=== PATIENT | male | born 1960 | race Caucasian/White ===

== ENCOUNTER → 2018-03-30 10:09 | Outpatient (CLI) | payer MEDICARE, SELFPAY ==
[2018-03-30 12:52] LABS: Absolute Lymphocyte Count 1.14 X10^3/ul (0.83-4.51); Absolute Neutrophil Count 4.5 X10^3/uL (2.0-7.7); Basophil# 0.07 X10^3/uL; Basophil% 1.1 % (0-1); Eosinophil# 0.15 X10^3/uL; Eosinophils% 2.3 % (0-5); Hematocrit 45.6 % (40-54); Hemoglobin 15.2 g/dl (13.0-16.5); Lymphocyte # 1.14 X10^3/ul (4.0); Lymphocyte % 17.4 % (19-41); Mean Corp Hgb Conc 33.3 g/gl (32-36); Mean Corpuscular Volume 93.1 fL (80-94); Mean Platelet Vol. 11.1 fl (6.2-12.0); Monocyte# 0.67 X10^3/uL; Monocyte% 10.2 % (0-10); Neutrophil # 4.53 X10^3/uL (2.7-7.7); Neutrophil % 68.8 % (47-70); Platelet Count 255 K/mm3 (150-450); RBC Distribution Width CV 13.9 % (11.6-14.6); RBC Distribution Width SD 47.8 fl (35.1-43.9); White Blood Count 6.6 K/mm3 (4.4-11.0)
[2018-03-30 12:56] LABS: POSITIVE COUNT NO; POSITIVE DIFFERENTIAL NO; POSITIVE MORPHOLOGY NO
[2018-03-30 13:20] LABS: AST(SGOT) 21 U/L (15-37); Alanine Aminotransfer ALT/SGPT 30 U/L (16-61); Albumin, Serum 4.2 g/dL (3.2-5.0); Alkaline Phosphatase 83 U/L (45-117); Anion Gap 9 (5-15); BUN 15 mg/dL (7-18); BUN/Creat Ratio 14.3 RATIO (10-20); Calcium,Total 8.7 mg/dL (8.5-10.1); Chloride 107 mmol/L (98-107); Creatinine, Serum 1.05 mg/dL (0.70-1.30); EST Glomerular Filtration Rate 77 mL/min (>60); Est Glom Filt Rate - Afr Amer 93 mL/min (>60); Globulin 4.3 g/dL (2.2-4.2); Glucose 90 mg/dL (74-106); Protein, Total 8.5 g/dL (6.4-8.2); Sodium Level 142 mmol/L (136-145)
[2018-03-31 11:16] LABS: Hep C Antibodies <0.1 s/co ratio (0.0-0.9)
== END ==
PROVIDERS: Family Provider Family Medicine Geriatric Medicine; PCP Family Medicine Geriatric Medicine; Visit Provider Family Medicine Geriatric Medicine
DX: I10 Essential (primary) hypertension (principal); Z12.5 Encounter for screening for malignant neoplasm of prostate; Z13.89 Encounter for screening for other disorder
CPT/HCPCS: 36415; 80053; 84153; 84443; 85025; 86803; G0103

== ENCOUNTER → 2018-09-28 11:37 | Outpatient (CLI) | payer MEDICARE, SELFPAY ==
[2018-09-28 12:41] LABS: Absolute Lymphocyte Count 1.45 X10^3/ul (0.83-4.51); Absolute Neutrophil Count 3.6 X10^3/uL (2.0-7.7); Basophil# 0.08 X10^3/uL; Basophil% 1.3 % (0-1); Eosinophil# 0.31 X10^3/uL; Eosinophils% 5.1 % (0-5); Hematocrit 46.9 % (40-54); Hemoglobin 15.7 g/dl (13.0-16.5); Lymphocyte # 1.45 X10^3/ul (4.0); Lymphocyte % 23.9 % (19-41); Mean Corp Hgb Conc 33.5 g/gl (32-36); Mean Corpuscular Hgb 31.2 pg (27.0-32.0); Mean Corpuscular Volume 93.2 fL (80-94); Monocyte# 0.65 X10^3/uL; Monocyte% 10.7 % (0-10); Neutrophil # 3.56 X10^3/uL (2.7-7.7); Neutrophil % 58.8 % (47-70); Platelet Count 213 K/mm3 (150-450); RBC Distribution Width SD 51.2 fl (35.1-43.9); Red Blood Count 5.03 M/mm3 (4.6-6.2); White Blood Count 6.1 K/mm3 (4.4-11.0)
[2018-09-28 12:48] LABS: POSITIVE COUNT NO; POSITIVE DIFFERENTIAL NO; POSITIVE MORPHOLOGY NO
[2018-09-28 13:02] LABS: ALB/GLOB Ratio 0.9 RATIO (0.9-2.4); AST(SGOT) 19 U/L (15-37); Alanine Aminotransfer ALT/SGPT 29 U/L (16-61); Albumin, Serum 4.1 g/dL (3.2-5.0); Alkaline Phosphatase 90 U/L (45-117); Anion Gap 12 (5-15); BUN 7 mg/dL (7-18); BUN/Creat Ratio 6.4 RATIO (10-20); Calcium,Total 8.6 mg/dL (8.5-10.1); Chloride 103 mmol/L (98-107); Creatinine, Serum 1.09 mg/dL (0.70-1.30); EST Glomerular Filtration Rate 73 mL/min (>60); Est Glom Filt Rate - Afr Amer 89 mL/min (>60); Globulin 4.4 g/dL (2.2-4.2); Glucose 94 mg/dL (74-106); Potassium 3.6 mmol/L (3.5-5.1); Protein, Total 8.5 g/dL (6.4-8.2); Sodium Level 141 mmol/L (136-145)
--- OUTSIDE RECORDS SUMMARY | 2018-11-23 20:37 | XMS RPT_ITS ---
:1960 Author Organization OHIP Care Team Providers Name Role Phone Napoleon, Pantera Chi Attending Unavailable Napoleon, Pantera Chi Primary Care Unavailable Napoleon, Pantera Chi Attending Unavailable Napoleon, Pantera Chi Primary Care Unavailable PROBLEMS PROBLEMS DATE TYPE CONDITION / CODE ATTENDING STATUS SOURCE 03/30/2018 Unknown I10 - Essential Napoleon, Pnatera Chi Active [place] (primary) [facility] hypertension / Hospital I10(ICD-10) Repository 03/30/2018 Unknown Z12.5 - Encounter Napoleon, Pantera Chi Active [place] for screening for [facility] malignant neoplasm [facility] prostate / Repository Z12.5(ICD-10) 03/30/2018 Unknown Z13.89 - Encounter Napoleon, Pantera Chi Active [place] for screening for [facility] other disorder / Hospital Z13.89(ICD-10) Repository PROCEDURES PROCEDURES No Procedure Records FoundRESULTS RESULTS CBC W/DIFF, AUTOMATED Collected: 09/28/2018 Status: F Source: [place] 11:38 AM [facility] REPOSITORY TYPE CODE TESTS RESULT OUT OF RANGE REFERENCE UNITS LAB L100.1000 4.4-11.0 K/mm3 Normal WBC 6.1 LAB L100.1200 4.6-6.2 M/mm3 Normal RBC 5.03 LAB L100.1300 13.0-16.5 g/dl Normal HGB 15.7 LAB L100.1400 40-54 % Normal HCT 46.9 LAB L100.1500 80-94 fL Normal MCV 93.2 LAB L100.1600 27.0-32.0 pg Normal MCH 31.2 LAB L100.1700 32-36 g/gl Normal MCHC 33.5 LAB L100.1810 11.6-14.6 % High RDW CV 15.0 LAB L100.1820 35.1-43.9 fl High RDW SD 51.2 LAB L100.1900 150-450 K/mm3 Normal PLT 213 LAB L100.2000 6.2-12.0 fl Normal MPV 11.0 LAB L100.2100 47-70 % Normal NEUT% 58.8 LAB L100.2200 19-41 % Normal LY% 23.9 LAB L100.2300 0-10 % High MONO% 10.7 LAB L100.2400 0-5 % High EO% 5.1 LAB L100.2500 0-1 % High BASO% 1.3 LAB L100.2550 0.0-0.9 % Normal IM GRAN % 0.200 Result Comment: IG% - Immature Granulocytes (promyelocytes, myelocytes and metamyelocytes) > 1% indicates that a LEFT SHIFT is Present. LAB L100.2620 2.0-7.7 X10 3/uL Normal Absolute Neut 3.6 LAB L100.2720 0.83-4.51 X10 3/ul Normal Absolute Lymph 1.45 Performed By: #### L100.0100 #### [facility] [address] [place], [address] COMPREHENSIVE METABOLIC Collected: 09/28/2018 Status: F Source: [place] 11:38 AM [facility] REPOSITORY TYPE CODE TESTS RESULT OUT OF RANGE REFERENCE UNITS LAB L501.0100 74-106 mg/dL Normal GLU 94 Result Comment: Please note revised GLUCOSE reference range effective 2017. LAB L501.1000 7-18 mg/dL Normal BUN 7 LAB L501.1100 0.70-1.30 mg/dL Normal CREAT,SERUM 1.09 Result Comment: The validity of the calculated GFR AND GFRAA in patients over 70 years has not been determined. Clinical correlation is essential. LAB L501.1110 >60 mL/min Normal EST GFR 73 Result Comment: Non- GFR Calc LAB L501.1115 >60 mL/min Normal EST GFR - AA 89 Result Comment: GFR Calc LAB L501.1300 10-20 RATIO Low BUN/CRE 6.4 LAB L501.1500 6.4-8.2 g/dL High T PROT 8.5 LAB L501.1800 3.2-5.0 g/dL Normal ALB 4.1 LAB L501.1950 2.2-4.2 g/dL High GLOB 4.4 LAB L501.2000 0.9-2.4 RATIO Normal A/G 0.9 LAB L501.2200 8.5-10.1 mg/dL Normal CA 8.6 LAB L501.4100 15-37 U/L Normal AST 19 LAB L501.4305 45-117 U/L Normal ALK P 90 LAB L501.4405 16-61 U/L Normal ALT 29 LAB L501.4600 0.20-1.00 mg/dL Normal T BILI 0.40 LAB L501.5300 136-145 mmol/L Normal NA 141 LAB L501.5600 3.5-5.1 mmol/L Normal K 3.6 LAB L501.5900 98-107 mmol/L Normal CL 103 LAB L501.6100 21.0-32.0 mmol/L Normal CO2 26.0 LAB L501.6200 5-15 Normal GAP 12 Performed By: #### L500.4050, L501.9520 #### [facility] [address] [place], [place], [address] THYROID STIM HORMONE Collected: 09/28/2018 Status: F Source: [place] (TSH) 11:38 AM [facility] REPOSITORY TYPE CODE TESTS RESULT OUT OF RANGE REFERENCE UNITS LAB L501.9520 0.358-3.74 uIU/mL Normal TSH 1.90 Performed By: #### L500.4050, L501.9520 #### [facility] [address] [place], [address] CBC W/DIFF, AUTOMATED Collected: 03/30/2018 Status: F Source: [place] 10:12 AM [facility] REPOSITORY TYPE CODE TESTS RESULT OUT OF RANGE REFERENCE UNITS LAB L100.1000 4.4-11.0 K/mm3 Normal WBC 6.6 LAB L100.1200 4.6-6.2 M/mm3 Normal RBC 4.90 LAB L100.1300 13.0-16.5 g/dl Normal HGB 15.2 LAB L100.1400 40-54 % Normal HCT 45.6 LAB L100.1500 80-94 fL Normal MCV 93.1 LAB L100.1600 27.0-32.0 pg Normal MCH 31.0 LAB L100.1700 32-36 g/gl Normal MCHC 33.3 LAB L100.1810 11.6-14.6 % Normal RDW CV 13.9 LAB L100.1820 35.1-43.9 fl High RDW SD 47.8 LAB L100.1900 150-450 K/mm3 Normal PLT 255 LAB L100.2000 6.2-12.0 fl Normal MPV 11.1 LAB L100.2100 47-70 % Normal NEUT% 68.8 LAB L100.2200 19-41 % Low LY% 17.4 LAB L100.2300 0-10 % High MONO% 10.2 LAB L100.2400 0-5 % Normal EO% 2.3 LAB L100.2500 0-1 % High BASO% 1.1 LAB L100.2550 0.0-0.9 % Normal IM GRAN % 0.200 Result Comment: IG% - Immature Granulocytes (promyelocytes, myelocytes and metamyelocytes) > 1% indicates that a LEFT SHIFT is Present. LAB L100.2620 2.0-7.7 X10 3/uL Normal Absolute Neut 4.5 LAB L100.2720 0.83-4.51 X10 3/ul Normal Absolute Lymph 1.14 Performed By: #### L100.0100 #### [facility] [address] [place], [address] COMPREHENSIVE METABOLIC Collected: 03/30/2018 Status: F Source: [facility] 10:12 AM [facility] REPOSITORY TYPE CODE TESTS RESULT OUT OF RANGE REFERENCE UNITS LAB L501.0100 74-106 mg/dL Normal GLU 90 Result Comment: Please note revised GLUCOSE reference range effective 2017. LAB L501.1000 7-18 mg/dL Normal BUN 15 LAB L501.1100 0.70-1.30 mg/dL Normal CREAT,SERUM 1.05 Result Comment: The validity of the calculated GFR AND GFRAA in patients over 70 years has not been determined. Clinical correlation is essential. LAB L501.1110 >60 mL/min Normal EST GFR 77 Result Comment: Non- GFR Calc LAB L501.1115 >60 mL/min Normal EST GFR - AA 93 Result Comment: GFR Calc LAB L501.1300 10-20 RATIO Normal BUN/CRE 14.3 LAB L501.1500 6.4-8.2 g/dL High T PROT 8.5 LAB L501.1800 3.2-5.0 g/dL Normal ALB 4.2 LAB L501.1950 2.2-4.2 g/dL High GLOB 4.3 LAB L501.2000 0.9-2.4 RATIO Normal A/G 1.0 LAB L501.2200 8.5-10.1 mg/dL CA Normal 8.7 LAB L501.4100 15-37 U/L Normal AST 21 LAB L501.4305 45-117 U/L Normal ALK P 83 LAB L501.4405 16-61 U/L Normal ALT 30 LAB L501.4600 0.20-1.00 mg/dL T Normal BILI 0.40 LAB L501.5300 136-145 mmol/L NA Normal 142 LAB L501.5600 3.5-5.1 mmol/L K Normal 4.0 LAB L501.5900 98-107 mmol/L CL Normal 107 LAB L501.6100 21.0-32.0 mmol/L Normal CO2 26.0 LAB L501.6200 5-15 Normal GAP 9 Performed By: #### L500.4050, L501.9520, L501.9910 #### [facility] [address] [place], [address] THYROID STIM HORMONE Collected: 03/30/2018 Status: F Source: [place] (TSH) 10:12 AM [facility] REPOSITORY TYPE CODE TESTS RESULT OUT OF RANGE REFERENCE UNITS LAB L501.9520 0.358-3.74 uIU/mL Normal TSH 1.20 Performed By: #### L500.4050, L501.9520, L501.9910 #### [facility] [address] [place], [address] PSA,TOTAL - ANNUAL Collected: 03/30/2018 Status: F Source: [place] SCREEN 10:12 AM [facility] REPOSITORY TYPE CODE TESTS RESULT OUT OF RANGE REFERENCE UNITS LAB L501.9910 0.00-4.00 ng/mL Normal PSA,TOT 0.50 SCREEN Result Comment: This test was performed using the TPSA assay method for the [employer] chemistry system. Values obtained with different assay methods cannot be used interchangably. When changing PSA assays in the course of monitoring a patient, additional sequential testing should be carried out to confirm baseline values. Performed By: #### L500.4050, L501.9520, L501.9910 #### [facility] [address] [place], [address] HEPATITIS C ANTIBODIES Collected: 03/30/2018 Status: F Source: [place] 10:12 AM [facility] REPOSITORY TYPE CODE TESTS RESULT OUT OF RANGE REFERENCE UNITS LAB L3100.0650 0.0-0.9 s/co ratio Normal HEP C AB <0.1 Result Comment: Negative: < 0.8 Indeterminate: 0.8 - 0.9 Positive: > 0.9 The CDC recommends that a positive HCV antibody result be followed up with a HCV Nucleic Acid Amplification test (754068). Performed at: [facility] [id number] Risk Assessor: Mathieu Connell PhD, Phone: [phone] Performed By: #### L3100.0625 #### [facility] (refer to report for specific site) refer to report for address and phone number ALLERGIES ALLERGIES No Allergies Records FoundENCOUNTERS ENCOUNTERS ADMIT/DISCHARGE ACCOUNT ADMITTING ENCOUNTER LOCATION SOURCE NUMBER CLASS 09/28/[id number] [facility] 5 [facility] ing:[id number] Repository 03/30/[id number] [facility] 7 [facility] ing:POLAB3 Repository PAYERS PAYERS ENCOUNTER GUARANTOR PAYER SUBSCRIBER SOURCE 09/28/2018 Eliazar Hernandez [id number] Insurance:MEDICARE McdonaldDOB: [facility] [id number] Number: Repository [id number]: [phone] [id number] [phone] () Date:2018-09-28 09/28/2018 Secondary NOT GIVENUNK [place] Insurance:SELF PAY [facility]: Effective Repository Date:2018-09-28 03/30/2018 Eliazar Hernandez [id number] Insurance:MEDICARE MillerDOB: [facility] PART A olicy [id number] Number: Repository [id number]: [id number] [phone] () Date:2018-03-30 03/30/2018 Secondary NOT GIVENUNK [place] Insurance:SELF PAY [facility] Number: Effective Repository Date:2018-03-30
== END ==
PROVIDERS: Family Provider Family Medicine Geriatric Medicine; PCP Family Medicine Geriatric Medicine; Visit Provider Family Medicine Geriatric Medicine
DX: I10 Essential (primary) hypertension (principal)
CPT/HCPCS: 36415; 80053; 84443; 85025

== ENCOUNTER → 2019-03-07 10:28 | Outpatient (CLI) | payer MEDICARE, SELFPAY ==
--- NOTE | 2019-03-07 10:35 | RAD_ITS ---
STUDY: X-RAY - ABDOMEN/PELVIS REASON FOR EXAM: Male, 58 years old. Fecal impaction. TECHNIQUE: AP supine and upright views of the abdomen and pelvis. COMPARISON: Comparison is made with prior study dated March 24, 2017. FINDINGS: Normal visualized lung bases. There is a moderate amount of colonic fecal material. There is no demonstrated free abdominal air. The visualized liver, spleen and kidneys are grossly normal in size and morphology. Normal soft tissue structures. There are diffuse degenerative changes of the visualized lumbar spine. Mild levoscoliosis. RAD/Abd Inc Decub and/or Erect IMPRESSION: Moderate amount of fecal material is seen in the colon. Electronically Signed: Navi Velazco, at 11:08 EDT , Service support ,
== END ==
LOC: RAD.FUTURE 10:33
PROVIDERS: Family Provider Family Medicine Geriatric Medicine; PCP Family Medicine Geriatric Medicine; Referring Provider Family Medicine Geriatric Medicine; Visit Provider Family Medicine Geriatric Medicine
DX: K56.41 Fecal impaction (principal)
CPT/HCPCS: 74018; 74019

== ENCOUNTER → 2019-08-22 15:09 | Outpatient (CLI) | payer MEDICARE, SELFPAY ==
--- NOTE | 2019-08-22 15:53 | RAD_ITS ---
STUDY: X-RAY - ABDOMEN/PELVIS REASON FOR EXAM: Male, 58 years old. Fecal impaction of colon, lower abdominal pain TECHNIQUE: AP supine and upright views of the abdomen and pelvis. COMPARISON: Prior study of 03/07/2019 FINDINGS: Normal visualized lung bases. There is an unremarkable bowel gas pattern. There is no demonstrated free abdominal air. The visualized liver, spleen and kidneys are grossly normal in size and morphology. Normal soft tissue structures. There are degenerative changes of the visualized thoracolumbar spine. RAD/Abd Inc Decub and/or Erect IMPRESSION: Degenerative changes of the visualized thoracolumbar spine. The bowel gas pattern is unremarkable with no evidence of ileus or obstruction. There is actually a paucity of colonic stool. Electronically Signed: Manny Harmon MD at 23:44 EDT , Service support ,
[2019-08-22 16:57] LABS: Absolute Neutrophil Count 4.6 X10^3/uL (2.0-7.7); Basophil# 0.07 X10^3/uL; Basophil% 1.1 % (0-1); Eosinophil# 0.14 X10^3/uL; Eosinophils% 2.3 % (0-5); Hematocrit 48.8 % (40-54); Hemoglobin 16.1 g/dL (13.0-16.5); Lymphocyte % 17.7 % (19-41); Mean Corpuscular Hgb 32.4 pg (27.0-32.0); Mean Corpuscular Volume 98.2 fL (80-94); Mean Platelet Vol. 11.1 fl (6.2-12.0); Monocyte# 0.31 X10^3/uL; NRBC Flagged by Analyzer 0 % (0-5); Neutrophil # 4.56 X10^3/uL (2.7-7.7); Neutrophil % 73.4 % (47-70); Platelet Count 229 K/mm3 (150-450); RBC Distribution Width CV 12.7 % (11.6-14.6); RBC Distribution Width SD 45.8 fl (35.1-43.9); Red Blood Count 4.97 M/mm3 (4.6-6.2); White Blood Count 6.2 K/mm3 (4.4-11.0)
[2019-08-22 17:23] LABS: AST(SGOT) 19 U/L (15-37); Alanine Aminotransfer ALT/SGPT 32 U/L (16-61); Alkaline Phosphatase 71 U/L (45-117); Anion Gap 6 (5-15); BUN 10 mg/dL (7-18); Calcium,Total 8.7 mg/dL (8.5-10.1); Chloride 106 mmol/L (98-107); EST Glomerular Filtration Rate 81 mL/min (>60); Est Glom Filt Rate - Afr Amer 98 mL/min (>60); Globulin 4.1 g/dL (2.2-4.2); Glucose 130 mg/dL (74-106); PSA,Total - Annual Screen 0.56 ng/mL (0.00-4.00); Potassium 3.8 mmol/L (3.5-5.1); Protein, Total 8.1 g/dL (6.4-8.2); Sodium Level 141 mmol/L (136-145); Thyroid Stim Hormone (TSH) 0.79 uIU/mL (0.358-3.74)
== END ==
LOC: POLAB3 15:09 → RAD 15:50
PROVIDERS: Family Provider Family Medicine Geriatric Medicine; PCP Family Medicine Geriatric Medicine; Referring Provider Family Medicine Geriatric Medicine; Visit Provider Family Medicine Geriatric Medicine
DX: I10 Essential (primary) hypertension (principal); Z12.5 Encounter for screening for malignant neoplasm of prostate; K56.41 Fecal impaction
CPT/HCPCS: 36415; 74019; 80053; 84153; 84443; 85025; G0103

== ENCOUNTER 2020-01-21 23:26 | Emergency (ER) | payer MEDICARE, SELFPAY ==
[2020-01-21 23:27] VITALS: BP 159/97; PULSE 87; RESP 19; TEMP 36.5; O2SAT 20; BMI 28.0
[2020-01-21 23:34] VITALS: BP 162/95; PULSE 86; RESP 17; TEMP 36.5; O2SAT 98
--- NOTE | 2020-01-21 23:44 | RAD_ITS ---
STUDY: X-RAY CHEST REASON FOR EXAM: Male, 59 years old. SOB TECHNIQUE: Single AP portable view of the chest. COMPARISON: 01/28/2012. FINDINGS: The lungs are clear and expanded. There is no demonstrated pleural abnormality. Normal size heart. Normal mediastinum and ted. Normal visualized pulmonary arteries. There is atherosclerotic calcification of the aortic arch. There are no visualized acute osseous abnormalities. . There is no demonstrated abnormality of the visualized soft tissue structures of the upper abdomen. RAD/Chest 1 View (Portable) IMPRESSION: No evidence for acute cardiopulmonary pathology. Electronically Signed: Jozef Akers MD at 0:17 EDT , Service support ,
--- NOTE | 2020-01-21 23:44 | EKG12_ITS ---
Test Reason : SOB Blood Pressure : / mmHG Vent. Rate : 077 BPM Atrial Rate : 077 BPM P-R Int : 188 ms QRS Dur : 138 ms QT Int : 404 ms P-R-T Axes : 017 008 155 degrees QTc Int : 457 ms Sinus rhythm with occasional Premature ventricular complexes Non-specific intra-ventricular conduction block T wave abnormality, consider inferolateral ischemia Abnormal ECG Confirmed by BILLY ZAYAS, TELLY ([id number]), photography editor SHARDA BRISCOE ([id number]) on 01/23/2020 8:27:08 AM Referred By: LISANDRA Confirmed By:TELLY CERVANTES MD
--- NOTE | 2020-01-21 23:49 | RAD_ITS ---
STUDY: X-RAY - ABDOMEN/PELVIS REASON FOR EXAM: Male, 59 years old. CONSTIPATION TECHNIQUE: Two AP supine views of the abdomen and pelvis. COMPARISON: 08/22/2019. FINDINGS: Normal visualized lung bases. There is an unremarkable bowel gas pattern. There is no demonstrated free abdominal air. The visualized liver, spleen and kidneys are grossly normal in size and morphology. Normal soft tissue structures. There are multilevel degenerative changes of the visualized lumbar spine. RAD/Abdomen Single View IMPRESSION: Normal x-ray examination of the abdomen and pelvis. There is no significant prominence of colonic or rectal feces. Electronically Signed: Jozef Akers MD at 0:16 EDT , Service support ,
[2020-01-22] LABS: Absolute Lymphocyte Count 2.06 X10^3/uL (0.83-4.51); Absolute Neutrophil Count 4.1 X10^3/uL (2.0-7.7); Basophil# 0.11 X10^3/uL; Basophil% 1.5 % (0-1); Eosinophil# 0.22 X10^3/uL; Eosinophils% 2.9 % (0-5); Hematocrit 45.2 % (40-54); Hemoglobin 15.4 g/dL (13.0-16.5); Lymphocyte # 2.06 X10^3/ul (4.0); Lymphocyte % 27.5 % (19-41); Mean Corp Hgb Conc 34.1 g/dL (32-36); Mean Corpuscular Volume 96.8 fL (80-94); Mean Platelet Vol. 10.7 fl (6.2-12.0); Monocyte# 0.92 X10^3/uL; Monocyte% 12.3 % (0-10); NRBC Flagged by Analyzer 0 % (0-5); Neutrophil # 4.12 X10^3/uL (2.7-7.7); Neutrophil % 55.1 % (47-70); Platelet Count 222 K/mm3 (150-450); RBC Distribution Width CV 13.2 % (11.6-14.6); Red Blood Count 4.67 M/mm3 (4.6-6.2); White Blood Count 7.5 K/mm3 (4.4-11.0)
[2020-01-22] MEDS: 0.9% Normal Saline 1,000 ML 150 ML IV (00:14)
[2020-01-22 00:23] LABS: Anion Gap 7 (5-15); BUN 17 mg/dL (7-18); BUN/Creat Ratio 16.5 RATIO (10-20); Calcium,Total 8.8 mg/dL (8.5-10.1); Chloride 106 mmol/L (98-107); Creatinine, Serum 1.03 mg/dL (0.70-1.30); EST Glomerular Filtration Rate 78 mL/min (>60); Est Glom Filt Rate - Afr Amer 94 mL/min (>60); Estimated Creatinine Clearance 77.76 ml/min; Glucose 84 mg/dL (74-106); Potassium 3.7 mmol/L (3.5-5.1); Sodium Level 141 mmol/L (136-145)
[2020-01-22 00:59] LABS: D-Dimer Quantitative (DVT/PE) 0.27 FEU/ug/m (0.27-0.49)
--- NOTE | 2020-01-22 01:30 | ED.DCSUM_ITS ---
- ER Visit Summary Date of Service: 01/22/20 Chief Complaint: [Dyspnea] History of Present Illness: The patient is a 59 M [presents to the emergency department with complaint of cough and some dyspnea for the last 2 days. Patient told me he really has not had much of a cough. He denies any fever. He feels like he just cannot catch his breath at times. Patient also is unsure when his last bowel movement was and has had problems with constipation before. Patient denies recent travel or surgery. He denies any travel. He denies any sick contacts or exposures to the novel coronavirus.] Physical Examination: [HEENT-PERRLA, EOMI. Cranial nerves II through XII grossly intact. TMs clear. Mucous membranes moist. No adenopathy. Cardiovascular-regular rate and rhythm without murmur or ectopy Lungs-clear to auscultation, chest wall stable without crepitus or subcu emphysema Abdomen-normoactive bowel sounds, soft, nontender, no rebound or rigidity, no peritoneal signs. Extremities-intact ?4, normal range of motion, normal pulses, atraumatic] Test Results: [EKG obtained arrival shows sinus rhythm with a ventricular rate 77 bpm with some nonspecific ST changes noted. Patient had a nonspecific intraventricular conduction delay. CBC with differential obtained showed a white count 7.5, hemoglobin 15, hematocrit 45, placed 222. Chemistries unremarkable. Troponin is less than 0.015. D-dimer was normal 0.27. Influenza screen was negative. Chest x-ray showed nothing acute. KUB obtained was normal.] Emergency Department Course and Treatment: [Patient was observed in the department. He does not appear dyspneic. He is comfortable with being discharged home.] Treatment Plan: [Follow-up with primary care physician in 3 to 5 days.] Patient understands I cannot rule out infection with novel coronavirus due to lack of testing availability. Advised to self isolate for 2 weeks. Disposition: [Discharged home in stable condition.] Impression: [Viral URI Dyspnea] This note was generated with mapp2link dictation software. It may contain incorrect words, spelling, and punctuation that were not noted in review of the chart prior to signing ED Disposition - Plan for ED Patient: Referrals: Pantera Bender Chi, MD [Primary Care Provider] -
--- NOTE | 2020-01-22 01:34 | ED.DEP ---
ED Disposition - Plan for ED Patient: Instructions: BRONCHITIS, No Antibiotic (Adult) Referrals: Pantera Bender Chi, MD [Primary Care Provider] - 10-14 Days if not better
[2020-01-22 01:39] VITALS: BP 141/79; PULSE 71; RESP 18; O2SAT 95
[2020-01-22 01:56] LABS: BNP,B-Type NATRIURETIC PEPTIDE 8.2 pg/mL (0-100)
== END 2020-01-22 01:53 | disposition home or self-care (01) ==
LOC: ED 23:42
PROVIDERS: Emergency Provider Emergency Medicine; PCP Family Medicine Geriatric Medicine
DX: J06.9 Acute upper respiratory infection, unspecified (principal); R06.00 Dyspnea, unspecified; I10 Essential (primary) hypertension; Z72.0 Tobacco use; Z86.73 Personal history of transient ischemic attack (TIA), and cerebral infarction without residual deficits
CPT/HCPCS: 71045; 74018; 80048; 83880; 84484; 85025; 85379; 87804; 93005; 96360; 99285; J7030; A4216

== ENCOUNTER 2020-03-29 13:43 | Emergency (ER) | payer MEDICARE, SELFPAY ==
[2020-03-29] VITALS (7 sets, daily range): BP systolic 148–187; BP diastolic 77–113; PULSE 62–67; RESP 15–18; TEMP 36.3–36.6; O2SAT 17–97; BMI 32.3; BMI 29.6
--- NOTE | 2020-03-29 13:48 | EKG12_ITS ---
Test Reason : STROKE TEAM Blood Pressure : / mmHG Vent. Rate : 070 BPM Atrial Rate : 070 BPM P-R Int : 190 ms QRS Dur : 134 ms QT Int : 404 ms P-R-T Axes : 055 010 136 degrees QTc Int : 436 ms Normal sinus rhythm Non-specific intra-ventricular conduction block T wave abnormality, consider lateral ischemia Abnormal ECG Confirmed by FRANCISCO CRUZ ([id number]), associate entertainment editor DIANN DAVID ([id number]) on 04/01/2020 11:01:02 AM Referred By: ANATOLIY Confirmed By:FRANCISCO CRUZ
--- NOTE | 2020-03-29 13:48 | CT_ITS ---
STUDY: CT BRAIN WITHOUT CONTRAST REASON FOR EXAM: Male, 59 years old. STROKE SX, RT SIDED WEAKNESS RADIATION DOSAGE (If Supplied By Facility): CTDIvol = ( 44.99 ) mGy, DLP = ( 863.60 ) mGycm TECHNIQUE: Transaxial CT imaging of the brain was performed without administration of intravenous contrast material. Individualized dose optimization techniques were used for this CT. COMPARISON: Comparison is made with prior examination dated November 04, 2012. 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 Normal calvarium. There is mild cerebral atrophy with widening of the extra-axial spaces and ventricular dilatation. Stable encephalomalacia in the medial aspects of both occipital lobes suggestive of old ischemic change. Normal basal ganglia and thalami. Normal brainstem. Normal cerebellum. There is no intracranial hemorrhage. There are no findings of an acute ischemic infarction. Partial opacification of the ethmoid sinuses. Mucosal thickening of the left sphenoid sinus. CT/Brain/Head without Contrast IMPRESSION: Chronic involutional changes of the brain. No acute abnormality is seen. N.B. : The above information has been verbally conveyed by Navi Velazco to Dr Alana MD, on 03/29/2020 14:13:12 (ET). Electronically Signed: Navi Velazco, at 14:14 EDT , Service support ,
--- NOTE | 2020-03-29 13:49 | CT_ITS ---
STUDY: CTA HEAD AND NECK WITH CONTRAST REASON FOR EXAM: Male, 59 years old. RT SIDED WEAKNESS, STROKE SUSPECTED, HX OF STROKE PER PT RADIATION DOSAGE (If Supplied By Facility): CTDIvol = ( 17.46 ) mGy, DLP = ( 740.79 ) mGycm TECHNIQUE: CT angiography was performed with a multi-detector CT scanner. Data acquisition was obtained from the skull base through the vertex following intravenous administration of 100ML ISOVUE 370. MIP images were reconstructed from the axial data set. Post-processing of the angiographic images was performed, with multiplanar reformation and 3D reconstruction. Individualized dose optimization techniques were used for this CT. COMPARISON: No relevant priors. FINDINGS: Normal bilateral petrous carotid arteries. Normal right cavernous carotid artery with a normal supraclinoid bifurcation. Normal left cavernous carotid artery with a normal supraclinoid bifurcation. Normal right A1 segments of the anterior cerebral artery. Normal left A1 segments of the anterior cerebral artery. Normal intact anterior communicating artery (ACOM). Normal bilateral A2 segments of the anterior cerebral arteries. Normal right M1 and M2 segments of the middle cerebral arteries, with a normal M1 bifurcation. Normal left M1 and M2 segments of the middle cerebral arteries, with a normal M1 bifurcation. Normal right posterior communicating artery (PCOM). Normal left posterior communicating artery (PCOM). Normal bilateral vertebral arteries. Normal basilar artery with a normal basilar bifurcation. The visualized bilateral superior cerebellar (SCA) arteries are normal. Normal bilateral P1, P2 and visualized P3 segments of the posterior cerebral arteries. There is no demonstrated aneurysm of the [place] of [place]. AORTIC ARCH: There is atherosclerotic calcific plaque formation of the aortic arch and great vessels arising from the aortic arch, without a hemodynamically significant stenosis. Calcific plaque at the origin of the right brachiocephalic artery. There is a normal origin of the brachiocephalic, left common carotid, and left subclavian arteries. RIGHT CAROTID ARTERIES: Normal right common carotid artery (CCA). Normal right common carotid bulb. There is minimal atherosclerotic plaque formation of the origin of the right internal carotid artery with less than 50% cross sectional diameter stenosis. Normal visualized cervical portion of the right internal carotid artery. Normal origin of the right external carotid artery (ECA). LEFT CAROTID ARTERIES: Normal left common carotid artery (CCA). Normal left common carotid bulb. Normal origin of the left internal carotid (ICA) artery without a hemodynamically significant stenosis. Normal visualized cervical portion of the left internal carotid artery. Normal origin of the left external carotid artery (ECA). VERTEBRAL ARTERIES: Normal bilateral vertebral arteries. CT/CTA Head AND Neck W/ Contrast IMPRESSION: Normal CTA Head and neck with contrast. Electronically Signed: Navi Velazco, at 14:18 EDT , Service support ,
--- NOTE | 2020-03-29 13:50 | CM.ED ---
SOCIAL WORK RESPONDED TO STROKE ALERT. WILL REMAIN AVAILABLE FOR NEEDS. Jj ROMAN, ORACLE ARCHITECT, [employer].
--- NOTE | 2020-03-29 13:53 | ED.RN ---
PT STATES RT EYE VISUAL DEFICIT FROM PRIOR STROKE, N/T ALL OVER, BUT BOTH SIDES OF BODY FEEL THE SAME.
[2020-03-29 13:59] LABS: Absolute Neutrophil Count 4.1 X10^3/uL (2.0-7.7); Basophil# 0.08 X10^3/uL; Basophil% 1.2 % (0-1); Eosinophil# 0.24 X10^3/uL; Eosinophils% 3.7 % (0-5); Hematocrit 47.4 % (40-54); Hemoglobin 15.7 g/dL (13.0-16.5); Mean Corp Hgb Conc 33.1 g/dL (32-36); Mean Corpuscular Hgb 31.8 pg (27.0-32.0); Mean Corpuscular Volume 96.1 fL (80-94); Mean Platelet Vol. 10.2 fl (6.2-12.0); Monocyte# 0.73 X10^3/uL; Monocyte% 11.2 % (0-10); NRBC Flagged by Analyzer 0 % (0-5); Neutrophil # 4.11 X10^3/uL (2.7-7.7); Neutrophil % 63.4 % (47-70); Platelet Count 292 K/mm3 (150-450); RBC Distribution Width CV 12.5 % (11.6-14.6); RBC Distribution Width SD 44.4 fl (35.1-43.9); Red Blood Count 4.93 M/mm3 (4.6-6.2); White Blood Count 6.5 K/mm3 (4.4-11.0)
[2020-03-29 14:14] LABS: Anion Gap 6 (5-15); BUN 12 mg/dL (7-18); BUN/Creat Ratio 10.3 RATIO (10-20); Calcium,Total 8.9 mg/dL (8.5-10.1); Chloride 106 mmol/L (98-107); Creatinine, Serum 1.17 mg/dL (0.70-1.30); EST Glomerular Filtration Rate 67 mL/min (>60); Est Glom Filt Rate - Afr Amer 81 mL/min (>60); Estimated Creatinine Clearance 72.77 ml/min; Glucose 93 mg/dL (74-106); Sodium Level 141 mmol/L (136-145)
[2020-03-29 14:15] LABS: Prothrombin Time (Protime)PT. 13.2 SECONDS (11.7-14.9)
[2020-03-29 14:16] LABS: Partial Thromboplast Time 29.6 Seconds (24.1-36.2)
--- NOTE | 2020-03-29 14:18 | ED.RN ---
FRIEND AT BEDSIDE STATES PT HAS INTERMITTENT CONFUSION SINCE HIS LAST STROKE.
--- NOTE | 2020-03-29 14:31 | ED.DCSUM_ITS ---
- ER Visit Summary Date of Service: 03/29/20 Chief Complaint: Possible stroke History of Present Illness: The patient is a 59 M who presents with possible stroke that was noticed today. States his symptoms began sometime between 7:30 AM and 8:30 AM today. This was 4 to 5 hours prior to arrival. Patient noticed weakness of his face. Patient states his girlfriend noticed this as well and she called EMS. Patient states he feels tingly all over but denies any weakness. Patient denies any weakness in his arms or legs. Patient denies any changes in his vision. Patient states he has a prior visual field deficit in his right eye due to a prior stroke. Patient admits to some chronic chest pain but denies any shortness of breath. Patient denies any nausea or vomiting. Physical Examination: Vital signs are stable except for an elevated blood pressure of 187/113. Patient is afebrile. Patient is in no acute distress. Cranial nerves II through XII are intact except for right facial weakness. Patient also has difficulty closing his right eye. Patient is unable to elevate his right eyebrow. Sensation was intact to light touch in the face bilaterally. Strength is 5/5 bilaterally upper and lower extremities. There are no sensory deficits noted. Neck is supple. Trachea is midline. There is no JVD. Heart was regular rate and rhythm. Lungs are clear and equal bilaterally. Abdomen is soft and nontender. Extremities are intact. There is no calf tenderness or edema. Test Results: EKG showed normal sinus rhythm with a rate of 70. There is a nonspecific interventricular conduction delay. This was unchanged compared to previous EKG dated 01/22/2020. CT scan of the brain was obtained. There is chronic changes in the occipital lobes. There is no acute infarct or bleed. This was interpreted by the radiologist and reviewed by myself. CTA of the head neck was obtained. This is normal. This was interpreted by the radiologist and reviewed by myself. CBC and basic metabolic profile were within normal limits. Troponin was normal. INR and PTT were within normal limits. Portable chest x- ray was obtained. There is no acute cardiopulmonary process. This was interpreted by the radiologist and myself. Emergency Department Course and Treatment: Stroke team was activated prehospital. NIH stroke scale was 3, 2 for facial palsy and 1 for visual deficit, the visual deficit is chronic from an old stroke. Case was discussed with the stroke neurologist at [facility]. He does not feel TPA is necessary at this time since he is greater than 4 hours. I did recommend obtaining an MRI of his brain however, patient refused this. Patient states he does not want to ever have another MRI again. Patient feels like he is back to his baseline except for the right facial weakness. Girlfriend who called EMS was in the room and states he is acting like his normal self except for the right facial weakness. Patient was advised that the right facial weakness appears to be from a Reno's palsy and not from a stroke. Patient was given prescriptions for prednisone and Valtrex. Patient was instructed to follow-up with his primary care physician in 3 to 5 days. Patient understood and was agreeable with the plan. All questions were answered. Disposition: Discharge home Impression: 1. Reno's palsy This note was generated with [employer] dictation software. It may contain incorrect words, spelling, and punctuation that were not noted in review of the chart prior to signing ED Disposition - Plan for ED Patient: Disposition: Home or Assisted Living Diagnosis: Reno's palsy Instructions: ED [place] Palsy Prescriptions: Prednisone [Deltasone] 60 mg PO DAILY #15 tab Prescription Printed Valacyclovir HCl [Valtrex] 1,000 mg PO TID #15 tab Prescription Printed Referrals: Pantera Bender Chi, MD [Primary Care Provider] - 3-5 Days
--- NOTE | 2020-03-29 14:45 | RAD_ITS ---
STUDY: X-RAY CHEST REASON FOR EXAM: Male, 59 years old. SIDED FACIAL DROOP, WEAKNESS AND N/T -- HX OF CVA AND HTN TECHNIQUE: Single AP portable view of the chest. COMPARISON: Comparison is made with prior study January 21, 2020. FINDINGS: EKG electrodes are seen. The lungs are clear and expanded. There is no demonstrated pleural abnormality. Normal size heart. Normal mediastinum and ted. Normal visualized pulmonary arteries. Normal visualized aortic arch and descending thoracic aorta. There are diffuse degenerative changes of the visualized thoracic spine. Normal visualized ribs, clavicles, and shoulders. There is no demonstrated abnormality of the visualized soft tissue structures of the upper abdomen. RAD/Chest 1 View IMPRESSION: No acute abnormality is seen. Electronically Signed: Navi Velazco, at 15:13 EDT , Service support ,
--- NOTE | 2020-03-29 14:56 | ED.RN ---
PER DR. COPE, OKAY TO DISCONTINUE NIH SCALE.
== END 2020-03-29 15:40 | disposition home or self-care (01) ==
PROVIDERS: Emergency Provider Emergency Medicine; PCP Family Medicine Geriatric Medicine
DX: G51.0 Bell's palsy (principal); R07.9 Chest pain, unspecified; G89.29 Other chronic pain; Z79.02 Long term (current) use of antithrombotics/antiplatelets; Z72.0 Tobacco use; Z86.73 Personal history of transient ischemic attack (TIA), and cerebral infarction without residual deficits
CPT/HCPCS: 70450; 70496; 70498; 71045; 80048; 84484; 85025; 85610; 85730; 93005; 99285; J7030; Q9967; A4216

== ENCOUNTER 2021-12-11 07:55 | Emergency (ER) | payer MEDICARE, SELFPAY ==
[2021-12-11 07:56] VITALS: BP 140/86; PULSE 122; RESP 18; TEMP 37.6; O2SAT 96; BMI 29.1
--- NOTE | 2021-12-11 08:14 | CT_ITS ---
STUDY: CT ABDOMEN AND PELVIS WITHOUT CONTRAST REASON FOR EXAM: Male, 61 years old. Chronic abdominal pain and constipation. RADIATION DOSAGE (If Supplied By Facility): CTDIvol = ( 10.29 ) mGy, DLP = ( 521.96 ) mGycm TECHNIQUE: Transaxial images were obtained from the dome of the diaphragm to the symphysis pubis without oral contrast, and without intravenous contrast. Sagittal and coronal images were reconstructed. Individualized dose optimization techniques were used for this CT. COMPARISON: None. FINDINGS: The visualized lung bases are unremarkable. The visualized portions of the heart are within normal limits. Normal liver. There are multiple small gallstones. Normal spleen. Normal pancreas. There is a small, circumscribed, smooth, low attenuation right adrenal mass, consistent with an adrenal adenoma. This measures 2 cm. Normal left adrenal gland. Normal right kidney. Normal left kidney. There is a small hiatal hernia. Normal small intestine. There are multiple colonic diverticula consistent with diverticulosis. The appendix is visualized and appears normal. There is diffuse atherosclerotic calcification of the abdominal aorta, without a demonstrated aneurysm. Normal inferior vena cava. Normal retroperitoneum. Normal urinary bladder. There is enlargement of the prostate gland. It measures 4 cm x 5.1 cm. Central prostatic calcification. There is a 1 cm diverticulum at the base of the bladder on the right side. Small bilateral inguinal hernias containing fat more prominent on the right side. There are diffuse degenerative changes of the visualized lumbar spine. Spondylolysis of the pars interarticularis of the L5 vertebrae. CT/Abdomen/Pelvis without Cont IMPRESSION: Multiple small gallstones. Sigmoid diverticulosis with no radiographic evidence of diverticulitis. Electronically Signed: Navi Velazco MD at 9:02 EST ,
--- NOTE | 2021-12-11 08:17 | ED.VIS.GI ---
HPI HPI - GI History of Present Illness Chief Complaint: Constipation Informant: patient and spouse/S.O. Abdominal Pain/Flank Pain Onset: Yesterday Context: Gradual Onset Timing: Continuous Quality: Aching, Cramping, Dull and Sharp Location: Diffuse Worsened by: Nothing Relieved by: Nothing Nausea/Vomiting/Emesis GI Symptom: Positive for Nausea; Negative for Vomiting Diarrhea/Melena/Hematochezia GI Symptom: Negative for Diarrhea, Melena and Hematochezia Associated Symptoms Associated Symptoms: Positive for Urgency; Negative for Dysuria, Frequency and Hematuria Narrative Narrative: Patient presents with abdominal pain that began yesterday. Patient states it is gradually getting worse. Patient states his pain is diffuse across his abdomen. Patient describes it as pressure, aching, cramping, and dull. Patient states he feels constipated. Patient denies any diarrhea, melena, or hematochezia. Patient admits to nausea but denies any vomiting. Patient states nothing makes his pain better nothing makes it worse. Patient denies any fevers or chills. Patient denies any chest pain or shortness of breath. [facility] Medical History (Updated 12/11/21 @ 09:[address] Kali Warner DO) Hypertension Stroke/cerebrovascular accident Home Medications clopidogrel 75 mg PO DAILY 03/29/20 [History Last Taken 03/29/20] metoprolol tartrate 25 mg PO BID 03/29/20 [History Last Taken 03/29/20] pravastatin 40 mg PO DAILY 03/29/20 [History Last Taken 03/29/20] tamsulosin [Flomax] 0.4 mg PO DAILY 12/11/21 [History Last Taken Unknown] Allergy/AdvReac Type Severity Reaction Status Date / Time No Known Allergies Allergy Verified 12/11/21 08:00 Surgical History (Updated 12/11/21 @ 08:[address] Kali Warner DO) Hx of appendectomy S/P percutaneous endoscopic gastrostomy (PEG) tube placement Social History Smoking Status: Current every day smoker tobacco type: cigarettes ROS ROS ED Constitutional Constitutional ED: Denies chills or fever(s) Eyes Eyes: Denies blurry vision or change in vision ENT ENT ED: Denies rhinorrhea or sore throat Cardiovascular Cardiovascular: Denies chest pain or palpitations Respiratory/Chest Respiratory/Chest: Denies cough or dyspnea Gastrointestinal Gastrointestinal: Reports abdominal pain, constipation and nausea; Denies diarrhea or vomiting Genitourinary Genitourinary ED: Denies dysuria or hematuria Musculoskeletal Musculoskeletal: Reports neck pain; Denies back pain Integumentary Reports abscess; Denies rash Neurologic Neurologic: Denies headache(s) or weakness Allergic/Immunologic Allergic/Immunologic ED: Denies mouth swelling or urticaria EXAM Physical Exam Const Vital Signs: 12/11/21 07:56 Temperature 99.6 F H Temperature Source Oral Pulse Rate 122 H Respiratory Rate 18 Blood Pressure 140/86 H Blood Pressure Mean 104 Pulse Ox 96 Oxygen Delivery Method Room Air Positive well nourished and well developed General Appearance ED: well developed HEENT Reports moist mucous membranes Neck supple and no JVD Resp normal respiratory effort and clear to auscultation bilaterally Cardio regular rate, regular rhythm and no murmurs GI normal to inspection, nondistended, normoactive bowel sounds and non-distended Auscultation: normoactive bowel sounds Palpation: soft and tender epigastric, LLQ, RLQ, LUQ, RUQ, periumbilical and suprapubic; Negative for guarding or rebound tenderness present Extremity normal to inspection General Extremety ED: Negative for edema or tenderness General Extremity: Negative for edema Neuro oriented x3, CN's II-XII intact bilaterally and no sensory deficits noted Sensorium / Orientation: alert Motor Exam: strength 5/5 throughout Psych mental status grossly normal Skin no rashes or lesions noted MDM MDM MDM Narrative Medical decision making narrative: Patient was given IV fluids. CBC shows a mild leukocytosis of 14.5. Comprehensive metabolic profile was within normal limits. CT scan of the abdomen pelvis was obtained. There are small gallstones but no evidence of cholecystitis. There is sigmoid diverticulosis but no evidence of diverticulitis. There is moderate amount of stool noted. Patient feels better on reevaluation. Patient was advised of his findings. Patient preferred to take a bottle of mag citrate at home with him and try to have a bowel movement there. Patient understands and is agreeable with the plan. All questions were answered. Lab Data Attestation: I reviewed the patient's lab results. Labs: Laboratory Results - last 24 hr 12/11/21 12/11/21 08:04 08:04 WBC 14.5 H RBC 5.01 Hgb 16.6 H Hct 47.4 MCV 94.6 H MCH 33.1 H MCHC 35.0 RDW Std Deviation 44.2 H RDW Coeff of Renny 12.6 Plt Count 207 MPV 10.8 Immature Gran % (Auto) 0.500 Neut % (Auto) 93.9 H Lymph % (Auto) 2.4 L [place] % (Auto) 2.8 Eos % (Auto) 0.0 Baso % (Auto) 0.4 Absolute Neuts (auto) 13.6 H Absolute Lymphs (auto) 0.35 L Nucleated RBC % 0 Sodium 138 Potassium 3.7 Chloride 107 Carbon Dioxide 25.0 Anion Gap 6 BUN 13 Creatinine 1.13 Estim Creat Clear Calc 69.09 Est GFR (MDRD) Af Amer 84 Est GFR (MDRD) Non-Af 70 BUN/Creatinine Ratio 11.5 Glucose 111 H Calcium 8.7 Total Bilirubin 0.70 AST 20 ALT 36 Alkaline Phosphatase 71 Total Protein 8.1 Albumin 4.0 Globulin 4.1 Albumin/Globulin Ratio 1.0 Radiography Diagnostic Testing: Clinical Impression(s) from Imaging Studies Abdomen/Pelvis CT 12/11/21 08:14 IMPRESSION: Multiple small gallstones. Sigmoid diverticulosis with no radiographic evidence of diverticulitis. Electronically Signed: Navi Velazco MD at 9:02 EST Reading Location ID and State: [address] [place] [address] , Service support , Discharge Plan Triage Chief Complaint: Constipation ED Provider: Kali Warner Dx/Rx/DC Orders Clinical Impression: Constipation Instructions: ED Constipation (Adult) Prescriptions: No Action clopidogrel 75 MG tablet 75 mg PO DAILY RF: 0 metoprolol tartrate 25 MG tablet 25 mg PO BID RF: 0 pravastatin 40 MG tablet 40 mg PO DAILY RF: 0 tamsulosin [Flomax] 0.4 mg capsule 0.4 mg PO DAILY RF: 0 Primary Care Provider: Anuradha Davis Referrals: Anuradha Davis, SHAYE [Primary Care Provider] - 3-5 Days Disposition Disposition: Home, Self Care
[2021-12-11] MEDS: 0.9% Normal Saline 1,000 ML 1000 ML IV (08:23)
[2021-12-11 08:26] LABS: Absolute Lymphocyte Count 0.35 X10^3/uL (0.83-4.51); Absolute Neutrophil Count 13.6 X10^3/uL (2.0-7.7); Basophil# 0.06 X10^3/uL; Basophil% 0.4 % (0-1); Hematocrit 47.4 % (40-54); Hemoglobin 16.6 g/dL (13.0-16.5); Lymphocyte # 0.35 X10^3/ul (0.83-4.51); Lymphocyte % 2.4 % (19-41); Mean Corpuscular Hgb 33.1 pg (27.0-32.0); Mean Corpuscular Volume 94.6 fL (80-94); Mean Platelet Vol. 10.8 fl (6.2-12.0); Monocyte# 0.41 X10^3/uL; Monocyte% 2.8 % (0-10); NRBC Flagged by Analyzer 0 % (0-5); Neutrophil # 13.57 X10^3/uL (2.7-7.7); Neutrophil % 93.9 % (47-70); POSITIVE DIFFERENTIAL YES; Platelet Count 207 K/mm3 (150-450); RBC Distribution Width CV 12.6 % (11.6-14.6); RBC Distribution Width SD 44.2 fl (35.1-43.9); Red Blood Count 5.01 M/mm3 (4.6-6.2); White Blood Count 14.5 K/mm3 (4.4-11.0)
[2021-12-11 08:33] LABS: Differential Indicated SCAN CRITERIA MET
[2021-12-11 08:38] LABS: AST(SGOT) 20 U/L (15-37); Alanine Aminotransfer ALT/SGPT 36 U/L (16-61); Alkaline Phosphatase 71 U/L (45-117); Anion Gap 6 (5-15); BUN 13 mg/dL (7-18); BUN/Creat Ratio 11.5 RATIO (10-20); Calcium,Total 8.7 mg/dL (8.5-10.1); Chloride 107 mmol/L (98-107); Creatinine, Serum 1.13 mg/dL (0.70-1.30); EST Glomerular Filtration Rate 70 mL/min (>60); Est Glom Filt Rate - Afr Amer 84 mL/min (>60); Estimated Creatinine Clearance 69.09 ml/min; Globulin 4.1 g/dL (2.2-4.2); Glucose 111 mg/dL (74-106); Potassium 3.7 mmol/L (3.5-5.1); Protein, Total 8.1 g/dL (6.4-8.2); Sodium Level 138 mmol/L (136-145)
[2021-12-11] MEDS: Magnesium Citrate 300 ML PO (09:41)
[2021-12-11 09:49] VITALS: BP 142/101; PULSE 78; RESP 16; O2SAT 99
== END 2021-12-11 09:50 | disposition home or self-care (01) ==
PROVIDERS: Emergency Provider Emergency Medicine; PCP Physician Assistant; Visit Provider Emergency Medicine
DX: K59.00 Constipation, unspecified (principal); I10 Essential (primary) hypertension; F17.210 Nicotine dependence, cigarettes, uncomplicated; Z79.02 Long term (current) use of antithrombotics/antiplatelets; Z79.899 Other long term (current) drug therapy; Z86.73 Personal history of transient ischemic attack (TIA), and cerebral infarction without residual deficits
CPT/HCPCS: 74176; 80053; 85025; 96360; 99285; J7030; A4216

== ENCOUNTER 2023-05-13 16:43 | Inpatient (IN) | payer MEDICARE, SELFPAY ==
[2023-05-13] VITALS (8 sets, daily range): BP systolic 120–155; BP diastolic 77–90; PULSE 87–120; RESP 16–20; TEMP 36.7–37.2; O2SAT 94–98; BMI 31.1; BMI 30.2
--- NOTE | 2023-05-13 16:58 | EKG12_ITS ---
Test Reason : CP Blood Pressure : / mmHG Vent. Rate : 117 BPM Atrial Rate : 117 BPM P-R Int : 180 ms QRS Dur : 122 ms QT Int : 344 ms P-R-T Axes : 057 051 173 degrees QTc Int : 479 ms Sinus tachycardia Left bundle branch block Abnormal ECG Confirmed by BILLY ZAYAS, TELLY ([id number]), editor at large SHARDA BRISCOE ([id number]) on 05/14/2023 12:58:19 PM Referred By: PL Confirmed By:TELLY CERVANTES MD
[2023-05-13] MEDS: 0.9% Normal Saline 1,000 ML 1000 ML IV (17:00)
--- NOTE | 2023-05-13 17:00 | EDS_ITS ---
HPI History of Present Illness Chief Complaint: Chest Pain Informant: patient Narrative Narrative: Patient presents per EMS in triage with chest pain. However, patient states that he is kind of hurting from the tip of his toes to the top of his head and even his hair hurts. He aches all over. He just does not feel well. His symptoms include chest pain. He states there is like a block sitting on his chest. He does not have nausea vomiting. No fevers. No known diaphoresis. He might feel slightly short of breath but he is not coughing. No hemoptysis. No abdominal pain. He is eating and drinking. He has constipation and difficulty passing urine but this is chronic ever since his stroke 8 years ago. He is on Flomax for the urine. He is on stool softeners. But there is not a change in the symptoms. No nasal congestion. No rashes. He states he just does not feel well. This all started today. Its been more in the last hour or so. I talked to the patient extensively and is very hard to get specific symptoms other than aching all over and not feeling well. Patient has a history of a stroke about 8 years ago. He was in halfway had a PEG tube. He also had a ostomy for a while. Ever since then he has had generalized weakness some lower extremity swelling which is unchanged today. He has had urinary and stool difficulties. He has poor vision which is chronic. He has never had a DVT or PE. No recent travel surgery or immobilization. [facility] Medical History Hypertension Stroke/cerebrovascular accident Home Medications clopidogrel 75 mg tablet 75 mg PO DAILY 03/29/20 [History Last Taken 03/29/20] metoprolol tartrate 25 mg tablet 25 mg PO BID 03/29/20 [History Last Taken 03/29/20] pravastatin 40 mg tablet 40 mg PO DAILY 03/29/20 [History Last Taken 03/29/20] tamsulosin 0.4 mg capsule (Flomax) 0.4 mg PO DAILY 12/11/21 [History Last Taken Unknown] Allergy/AdvReac Type Severity Reaction Status Date / Time No Known Allergies Allergy Verified 05/13/23 16:49 Surgical History Hx of appendectomy S/P percutaneous endoscopic gastrostomy (PEG) tube placement Social History Smoking Status: Light Smoker (<10/day) ROS ROS ED ROS Narrative A complete review of systems was performed and is negative except as documented in the history of present illness. Some specific details below. Constitutional: No recent fevers or chills. EYE: No discharge, he has chronic blurry vision but no new changes. ENT: No difficulty swallowing. No swelling. No pain. No reflux symptoms. CV: See history of present illness. Respiratory: See history of present illness. Not coughing. He states he might be slightly short of breath GI: No abdominal pain. No nausea vomiting diarrhea. No blood in stool. He admits to constipation but this is chronic. He does not recall exactly when he last moved his bowels. : No frequency dysuria or hematuria. He does have difficulty passing urine but again this is chronic and is unchanged Musculoskeletal: No recent trauma. He does states that he aches all over. Skin: No rash. Nondiaphoretic. Neuro: No weakness or numbness. Endocrine: No polyuria or polydipsia. EXAM Physical Exam Narrative Exam Narrative: CONSTITUTIONAL: Patient is nontoxic in appearance. The patient looks comfortable. Work of breathing looks normal. He does not look toxic. HEENT: No notable trauma. Mucous membranes moist. No sinus tenderness. No indication of pain with swallowing. EYES: No conjunctival injection. No proptosis. NECK:No JVD. No stridor. CARDIOVASCULAR: Tachycardic rate. Regular rhythm. No notable murmur. No JVD. RESPIRATORY: No respiratory distress. Breathing is unlabored. No wheezes. No rhonchi. No rales. No pain with a deep breath. No chest wall tenderness. GASTROINTESTINAL: Not distended. Bowel sounds are normal. No tenderness. No guarding. No rebound. No palpable mass. No bruit is heard. GENITOURINARY: No tenderness over the bladder or palpably enlarged bladder. No CVA tenderness. MUSCULOSKELETAL: Atraumatic. He does have some peripheral edema at his lower legs ankle and feet area. Slightly more on the left than the right. But he states this is chronic for him. Higher than this he really has no edema at all. NEUROLOGICAL: Patient is alert and appropriate. No focal deficit noted. SKIN: No noted rashes. No diaphoresis. PSYCHIATRIC: Patient is calm. Mood is appropriate. Const Vital Signs: 05/13/23 16:45 05/13/23 16:50 05/13/23 16:52 Temperature 98.1 F Temperature Source Temporal Pulse Rate 120 H 117 H Respiratory Rate 20 H 16 Respiratory Effort Short of Breath Blood Pressure 152/89 H 155/89 H Blood Pressure Mean 110 111 Pulse Ox 94 95 Oxygen Delivery Method Room Air Room Air 05/13/23 17:55 Temperature Temperature Source Pulse Rate 108 H Respiratory Rate 16 Respiratory Effort Blood Pressure 120/80 Blood Pressure Mean 93 Pulse Ox 95 Oxygen Delivery Method Room Air MDM MDM MDM Narrative Medical decision making narrative: Patient CBC shows no marked abnormalities. Patient's electrolytes showed no significant abnormalities. Patient's was in normal. Patient's liver function test look normal. Patient's troponin is quite high at 182. Patient analysis is normal pending his micro. My independent interpretation the patient's single view AP chest x-ray shows no acute process. Final reading by radiology is no definite acute or significant abnormality seen. Patient had not multiple labs done rather than just a troponin and normal chest pain work-up. Because he states he just overall did not feel well. Chest pain was one of his symptoms. He did state that he felt like there were a stack of blocks on his chest earlier although he does not feel that way now. With his elevated troponin, history of stroke he likely has vascular disease in the heart. He also states he just has no energy today. I think he does need to come in the hospital. I did repeat his EKG because he does have diffuse c hanges. These look to be related to a left bundle. I do not see any interval change between his first and second EKG. Patient is comfortable. But he does need to come in the hospital. I have hospitalist on page at this time. Lab Data Attestation: I reviewed the patient's lab results. Labs: Laboratory Results - last 24 hr 05/13/23 05/13/23 05/13/23 16:50 17:10 17:54 WBC 7.4 RBC 4.72 Hgb 15.3 Hct 45.9 MCV 97.2 H MCH 32.4 H MCHC 33.3 RDW Std Deviation 46.6 H RDW Coeff of Renny 13.0 Plt Count 280 MPV 10.4 Immature Gran % (Auto) 0.500 Neut % (Auto) 61.9 Lymph % (Auto) 21.5 [place] % (Auto) 10.5 H Eos % (Auto) 4.4 Baso % (Auto) 1.2 H Absolute Neuts (auto) 4.6 Absolute Lymphs (auto) 1.60 Nucleated RBC % 0 Sodium 142 Potassium 3.8 Chloride 106 Carbon Dioxide 28.0 Anion Gap 8 BUN 13 Creatinine 1.09 Estim Creat Clear Calc 70.69 Est GFR (MDRD) Af Amer 87 Est GFR (MDRD) Non-Af 72 BUN/Creatinine Ratio 11.9 Glucose 122 H Lactic Acid 1.6 Calcium 8.6 Total Bilirubin 0.30 AST 24 ALT 30 Alkaline Phosphatase 76 Troponin I High Sens 632 H* Total Protein 8.1 Albumin 3.7 Globulin 4.4 H Albumin/Globulin Ratio 0.8 L Lipase 44 Urine Color Yellow Urine Clarity Clear Urine pH 8.0 Ur Specific [place] 1.015 Urine Protein 30 H Urine Glucose (UA) Normal Urine Ketones Negative Urine Occult Blood Negative Urine Nitrite Negative Urine Bilirubin Negative Urine Urobilinogen Normal Ur Leukocyte Esterase 25 H Radiography Diagnostic Testing: Clinical Impression(s) from Imaging Studies Chest X-Ray 05/13/23 17:09 IMPRESSION: No definite acute or significant abnormality seen. Electronically Signed: Rakesh Ramirez MD at 17:23 EDT , EKG Initial EKG: Comments: My independent interpretation the patient's EKG shows left bundle branch block with sinus rhythm and tachycardic rate at 117. I do not see ventricular ectopy. It does look to be quite regular. There are diffuse nonspecific changes likely related to his left bundle branch block. No convincing evidence of infarct or ischemia. MO interval is normal. QRS duration and QTc are just a little bit long. The EKG is similar to 1 from 29 Mar 2020 but there are some subtle variances in his ST and T waves. Discharge Plan Triage Chief Complaint: Chest Pain ED Provider: Raji Dumont Dx/Rx/DC Orders Clinical Impression: Non-ST elevation IN (NSTEMI), H/O left bundle branch block, History of stroke Prescriptions: No Action clopidogrel 75 MG tablet 75 mg PO DAILY metoprolol tartrate 25 MG tablet 25 mg PO BID pravastatin 40 MG tablet 40 mg PO DAILY tamsulosin [Flomax] 0.4 mg capsule 0.4 mg PO DAILY Patient Comments: Take 1 capsule by mouth daily at bedtime. Primary Care Provider: Anuradha Davis Referrals: Anuradha Davis PA [Primary Care Provider] - Disposition Disposition: Acute Care Hospital [facility]
--- NOTE | 2023-05-13 17:09 | RAD_ITS ---
STUDY: X-RAY CHEST REASON FOR EXAM: Male, 62 years old. CP TECHNIQUE: Single AP portable view of the chest. COMPARISON: 03/29/2020 FINDINGS: The lungs are clear and expanded. There is no demonstrated pleural abnormality. Normal size heart. Normal mediastinum and ted. Normal visualized pulmonary arteries. Normal visualized aortic arch and descending thoracic aorta. There are diffuse degenerative changes of the visualized thoracic spine. Normal visualized ribs, clavicles, and shoulders. There is no demonstrated abnormality of the visualized soft tissue structures of the upper abdomen. RAD/Chest 1 View (Portable) IMPRESSION: No definite acute or significant abnormality seen. Electronically Signed: Rakesh Ramirez MD at 17:23 EDT ,
[2023-05-13 17:23] LABS: Absolute Neutrophil Count 4.6 X10^3/uL (2.0-7.7); Basophil# 0.09 X10^3/uL; Basophil% 1.2 % (0-1); Eosinophil# 0.33 X10^3/uL; Eosinophils% 4.4 % (0-5); Hematocrit 45.9 % (40-54); Hemoglobin 15.3 g/dL (13.0-16.5); Lymphocyte % 21.5 % (19-41); Mean Corp Hgb Conc 33.3 g/dL (32-36); Mean Corpuscular Hgb 32.4 pg (27.0-32.0); Mean Corpuscular Volume 97.2 fL (80-94); Mean Platelet Vol. 10.4 fl (6.2-12.0); Monocyte# 0.78 X10^3/uL; Monocyte% 10.5 % (0-10); NRBC Flagged by Analyzer 0 % (0-5); Neutrophil # 4.59 X10^3/uL (2.7-7.7); Neutrophil % 61.9 % (47-70); Platelet Count 280 K/mm3 (150-450); RBC Distribution Width SD 46.6 fl (35.1-43.9); Red Blood Count 4.72 M/mm3 (4.6-6.2); White Blood Count 7.4 K/mm3 (4.4-11.0)
[2023-05-13 18:05] LABS: ALB/GLOB Ratio 0.8 RATIO (0.9-2.4); AST(SGOT) 24 U/L (15-37); Alanine Aminotransfer ALT/SGPT 30 U/L (16-61); Albumin, Serum 3.7 g/dL (3.2-5.0); Alkaline Phosphatase 76 U/L (45-117); Anion Gap 8 (5-15); BUN 13 mg/dL (7-18); BUN/Creat Ratio 11.9 RATIO (10-20); Calcium,Total 8.6 mg/dL (8.5-10.1); Chloride 106 mmol/L (98-107); Creatinine, Serum 1.09 mg/dL (0.70-1.30); EST Glomerular Filtration Rate 72 mL/min (>60); Est Glom Filt Rate - Afr Amer 87 mL/min (>60); Estimated Creatinine Clearance 70.69 ml/min; Globulin 4.4 g/dL (2.2-4.2); Glucose 122 mg/dL (74-106); Lipase 44 U/L (13-75); Potassium 3.8 mmol/L (3.5-5.1); Protein, Total 8.1 g/dL (6.4-8.2); Sodium Level 142 mmol/L (136-145); Troponin-I HS 632 pg/mL (3.0-78.0)
[2023-05-13 18:11] LABS: Bacteria 0 SEEN /hpf (None Seen); Mucous, Urine 0 SEEN /hpf (<or=2+); Red Blood Cells-Urine 0 SEEN /hpf (0-5); Squamous Epithelial Cells - UA 0 SEEN /hpf (0-5)
--- NOTE | 2023-05-13 18:11 | EKG12_ITS ---
Test Reason : REPEAT Blood Pressure : / mmHG Vent. Rate : 102 BPM Atrial Rate : 102 BPM P-R Int : 176 ms QRS Dur : 122 ms QT Int : 352 ms P-R-T Axes : 069 055 164 degrees QTc Int : 458 ms Sinus tachycardia Left bundle branch block Abnormal ECG Confirmed by BILLY ZAYAS, TELLY ([id number]), associate editor SHARDA BRISCOE ([id number]) on 05/14/2023 12:58:36 PM Referred By: Confirmed By:TELLY CERVANTES MD
[2023-05-13 18:25] LABS: Color, Urine Yellow (Yellow); Glucose, Dipstick Normal (Normal); Ketone-Dipstick Negative (Negative); Leukocyte Esterase-Dipstick 25 /ul (Negative); Nitrite-Dipstick Negative (Negative); Occult Blood-Urine Negative /ul (Negative); Protein-Dipstick 30 mg/dl (Negative); Specific Gravity, Urine 1.015 (1.002-1.030); Urine Bilirubin Dipstick Negative (Negative); Urine Clarity Clear (Clear); Urine Urobilinogen Normal (Normal)
[2023-05-13 18:29] LABS: Lactic Acid 1.6 mmol/L (0.4-1.9)
[2023-05-13 18:41] LABS: White Blood Cells 0-5 SEEN /hpf (0-5)
--- NOTE | 2023-05-13 18:47 | PCM.HP.STD ---
HPI - General General Date of Admission: 05/13/23 Date of Service: 05/13/23 Chief Complaint: Fatigued, malaise, chest pain. 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 with subsequent seizures transiently placed on Keppra at that time w/ suspected dissection secondary to substance abuse including cocaine with residual cognitive disabilities and left-sided hemiparesis status post prior ostomy as well as PEG tube related with also chronic cortical blindness, History of EtOH abuse, BPH, Tobacco use who presents to the [facility] ED on 05/13/23 with history of general malaise, fatigue and body aching as well as significant heaviness sitting on his chest with no associated nausea or emesis nor any recent fevers or chills with ongoing oral intake without issue and no significant diaphoresis but noted mild dyspnea without cough all starting on day of presentation with a chest discomfort more notable over the last approximate 1 to 2 hours prior to ED presentation prompting ED evaluation. He also notes some mild lower extremity swelling left greater than right although unchanged and chronic. He does have chronic constipation and takes medication/bowel regimen. He notes also having significant difficulty with dental caries and significant left lower dental pain with lack of dental care for several years. Work-up in the ED included T98.1, heart rate initially 120 with most recent repeat 108, BP initially 152/89 with most recent repeat 120/80, respiratory rate 20, 94% oxygenation on room air, CBC with WC 7.4, hemoglobin 15.3, platelet 280 without marked shift, CMP not marked appearing aside glucose 122, lactic acid 1.6, lipase 44, initial troponin 632, urinalysis initially not infected appearing however awaiting for urine RBC/WBC as well as urine bacteria evaluation, urine culture pending per ED, chest x-ray with no acute cardiopulmonary findings, EKG with sinus rhythm with mild tachycardia with rate 117 with diffuse nonspecific changes with a left bundle branch block similar to an EKG from 03/2020 although subtle variances in the ST and T waves. In the ED patient ministered 1 L normal saline, heparin drip initiated. Pending COVID rapid upon requested evaluation of patient. [facility] Medical History BPH (benign prostatic hyperplasia) H/O left bundle branch block History of alcoholism History of stroke History of substance abuse Hyperlipidemia Hypertension Tobacco use Home Medications clopidogrel 75 mg tablet 75 mg PO DAILY 03/29/20 [History Last Taken 03/29/20] metoprolol tartrate 25 mg tablet 25 mg PO BID 03/29/20 [History Last Taken 03/29/20] pravastatin 40 mg tablet 40 mg PO DAILY 03/29/20 [History Last Taken 03/29/20] tamsulosin 0.4 mg capsule (Flomax) 0.4 mg PO DAILY 12/11/21 [History Last Taken Unknown] Allergy/AdvReac Type Severity Reaction Status Date / Time No Known Allergies Allergy Verified 05/13/23 16:49 Family History (Updated 05/13/23 @ 19:[address] Joy López MD) Mother Diabetes Cancer Breast cancer Father Diabetes Cancer Brother Cancer Surgical History (Updated 05/13/23 @ 18:[address] Joy López MD) History of creation of ostomy Hx of appendectomy S/P percutaneous endoscopic gastrostomy (PEG) tube placement Social History (Updated 05/13/23 @ 19:[address] Joy López MD) household members: significant other Smoking Status: Light Smoker (<10/day) alcohol intake: former details: Sober x 3 years. substance use type: former substance user Date of last use: Prior polysubstance abuse including cocaine, clean x 3 years. ROS ROS Narrative Admission Review of Systems: CONSTITUTIONAL: No weight loss, fever, chills, + weakness or fatigue. HEENT: + Chronic cortical blindness/blurry vision. Eyes: No double vision or yellow sclerae. Ears, Nose, Throat: No hearing loss, sneezing, congestion, runny nose or sore throat. SKIN: No rash or itching, lesions, wounds, + bilateral lower extremity venous stasis skin changes. CARDIOVASCULAR: + chest pain, chest pressure or chest discomfort, edema. No palpitations, orthopnea, syncopal events. RESPIRATORY: No shortness of breath, cough or sputum, wheezing, hemoptysis. GASTROINTESTINAL: No anorexia, nausea, vomiting or diarrhea, abdominal pain, melena, BRBPR. GENITOURINARY: No dysuria, frequency, urgency or retention. NEUROLOGICAL: + Status post CVA with cortical blindness and left-sided hemiparesis although significantly improved. No headache, dizziness, syncope, paralysis, ataxia, change in bowel or bladder control, seizure. MUSCULOSKELETAL: + muscle, back pain, joint pain or stiffness. HEMATOLOGIC: No anemia, bleeding or bruising. LYMPHATICS: No enlarged nodes. No history of splenectomy. PSYCHIATRIC: No history of depression or anxiety. ENDOCRINOLOGIC: No reports of sweating, cold or heat intolerance. No polyuria or polydipsia. ALLERGIES: No history of asthma, hives, eczema or rhinitis. Vital Signs Vital Signs Vital Signs: 05/13/23 16:45 05/13/23 16:50 05/13/23 16:52 Temperature 98.1 F Temperature Source Temporal Pulse Rate 120 H 117 H Respiratory Rate 20 H 16 Respiratory Effort Short of Breath Blood Pressure 152/89 H 155/89 H Blood Pressure Mean 110 111 Pulse Ox 94 95 Oxygen Delivery Method Room Air Room Air 05/13/23 17:55 Temperature Temperature Source Pulse Rate 108 H Respiratory Rate 16 Respiratory Effort Blood Pressure 120/80 Blood Pressure Mean 93 Pulse Ox 95 Oxygen Delivery Method Room Air Weight Weight: 217 lb 2.485 oz Body Mass Index (BMI) 31.1 Physical Exam Narrative Physical Examination: General: Awake, alert, oriented x 3 and cooperative, seated upright in the ED bed, notes chest discomfort currently abated, complaining primarily of left lower jaw dental pain. Skin: Normal color, normal turgor, no icterus, no cyanosis except for occasional staged ecchymoses and mild bilateral lower extremity venous stasis skin changes. HEENT: AT/NC, EOMI, PERRLA, MMM, extremely poor dental hygiene with several caries and lost teeth, left lower jaw with concern for dental infection/abscess, no carotid bruits or JVD noted. Lungs: CTA bilaterally, moderate effort, mild decrease BL bases, no rales, ronchi or wheezing. Heart: Regular rate and rhythm; no gallop, rub audible. Abdomen: Soft, obese, NTTP, ND, distant normal BS, no obvious evidence of HSM status post reversal of prior PEG as well as ostomy. Extremities: No cyanosis, no clubbing, left pedal to distal maya greater than right 1-2+ pitting edema which is chronic. Neurological: Patient awake, alert, oriented as noted, cognitive function intact although does of some debility associate with prior stroke; pupils equally reactive to light and accommodation, cranial nerves grossly normal except for chronic visual cortical blindness with blurred vision, moving all 4 extremities, prior significant left-sided weakness/hemiparesis has significantly proved and is very minimal, strength accordingly moderately global decrease given acute presentation also. Psychiatric: Affect appears normal, no acute evidence of depressive or anxiety feelings. Results Lab / Micro Data 05/13/23 16:50 05/13/23 16:50 Labs: Laboratory Results - last 24 hr 05/13/23 16:50: WBC 7.4, RBC 4.72, Hgb 15.3, Hct 45.9, MCV 97.2 H, MCH 32.4 H, MCHC 33.3, RDW Std Deviation 46.6 H, RDW Coeff of Renny 13.0, Plt Count 280, MPV 10.4, Immature Gran % (Auto) 0.500, Neut % (Auto) 61.9, Lymph % (Auto) 21.5, Hardy % (Auto) 10.5 H, Eos % (Auto) 4.4, Baso % (Auto) 1.2 H, Absolute Neuts (auto) 4.6, Absolute Lymphs (auto) 1.60, Nucleated RBC % 0, Sodium 142, Potassium 3.8, Chloride 106, Carbon Dioxide 28.0, Anion Gap 8, BUN 13, Creatinine 1.09, Estim Creat Clear Calc 70.69, Est GFR (MDRD) Af Amer 87, Est GFR (MDRD) Non-Af 72, BUN/Creatinine Ratio 11.9, Glucose 122 H, Calcium 8.6, Total Bilirubin 0.30, AST 24, ALT 30, Alkaline Phosphatase 76, Troponin I High Sens 632 H*, Total Protein 8.1, Albumin 3.7, Globulin 4.4 H, Albumin/Globulin Ratio 0.8 L, Lipase 44 05/13/23 17:10: Lactic Acid 1.6 05/13/23 17:54: Urine Color Yellow, Urine Clarity Clear, Urine pH 8.0, Ur Specific Lejunior 1.015, Urine Protein 30 H, Urine Glucose (UA) Normal, Urine Ketones Negative, Urine Occult Blood Negative, Urine Nitrite Negative, Urine Bilirubin Negative, Urine Urobilinogen Normal, Ur Leukocyte Esterase 25 H, Urine RBC 0 SEEN, Urine WBC 0-5 SEEN, Ur Squamous Epith Cells 0 SEEN, Urine Bacteria 0 SEEN, Urine Mucus 0 SEEN Radiology Impression Chest X-Ray 05/13/23 17:09 IMPRESSION: No definite acute or significant abnormality seen. 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 with subsequent seizures transiently placed on Keppra at that time w/ suspected dissection secondary to substance abuse, History of EtOH abuse, BPH, Tobacco use who presents to the [facility] ED on 05/13/23 with history of general malaise, fatigue and body aching as well as significant heaviness sitting on his chest with no associated nausea or emesis nor any recent fevers or chills with ongoing oral intake without issue and no significant diaphoresis but noted mild dyspnea without cough all starting on day of presentation with a chest discomfort more notable over the last approximate 1 to 2 hours prior to ED presentation. #1. Chest Pain w/ Acute NSTEMI: EKG in ED with sinus rhythm with mild tachycardia with rate 117 with diffuse nonspecific changes with a left bundle branch block similar to an EKG from 03/2020 although subtle variances in the ST and T waves, CXR w/ no acute cardiopulmonary findings, Trop elevated, initial 632. Will admit to PCU, maintain on a monitored bed, continue serial cardiac enzymes and EKGs. Obtain magnesium level upon admission. Start Heparin drip. Continue medical management w/ asa, plavix, BB, statin w/ AM FLP. ECHO requested. Cardiology consulted, plan for cardiac catheterization. Maintain NPO after midnight. ASA, NG, morphine. #2. Odontogenic infection, poor oral care, notable cares: Patient with signicant oral pain, worse over the last week to the left lower jaw region with suspected infection, will start oral augmentin and will need aggressive outpatient dental follow-up, case management consulted for assistance. #3. 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 #4. Chronic constipation: We will continue patient home bowel regimen. #5. Hypertension: Continue home regimen including metoprolol, PRN hydralazine. #6. Hyperlipidemia: Continue home statin regimen. AM FLP. #7. BPH: Continue patient home Flomax regimen. #8. Obesity: Weight loss and lifestyle changes encouraged. #9. Tobacco Abuse: Encouraged cessation, inpatient consultation per RT, NR if desired. #10. History of EtOH Abuse, History of Polysubstance abuse: UDS as well as alcohol level requested to be cautious, patient has been clean and sober for 3 years, encourage continued sobriety and clean status. Discussed with patient's and given his polysubstance abuse history he is interested in having hepatitis and HIV testing as well. He denies any prior IV drug abuse. #11. DVT prophylaxis: Heparin drip. #12. CODE status: Patient HCPOA and living will are not in place however he notes that he would prefer his decision maker if the necessity should arise to be his significant other Annie Nicholas. He very specifically states he does not trust any of his family members with these types of decisions. Discussed CODE status at length including difference between FULL code, DNR-CCA and DNR-CC status. Following discussions about the differences in these status, requested Full Code status. Admission Evaluation Time spent evaluating chart, patient history, patient evaluation, care planning and discussion with specialists: 75 minutes.
[2023-05-13 19:04] LABS: Prothrombin Time (Protime)PT. 13.1 SECONDS (11.7-14.9)
[2023-05-13 19:05] LABS: Partial Thromboplast Time 31.9 Seconds (24.1-36.2)
[2023-05-13] MEDS: HEPARIN/D5w 25,000 UNITS 25,000 UNITS/250 ML IV.SOLN. 10 UNITS CONT INF (19:13)
[2023-05-13] MEDS: Heparin Injection (Vial) 5,000 UNIT/ML VIAL 4000 UNIT IV (19:14)
[2023-05-13 19:25] LABS: Magnesium 2.1 mg/dL (1.6-2.6)
[2023-05-13 19:43] LABS: Amphetamine Urine VISTA NEGATIVE (<1000 ng/mL); Barbiturate Urine VISTA NEGATIVE (< 200 ng/mL); Benzodiazepine Urine VISTA NEGATIVE (< 200 ng/mL); Cocaine Urine VISTA NEGATIVE (< 300 ng/mL); Ecstacy Urine VISTA NEGATIVE (< 500 ng/mL); Methadone Urine VISTA NEGATIVE (< 300 ng/mL); PCP Urine VISTA NEGATIVE (< 25 ng/mL); THC Urine VISTA NEGATIVE (< 50 ng/mL); Vista UDS pH Range 7
--- NOTE | 2023-05-13 20:19 | EKG12_ITS ---
Test Reason : CP ADMIT Blood Pressure : / mmHG Vent. Rate : 083 BPM Atrial Rate : 083 BPM P-R Int : 186 ms QRS Dur : 120 ms QT Int : 376 ms P-R-T Axes : 053 031 156 degrees QTc Int : 441 ms Normal sinus rhythm Left ventricular hypertrophy with QRS widening and repolarization abnormality ( [place] product ) Abnormal ECG When compared with ECG of 13-MAY-2023 18:15, MANUAL COMPARISON REQUIRED, DATA IS UNCONFIRMED Confirmed by BILLY ZAYAS, TELLY ([id number]), greeting card editor KENNETH CONTRERAS ([id number]) on 05/17/2023 10:46:06 AM Referred By: Confirmed By:TELLY CERVANTES MD
[2023-05-13] MEDS: 0.9% Normal Saline 1,000 ML 100 ML IV (21:15)
[2023-05-13 22:11] LABS: HIV - WCH Non-Reactive (Nonreactive); Hepatitis B Surface Antibody Non-Reactive; Hepatitis B Surface Antigen Non-Reactive (Nonreactive); Hepatitis C Antibody Non-Reactive (Nonreactive)
[2023-05-13 22:38] LABS: Troponin-I HS 799 pg/mL (3.0-78.0)
[2023-05-13] MEDS: Tamsulosin HCl 0.4 MG Capsule PO (23:48)
[2023-05-13] MEDS: Amox/Clavulanate 875 MG Tablet PO (23:49)
[2023-05-13] MEDS: Metoprolol Tartrate 25 MG Tablet PO (23:49)
[2023-05-13] MEDS: Famotidine 20 MG Tablet PO (23:54)
[2023-05-14] VITALS (10 sets, daily range): BP systolic 128–141; BP diastolic 71–90; PULSE 65–98; RESP 16–18; TEMP 36.4–37.2; O2SAT 96–100; BMI 30.2
[2023-05-14 01:21] LABS: Troponin-I HS 741 pg/mL (3.0-78.0)
[2023-05-14 01:53] LABS: Partial Thromboplast Time 48.7 Seconds (24.1-36.2)
[2023-05-14 04:33] LABS: Absolute Lymphocyte Count 1.57 X10^3/uL (0.83-4.51); Absolute Neutrophil Count 4.4 X10^3/uL (2.0-7.7); Basophil# 0.11 X10^3/uL; Basophil% 1.5 % (0-1); Eosinophil# 0.35 X10^3/uL; Eosinophils% 4.9 % (0-5); Hematocrit 44.4 % (40-54); Hemoglobin 14.6 g/dL (13.0-16.5); Lymphocyte # 1.57 X10^3/ul (0.83-4.51); Mean Corp Hgb Conc 32.9 g/dL (32-36); Mean Corpuscular Hgb 32.9 pg (27.0-32.0); Mean Platelet Vol. 10.6 fl (6.2-12.0); Monocyte% 9.8 % (0-10); NRBC Flagged by Analyzer 0 % (0-5); Neutrophil # 4.35 X10^3/uL (2.7-7.7); Neutrophil % 61.1 % (47-70); Platelet Count 260 K/mm3 (150-450); RBC Distribution Width CV 13.2 % (11.6-14.6); RBC Distribution Width SD 48.9 fl (35.1-43.9); Red Blood Count 4.44 M/mm3 (4.6-6.2); White Blood Count 7.1 K/mm3 (4.4-11.0)
[2023-05-14 05:04] LABS: Troponin-I HS 1145 pg/mL (3.0-78.0)
[2023-05-14 05:14] LABS: ALB/GLOB Ratio 0.8 RATIO (0.9-2.4); AST(SGOT) 28 U/L (15-37); Alanine Aminotransfer ALT/SGPT 28 U/L (16-61); Albumin, Serum 3.4 g/dL (3.2-5.0); Alkaline Phosphatase 75 U/L (45-117); Anion Gap 5 (5-15); BUN 11 mg/dL (7-18); BUN/Creat Ratio 11.1 RATIO (10-20); Chloride 110 mmol/L (98-107); Cholesterol 165 mg/dL (200); Creatinine, Serum 0.99 mg/dL (0.70-1.30); EST Glomerular Filtration Rate 81 mL/min (>60); Est Glom Filt Rate - Afr Amer 97 mL/min (>60); Estimated Creatinine Clearance 77.83 ml/min; Globulin 4.2 g/dL (2.2-4.2); Glucose 117 mg/dL (74-106); High Density Lipoprotein 22 mg/dL; Potassium 3.7 mmol/L (3.5-5.1); Protein, Total 7.6 g/dL (6.4-8.2); Sodium Level 140 mmol/L (136-145); Triglycerides 515 mg/dL
--- NOTE | 2023-05-14 05:55 | EKG12_ITS ---
Test Reason : AM EKG Blood Pressure : / mmHG Vent. Rate : 069 BPM Atrial Rate : 069 BPM P-R Int : 196 ms QRS Dur : 136 ms QT Int : 412 ms P-R-T Axes : 037 023 158 degrees QTc Int : 441 ms Normal sinus rhythm Non-specific intra-ventricular conduction block Minimal voltage criteria for LVH, may be normal variant ( [place] product ) T wave abnormality, consider lateral ischemia Abnormal ECG When compared with ECG of 13-MAY-2023 21:50, MANUAL COMPARISON REQUIRED, DATA IS UNCONFIRMED Confirmed by BILLY ZAYAS, TELLY ([id number]), editor newspaper KENNETH CONTRERAS ([id number]) on 05/17/2023 10:44:25 AM Referred By: Confirmed By:TELLY CERVANTES MD
--- NOTE | 2023-05-14 05:55 | ECHOCS_ITS ---
Reason For Study: NSTEMI Procedure This was a 2D Doppler, Color Flow transthoracic echocardiogram. The study was technically difficult. Contrast injection was performed. Exam performed portable in patient room. Left Ventricle Mildly dilated left ventricle. The estimated ejection fraction is 40-45 %. Right Ventricle Normal right ventricle. Normal systolic function. Atria Normal left atrium. Normal right atrium. Mitral Valve The mitral valve is structurally normal. No prolapse or stenosis seen. Trivial mitral valve insufficiency. Tricuspid Valve Normal tricuspid valve. Mild eccentric tricuspid valve insufficiency. Aortic Valve Normal aortic valve. Pulmonic Valve The pulmonic valve is not well visualized. Great Vessels Normal aortic root. Pericardium/Pleural No pericardial effusion. Medication Diluted definity 3ml given slow IV push to enhance endocardial definition. MMode/2D Measurements & Calculations LVIDd: 5.0 cm IVSd: 1.0 cm Ao root diam: 4.0 cm LVIDs: 3.9 cm LVPWd: 0.98 cm LA dimension: 3.0 cm FS: 21.8 % LVAd ap4: 33.4 cm2 SV(MOD-sp4): 47.1 ml SV(sp4-el): 50.2 ml LVLd ap4: 9.0 cm EDV(MOD-sp4): 99.7 ml EDV(sp4-el): 105.7 ml LVAs ap4: 22.6 cm2 LVLs ap4: 7.8 cm ESV(MOD-sp4): 52.6 ml ESV(sp4-el): 55.5 ml EF(MOD-sp4): 47.2 % EF(sp4-el): 47.5 % LA dimension(2D): 3.1 cm Doppler Measurements & Calculations Lat Peak E' Grabiel: 4.1 cm/sec Med Peak E' Grabiel: 5.9 cm/sec Ao V2 max: 87.7 cm/sec Ao max P.1 mmHg LV V1 max: 60.8 cm/sec PA V2 max: 65.2 cm/sec TR max grabiel: 206.9 cm/sec LV V1 max P.5 mmHg TR max P.1 mmHg ECHO/Echo Complete W/ Contrast Interpretation Summary The estimated ejection fraction is 40-45 %. Apical and distal Septal hypokinesia. In comparison to echocardiogram in November 05, 2015 Reduced LV systolic function as well as segmental wall motion noted Ordering Physician: Joy López Performed By: Zelda Cerda, EMA, RVT
[2023-05-14] MEDS: Aspirin 81 MG TAB.CHEW PO (06:24)
[2023-05-14] MEDS: Clopidogrel Bisulfate 75 MG Tablet PO (06:24)
[2023-05-14] MEDS: Metoprolol Tartrate 25 MG Tablet PO ×2 (06:29→21:24)
[2023-05-14 06:36] LABS: Partial Thromboplast Time 35.6 Seconds (24.1-36.2)
[2023-05-14] MEDS: Morphine 2 MG/ML Syringe IV (06:46)
--- NOTE | 2023-05-14 08:53 | PCM.PN.HOSP ---
Reason for Visit Reason for Visit: Diagnoses Non-ST elevation (NSTEMI) myocardial infarction (05/13/23) Subjective Subjective Patient admitted with shortness of breath and chest pressure consistent with unstable angina/non-STEMI Objective Data Objective Data Vital Signs: Vital Signs Temp Pulse Resp BP Pulse Ox O2 Del Method 97.6 F L 96 18 134/90 H 97 Room Air 05/14/23 06:52 05/14/23 06:52 05/14/23 06:52 05/14/23 06:52 05/14/23 06:52 05/14/23 06:52 Oxygen Delivery Method Room Air Weight: 210 lb 5.136 oz Body Mass Index (BMI) 30.2 Intake & Output: Intake and Output for Last 24 Hours 05/12/23 05/13/23 05/14/23 23:59 23:59 23:59 Intake Total 1000 / 1000 68.5 / 68.5 Balance 1000 / 1000 68.5 / 68.5 Lab / Micro Data 05/14/23 04:04 05/14/23 04:04 Labs: Laboratory Results - last 24 hr 05/13/23 16:50: WBC 7.4, RBC 4.72, Hgb 15.3, Hct 45.9, MCV 97.2 H, MCH 32.4 H, MCHC 33.3, RDW Std Deviation 46.6 H, RDW Coeff of Renny 13.0, Plt Count 280, MPV 10.4, Immature Gran % (Auto) 0.500, Neut % (Auto) 61.9, Lymph % (Auto) 21.5, [place] % (Auto) 10.5 H, Eos % (Auto) 4.4, Baso % (Auto) 1.2 H, Absolute Neuts (auto) 4.6, Absolute Lymphs (auto) 1.60, Nucleated RBC % 0, PT 13.1, INR 1.0, APTT 31.9, Sodium 142, Potassium 3.8, Chloride 106, Carbon Dioxide 28.0, Anion Gap 8, BUN 13, Creatinine 1.09, Estim Creat Clear Calc 70.69, Est GFR (MDRD) Af Amer 87, Est GFR (MDRD) Non-Af 72, BUN/Creatinine Ratio 11.9, Glucose 122 H, Calcium 8.6, Magnesium 2.1, Total Bilirubin 0.30, AST 24, ALT 30, Alkaline Phosphatase 76, Troponin I High Sens 632 H*, Total Protein 8.1, Albumin 3.7, Globulin 4.4 H, Albumin/Globulin Ratio 0.8 L, Lipase 44 05/13/23 17:10: Lactic Acid 1.6 05/13/23 17:54: Urine Color Yellow, Urine Clarity Clear, Urine pH 8.0, Ur Specific [place] 1.015, Urine Protein 30 H, Urine Glucose (UA) Normal, Urine Ketones Negative, Urine Occult Blood Negative, Urine Nitrite Negative, Urine Bilirubin Negative, Urine Urobilinogen Normal, Ur Leukocyte Esterase 25 H, Urine RBC 0 SEEN, Urine WBC 0-5 SEEN, Ur Squamous Epith Cells 0 SEEN, Urine Bacteria 0 SEEN, Urine Mucus 0 SEEN 05/13/23 19:10: Ethyl Alcohol 3.0, Hep Bs Antigen Non-Reactive, Hep Bs Antibody Non-Reactive, Hepatitis C Antibody Non-Reactive, HIV 1&2 Antibody Non-Reactive 05/13/23 19:15: Urine Opiates Screen NEGATIVE, Urine Methadone Screen NEGATIVE, Ur Barbiturates Screen NEGATIVE, Ur Phencyclidine Scrn NEGATIVE, Ur Amphetamines Screen NEGATIVE, MDMA (Ecstasy) Screen NEGATIVE, U Benzodiazepines Scrn NEGATIVE, Urine Cocaine Screen NEGATIVE, U Cannabinoids Screen NEGATIVE, Ur Drug Screen Comment 05/13/23 21:40: Troponin I High Sens 799 H* 05/14/23 00:35: APTT 48.7 H, Troponin I High Sens 741 H* 05/14/23 04:04: WBC 7.1, RBC 4.44 L, Hgb 14.6, Hct 44.4, MCV 100.0 H, MCH 32.9 H, MCHC 32.9, RDW Std Deviation 48.9 H, RDW Coeff of Renny 13.2, Plt Count 260, MPV 10.6, Immature Gran % (Auto) 0.700, Neut % (Auto) 61.1, Lymph % (Auto) 22.0, [place] % (Auto) 9.8, Eos % (Auto) 4.9, Baso % (Auto) 1.5 H, Absolute Neuts (auto) 4.4, Absolute Lymphs (auto) 1.57, Nucleated RBC % 0, Sodium 140, Potassium 3.7, Chloride 110 H, Carbon Dioxide 25.0, Anion Gap 5, BUN 11, Creatinine 0.99, Estim Creat Clear Calc 77.83, Est GFR (MDRD) Af Amer 97, Est GFR (MDRD) Non-Af 81, BUN/Creatinine Ratio 11.1, Glucose 117 H, Calcium 8.0 L, Total Bilirubin 0.20, AST 28, ALT 28, Alkaline Phosphatase 75, Troponin I High Sens 1145 H*, Total Protein 7.6, Albumin 3.4, Globulin 4.2, Albumin/Globulin Ratio 0.8 L, Triglycerides 515 H, Cholesterol 165, LDL Cholesterol TNP, VLDL Cholesterol TNP, HDL Cholesterol 22 L 05/14/23 06:07: APTT 35.6 Micro: Microbiology 05/13/23 19:32 Mucosa - Nasopharyngeal Respiratory Panel (PCR) - Final 05/13/23 18:55 Nasal Secretion SARS-CoV-2 & FLU Antigen (Rapid) - Final Radiography Diagnostic Testing: Radiology Impression Chest X-Ray 05/13/23 17:09 IMPRESSION: No definite acute or significant abnormality seen. Electronically Signed: Rakesh Ramirez MD at 17:23 EDT , Physical Exam Narrative Patient is states he felt like his chest is a squeezed/sandwiched between the front and back with heavy pressure like bricks sitting on his chest. He also gets short of breath on exertion for last 1 to 2 weeks. He denies previous chest pressure on exertion. Troponins were high up to 1145. He also stated burning pain on the feet and hands. Denies history of diabetes mellitus. Physical exam General: Alert, Oriented x3, Cooperative, obesity grade 1 BMI 30.2. HEENT: Atraumatic, PERRLA, EOMI, Normocephalic Oral: Left lower jaw dental caries with tenderness. No purulent drainage. Neck: Supple, No JVD, Negative Carotid Bruits Lungs: Air entry diminished in bilateral lung bases. No crepitation/rhonchi Cardiovascular: Regular rate, Regular Rhythm, Normal S1, Normal S2, No murmurs Abdomen: Bowel Sounds Present, Soft, Non Tender, Non-Distended : Denies dysuria. Intermittent micturition/hesitation and dribbling of urine. Incomplete emptying of bladder, chronic. No renal angle tenderness. No suprapubic tenderness. Extremities: No edema, Capillary Refill Less than 3 Seconds Skin: No rashes, No breakdown Musculoskeletal: No Tenderness to Palpation of Joints or Extremities. ROM full and intact. Neurological: Cranial nerves II-XII grossly intact, DTR 2+/4 and Symmetrical, Neuro grossly intact Psych/Mental Status: Normal Affect, Appropriate. Assessment & Plan Assessment/Plan (1) Non-ST elevation [place] (NSTEMI): PLAN: Plan The patient is a 62 y/o M admitted with chest pressure, dyspnea on exertion worsening dyspnea at rest. Chest pressure lasted about 1 to 2 hours prior to ED presentation. Patient has a prior stroke and does not remember the details/chronological order of chest pain. 1. Acute NSTEMI: Patient is being admitted in PCU. Twelve-lead EKG reviewed and shows sinus rhythm at 69 beats 1, LBBB, QRS [address]-T changes similar to previous EKG. Chest x-ray individually reviewed and does not show acute cardiopulmonary findings. Serial troponin shows significant increase consistent with acute non-STEMI. Cell Repairer consulted and discussed. Plan for diagnostic cardiac cath. Patient on aspirin, Plavix, beta-josé luis high intensity statin. 2D echo ordered. Fasting lipid profile. Patient was hesitant in the morning for diagnostic catheter 3 times daily. #2. Left lower jaw dental infection/caries: Patient with signicant oral pain, worse over the last week to the left lower jaw region with dental infection/caries. Patient is started on Augmentin. Advised follow-up with dentist as an outpatient. #3. 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 Patient also had chronic cortical blindness but has improvement on left-sided weakness. He had reversal of PEG tube and ostomy. Continue antihypertensive aspirin duplex #4. Chronic constipation: continue patient home bowel regimen. #5. Hypertension: Continue home regimen including metoprolol, PRN hydralazine. #6. Hyperlipidemia: Continue home statin regimen. #7. BPH: Continue patient home Flomax regimen. #8. Obesity: Weight loss and lifestyle changes encouraged. #9. Tobacco Abuse: Encouraged cessation. Patient is still smokes cigarettes half pack per day. Advised quitting. #10. History of EtOH Abuse, History of Polysubstance abuse: U tox negative. Serum alcohol 3.0. Hepatitis B surface antigen, antibody and hep C antibody nonreactive. HIV 1 and 2 antibody nonreactive. Advised hepatitis A and B vaccination. #11. DVT prophylaxis: Heparin drip. #12. CODE status: Patient HCPOA and living will are not in place however he notes that he would prefer his decision maker if the necessity should arise to be his significant other Annie Nicholas. He very specifically states he does not trust any of his family members with these types of decisions. Discussed CODE status at length including difference between FULL code, DNR-CCA and DNR-CC status. Full code Charges/Coding Visit Charges Inpatient E&M: 65657 Subs Hosp L2
--- NOTE | 2023-05-14 10:45 | PCM.CONS.C ---
Documented by User: Rain CR, SHAYE 05/14/23 11:07 Assessment & Plan Assessment/Plan (1) Non-ST elevation [place] (NSTEMI): (2) Essential hypertension: (3) CVD (cerebrovascular disease): PLAN: Plan Will proceed with diagnostic heart cath today echo is pending Based on findings plan of care to be determined HPI Consult Data Date of Consult: 05/14/23 HPI Narrative HPI Narrative: PADDY DAVID, is a 62 M who presented to the ER for Chest pain. He had described his CP at a brick sitting on his chest. Troponins trended [id number]/[id number]/741/1145. With his elevated troponin and chest pain he was admitted to PCU with plans of a diagnostic heart cath today. He does have a hx of Chronic constipation with peg tube, HTN, HLD, Obesity, Hx prior Seizures suspected related to occipital strokes as well as polysubstance abuse and DT with alcohol abuse previously transiently on Keppra regimen prior now clean x 3 years. PFSH Medical History BPH (benign prostatic hyperplasia) H/O left bundle branch block History of alcoholism History of stroke History of substance abuse Hyperlipidemia Hypertension Tobacco use Home Medications clopidogrel 75 mg tablet 75 mg PO DAILY 03/29/20 [History Last Taken 03/29/20] metoprolol tartrate 25 mg tablet 25 mg PO BID 03/29/20 [History Last Taken 03/29/20] pravastatin 40 mg tablet 40 mg PO DAILY 03/29/20 [History Last Taken 03/29/20] tamsulosin 0.4 mg capsule (Flomax) 0.4 mg PO DAILY 12/11/21 [History Last Taken Unknown] Allergy/AdvReac Type Severity Reaction Status Date / Time No Known Allergies Allergy Verified 05/13/23 16:49 Family History Mother Diabetes Cancer Breast cancer Father Diabetes Cancer Brother Cancer Surgical History History of creation of ostomy Hx of appendectomy S/P percutaneous endoscopic gastrostomy (PEG) tube placement Social History household members: significant other Smoking Status: Light Smoker (<10/day) alcohol intake: former details: Sober x 3 years. substance use type: former substance user Date of last use: Prior polysubstance abuse including cocaine, clean x 3 years. ROS Constitutional Constitutional: Reports fatigue and lethargy Eyes Eyes: Reports blindness ENT HEENT: Reports systems reviewed and no addt'l complaints, except as documented Cardiovascular Cardiovascular: Reports chest pain and pedal edema Respiratory/Chest Respiratory/Chest: Reports shortness of breath with exertion Gastrointestinal Gastrointestinal: Reports as per HPI Genitourinary Genitourinary: Reports difficulty urinating Musculoskeletal Musculoskeletal: Reports arthralgias and joint pain Neurologic Neurologic: Reports as per HPI Physical Exam Const alert, oriented x3, no apparent distress and average body habitus HEENT normocephalic, head/scalp atraumatic, hearing grossly normal bilaterally, external ears normal, external nose normal and moist oral mucous membranes Eyes PERRL, EOMs intact bilaterally, conjunctivae normal and no scleral icterus Neck no lymphadenopathy, supple and no JVD Cardio regular rate, regular rhythm, S1 normal heart sound, S2 normal heart sound, no murmurs, no rub, no gallops, no clicks, no JVD and peripheral pulses 2+ throughout GI normal to inspection, nondistended, normoactive bowel sounds, soft to palpation, non-tender and non-distended GI Narrative: PEG tube placement Extremity normal to inspection, normal capillary refill, no clubbing, cyanosis or edema and no pedal edema Neuro oriented x3, CN's II-XII intact bilaterally, moves all extremities and no focal motor deficits Psych cooperative and affect normal Risk Stratification Risk Stratification Applicable: Yes Age >/= 65: No >/= 3 CAD Risk Factors (HTN, HLD, DM, family hx of CAD, or current smoker): Yes Aspirin Use in the Past 7 Days: No Severe Angina (>/= episodes in 24 hours): Yes EKG ST Changes >/= 0.5mm: No Positive Cardiac Marker: Yes JASON Risk Stratification Score: 3 JASON % Risk: 13% Risk Charges/Coding Visit Charges Office Visits / Consults: 90661 IP Consult L5 Objective Data Vital Signs: Vital Signs Temp Pulse Resp BP Pulse Ox O2 Del Method 97.6 F L 96 18 134/90 H 97 Room Air 05/14/23 06:52 05/14/23 06:52 05/14/23 06:52 05/14/23 06:52 05/14/23 06:52 05/14/23 06:52 Oxygen Delivery Method Room Air Weight: 210 lb 5.136 oz Body Mass Index (BMI) 30.2 Intake & Output: Intake and Output for Last 24 Hours 05/12/23 05/13/23 05/14/23 23:59 23:59 23:59 Intake Total 1000 / 1000 68.5 / 68.5 Balance 1000 / 1000 68.5 / 68.5 Lab / Micro Data 05/14/23 04:04 05/14/23 04:04 Labs: Laboratory Results - last 24 hr 05/13/23 16:50: WBC 7.4, RBC 4.72, Hgb 15.3, Hct 45.9, MCV 97.2 H, MCH 32.4 H, MCHC 33.3, RDW Std Deviation 46.6 H, RDW Coeff of [place] 13.0, Plt Count 280, MPV 10.4, Immature Gran % (Auto) 0.500, Neut % (Auto) 61.9, Lymph % (Auto) 21.5, [place] % (Auto) 10.5 H, Eos % (Auto) 4.4, Baso % (Auto) 1.2 H, Absolute Neuts (auto) 4.6, Absolute Lymphs (auto) 1.60, Nucleated RBC % 0, PT 13.1, INR 1.0, APTT 31.9, Sodium 142, Potassium 3.8, Chloride 106, Carbon Dioxide 28.0, Anion Gap 8, BUN 13, Creatinine 1.09, Estim Creat Clear Calc 70.69, Est GFR (MDRD) Af Amer 87, Est GFR (MDRD) Non-Af 72, BUN/Creatinine Ratio 11.9, Glucose 122 H, Calcium 8.6, Magnesium 2.1, Total Bilirubin 0.30, AST 24, ALT 30, Alkaline Phosphatase 76, Troponin I High Sens 632 H*, Total Protein 8.1, Albumin 3.7, Globulin 4.4 H, Albumin/Globulin Ratio 0.8 L, Lipase 44 05/13/23 17:10: Lactic Acid 1.6 05/13/23 17:54: Urine Color Yellow, Urine Clarity Clear, Urine pH 8.0, Ur Specific [place] 1.015, Urine Protein 30 H, Urine Glucose (UA) Normal, Urine Ketones Negative, Urine Occult Blood Negative, Urine Nitrite Negative, Urine Bilirubin Negative, Urine Urobilinogen Normal, Ur Leukocyte Esterase 25 H, Urine RBC 0 SEEN, Urine WBC 0-5 SEEN, Ur Squamous Epith Cells 0 SEEN, Urine Bacteria 0 SEEN, Urine Mucus 0 SEEN 05/13/23 19:10: Ethyl Alcohol 3.0, Hep Bs Antigen Non-Reactive, Hep Bs Antibody Non-Reactive, Hepatitis C Antibody Non-Reactive, HIV 1&2 Antibody Non-Reactive 05/13/23 19:15: Urine Opiates Screen NEGATIVE, Urine Methadone Screen NEGATIVE, Ur Barbiturates Screen NEGATIVE, Ur Phencyclidine Scrn NEGATIVE, Ur Amphetamines Screen NEGATIVE, MDMA (Ecstasy) Screen NEGATIVE, U Benzodiazepines Scrn NEGATIVE, Urine Cocaine Screen NEGATIVE, U Cannabinoids Screen NEGATIVE, Ur Drug Screen Comment 05/13/23 21:40: Troponin I High Sens 799 H* 05/14/23 00:35: APTT 48.7 H, Troponin I High Sens 741 H* 05/14/23 04:04: WBC 7.1, RBC 4.44 L, Hgb 14.6, Hct 44.4, MCV 100.0 H, MCH 32.9 H, MCHC 32.9, RDW Std Deviation 48.9 H, RDW Coeff of [place] 13.2, Plt Count 260, MPV 10.6, Immature Gran % (Auto) 0.700, Neut % (Auto) 61.1, Lymph % (Auto) 22.0, [place] % (Auto) 9.8, Eos % (Auto) 4.9, Baso % (Auto) 1.5 H, Absolute Neuts (auto) 4.4, Absolute Lymphs (auto) 1.57, Nucleated RBC % 0, Sodium 140, Potassium 3.7, Chloride 110 H, Carbon Dioxide 25.0, Anion Gap 5, BUN 11, Creatinine 0.99, Estim Creat Clear Calc 77.83, Est GFR (MDRD) Af Amer 97, Est GFR (MDRD) Non-Af 81, BUN/Creatinine Ratio 11.1, Glucose 117 H, Calcium 8.0 L, Total Bilirubin 0.20, AST 28, ALT 28, Alkaline Phosphatase 75, Troponin I High Sens 1145 H*, Total Protein 7.6, Albumin 3.4, Globulin 4.2, Albumin/Globulin Ratio 0.8 L, Triglycerides 515 H, Cholesterol 165, LDL Cholesterol TNP, VLDL Cholesterol TNP, HDL Cholesterol 22 L 05/14/23 06:07: APTT 35.6 Micro: Microbiology 05/13/23 19:32 Mucosa - Nasopharyngeal Respiratory Panel (PCR) - Final 05/13/23 18:55 Nasal Secretion SARS-CoV-2 & FLU Antigen (Rapid) - Final Cardiology Labs/Tests 05/13/23 16:50: WBC 7.4, RBC 4.72, Hgb 15.3, Hct 45.9, MCV 97.2 H, MCH 32.4 H, MCHC 33.3, Plt Count 280, MPV 10.4, Immature Gran % (Auto) 0.500, Neut % (Auto) 61.9, Lymph % (Auto) 21.5, [place] % (Auto) 10.5 H, Eos % (Auto) 4.4, Baso % (Auto) 1.2 H, Absolute Neuts (auto) 4.6, Nucleated RBC % 0, PT 13.1, INR 1.0, APTT 31.9, Sodium 142, Potassium 3.8, Chloride 106, Carbon Dioxide 28.0, Anion Gap 8, BUN 13, Creatinine 1.09, Est GFR (MDRD) Af Amer 87, Est GFR (MDRD) Non-Af 72, BUN/Creatinine Ratio 11.9, Glucose 122 H, Calcium 8.6, Magnesium 2.1, Total Bilirubin 0.30 05/13/23 17:10: Lactic Acid 1.6 05/13/23 17:54: Urine Color Yellow, Urine Clarity Clear, Urine pH 8.0, Ur Specific [place] 1.015, Urine Protein 30 H, Urine Glucose (UA) Normal, Urine Ketones Negative, Urine Occult Blood Negative, Urine Nitrite Negative, Urine Bilirubin Negative, Urine Urobilinogen Normal, Ur Leukocyte Esterase 25 H, Urine RBC 0 SEEN, Urine WBC 0-5 SEEN 05/14/23 00:35: APTT 48.7 H 05/14/23 04:04: WBC 7.1, RBC 4.44 L, Hgb 14.6, Hct 44.4, MCV 100.0 H, MCH 32.9 H, MCHC 32.9, Plt Count 260, MPV 10.6, Immature Gran % (Auto) 0.700, Neut % (Auto) 61.1, Lymph % (Auto) 22.0, [place] % (Auto) 9.8, Eos % (Auto) 4.9, Baso % (Auto) 1.5 H, Absolute Neuts (auto) 4.4, Nucleated RBC % 0, Sodium 140, Potassium 3.7, Chloride 110 H, Carbon Dioxide 25.0, Anion Gap 5, BUN 11, Creatinine 0.99, Est GFR (MDRD) Af Amer 97, Est GFR (MDRD) Non-Af 81, BUN/Creatinine Ratio 11.1, Glucose 117 H, Calcium 8.0 L, Total Bilirubin 0.20, Triglycerides 515 H, Cholesterol 165, LDL Cholesterol TNP, VLDL Cholesterol TNP, HDL Cholesterol 22 L 05/14/23 06:07: APTT 35.6 Radiography Diagnostic Testing: Radiology Impression Chest X-Ray 05/13/23 17:09 IMPRESSION: No definite acute or significant abnormality seen. Electronically Signed: Rakesh Ramirez MD at 17:23 EDT , Documented by User: Dr. Arabella Jones MD 05/14/23 11:38 Assessment & Plan Assessment/Plan (1) Non-ST elevation [place] (NSTEMI): (2) Essential hypertension: (3) CVD (cerebrovascular disease): PLAN: Plan Cardiac care plan and recommendations; Based on the clinical presentation we will proceed with urgent cardiac catheterization Patient has non-ST elevation CO, stroke, hypertension History of smoking since she is 14-year-old Cardiac catheterization performed Identified the culprit lesion is subtotal mid LAD underwent successful PCI and stenting using 2.5 x 18 mm resolute Papito Is calcified proximal LAD attempted PTCA was not successful left alone Also has large circumflex with no obstructive atherosclerosis Left main is normal RCA proximally had 80% stenosis with a distal part of the RCA nonobstructive atherosclerosis, RPDA around 30 to 40% proximal EF by the left ventriculogram around 45% with mild anteroapical hypokinesia No mitral regurgitation and no systolic gradient across aortic valve Patient will continue on dual antiplatelet therapy with Plavix and aspirin he was loaded with Plavix in the [employer] We will continue rest of his medication he has been on treatment for hypertension and hyperlipidemia with simvastatin Patient will require elective PCI of proximal RCA and also PCI of calcified large diagonal branch This can be set up as an outpatient Patient also advised cessation of smoking and compliance with medical treatment including the dual antiplatelet therapy which we will continue for 1 year with Plavix and aspirin. As he had a history of a stroke. Elected not to use prasugrel or ticagrelor due to history of stroke. Finding of cardiac catheterization and cardiac care plan discussed in detail with the patient in the [employer]. HPI Consult Data Date of Consult: 05/14/23 [facility] Medical History BPH (benign prostatic hyperplasia) H/O left bundle branch block History of alcoholism History of stroke History of substance abuse Hyperlipidemia Hypertension Tobacco use Home Medications clopidogrel 75 mg tablet 75 mg PO DAILY 03/29/20 [History Last Taken 03/29/20] metoprolol tartrate 25 mg tablet 25 mg PO BID 03/29/20 [History Last Taken 03/29/20] pravastatin 40 mg tablet 40 mg PO DAILY 03/29/20 [History Last Taken 03/29/20] tamsulosin 0.4 mg capsule (Flomax) 0.4 mg PO DAILY 12/11/21 [History Last Taken Unknown] Allergy/AdvReac Type Severity Reaction Status Date / Time No Known Allergies Allergy Verified 05/13/23 16:49 Family History Mother Diabetes Cancer Breast cancer Father Diabetes Cancer Brother Cancer Surgical History History of creation of ostomy Hx of appendectomy S/P percutaneous endoscopic gastrostomy (PEG) tube placement Social History household members: significant other Smoking Status: Light Smoker (<10/day) alcohol intake: former details: Sober x 3 years. substance use type: former substance user Date of last use: Prior polysubstance abuse including cocaine, clean x 3 years. Risk Stratification Age >/= 65: No JASON Risk Stratification Score: 3 JASON % Risk: 13% Risk Lab / Micro Data 05/14/23 04:04 05/14/23 04:04
--- NOTE | 2023-05-14 11:14 | PCIREPORT_ITS ---
PCI Cardiac Cath Report PCI Report: PCI cardiac cath report; 1. Moderate sedation 2. Selective left coronary angiography 3. Selective right cholangiography 4. Measurement of LVEDP 5. Left ventriculogram 6. Successful PCI of the culprit which is subtotal occluded LAD 99% collateralized from the left side With predilatation using initially 2 x 15 mm Emerge balloon Followed by 2.5 x 15 mm balloon, followed by placement of drug-eluting stent 2.5 x 18 mm resolute [place] Postdilated with 2.5 x 12 mm NC balloon With reduction of stenosis from 99% to 0% And improvement of JASON from JASON 0,, flow to JASON III flow 7. Attempted PTCA of sidebranch/D1 no successful calcified. Left alone. 8. Placement of TR band to close the right radial artery arteriotomy site. Preprocedure diagnosis; 62-year-old patient with a history of stroke smoker smoked 1 pack a day since his 14-year-old Hypertension Presented with severe heaviness and retrosternal chest pain With elevated cardiac biomarkers elevated troponins And significant change in the EKG consistent with ST elevations noted and a Q wave in the anterior lead With an incomplete left bundle branch block Patient was treated with medical therapy using heparin Plavix aspirin Still having symptoms of chest pain Based on the clinical presentation we took him to the [facility] as a urgent cardiac catheterization Consent; Risk and benefit of the procedure explained detail to the patient elected to proceed informed consent obtained Access 6 [place] sheath placed in the right radial artery Medication used in the [facility] [employer] 1 loaded with 300 mg of Plavix 2. Heparin IV with acceptable ACT 3. Use of intracoronary/IC nitroglycerin x3 4. Aspirin Diagnostic and interventional equipment: 1. 0.35, 260 cm, J exchange wire 2 5 [place] JL 3.5 diagnostic catheter 3. 5 [place] JR4 diagnostic catheter 4. 5 [place] pigtail catheter 6. 6 [place] 3.5 EBU guide catheter 7. 0.014 180 cm run-through extra floppy straight guide wire 8. 0.014 190 cm BMW universal straight guidewire 9. 2 x 15 mm emerge balloon 10. 2.5 x 15 mm Emerge balloon 11. 2.5 x 18 mm resolute [place] drug-eluting stent 12. 2.5 x 12 mm NC Emerge balloon Procedure in detail; Under fluoroscopic guidance we will proceed with a diagnostic catheter using 5 [place] JL 3.5 advanced to the ascending aorta, cannulated the left main without difficulty Following this multiple views of the left coronary system were obtained. And identified the culprit region as a subtotal LAD The new proceed with a 5 [place] JR4 diagnostic catheter advanced [place] and cannulated the RCA without difficulty Following this we exchanged for a 5 [place] pigtail catheter advanced [place] placed in the mid left ventricle and elevated Gram stain is a radiographic projection. Following this we proceed with interventional plan We used a 6 [place] 3.5 EBU guide catheter Cannulated the left main without difficulty Then we will proceed with the run-through guidewire crossed the lesion of the LAD which is subtotally occluded And proceed with predilatation initially with 2 x 15 mm balloon, noted calcified lesion in the mid LAD Then we will proceed with 2.5 x 15 mm balloon And followed by placement of a drug-eluting stent 2.5 x 18 mm on postdilatation and achieve an excellent result IC nitroglycerin was used. Then we proceed with BMW wire and we crossed the lesion into the sidebranch which is diagonal And then with try to proceed with the balloon to perform balloon dilatation/PTCA of the sidebranch however it is a calcified and at this point patient with a stable clinically he does not have any symptoms of chest pain Hemodynamically stable and there were no significant change in the EKG and I elected to leave the sidebranch as it is calcified and to minimize the use of the contrast. Findings hemodynamic LVEDP measuring 18 mmHg Mild anteroapical hypokinesia Ejection fraction in the range of around 45% No systolic gradient across aortic valve. No mitral regurgitation noted. Coronary angiography; 1. Left main large vessel angiographically the left main is normal, bifurcating into LAD and the left circumflex 2. Left anterior descending artery occluded/subtotal at the mid LAD portion a fter a large septal branch. Collateralization was noted to the distal LAD from the left coronary system D1 large vessel with calcified proximal and 80% stenosis in the proximal D1 3. Left circumflex large vessel with nonobstructive atherosclerosis involving the OM1 around 20?30 4. RCA dominant proximal RCA had 80% stenosis PDA had 30 to 40% proximal stenosis. Conclusion and recommendations; 1. Successful PCI of the culprit which is subtotal occluded mid LAD with predilatation and placement of drug-eluting stent at the specified and achievement of a good result Patient remained stable clinically 1. Patient to continue on DAPT which include Plavix and aspirin for 1 year And aspirin indefinitely 2. Patient to be admitted to ICU over the night 3. Plan of elective PCI of the proximal RCA during this admission 4. Patient also will be scheduled for phase 1 cardiac rehab at the [facility] cardiac team 5. We will maximize his medical therapy 6. Patient advised cessation of smoking Arabella Jnoes MD,FACC,[facility] .
[2023-05-14] MEDS: Famotidine 20 MG Tablet PO ×2 (11:26→21:24)
[2023-05-14] MEDS: Amox/Clavulanate 875 MG Tablet PO ×2 (11:26→16:49)
[2023-05-14 11:33] LABS: ACT Activated Clotting Time 113 sec (74-137)
[2023-05-14 11:33] LABS: ACT Activated Clotting Time 227 sec (74-137)
--- NOTE | 2023-05-14 12:55 | CRPHASE1_ITS ---
Patient Communication Patient Information Former Patient:: Phase I PHII Cardiac Rehab Discussed with Patient:: Yes Guide to Cardiac Rehab Given to Patient:: Yes Cardiac Rehab Facility Choice List Given to Patient:: Yes Communication to Cardiac Rehab Frontend Engineer:: Arabella Jones Sessions:: 36 sessions - 3 days/wk, 12 weeks Medical/Surgical History Medical History Congestive Heart Failure: Hypertension:: Yes Dyslipidemia:: Yes Arrhythmias:: Yes CVA/TIA: DVT:: Yes PAD:: Yes GERD:: Yes Surgical History CABG: No PTCA:: Yes ICD:: No Pacemaker:: No Cardiac Rehabilitation Info Program Information Cardiac Rehabilitation Program Information: Cardiac Rehab The cardiac rehab team at [facility] consists of highly skilled exercise physiologists, nurses, respiratory therapists and physicians working together with you. Our purpose is to help you have a full recovery and achieve the goals you set for yourself. Over the years many of our patients have returned to activities they assumed they would never do again! We can help restore your confidence and motivation to make lifestyle changes that can have a significant impact on your health and quality of life! We can help answer questions and concerns you may have about exercise, lifestyle, medications, diet, stress and anxiety which are common following a hospitalization. WE monitor ECG and vital signs during exercise and discuss your progress with you and report to your physician(s). Cardiac Rehab is proven to help reduce readmissions, improve functional capacity and lower recurrence of problems with your heart. Our Cardiac Rehab program is Certified by the [place] [employer]io-Vascular and Pulmonary Rehabilitation (AACVPR) and Accredited by the [place] [employer] through our [facility]. You can contact us at . We invite you to call us with your questions or to get started in our program. If you have other questions or concerns be sure to ask your physician/provider during your follow-up visit. WE look forward to seeing you!
--- NOTE | 2023-05-14 12:57 | CRPH1.INSTRU ---
Smoking Risk Factors Patient Nicotine/Smoking Risk Factors Are:: Cigarettes and Illicit drug use Response Code Nicotine/Smoking Response Code:: Patient communicates acknowledgment Dyslipidemia Response Code Dyslipidemia Response Code:: Patient communicates acknowledgment Hypertension Response Code Hypertension:: Patient communicates acknowledgment Heart Disease Response Code Heart Disease Response Code:: Patient communicates acknowledgment Stress Recommendations Recommendations Include:: Identification of stressors, and assessment of coping skills Response Code Stress Response Code:: Patient communicates acknowledgment
--- NOTE | 2023-05-14 12:59 | CRPHASE1_ITS ---
Cardiac Rehabilitation Info Program Information Cardiac Rehabilitation Program Information: Cardiac Rehab The cardiac rehab team at [facility] consists of highly skilled exercise physiologists, nurses, respiratory therapists and physicians working together with you. Our purpose is to help you have a full recovery and achieve the goals you set for yourself. Over the years many of our patients have returned to activities they assumed they would never do again! We can help restore your confidence and motivation to make lifestyle changes that can have a significant impact on your health and quality of life! We can help answer questions and concerns you may have about exercise, lifestyle, medications, diet, stress and anxiety which are common following a hospitalization. WE monitor ECG and vital signs during exercise and discuss your progress with you and report to your physician(s). Cardiac Rehab is proven to help reduce readmissions, improve functional capacity and lower recurrence of problems with your heart. Our Cardiac Rehab program is Certified by the [place] [employer] Cardio-Vascular and Pulmonary Rehabilitation (AACVPR) and Accredited by the [place] [employer] through our [facility]. You can contact us at . We invite you to call us with your questions or to get started in our program. If you have other questions or concerns be sure to ask your physician/provider during your follow-up visit. WE look forward to seeing you!
--- NOTE | 2023-05-14 15:45 | CASEMGMT ---
MARCUS RODAS Discharge Planning Assessment: Face to Face with patient for initial transition planning/care coordination assessment.?MARCUS RODAS introduced self and role at [facility], pt alert, answering questions appropriately, voices understanding and is agreeable to participating in assessment with significant other at bedside.? Care providers, pharmacy,?and demographics verified. ? Admitting Dx: NSTEMI PCP: SHAYE Davis Specialists: none Preferred Pharmacy: [facility] Insurance: [employer] [facility] Prescription Benefit:?yes Living Will/HPOA: none. Pt states he is not in contact with his children or other family members and would want his S.O. to make decisions for him. Explained need for this to be noted on HPOA paperwork for this desire to be honored. Pt interested in completing HPOA and LW paperwork. SW notified of request LNOK: S.O. Annie Living Arrangements: Pt lives in a single story apartment without steps. Pt states he is independent with ADLs. Pt's S.O. states she assists pt with some bathing and completes all household tasks. Transportation: Pt's S.O. transports as needed DME: cane (doesn't use), grab bars, shower chair SNF: [facility]: denies ? Plan: Pt states he plans to return home with the support of his S.O. and denies any discharge needs at this time. Will continue to monitor and assist with any needs as determined. Angel Holcomb RN CM
[2023-05-14] MEDS: 0.9% Normal Saline 1,000 ML 75 ML IV (16:48)
[2023-05-14 17:43] LABS: Bedside Glucose 134 mg/dL (74-106)
[2023-05-14] MEDS: Pravastatin 40 MG Tablet PO (21:24)
[2023-05-14] MEDS: Tamsulosin HCl 0.4 MG Capsule PO (21:24)
[2023-05-14] MEDS: 0.9% Saline Lock 10 ML Syringe IV (21:24)
[2023-05-15] MEDS: Gabapentin 100 MG Capsule PO ×2 (00:21→10:23)
[2023-05-15 03:40] VITALS: BP 147/76; PULSE 82; RESP 16; TEMP 36.6; O2SAT 97
[2023-05-15 03:45] VITALS: O2SAT 98
[2023-05-15 07:17] LABS: Hematocrit 44.4 % (40-54); Hemoglobin 14.5 g/dL (13.0-16.5); Mean Corp Hgb Conc 32.7 g/dL (32-36); Mean Corpuscular Hgb 32.2 pg (27.0-32.0); Mean Corpuscular Volume 98.7 fL (80-94); Mean Platelet Vol. 10.6 fl (6.2-12.0); Platelet Count 242 K/mm3 (150-450); RBC Distribution Width CV 13.2 % (11.6-14.6); RBC Distribution Width SD 47.8 fl (35.1-43.9); White Blood Count 7.6 K/mm3 (4.4-11.0)
[2023-05-15 07:34] VITALS: O2SAT 95
[2023-05-15 07:54] LABS: ALB/GLOB Ratio 0.9 RATIO (0.9-2.4); AST(SGOT) 26 U/L (15-37); Alanine Aminotransfer ALT/SGPT 26 U/L (16-61); Albumin, Serum 3.7 g/dL (3.2-5.0); Alkaline Phosphatase 72 U/L (45-117); Anion Gap 6 (5-15); BUN 12 mg/dL (7-18); BUN/Creat Ratio 11.1 RATIO (10-20); Calcium,Total 8.6 mg/dL (8.5-10.1); Chloride 104 mmol/L (98-107); Creatinine, Serum 1.08 mg/dL (0.70-1.30); EST Glomerular Filtration Rate 73 mL/min (>60); Est Glom Filt Rate - Afr Amer 88 mL/min (>60); Estimated Creatinine Clearance 71.35 ml/min; Globulin 4.2 g/dL (2.2-4.2); Glucose 106 mg/dL (74-106); Potassium 3.7 mmol/L (3.5-5.1); Protein, Total 7.9 g/dL (6.4-8.2); Sodium Level 137 mmol/L (136-145)
--- NOTE | 2023-05-15 08:03 | PCM.DC ---
Discharge Instructions Diet Discharge Diet: 2000 mg Sodium Diet Activity Discharge Activity: Return to Normal Activity Weight Bearing Status: Weight bearing as tolerated Dressing / Incision Call your doctor if you observe: Fever of 101 or Higher, Coldness, Increased Pain, Numbness or Tingling, Change in Color, Inability to urinate, Inability to have a bowel movement, Shortness of breath, Dizziness, Fainting spells, Swelling in the ankles, Chest pain, Prolonged hiccupping, Increased palpitations (irregular heartbeat) and Calf discomfort Follow Up Care When: IN 2 WEEKS Test Results: Test results from this visit will be discussed in further detail at your follow-up appointment, if applicable. Discharge Plan Admission Admit Date/Time: 05/13/23 18:49 Attending Provider: Elia Adam Primary Care Provider: Anuradha Davis Consulting Providers: Arabella Jones; Joy López Discharge Orders/Prescriptions Prescriptions: New sennosides-docusate sodium [Stool Softener-Stimulant Laxat] 8.6-50 mg Tablet 2 tab PO BID PRN PRN (Reason: Constipation) Qty: 0 0RF aspirin 81 mg Tablet,Delayed Release (Dr/Ec) 81 mg PO DAILY@0800 30 Days Qty: 30 3RF nitroglycerin 0.4 mg Tablet, Sublingual 0.4 mg sublingual Q5M PRN (Reason: CHEST PAIN) Qty: 30 0RF amoxicillin-pot clavulanate 875-125 mg Tablet 1 tab PO BIDCM 6 Days Qty: 12 0RF Daily Fiber (psyllium-aspart) 3 gram Powder In Packet 1 packet PO DAILY Qty: 0 0RF lisinopril 5 mg tablet 5 mg PO DAILY Qty: 30 2RF atorvastatin 80 mg tablet 80 mg PO QHS Qty: 30 2RF finasteride 5 mg tablet 5 mg PO DAILY Qty: 30 0RF Hemorrhoidal Ointment 1 applic IN Q8H PRN (Reason: hemorrhoids) Qty: 57 0RF Rx Instructions: Available OTC Continued metoprolol tartrate 25 MG tablet 25 mg PO BID tamsulosin [Flomax] 0.4 mg capsule 0.4 mg PO DAILY Patient Comments: Take 1 capsule by mouth daily at bedtime. clopidogrel 75 MG tablet 75 mg PO DAILY 30 Days Qty: 30 2RF Discontinued pravastatin 40 MG tablet 40 mg PO DAILY Referrals / Follow Up: Case,Lilian, MD [Med Staff - Active Staff] - Within 2 Weeks Jose Cerda NP, CLIENT CARE REPRESENTATIVE-C [Med Staff - Adv Practice Prof] - Within 2 Weeks Anuradha Davis PA [Primary Care Provider] - Disposition Disposition (needs filled in before D/C Order can be placed): Home, Self Care
--- NOTE | 2023-05-15 10:00 | EKG12_ITS ---
Test Reason : AM EKG Blood Pressure : / mmHG Vent. Rate : 089 BPM Atrial Rate : 089 BPM P-R Int : 188 ms QRS Dur : 128 ms QT Int : 396 ms P-R-T Axes : 070 022 169 degrees QTc Int : 481 ms Normal sinus rhythm Left ventricular hypertrophy with QRS widening and repolarization abnormality ( [place] product ) Abnormal ECG Confirmed by BILLY ZAYAS, TELLY ([id number]), newspaper managing editor SHARDA BRISCOE ([id number]) on 05/25/2023 7:22:49 AM Referred By: RENATO Confirmed By:TELLY CERVANTES MD
[2023-05-15 10:15] VITALS: BP 140/80; PULSE 98; RESP 16; TEMP 37; O2SAT 99
--- NOTE | 2023-05-15 10:22 | DS.PCM_ITS ---
Providers Date of Admission: 05/13/23 Date of Discharge: 05/15/23 Primary Care Physician: SHAYE Urbano Consultations 05/13/23 20:19 Consult: Cardiology Routine Consulting Provider: Arabella Jones Reason for Consult: Chest Pain, NSTEMI EMERGENT Consult: No MD Notified: Yes Date Notified: 05/13/23 Time Notified: 18:49 Method of Notification: Text Reason For Visit: NSTEMI Diagnosis Discharge Diagnosis (1) Non-ST elevation SC (NSTEMI): Status: Acute Code(s): I21.4 - Non-ST elevation (NSTEMI) myocardial infarction Plan The patient is a 62 y/o M admitted with chest pressure, dyspnea on exertion worsening dyspnea at rest. Chest pressure lasted about 1 to 2 hours prior to ED presentation. Patient has a prior stroke and does not remember the det ails/chronological order of chest pain. 1. Acute NSTEMI: Patient is being admitted in PCU. Twelve-lead EKG reviewed and shows sinus rhythm at 69 beats 1, LBBB, QRS [address]-T change s similar to previous EKG. Chest x-ray individually reviewed and does not show acute cardiopulmonary findings. Serial troponin shows significant increase consistent with acute non-STEMI. Personnel Security Specialist consulted and discussed. Plan for diagnostic cardiac cath. Patient on aspirin, Plavix, beta-kian high intensity statin. 2D echo ordered. Fasting lipid profile. Patient was hesitant in the morning for diagnostic catheter 3 times daily. 05/15: Patient had LHC on 05/14. LAD subtotal to total occlusion at mid LAD after large septal branch. Collateralization noted to distal LAD from left coronary system. D1 large vessel with calcified proximal 80% stenosis. RCA dominant proximal RCA 80% stenosis. OM1 around 20 to 30%. Successful PCI with YAIR of mid LAD. Patient will need elective PCI of proximal RCA in 2 to 3 weeks. Follow-up in cardiology office in 2 weeks. Patient to continue DAPT aspirin Plavix for 1 year and then aspirin indefinitely. Patient is discharged on aspirin, Plavix, metoprolol, lisinopril, nitro sublingual and high intensity statin. Echo shows EF 40 to 45%. Mildly dilated LV. Apical and distal septal hypokinesis. #2. Left lower jaw dental infection/caries: Patient with signicant oral pain, worse over the last week to the left lower jaw region with dental infection/caries. Patient is started on Augmentin. Advised follow-up with dentist as an outpatient. 05/15: Prescription for Augmentin given to complete a total of 7 days. #3. 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 Patient also had chronic cortical blindness but has improvement on left-sided weakness. He had reversal of PEG tube and ostomy. Continue antihypertensive aspirin duplex #4. Chronic constipation: continue patient home bowel regimen. Per rectal exam shows normal anal sphincter, no prolapsed or thrombosed hemorrhoids mild internal hemorrhoids. Hemorrhoidal cream given. [id number] stool softener senna-s and Metamucil. #5. Hypertension: Continue home regimen including metoprolol, PRN hydralazine. #6. Hyperlipidemia: Continue home statin regimen. #7. BPH: Continue patient home Flomax regimen. Patient continued to have symptoms of hesitancy, incomplete emptying of bladder and intermittent micturition and dribbling. Finasteride added to the Flomax and advised follow-up with Dr. Chi in 2 to 3 weeks. #8. Obesity: Weight loss and lifestyle changes encouraged. #9. Tobacco Abuse: Encouraged cessation. Patient is still smokes cigarettes half pack per day. Advised quitting. #10. History of EtOH Abuse, History of Polysubstance abuse: U tox negative. Serum alcohol 3.0. Hepatitis B surface antigen, antibody and hep C antibody nonreactive. HIV 1 and 2 antibody nonreactive. Advised hepatitis A and B vaccination. Patient complaining of burning sensation of her hands and feet. Patient denies history of diabetes mellitus. A1c 5.4%. Diabetes melitis ruled out. #11. DVT prophylaxis: Heparin drip. #12. CODE status: Patient HCPOA and living will are not in place however he notes that he would prefer his decision maker if the necessity should arise to be his significant other Annie Nicholas. He very specifically states he does not trust any of his family members with these types of decisions. Discussed CODE status at length including difference between FULL code, DNR-CCA and DNR-CC status. Full code Discharge medication reconciliation done. Discharge follow-up instructions completed. Discharge process discussed with the patient and all questions were answered to patient's satisfaction. Discharged home. Total time spent, exact 35 minutes on discharge meds reconciliation, examin ation, coordination of care with nurses and ancillary staff, review of imaging and blood test and discussion with the patient on follow-up instructions. Medications at Discharge Home Medications metoprolol tartrate 25 mg tablet 25 mg PO BID 03/29/20 tamsulosin 0.4 mg capsule (Flomax) 0.4 mg PO DAILY 12/11/21 amoxicillin 875 mg-potassium clavulanate 125 mg tablet 1 tab PO BIDCM 6 days #12 tabs 05/15/23 aspirin 81 mg tablet,delayed release 81 mg PO DAILY@0800 30 days #30 tabs 05/15/23 atorvastatin 80 mg tablet 80 mg PO QHS #30 tabs 05/15/23 clopidogrel 75 mg tablet 75 mg PO DAILY 30 days #30 tabs 05/15/23 finasteride 5 mg tablet 5 mg PO DAILY #30 tabs 05/15/23 lisinopril 5 mg tablet 5 mg PO DAILY #30 tabs 05/15/23 nitroglycerin 0.4 mg sublingual tablet 0.4 mg sublingual Q5M PRN CHEST PAIN #30 tabs 05/15/23 phenylephrine-shark liver oil-mineral oil-petrolatum rectal ointment (Hemorrhoidal ointment) 1 applic [place] Q8H PRN hemorrhoids #57 grams 05/15/23 psyllium husk (aspartame) 3 gram oral powder packet (Daily Fiber (psyllium- aspartame)) 1 packet PO DAILY #0 ea 05/15/23 sennosides 8.6 mg-docusate sodium 50 mg tablet (Stool Softener-Stimulant Laxative) 2 tab PO BID PRN PRN Constipation #0 tabs 05/15/23 Physical Exam Narrative He also stated burning pain on the feet and hands. Denies history of diabetes mellitus. A1c 5.4%. Diabetes ruled out. Physical exam General: Alert, Oriented x3, Cooperative, obesity grade 1 BMI 30.2. HEENT: Atraumatic, PERRLA, EOMI, Normocephalic Oral: Left lower jaw dental caries with tenderness. No purulent drainage. Neck: Supple, No JVD, Negative Carotid Bruits Lungs: Air entry diminished in bilateral lung bases. No crepitation/rhonchi Cardiovascular: Regular rate, Regular Rhythm, Normal S1, Normal S2, No murmurs Abdomen: Bowel Sounds Present, Soft, Non Tender, Non-Distended. Per rectal exam which does not show prolapsed hemorrhoid/fissure. Internal hemorrhoids. : Denies dysuria. Intermittent micturition/hesitation and dribbling of urine. Incomplete emptying of bladder, chronic. No renal angle tenderness. No suprapubic tenderness. Extremities: No edema, Capillary Refill Less than 3 Seconds Skin: No rashes, No breakdown Musculoskeletal: No Tenderness to Palpation of Joints or Extremities. ROM full and intact. Neurological: Cranial nerves II-XII grossly intact, DTR 2+/4 and Symmetrical, Neuro grossly intact Psych/Mental Status: Normal Affect, Appropriate. Weight / BMI Weight Weight: 210 lb 5.136 oz Body Mass Index (BMI) 30.2 ABG / Lab / Microbiology Data 05/15/23 06:44 05/15/23 06:44 Laboratory: Laboratory Results - last 24 hr 05/14/23 10:10: Activated Clotting Time 113 05/14/23 10:48: Activated Clotting Time 227 H 05/14/23 12:58: POC Glucose 134 H 05/15/23 06:44: WBC 7.6, RBC 4.50 L, Hgb 14.5, Hct 44.4, MCV 98.7 H, MCH 32.2 H, MCHC 32.7, RDW Std Deviation 47.8 H, RDW Coeff of Renny 13.2, Plt Count 242, MPV 10.6, Sodium 137, Potassium 3.7, Chloride 104, Carbon Dioxide 27.0, Anion Gap 6, BUN 12, Creatinine 1.08, Estim Creat Clear Calc 71.35, Est GFR (MDRD) Af Amer 88, Est GFR (MDRD) Non-Af 73, BUN/Creatinine Ratio 11.1, Glucose 106, Calcium 8.6, Total Bilirubin 0.60, AST 26, ALT 26, Alkaline Phosphatase 72, Total Protein 7.9, Albumin 3.7, Globulin 4.2, Albumin/Globulin Ratio 0.9 Microbiology: Microbiology 05/13/23 19:32 Mucosa - Nasopharyngeal Respiratory Panel (PCR) - Final 05/13/23 18:55 Nasal Secretion SARS-CoV-2 & FLU Antigen (Rapid) - Final Radiography Diagnostic Testing: Radiology Impression Echocardiogram 05/14/23 05:55 Interpretation Summary The estimated ejection fraction is 40-45 %. Apical and distal Septal hypokinesia. In comparison to echocardiogram in November 05, 2015 Reduced LV systolic function as well as segmental wall motion noted Ordering Physician: Joy López Performed By: Zelda Cerda, EMA, RVT D/C Instructions Discharge Diet: 2000 mg Sodium Diet Weight Bearing Status: Weight bearing as tolerated Call your doctor if you observe: Fever of 101 or Higher, Coldness, Increased Pain, Numbness or Tingling, Change in Color, Inability to urinate, Inability to have a bowel movement, Shortness of breath, Dizziness, Fainting spells, Swelling in the ankles, Chest pain, Prolonged hiccupping, Increased palpitations (irregular heartbeat) and Calf discomfort When: IN 2 WEEKS Meaningful Use Info Meaningful Use Diagnoses (Choose all that apply): AMI AMI/Post PCI/Angioplasty Aspirin given w/in 24hrs of arrival?: Yes ASA at discharge?: Yes Antiplatelet Therapy at Discharge:: Yes Statins at discharge?: Yes Celestine/ARB at discharge?: Yes Beta Kian at discharge?: Yes Done w/ Acute SC measure.: Yes Documented LVEF (%): 45 Discharge Plan Admission Admit Date/Time: 05/13/23 18:49 Attending Provider: Elia Adam Primary Care Provider: Anuradha Davis Consulting Providers: Arabella Jones; Joy López Discharge Orders/Prescriptions Prescriptions: New sennosides-docusate sodium [Stool Softener-Stimulant Laxat] 8.6-50 mg Tablet 2 tab PO BID PRN PRN (Reason: Constipation) Qty: 0 0RF aspirin 81 mg Tablet,Delayed Release (Dr/Ec) 81 mg PO DAILY@0800 30 Days Qty: 30 3RF nitroglycerin 0.4 mg Tablet, Sublingual 0.4 mg sublingual Q5M PRN (Reason: CHEST PAIN) Qty: 30 0RF amoxicillin-pot clavulanate 875-125 mg Tablet 1 tab PO BIDCM 6 Days Qty: 12 0RF Daily Fiber (psyllium-aspart) 3 gram Powder In Packet 1 packet PO DAILY Qty: 0 0RF lisinopril 5 mg tablet 5 mg PO DAILY Qty: 30 2RF atorvastatin 80 mg tablet 80 mg PO QHS Qty: 30 2RF finasteride 5 mg tablet 5 mg PO DAILY Qty: 30 0RF Hemorrhoidal Ointment 1 applic WV Q8H PRN (Reason: hemorrhoids) Qty: 57 0RF Rx Instructions: Available OTC Continued metoprolol tartrate 25 MG tablet 25 mg PO BID tamsulosin [Flomax] 0.4 mg capsule 0.4 mg PO DAILY Patient Comments: Take 1 capsule by mouth daily at bedtime. clopidogrel 75 MG tablet 75 mg PO DAILY 30 Days Qty: 30 2RF Discontinued pravastatin 40 MG tablet 40 mg PO DAILY Referrals / Follow Up: Lilian Willoughby MD [Med Staff - Active Staff] - Within 2 Weeks Jose Cerda NP, [employer] [Med Staff - Adv Practice Prof] - Within 2 Weeks Anuradha Davis PA [Primary Care Provider] - Disposition Disposition (needs filled in before D/C Order can be placed): Home, Self Care Charges/Coding Visit Charges Inpatient E&M: 46509 Disch Hosp >30min
[2023-05-15] MEDS: Famotidine 20 MG Tablet PO (10:23)
[2023-05-15] MEDS: oxyCODONE 5 MG Tablet PO (10:23)
[2023-05-15] MEDS: Aspirin E.C. 81 MG Tablet PO (10:23)
[2023-05-15 10:24] VITALS: BP 140/80; PULSE 98
[2023-05-15] MEDS: Metoprolol Tartrate 25 MG Tablet PO (10:24)
[2023-05-15] MEDS: Clopidogrel Bisulfate 75 MG Tablet PO (10:24)
[2023-05-15] MEDS: Psyllium 1 PACKET PO (10:24)
[2023-05-15] MEDS: Amox/Clavulanate 875 MG Tablet PO (10:24)
[2023-05-15 11:19] LABS: Hemoglobin A1c 5.4 % (3.8-5.6)
[2023-05-15] MEDS: Glycerin/Hypromellose/PEG400 15 ml Bottle 1 DRP EACH EYE (11:48)
--- NOTE | 2023-05-15 12:27 | NURSING ---
This RN discussed discharge with pt and . They stated social work had not been in to see them yet today and that they wanted to leave as soon as their ride arrived regardless if social work had seen them or not. This Rn educated pt and family that if they wanted to talk to social work they needed to wait to leave and they voiced understanding.
== END 2023-05-15 12:22 | disposition home or self-care (01) | DRG 247 ==
LOC: ED 19:34 → PCU 19:45
PROVIDERS: Internal Medicine Interventional Cardiology; Admitting Provider Family Medicine; Emergency Provider Emergency Medicine; PCP Physician Assistant; Visit Provider Internal Medicine
DX: I21.4 Non-ST elevation (NSTEMI) myocardial infarction (principal); I69.354 Hemiplegia and hemiparesis following cerebral infarction affecting left non-dominant side; F14.11 Cocaine abuse, in remission; I20.0 Unstable angina; F10.21 Alcohol dependence, in remission; F17.210 Nicotine dependence, cigarettes, uncomplicated; E78.5 Hyperlipidemia, unspecified; I10 Essential (primary) hypertension; I44.7 Left bundle-branch block, unspecified; K04.7 Periapical abscess without sinus; K02.9 Dental caries, unspecified; I69.312 Visuospatial deficit and spatial neglect following cerebral infarction; K59.09 Other constipation; K64.8 Other hemorrhoids; Y90.0 Blood alcohol level of less than 20 mg/100 ml; E66.9 Obesity, unspecified; Z68.30 Body mass index [BMI] 30.0-30.9, adult; N40.1 Benign prostatic hyperplasia with lower urinary tract symptoms; R39.11 Hesitancy of micturition; R39.14 Feeling of incomplete bladder emptying; Z95.5 Presence of coronary angioplasty implant and graft; Z79.02 Long term (current) use of antithrombotics/antiplatelets; Z79.82 Long term (current) use of aspirin; Z79.899 Other long term (current) drug therapy
CPT/HCPCS: 36415; 71045; 80053; 80061; 80307; 81001; 82077; 82962; 83036; 83605; 83690; 83735; 84484; 85025; 85027; 85347; 85610; 85730; 86703; 86706; 86803; 87086; 87340; 87428; 87633; 92928; 93005; 93306; 93458; 94668; 99152; 99153; 99285; J7030; J7040; Q9957; Q9967; A4216; C1725; C1769; C1874; C1887; C1894; C8929; C9600; J1940

== ENCOUNTER 2023-05-21 00:25 | Emergency (ER) | payer MEDICARE, SELFPAY ==
[2023-05-21 00:27] VITALS: BP 173/89; PULSE 95; RESP 18; TEMP 36.2; O2SAT 97; BMI 29.2
[2023-05-21 00:34] VITALS: BP 173/89; PULSE 98; RESP 18; TEMP 36.2; O2SAT 97
--- NOTE | 2023-05-21 00:55 | ED.VIS.GI ---
HPI HPI - GI History of Present Illness Chief Complaint: Abd Pain Informant: patient Narrative Narrative: Patient is very poor historian who states he has chronic abdominal discomfort that is worse today since he has not been able to urinate and not been able to have a bowel movement. No vomiting, no fevers no hematuria. No bright red blood per rectum or melena. He states he chronically has difficulty making a good stream of urine but has never had this happen where he cannot urinate. He has been dribbling small amounts of urine all day but feels like he still needs to go. Last time he urinated like normal was yesterday, more than 24 hours ago. States the discomfort in his abdomen is lower and very uncomfortable, nonlateralizing. He states he had a stroke 5 years ago and he has been having trouble with making a good stream of urine ever since then. Denies any perineal pain, he has never seen a urologist for this before or been diagnosed with any type of definite prostate issues that he knows of, according to him. PFSH PFSH Medical History Atherosclerotic heart disease of habematolel coronary artery without angina pectoris BPH (benign prostatic hyperplasia) H/O left bundle branch block History of alcoholism History of stroke History of substance abuse Hyperlipidemia Hypertension Tobacco use Home Medications metoprolol tartrate 25 mg tablet 25 mg PO BID 03/29/20 [History Last Taken 03/29/20] tamsulosin 0.4 mg capsule (Flomax) 0.4 mg PO DAILY 12/11/21 [History Last Taken Unknown] amoxicillin 875 mg-potassium clavulanate 125 mg tablet 1 tab PO BIDCM 6 days #12 tabs 05/15/23 [Rx Last Taken Unknown] aspirin 81 mg tablet,delayed release 81 mg PO DAILY@0800 30 days #30 tabs 05/15/23 [Rx Last Taken Unknown] atorvastatin 80 mg tablet 80 mg PO QHS #30 tabs 05/15/23 [Rx Last Taken Unknown] clopidogrel 75 mg tablet 75 mg PO DAILY 30 days #30 tabs 05/15/23 [Rx Last Taken Unknown] finasteride 5 mg tablet 5 mg PO DAILY #30 tabs 05/15/23 [Rx Last Taken Unknown] lisinopril 5 mg tablet 5 mg PO DAILY #30 tabs 05/15/23 [Rx Last Taken Unknown] nitroglycerin 0.4 mg sublingual tablet 0.4 mg sublingual Q5M PRN CHEST PAIN #30 tabs 05/15/23 [Rx Last Taken Unknown] phenylephrine-shark liver oil-mineral oil-petrolatum rectal ointment (Hemorrhoidal ointment) 1 applic SC Q8H PRN hemorrhoids #57 grams 05/15/23 [Rx Last Taken Unknown] psyllium husk (aspartame) 3 gram oral powder packet (Daily Fiber (psyllium-aspartame)) 1 packet PO DAILY #0 ea 05/15/23 [Rx Last Taken Unknown] sennosides 8.6 mg-docusate sodium 50 mg tablet (Stool Softener-Stimulant Laxative) 2 tab PO BID PRN PRN Constipation #0 tabs 05/15/23 [Rx Last Taken Unknown] Allergy/AdvReac Type Severity Reaction Status Date / Time No Known Allergies Allergy Verified 05/21/23 00:33 Family History Mother Diabetes Cancer Breast cancer Father Diabetes Cancer Brother Cancer Surgical History (Updated 05/18/23 @ 08:30 by Mari Olsen) History of creation of ostomy Hx of appendectomy S/P percutaneous endoscopic gastrostomy (PEG) tube placement Stented coronary artery (05/14/23) Social History household members: significant other Smoking Status: Light Smoker (<10/day) alcohol intake: former details: Sober x 3 years. substance use type: former substance user Date of last use: Prior polysubstance abuse including cocaine, clean x 3 years. ROS ROS ED Constitutional Constitutional ED: Denies chills or fever(s) Eyes Eyes: Denies change in vision or diplopia ENT ENT ED: Denies rhinorrhea or sore throat Cardiovascular Cardiovascular: Denies chest pain or palpitations Respiratory/Chest Respiratory/Chest: Denies cough or dyspnea Gastrointestinal Gastrointestinal: Reports abdominal pain and constipation; Denies diarrhea, nausea or vomiting Genitourinary Genitourinary ED: Reports as per HPI and change in urinary stream; Denies dysuria or hematuria Musculoskeletal Musculoskeletal: Denies back pain or neck pain Integumentary Denies abscess or rash Neurologic Neurologic: Denies abnormal speech or headache(s) Psychiatric Psychiatric: Denies anxiety or suicidal thoughts EXAM Physical Exam Const Vital Signs: 05/21/23 00:27 05/21/23 00:34 Temperature 97.1 F L 97.1 F L Temperature Source Temporal Temporal Pulse Rate 95 98 Respiratory Rate 18 18 Blood Pressure 173/89 H 173/89 H Blood Pressure Mean 117 117 Pulse Ox 97 97 Oxygen Delivery Method Room Air Room Air Positive well nourished and well developed General Appearance ED: well developed and NAD HEENT Reports moist mucous membranes normocephalic and atraumatic Eyes PERRL and EOMs intact bilaterally Neck full ROM and supple Resp normal respiratory effort and clear to auscultation bilaterally Cardio regular rate, regular rhythm and no murmurs GI GI Narrative: Lower abdominal distention and tenderness suprapubic. Other areas of tenderness are mild, diffuse. No guarding or rebound tenderness no pulsatile mass no [place] sign no Eisenberg Mckeon sign. Auscultation: normoactive bowel sounds Palpation: soft Back/Spine no CVA tenderness General Back: other FROM Extremity normal to inspection General Extremety ED: Yes edema; Negative for pulses abnormal or tenderness General Extremity: edema bilateral lower extremity Details: moderate; Negative for pulses abnormal Neuro oriented x3, CN's II-XII intact bilaterally and moves all extremities Sensorium / Orientation: awake and alert Skin no rashes or lesions noted and no wounds MDM MDM MDM Narrative Medical decision making narrative: Clinically patient seem like he had both urinary retention and constipation, often x1 can cause the other. He was amenable to catheter placement, however he only had 50 cc of urine there, and he had no changes in his pain so I had nursing discontinue that, and then offered him an enema as that would be the quickest way to make a big difference if his symptoms were due to constipation, given that his labs are normal. He was amenable, this was done and afterwards he had a good bowel movement and his abdominal pain was completely resolved and he felt much better. Therefore, although we considered advanced imaging of his abdomen/pelvis I do not think this is indicated at this time emergently. Patient will be encouraged to take MiraLAX or other stool softening medications, and follow-up with his doctor, he is comfortable with that plan we discussed reasons to return. Lab Data Attestation: I reviewed the patient's lab results. Labs: Laboratory Results - last 24 hr 05/21/23 05/21/23 00:35 00:38 WBC 9.1 RBC 4.49 L Hgb 14.5 Hct 43.1 MCV 96.0 H MCH 32.3 H MCHC 33.6 RDW Std Deviation 46.2 H RDW Coeff of Renny 13.1 Plt Count 278 MPV 10.8 Immature Gran % (Auto) 0.300 Neut % (Auto) 63.7 Lymph % (Auto) 21.0 [place] % (Auto) 10.3 H Eos % (Auto) 3.5 Baso % (Auto) 1.2 H Absolute Neuts (auto) 5.8 Absolute Lymphs (auto) 1.91 Nucleated RBC % 0 Sodium 139 Potassium 3.8 Chloride 108 H Carbon Dioxide 27.0 Anion Gap 4 L BUN 16 Creatinine 1.04 Estim Creat Clear Calc 74.09 Est GFR (MDRD) Af Amer 92 Est GFR (MDRD) Non-Af 76 BUN/Creatinine Ratio 15.4 Glucose 117 H Calcium 8.8 Urine Color Yellow Urine Clarity Clear Urine pH 5.0 Ur Specific [place] 1.030 Urine Protein 100 H Urine Glucose (UA) Normal Urine Ketones 5 H Urine Occult Blood 25 H Urine Nitrite Negative Urine Bilirubin 1 H Urine Urobilinogen 8 H Ur Leukocyte Esterase 25 H Urine RBC 0 SEEN Urine WBC 0 SEEN Ur Squamous Epith Cells 0 SEEN Urine Bacteria 0 SEEN Urine Mucus 0 SEEN Discharge Plan Triage Chief Complaint: Abd Pain ED Provider: Reggie Cullen Dx/Rx/DC Orders Clinical Impression: Acute constipation Instructions: ED Constipation (Adult) Prescriptions: No Action metoprolol tartrate 25 MG tablet 25 mg PO BID tamsulosin [Flomax] 0.4 mg capsule 0.4 mg PO DAILY Patient Comments: Take 1 capsule by mouth daily at bedtime. sennosides-docusate sodium [Stool Softener-Stimulant Laxat] 8.6-50 mg Tablet 2 tab PO BID PRN PRN (Reason: Constipation) Qty: 0 0RF aspirin 81 mg Tablet,Delayed Release (Dr/Ec) 81 mg PO DAILY@0800 30 Days Qty: 30 3RF nitroglycerin 0.4 mg Tablet, Sublingual 0.4 mg sublingual Q5M PRN (Reason: CHEST PAIN) Qty: 30 0RF amoxicillin-pot clavulanate 875-125 mg Tablet 1 tab PO BIDCM 6 Days Qty: 12 0RF Daily Fiber (psyllium-aspart) 3 gram Powder In Packet 1 packet PO DAILY Qty: 0 0RF lisinopril 5 mg tablet 5 mg PO DAILY Qty: 30 2RF atorvastatin 80 mg tablet 80 mg PO QHS Qty: 30 2RF finasteride 5 mg tablet 5 mg PO DAILY Qty: 30 0RF Hemorrhoidal Ointment 1 applic [place] Q8H PRN (Reason: hemorrhoids) Qty: 57 0RF Rx Instructions: Available OTC clopidogrel 75 MG tablet 75 mg PO DAILY 30 Days Qty: 30 2RF Primary Care Provider: Anruadha Davis Referrals: Anuradha Davis PA [Primary Care Provider] - 1 Week if not improving Activity Restrictions/Additional Instructions: Use an [id number] stool softener such as docusate sodium, and/or MiraLAX using 1 capful daily dissolved in at least 8 ounces of any liquid and drink plenty of fluids. Disposition Disposition: Home, Self Care
[2023-05-21 00:59] LABS: Bacteria 0 SEEN /hpf (None Seen); Mucous, Urine 0 SEEN /hpf (<or=2+); Red Blood Cells-Urine 0 SEEN /hpf (0-5); Squamous Epithelial Cells - UA 0 SEEN /hpf (0-5); White Blood Cells 0 SEEN /hpf (0-5)
[2023-05-21] MEDS: Lidocaine Jelly 2% 20 ML Syringe (URO-JET) 1 APPLIC TOPICAL (01:00)
[2023-05-21 01:02] LABS: Absolute Lymphocyte Count 1.91 X10^3/uL (0.83-4.51); Absolute Neutrophil Count 5.8 X10^3/uL (2.0-7.7); Basophil# 0.11 X10^3/uL; Basophil% 1.2 % (0-1); Eosinophil# 0.32 X10^3/uL; Eosinophils% 3.5 % (0-5); Hematocrit 43.1 % (40-54); Hemoglobin 14.5 g/dL (13.0-16.5); Lymphocyte # 1.91 X10^3/ul (0.83-4.51); Mean Corp Hgb Conc 33.6 g/dL (32-36); Mean Corpuscular Hgb 32.3 pg (27.0-32.0); Mean Platelet Vol. 10.8 fl (6.2-12.0); Monocyte# 0.94 X10^3/uL; Monocyte% 10.3 % (0-10); NRBC Flagged by Analyzer 0 % (0-5); Neutrophil # 5.79 X10^3/uL (2.7-7.7); Neutrophil % 63.7 % (47-70); Platelet Count 278 K/mm3 (150-450); RBC Distribution Width CV 13.1 % (11.6-14.6); RBC Distribution Width SD 46.2 fl (35.1-43.9); Red Blood Count 4.49 M/mm3 (4.6-6.2); White Blood Count 9.1 K/mm3 (4.4-11.0)
[2023-05-21 01:11] LABS: Color, Urine Yellow (Yellow); Glucose, Dipstick Normal (Normal); Ketone-Dipstick 5 mg/dl (Negative); Leukocyte Esterase-Dipstick 25 /ul (Negative); Nitrite-Dipstick Negative (Negative); Occult Blood-Urine 25 /ul (Negative); Protein-Dipstick 100 mg/dl (Negative); Urine Clarity Clear (Clear); Urine Urobilinogen 8 mg/dl (Normal)
[2023-05-21 01:14] LABS: Urine Bilirubin Dipstick 1 mg/dL (Negative)
[2023-05-21 01:15] LABS: Anion Gap 4 (5-15); BUN 16 mg/dL (7-18); BUN/Creat Ratio 15.4 RATIO (10-20); Calcium,Total 8.8 mg/dL (8.5-10.1); Chloride 108 mmol/L (98-107); Creatinine, Serum 1.04 mg/dL (0.70-1.30); EST Glomerular Filtration Rate 76 mL/min (>60); Est Glom Filt Rate - Afr Amer 92 mL/min (>60); Estimated Creatinine Clearance 74.09 ml/min; Glucose 117 mg/dL (74-106); Potassium 3.8 mmol/L (3.5-5.1); Sodium Level 139 mmol/L (136-145)
== END 2023-05-21 03:33 | disposition home or self-care (01) ==
PROVIDERS: Emergency Provider Emergency Medicine; PCP Physician Assistant; Visit Provider Emergency Medicine
DX: K59.00 Constipation, unspecified (principal); I25.10 Atherosclerotic heart disease of native coronary artery without angina pectoris; F17.200 Nicotine dependence, unspecified, uncomplicated
CPT/HCPCS: 80048; 81001; 85025; 99285

== ENCOUNTER 2023-06-16 13:11 | Observation (INO) | payer MEDICARE, SELFPAY ==
[2023-06-15 07:39] VITALS: BMI 29.8
[2023-06-16] VITALS (13 sets, daily range): BP systolic 87–136; BP diastolic 46–71; PULSE 52–70; RESP 12–18; TEMP 36.4–36.8; O2SAT 94–100; BMI 28.5
--- NOTE | 2023-06-16 11:09 | CRPHASE1_ITS ---
Patient Communication Patient Information Former Patient:: Phase I PHII Cardiac Rehab Discussed with Patient:: Yes Guide to Cardiac Rehab Given to Patient:: No (Received during previous hospitalization.) Cardiac Rehab Facility Choice List Given to Patient:: No (Received during previous hospitalization.) Communication to Cardiac Rehab Choice Program [facility] CR PHII:: Communication Given to CR Sales And Marketing Specialist:: Arabella Jones Phase II Cardiac Rehab:: Yes Sessions:: 36 sessions - 3 days/wk, 12 weeks Cardiac Rehabilitation Info Program Information Cardiac Rehabilitation Program Information: Cardiac Rehab The cardiac rehab team at [facility] consists of highly skilled exercise physiologists, nurses, respiratory therapists and physicians working together with you. Our purpose is to help you have a full recovery and achieve the goals you set for yourself. Over the years many of our patients have returned to activities they assumed they would never do again! We can help restore your confidence and motivation to make lifestyle changes that can have a significant impact on your health and quality of life! We can help answer questions and concerns you may have about exercise, lifestyle, medications, diet, stress and anxiety which are common following a hospitalization. WE monitor ECG and vital signs during exercise and discuss your progress with you and report to your physician(s). Cardiac Rehab is proven to help reduce readmissions, improve functional capacity and lower recurrence of problems with your heart. Our Cardiac Rehab program is Certified by the [place] [employer] Pulmonary [employer] (AACVPR) and Accredited by the [place] [employer] through our [facility]. You can contact us at . We invite you to call us with your questions or to get started in our program. If you have other questions or concerns be sure to ask your physician/provider during your follow-up visit. WE look forward to seeing you!
--- NOTE | 2023-06-16 11:10 | CRPH1.INSTRU ---
General Education Discussed with Patient CAD and cardiac anatomy and function:: Patient communicates acknowledgment and Needs reinforcement Explanation of diagnoses and procedures:: Patient communicates acknowledgment and Needs reinforcement Sign/Symptoms of WI:: Patient communicates acknowledgment and Needs reinforcement Antiplatelet therapy: Patient communicates acknowledgment and Needs reinforcement Proper use of NTG-SL: Patient communicates acknowledgment and Needs reinforcement Emergency procedures and activation of EMS: Patient communicates acknowledgment and Needs reinforcement Compliance of all prescribed medications: Patient communicates acknowledgment and Needs reinforcement Smoking Risk Factors Patient Nicotine/Smoking Risk Factors Are:: Cigarettes Recommendations Recommendations Include:: Second-hand smoke recommendation and Participation in a smoking cessation program Response Code Nicotine/Smoking Response Code:: Patient communicates acknowledgment, Family communicates acknowledgment and Needs reinforcement Dyslipidemia Risk Factors Patient Dyslipidemia Risk Factors Are:: Total Cholesterol, Triglycerides, HDL and LDL Recommendations Recommendations Include:: Lipid profile not available, Reviewed NCEP/ATP guidelines and Therapeutic Lifestyle Change dietary guidelines Response Code Dyslipidemia Response Code:: Patient communicates acknowledgment and Needs reinforcement Overweight/Obesity Risk Factors Patient Overweight/Obesity Risk Factors Are:: Overweight = 26-29 Recommendations Recommendations Include:: Weight loss of 5-10%, Reduced calorie diet and Exercise 5-7 times/week Response Code Overweight/Obesity:: Patient communicates acknowledgment and Needs reinforcement Hypertension Recommendations Recommendations Include:: Maintain BP <130/85, Decrease/maintain normal body weight and Moderation of ETOH Response Code Hypertension:: Patient communicates acknowledgment and Needs reinforcement Heart Disease Risk Factors Patient Heart Disease Risk Factors Are:: Previous cardiac event Recommendations Recommendations Include:: Educated family members of their risk and Educated family members of importance of prevention of heart disease Response Code Heart Disease Response Code:: Patient communicates acknowledgment and Needs reinforcement Sedentary Risk Factors Patient Sedentary Risk Factors Are:: Lack of regular exercise Recommendations Recommendations Include:: Aerobic exercise 5-7 times/week for 20-30 minutes continuously, Benefits of regular exercise, Discussed home walking program and Monitored Outpatient Cardiac Rehab Response Code Sedentary Response Code:: Patient communicates acknowledgment and Needs reinforcement
--- NOTE | 2023-06-16 11:44 | PCI.CARDCATH ---
PCI Cardiac Cath Report PCI Report: PCI proximal RCA report 1. Moderate sedation 2. Successful PCI of the proximal RCA 80% stenosis, with predilatation using 2.5 x 15 mm balloon Followed by placement of drug-eluting stent 3.5 x 22 mm resolute Papito with reduction of stenosis to 0% and maintenance of pre and post JASON-3 flow 3. Placement of TR band to close the right radial artery arteriotomy site Preprocedure diagnosis; 62-year-old patient with a history of CAD Patient has recent anterior myocardial infarction with PCI and stent of the left anterior descending artery Hypertension, hyperlipidemia His current medication include dual antiplatelet with aspirin and clopidogrel High-dose atorvastatin 80 mg, he was on LUZ MARINA inhibitor lisinopril 5 mg as well he is on beta-josé luis metoprolol 25 g twice daily. In addition patient take finasteride 5 mg daily. He was followed in the cardiology clinic at [facility] and is scheduled for elective PCI of the RCA. Consent; Risk and benefit of the procedure explained in detail to the patient agreed to proceed informed consent obtained. Interventional equipment used; 1. 6 Welsh radial artery sheath. Cocktail of heparin brain and nitroglycerin was given through the sheath. 0.014 180 cm run-through extra floppy straight guidewire 2. 6 Welsh JR4 guide 3. 6 Welsh guide liner 4. 2.5 x 15 mm regular balloon 6. 3.5 x 22 mm drug-eluting stent/resolute Papito. 7. 3.5 x 15 mm NC balloon. Medication used in the Computer Programmer Analyst 1. Heparin was given a total of 6000 units of heparin ACT level acceptable 251 2. Was given additional doses of clopidogrel total 300 mg today 3. Patient also received aspirin 81 mg today Procedure in detail; Under fluoroscopic guidance we will proceed with a 6 Welsh JR4 guide emma Blevins, cannulated the RCA ostium without difficulty The takeoff of the RCA is typical of carrillo's crook configuration, making it difficult to deliver the stent and requiring use of a guide liner. 6 Welsh Then we proceed with angiographic view of the RCA, proceed with the guidewire crossed the lesion and placed a guidewire in the midportion of the RPDA Then we will proceed with balloon dilatation using 2.5 x 15 mm balloon, and with the assistance of the guide liner we were able to deliver the 3.5 x 22 mm drug-eluting stent resolute Papito Postdilated with 3.5 x 15 mm and achieve an excellent result Following this all catheter removed hemostasis maintained with the placement of TR band to the right radial artery arteriotomy site Conclusion recommendation Successful PCI of proximal RCA as described with no complication in the Computer Programmer Analyst 1. Patient to continue on dual antiplatelet therapy currently on clopidogrel 75 mg in addition to low-dose aspirin for 1 year And to continue on low-dose aspirin in the indefinitely if no complication 2. Patient to follow-up with her primary patient registration rep at [facility] cardiology [facility] 3. Patient to continue as an outpatient for cardiac rehab phase 1 4. I discussed the cardiac medication in detail with the patient and the spouse regarding to continue the metoprolol lisinopril 5. Noted patient continues to smoke advised cessation of smoking. Arabella Jones MD,FACC,[facility]
--- NOTE | 2023-06-16 12:00 | EKG12_ITS ---
Test Reason : Blood Pressure : / mmHG Vent. Rate : 057 BPM Atrial Rate : 057 BPM P-R Int : 188 ms QRS Dur : 136 ms QT Int : 504 ms P-R-T Axes : 050 045 160 degrees QTc Int : 490 ms Sinus bradycardia Non-specific intra-ventricular conduction block Marked T wave abnormality, consider anterolateral ischemia Abnormal ECG When compared with ECG of 15-MAY-2023 05:26, Vent. rate has decreased BY 32 BPM Nonspecific T wave abnormality has replaced inverted T waves in Inferior leads T wave inversion now evident in Anterior leads Confirmed by YESENIA MORRISON ([id number]), electronic news gathering editor KENNETH CONTRERAS ([id number]) on 06/22/2023 9:46:05 AM Referred By: Yesenia Morrison Confirmed By:YESENIA MORRISON
[2023-06-16] MEDS: 0.9% Normal Saline 1,000 ML 75 ML IV (12:15)
[2023-06-16 14:15] LABS: ACT Activated Clotting Time 251 sec (74-137)
[2023-06-16] MEDS: Metoprolol Tartrate 25 MG Tablet PO (21:32)
[2023-06-16] MEDS: Atorvastatin Calcium 80 MG Tablet PO (21:33)
[2023-06-17 03:25] VITALS: BP 124/73; PULSE 61; RESP 16; TEMP 36.7; O2SAT 99
[2023-06-17 06:05] LABS: Hematocrit 31.3 % (40-54); Hemoglobin 10.1 g/dL (13.0-16.5); Mean Corp Hgb Conc 32.3 g/dL (32-36); Mean Corpuscular Hgb 31.4 pg (27.0-32.0); Mean Corpuscular Volume 97.2 fL (80-94); Mean Platelet Vol. 10.5 fl (6.2-12.0); Platelet Count 275 K/mm3 (150-450); RBC Distribution Width CV 12.5 % (11.6-14.6); RBC Distribution Width SD 44.9 fl (35.1-43.9); Red Blood Count 3.22 M/mm3 (4.6-6.2)
[2023-06-17 07:00] VITALS: O2SAT 98
[2023-06-17 07:54] LABS: ALB/GLOB Ratio 0.8 RATIO (0.9-2.4); AST(SGOT) 19 U/L (15-37); Alanine Aminotransfer ALT/SGPT 30 U/L (16-61); Albumin, Serum 2.9 g/dL (3.2-5.0); Alkaline Phosphatase 65 U/L (45-117); Anion Gap 5 (5-15); BUN 14 mg/dL (7-18); BUN/Creat Ratio 17.6 RATIO (10-20); Calcium,Total 7.7 mg/dL (8.5-10.1); Chloride 109 mmol/L (98-107); EST Glomerular Filtration Rate 104 mL/min (>60); Est Glom Filt Rate - Afr Amer 125 mL/min (>60); Estimated Creatinine Clearance 96.32 ml/min; Globulin 3.5 g/dL (2.2-4.2); Glucose 98 mg/dL (74-106); Potassium 3.9 mmol/L (3.5-5.1); Protein, Total 6.4 g/dL (6.4-8.2); Sodium Level 140 mmol/L (136-145)
[2023-06-17 08:54] VITALS: BP 123/64; PULSE 68; RESP 16; TEMP 36.8; O2SAT 97
[2023-06-17] MEDS: Aspirin E.C. 81 MG Tablet PO (09:05)
--- NOTE | 2023-06-17 10:00 | EKG12_ITS ---
Test Reason : AM EKG Blood Pressure : / mmHG Vent. Rate : 057 BPM Atrial Rate : 057 BPM P-R Int : 236 ms QRS Dur : 130 ms QT Int : 496 ms P-R-T Axes : 089 015 167 degrees QTc Int : 482 ms Sinus bradycardia with 1st degree A-V block Non-specific intra-ventricular conduction block Marked T wave abnormality, consider anterolateral ischemia Abnormal ECG When compared with ECG of 16-JUN-2023 13:25, MANUAL COMPARISON REQUIRED, DATA IS UNCONFIRMED Confirmed by YESENIA MORRISON ([id number]), book editor KENNETH CONTRERAS ([id number]) on 06/22/2023 9:37:31 AM Referred By: Yesenia Morrison Confirmed By:YESENIA MORRISON
--- NOTE | 2023-06-17 10:10 | PCM.DC ---
Discharge Instructions Activity Discharge Activity: Return to Normal Activity Lifting Restrictions: nothing greater than 10 lbs for 3 days Follow Up Care Test Results: Test results from this visit will be discussed in further detail at your follow-up appointment, if applicable. Discharge Plan Admission Admit Date/Time: 06/16/23 13:11 Primary Reason for Your Visit: stagged PCI Attending Provider: Arabella Jones Primary Care Provider: Anuradha Davis Instructions Additional Instructions / Restrictions: I am decreasing your metoprolol to 12.5 mg twice a day. You can cut your current dose in half. Unfortunately they do not make a smaller dose. This was because your HR was low at night. Do NOT stop your clopidogrel for any reason for one year. Keep your appt with Jose Cerda at [facility] on 07/12/23 at 10am Discharge Orders/Prescriptions Prescriptions: New metoprolol tartrate 25 mg Tablet 12.5 mg PO BID Qty: 1 0RF Continued aspirin 81 mg tablet,delayed release (DR/EC) 81 mg PO DAILY@0800 Qty: 90 3RF atorvastatin 80 mg tablet 80 mg PO QHS Qty: 90 3RF clopidogrel 75 mg tablet 75 mg PO DAILY Qty: 90 3RF lisinopril 5 mg tablet 5 mg PO DAILY Qty: 90 3RF tamsulosin [Flomax] 0.4 mg capsule 0.4 mg PO DAILY Patient Comments: Take 1 capsule by mouth daily at bedtime. sennosides-docusate sodium [Stool Softener-Stimulant Laxat] 8.6-50 mg Tablet 2 tab PO BID PRN PRN (Reason: Constipation) Qty: 0 0RF nitroglycerin 0.4 mg Tablet, Sublingual 0.4 mg sublingual Q5M PRN (Reason: CHEST PAIN) Qty: 30 0RF Daily Fiber (psyllium-aspart) 3 gram Powder In Packet 1 packet PO DAILY Qty: 0 0RF finasteride 5 mg tablet 5 mg PO DAILY Qty: 30 0RF Hemorrhoidal Ointment 1 applic [place] Q8H PRN (Reason: hemorrhoids) Qty: 57 0RF Rx Instructions: Available OTC Discontinued metoprolol tartrate 25 mg tablet 25 mg PO BID Qty: 180 3RF Referrals / Follow Up: Jose Cerda EVP CHIEF EXPLORATION OFFICER, EVP CHIEF EXPLORATION OFFICER-C [Med Staff - Adv Practice Prof] - (07/12/23 at 10 am) Anuradha Davis, PA [Primary Care Provider] - Disposition Disposition (needs filled in before D/C Order can be placed): Home, Self Care
[2023-06-17 10:20] VITALS: BP 104/67; PULSE 67; RESP 16; TEMP 36.9; O2SAT 96
[2023-06-17] MEDS: Clopidogrel Bisulfate 75 MG Tablet PO (10:25)
[2023-06-17] MEDS: Lisinopril 2.5 MG Tablet PO (10:25)
[2023-06-17 10:26] VITALS: BP 104/67; PULSE 67
[2023-06-17] MEDS: Metoprolol Tartrate 25 MG Tablet PO (10:26)
--- NOTE | 2023-06-17 10:35 | PHA.DC_ITS ---
Pharmacy [facility] has performed discharge medication reconciliation and counseling for this patient. The patient was counseled on the following discharge medications and changes in medications for homegoing were reviewed. 1. METOPROLOL TARTRATE: DOSE CHANGED FROM 25MG PO BID TO 12.5MG PO BID The Reason for Use, instructions for use, and potential side effects were reviewed for all new medications. The patient's questions regarding all of their medications were answered. The patient was able to verbally demonstrate an understanding of their discharge medications. The patient's discharge medication list was reviewed for discrepancies and discrepancies were resolved. Patient was counselled by Yvonne White PharmD Candidate Medications at Discharge Home Medications tamsulosin 0.4 mg capsule (Flomax) 0.4 mg PO DAILY 12/11/21 finasteride 5 mg tablet 5 mg PO DAILY #30 tabs 05/15/23 nitroglycerin 0.4 mg sublingual tablet 0.4 mg sublingual Q5M PRN CHEST PAIN #30 tabs 05/15/23 phenylephrine-shark liver oil-mineral oil-petrolatum rectal ointment (Hemorrho idal ointment) 1 applic [place] Q8H PRN hemorrhoids #57 grams 05/15/23 psyllium husk (aspartame) 3 gram oral powder packet (Daily Fiber (psyllium- aspartame)) 1 packet PO DAILY #0 ea 05/15/23 sennosides 8.6 mg-docusate sodium 50 mg tablet (Stool Softener-Stimulant Laxative) 2 tab PO BID PRN PRN Constipation #0 tabs 05/15/23 aspirin 81 mg tablet,delayed release 81 mg PO DAILY@0800 #90 tabs 05/24/23 atorvastatin 80 mg tablet 80 mg PO QHS #90 tabs 05/24/23 clopidogrel 75 mg tablet 75 mg PO DAILY #90 tabs 05/24/23 lisinopril 5 mg tablet 5 mg PO DAILY #90 tabs 05/24/23 metoprolol tartrate 25 mg tablet 12.5 mg (1/2 x 25 mg) PO BID #1 TAB 06/17/23
== END 2023-06-17 11:37 | disposition home or self-care (01) ==
LOC: CLSP 13:29 → PCU 13:29
PROVIDERS: Admitting Provider Internal Medicine Interventional Cardiology; PCP Physician Assistant; Referring Provider Internal Medicine Interventional Cardiology; Visit Provider Internal Medicine Interventional Cardiology
DX: I25.10 Atherosclerotic heart disease of native coronary artery without angina pectoris (principal); E78.5 Hyperlipidemia, unspecified; Z79.82 Long term (current) use of aspirin; I10 Essential (primary) hypertension; Z79.02 Long term (current) use of antithrombotics/antiplatelets; Z79.899 Other long term (current) drug therapy; N40.0 Benign prostatic hyperplasia without lower urinary tract symptoms; Z86.73 Personal history of transient ischemic attack (TIA), and cerebral infarction without residual deficits; I25.2 Old myocardial infarction; F17.200 Nicotine dependence, unspecified, uncomplicated; Z95.5 Presence of coronary angioplasty implant and graft; I25.5 Ischemic cardiomyopathy
CPT/HCPCS: 36415; 80053; 85027; 85347; 92928; 93005; 96360; 96361; 99152; 99153; 99221; 99406; J7030; J7040; Q9967; C1725; C1769; C1874; C1887; C1894; C9600; G0378

== ENCOUNTER 2023-06-29 01:17 | Emergency (ER) | payer MEDICARE, SELFPAY ==
[2023-06-29 01:22] VITALS: BP 151/91; PULSE 88; RESP 16; TEMP 36.6; O2SAT 98
--- NOTE | 2023-06-29 01:33 | CT_ITS ---
EXAM: CT ABDOMEN AND PELVIS WITHOUT INTRAVENOUS CONTRAST CLINICAL INDICATION: pain pain TECHNIQUE: Helically acquired images were obtained of the abdomen and pelvis without intravenous contrast. This CT exam was performed using one or more of the following dose reduction techniques: automated exposure control, adjustment of the mA and/or kV according to patient size, and/or use of iterative reconstruction technique. RADIATION DOSE: CTDIvol = 10.20 mGy, DLP = 527.25 mGy-cm COMPARISON: CT scan abdomen and pelvis 12/11/2021. FINDINGS: LOWER THORAX: There is a small paraseptal edematous bulla in the right lower lobe. There are coronary artery calcifications. There is a small hiatal hernia. No cardiomegaly. No significant pericardial effusion. ABDOMEN: LIVER: Unremarkable. Homogeneous. GALLBLADDER AND BILE DUCTS: There are multiple gallstones. No gallbladder distention or wall edema. No intra- or extrahepatic biliary ductal dilation. PANCREAS: Unremarkable. No focal cystic mass. SPLEEN: Unremarkable. Normal size without focal cystic or solid mass. ADRENALS: There is a 3 cm low-attenuation right adrenal nodule, consistent with an adenoma. These is stable in size. KIDNEYS AND URETERS: Unremarkable. Normal renal size and position. No hydronephrosis. STOMACH AND BOWEL: There are colonic diverticula. No stomach or bowel distention. No focal inflammatory change. PELVIS: APPENDIX: The appendix is not visualized. There is no evidence for acute appendicitis. BLADDER: Assessment of the urinary bladder is limited by nondistention. REPRODUCTIVE: The prostate gland is mildly enlarged. ABDOMEN and PELVIS: INTRAPERITONEAL SPACE: Unremarkable. No ascites or other fluid collection. No free air. BONES/JOINTS: There are multilevel degenerative changes in the visualized spine. There is bilateral spondylolysis at the L5 level without associated spondylolisthesis. No suspicious lytic or blastic abnormality. SOFT TISSUES: Unremarkable. No discrete abdominal or pelvic wall hernia. VASCULATURE: There is atherosclerotic calcification of the abdominal aorta. LYMPH NODES: Unremarkable. No enlarged lymph nodes. CT/Abdomen/Pelvis without Cont IMPRESSION: 1. Colonic diverticulosis without evidence for acute diverticulitis. 2. Gallstones. 3. Right adrenal adenoma. No follow-up imaging is necessary. Consider biochemical assays to determine functional status and exclude pheochromocytoma if biopsy/resection is planned. 4. Atherosclerosis. 5. Small hiatal hernia. 6. Mildly enlarged prostate. Electronically Signed: Jozef Akers MD at 2:58 EDT ,
[2023-06-29 01:50] LABS: Absolute Lymphocyte Count 1.42 X10^3/uL (0.83-4.51); Absolute Neutrophil Count 3.7 X10^3/uL (2.0-7.7); Basophil# 0.09 X10^3/uL; Basophil% 1.4 % (0-1); Eosinophil# 0.39 X10^3/uL; Eosinophils% 6.1 % (0-5); Hematocrit 31.4 % (40-54); Hemoglobin 9.7 g/dL (13.0-16.5); Lymphocyte # 1.42 X10^3/ul (0.83-4.51); Lymphocyte % 22.2 % (19-41); Mean Corp Hgb Conc 30.9 g/dL (32-36); Mean Corpuscular Hgb 29.2 pg (27.0-32.0); Mean Corpuscular Volume 94.6 fL (80-94); Mean Platelet Vol. 9.5 fl (6.2-12.0); Monocyte# 0.74 X10^3/uL; Monocyte% 11.6 % (0-10); NRBC Flagged by Analyzer 0 % (0-5); Neutrophil # 3.74 X10^3/uL (2.7-7.7); Neutrophil % 58.4 % (47-70); Platelet Count 346 K/mm3 (150-450); RBC Distribution Width CV 12.8 % (11.6-14.6); RBC Distribution Width SD 44.2 fl (35.1-43.9); Red Blood Count 3.32 M/mm3 (4.6-6.2); White Blood Count 6.4 K/mm3 (4.4-11.0)
[2023-06-29 01:52] LABS: Red Blood Cells-Urine 0 SEEN /hpf (0-5); Squamous Epithelial Cells - UA 0 SEEN /hpf (0-5)
--- NOTE | 2023-06-29 02:02 | EDS_ITS ---
HPI History of Present Illness Chief Complaint: Abd Pain Detail of Chief Complaint: Constipation and difficulty urinating Informant: patient Narrative Narrative: Patient presents secondary to constipation and difficulty urinating. This has been intermittent for quite some time. He states tonight he could just not take the pain anymore and came in by squad. He denies fever or chills. PFSH PFSH Medical History Acute constipation Atherosclerotic heart disease of [place] coronary artery without angina pectoris BPH (benign prostatic hyperplasia) CVD (cerebrovascular disease) Essential hypertension H/O left bundle branch block History of alcoholism History of stroke History of substance abuse Hyperlipidemia Non-ST elevation PR (NSTEMI) Tobacco use Home Medications tamsulosin 0.4 mg capsule (Flomax) 0.4 mg PO DAILY 12/11/21 [History Last Taken Unknown] finasteride 5 mg tablet 5 mg PO DAILY #30 tabs 05/15/23 [Rx Last Taken Unknown] nitroglycerin 0.4 mg sublingual tablet 0.4 mg sublingual Q5M PRN CHEST PAIN #30 tabs 05/15/23 [Rx Last Taken Unknown] phenylephrine-shark liver oil-mineral oil-petrolatum rectal ointment (Hemorrhoidal ointment) 1 applic [place] Q8H PRN hemorrhoids #57 grams 05/15/23 [Rx Last Taken Unknown] psyllium husk (aspartame) 3 gram oral powder packet (Daily Fiber (psyllium- aspartame)) 1 packet PO DAILY #0 ea 05/15/23 [Rx Last Taken Unknown] sennosides 8.6 mg-docusate sodium 50 mg tablet (Stool Softener-Stimulant Laxative) 2 tab PO BID PRN PRN Constipation #0 tabs 05/15/23 [Rx Last Taken Un known] aspirin 81 mg tablet,delayed release 81 mg PO DAILY@0800 #90 tabs 05/24/23 [Rx Last Taken 06/16/23] atorvastatin 80 mg tablet 80 mg PO QHS #90 tabs 05/24/23 [Rx Last Taken Unknown] clopidogrel 75 mg tablet 75 mg PO DAILY #90 tabs 05/24/23 [Rx Last Taken 06/16/23] lisinopril 5 mg tablet 5 mg PO DAILY #90 tabs 05/24/23 [Rx Last Taken 06/16/23] metoprolol tartrate 25 mg tablet 12.5 mg (1/2 x 25 mg) PO BID #1 TAB 06/17/23 [Rx Last Taken Unknown] Allergy/AdvReac Type Severity Reaction Status Date / Time No Known Allergies Allergy Verified 06/29/23 01:24 Family History Mother Diabetes Cancer Breast cancer Father Diabetes Cancer Brother Cancer Surgical History History of creation of ostomy Hx of appendectomy S/P percutaneous endoscopic gastrostomy (PEG) tube placement Stented coronary artery (06/16/23) Social History household members: significant other Smoking Status: Light Smoker (<10/day) alcohol intake: former details: Sober x 3 years. substance use type: former substance user Date of last use: Prior polysubstance abuse including cocaine, clean x 3 years. ROS ROS ED Constitutional Constitutional ED: Denies chills or fever(s) Eyes Eyes: Denies change in vision ENT ENT ED: Denies rhinorrhea or sore throat Cardiovascular Cardiovascular: Denies chest pain or palpitations Respiratory/Chest Respiratory/Chest: Denies cough or dyspnea Gastrointestinal Gastrointestinal: Reports abdominal pain and constipation; Denies nausea or vomiting Genitourinary Genitourinary ED: Reports difficulty urinating Musculoskeletal Musculoskeletal: Reports extremity pain; Denies back pain Integumentary Denies Abrasions or rash Neurologic Neurologic: Reports paresthesias; Denies headache(s) or weakness Allergic/Immunologic Allergic/Immunologic ED: Denies lip swelling or urticaria EXAM Physical Exam Const Vital Signs: 06/29/23 01:22 Temperature 97.9 F Temperature Source Oral Pulse Rate 88 Respiratory Rate 16 Blood Pressure 151/91 H Blood Pressure Mean 111 Pulse Ox 98 Oxygen Delivery Method Room Air Positive well nourished and well developed General Appearance ED: well developed HEENT Reports moist mucous membranes Eyes EOMs intact bilaterally Chest Wall inspection of chest normal and palpation of chest normal Resp normal respiratory effort and clear to auscultation bilaterally Cardio regular rate and regular rhythm GI GI Narrative: Abdomen soft and slightly distended. Mild lower abdominal tenderness palpation. No guarding or rebound. Active bowel sounds are noted. Extremity Extremity Narrative: 2+ edema bilateral lower extremities, symmetric. Neuro oriented x3 Skin no rashes or lesions noted MDM MDM MDM Narrative Medical decision making narrative: Patient was seen in emergency room 1 month ago with similar complaints. That work-up and evaluation is reviewed. Labwork obtained to evaluate for leukocytosis, anemia, and electrolyte derangement. Urinalysis obtained to evaluate for infection/hematuria. Bladder scan performed and only showed [address] flank obtained to evaluate for bowel obstruction, mass, retention. Lab Data Labs: Laboratory Results - last 24 hr 06/29/23 06/29/23 01:45 01:47 WBC 6.4 RBC 3.32 L Hgb 9.7 L Hct 31.4 L MCV 94.6 H MCH 29.2 MCHC 30.9 L RDW Std Deviation 44.2 H RDW Coeff of Renny 12.8 Plt Count 346 MPV 9.5 Immature Gran % (Auto) 0.300 Neut % (Auto) 58.4 Lymph % (Auto) 22.2 [place] % (Auto) 11.6 H Eos % (Auto) 6.1 H Baso % (Auto) 1.4 H Absolute Neuts (auto) 3.7 Absolute Lymphs (auto) 1.42 Nucleated RBC % 0 Sodium 140 Potassium 3.7 Chloride 109 H Carbon Dioxide 25.0 Anion Gap 6 BUN 14 Creatinine 0.96 Est GFR (MDRD) Af Amer 101 Est GFR (MDRD) Non-Af 84 BUN/Creatinine Ratio 14.6 Glucose 110 H Calcium 8.2 L Total Bilirubin 0.30 AST 13 L ALT 25 Alkaline Phosphatase 86 Total Protein 7.1 Albumin 3.4 Globulin 3.7 Albumin/Globulin Ratio 0.9 Urine Color Yellow Urine Clarity Clear Urine pH 5.0 Ur Specific [place] 1.030 Urine Protein 30 H Urine Glucose (UA) Normal Urine Ketones 5 H Urine Occult Blood 10 H Urine Nitrite Negative Urine Bilirubin 1 H Urine Urobilinogen 1 H Ur Leukocyte Esterase 25 H Urine RBC 0 SEEN Urine WBC 0-5 SEEN Ur Squamous Epith Cells 0 SEEN Urine Bacteria 1+ Urine Mucus 2+ Radiography Diagnostic Testing: Clinical Impression(s) from Imaging Studies Abdomen/Pelvis CT 06/29/23 01:33 IMPRESSION: 1. Colonic diverticulosis without evidence for acute diverticulitis. 2. Gallstones. 3. Right adrenal adenoma. No follow-up imaging is necessary. Consider biochemical assays to determine functional status and exclude pheochromocytoma if biopsy/resection is planned. 4. Atherosclerosis. 5. Small hiatal hernia. 6. Mildly enlarged prostate. Electronically Signed: Jozef Akers MD at 2:58 EDT , Treatment and Re-Evaluation :: CBC reveals normal white count at 6.4 with a hemoglobin slightly low at 9.7. This appears consistent with his prior values. Chemistry studies are unremarkable. LFTs unremarkable. Urinalysis reveals 1+ bacteria with 0-5 white cells and no nitrites. CT scan of the abdomen pelvis without contrast is obtained. This reveals evidence of diverticulosis without diverticulitis. Gallstones are noted. A right adrenal adenoma is noted but no follow-up imaging is necessary. Mildly enlarged prostate is noted. On repeat evaluation patient is lying in bed comfortably. Significant other states he has had to use the urinal several times but only gets a few dribbles out. He does not have significant urinary retention by imaging or bladder scan. She does state that he has been off his tamsulosin and just got it refilled. I encouraged them to be sure to take this regularly. Significant other voices frustration with trying to get home health aide to assist them. She states that she had asked patient's primary care doctor about this but nothing ever got done. I will leave a message for social work asking them to call the patient later today to see if they can provide some information about this. Discharge Plan Triage Chief Complaint: Abd Pain ED Provider: Clare Juarez Dx/Rx/DC Orders Clinical Impression: Abdominal pain Instructions: ED Abdominal Pain Unkn Cause Male... Prescriptions: No Action aspirin 81 mg tablet,delayed release (DR/EC) 81 mg PO DAILY@0800 Qty: 90 3RF atorvastatin 80 mg tablet 80 mg PO QHS Qty: 90 3RF clopidogrel 75 mg tablet 75 mg PO DAILY Qty: 90 3RF lisinopril 5 mg tablet 5 mg PO DAILY Qty: 90 3RF tamsulosin [Flomax] 0.4 mg capsule 0.4 mg PO DAILY Patient Comments: Take 1 capsule by mouth daily at bedtime. sennosides-docusate sodium [Stool Softener-Stimulant Laxat] 8.6-50 mg Tablet 2 tab PO BID PRN PRN (Reason: Constipation) Qty: 0 0RF nitroglycerin 0.4 mg Tablet, Sublingual 0.4 mg sublingual Q5M PRN (Reason: CHEST PAIN) Qty: 30 0RF Daily Fiber (psyllium-aspart) 3 gram Powder In Packet 1 packet PO DAILY Qty: 0 0RF finasteride 5 mg tablet 5 mg PO DAILY Qty: 30 0RF Hemorrhoidal Ointment 1 applic [place] Q8H PRN (Reason: hemorrhoids) Qty: 57 0RF Rx Instructions: Available OTC metoprolol tartrate 25 mg Tablet 12.5 mg PO BID Qty: 1 0RF Primary Care Provider: Anuradha Davis Referrals: Anuradha Davis PA [Primary Care Provider] - 1-2 Weeks Disposition Disposition: Home, Self Care
[2023-06-29 02:06] LABS: ALB/GLOB Ratio 0.9 RATIO (0.9-2.4); AST(SGOT) 13 U/L (15-37); Alanine Aminotransfer ALT/SGPT 25 U/L (16-61); Albumin, Serum 3.4 g/dL (3.2-5.0); Alkaline Phosphatase 86 U/L (45-117); Anion Gap 6 (5-15); BUN 14 mg/dL (7-18); BUN/Creat Ratio 14.6 RATIO (10-20); Calcium,Total 8.2 mg/dL (8.5-10.1); Chloride 109 mmol/L (98-107); Creatinine, Serum 0.96 mg/dL (0.70-1.30); EST Glomerular Filtration Rate 84 mL/min (>60); Est Glom Filt Rate - Afr Amer 101 mL/min (>60); Globulin 3.7 g/dL (2.2-4.2); Glucose 110 mg/dL (74-106); Potassium 3.7 mmol/L (3.5-5.1); Protein, Total 7.1 g/dL (6.4-8.2); Sodium Level 140 mmol/L (136-145)
[2023-06-29 02:10] LABS: Color, Urine Yellow (Yellow); Glucose, Dipstick Normal (Normal); Ketone-Dipstick 5 mg/dl (Negative); Leukocyte Esterase-Dipstick 25 /ul (Negative); Nitrite-Dipstick Negative (Negative); Occult Blood-Urine 10 /ul (Negative); Protein-Dipstick 30 mg/dl (Negative); Urine Clarity Clear (Clear); Urine Urobilinogen 1 mg/dl (Normal)
[2023-06-29 02:11] LABS: Urine Bilirubin Dipstick 1 mg/dL (Negative)
[2023-06-29 02:25] LABS: Bacteria 1+ /hpf (None Seen); Mucous, Urine 2+ /hpf (<or=2+); White Blood Cells 0-5 SEEN /hpf (0-5)
[2023-06-29 03:46] VITALS: BP 142/60; PULSE 71; RESP 18
--- NOTE | 2023-06-30 11:15 | CM.ED ---
Social Work SW followed up with patient per MD Bui request for additional resources. SW contacted patient and introduced self and role as [facility] SW. Patient provided permission for SW to speak with his spouse as the patient reports short term memory lose. SW engaged patient's spouse in conversation regarding recent events. Patient's spouse voiced frustration regarding the patient wanted [facility] but not being contacted by patient's doctor's office. SW provided emotional support and encouragement to follow up with patient's doctors office to further discuss. SW then reviewed services offered with [facility] and provided the assessment phone number. Patient's spouse was receptive towards information and plans to contact them to further discuss. Asha Russell MICA SIZER, NOEL
== END 2023-06-29 03:47 | disposition home or self-care (01) ==
PROVIDERS: Emergency Provider Emergency Medicine; PCP Physician Assistant; Visit Provider Emergency Medicine
DX: R10.9 Unspecified abdominal pain (principal); I25.10 Atherosclerotic heart disease of native coronary artery without angina pectoris; F17.200 Nicotine dependence, unspecified, uncomplicated; R39.198 Other difficulties with micturition; I25.2 Old myocardial infarction; Z86.73 Personal history of transient ischemic attack (TIA), and cerebral infarction without residual deficits
CPT/HCPCS: 74176; 80053; 81001; 85025; 99285; A4216

== ENCOUNTER 2023-07-09 08:29 | Inpatient (IN) | payer MEDICARE, SELFPAY ==
[2023-07-09] VITALS (17 sets, daily range): BP systolic 77–113; BP diastolic 43–69; PULSE 60–81; RESP 14–18; TEMP 35.1–36.9; O2SAT 94–100; BMI 29.3; BMI 29.0
--- NOTE | 2023-07-09 | GASB_PTH ---
PATIENT: PADDY DAVID LOC: [facility] U#:[id number] AGE/SX: 62/M ROOM: [facility] RE07/09/[address]: Dr. Elia Adam MD : 1960 BED: 1 DIS: 07/10/2023 SPEC #: [id number] RECD: 07/09/23 10:36 STATUS: ALVERTO REQ #: [id number] CAROLYN: 07/09/23 00:[address]: Isaiah Guerrero DEPT: SURGICAL PATHOLOGY RECD BY: Sunny Queen ENTERED: 07/12/23 10:36 SP TYPE: Gastric Bx OTHR DR: MD Anuradha Hsu PA Tissues: Gastric mucous membrane Procedures: Surgery Specimen Level IV Comments: @ Ordering doctor for SUIV edited from to @ by RGOSABRINA at 07/12/23 1331 @ Submitting doctor edited from to @ by RGOOD at 07/12/23 1331 HEADER OPERATION: EGD, electrohemostasis PRE-OP DIAGNOSIS: GI bleed TISSUE SUBMITTED: Gastric antrum, H. pylori and path MICROSCOPIC DIAGNOSIS Gastric antrum, biopsy: Mild gastritis. See microscopic description and comment. GERRY:favio 07/13/2023 COMMENT The results of immunohistochemistry for Helicobacter pylori will be reported separately ([id number]). MICROSCOPIC DESCRIPTION Slides are reviewed. The specimen shows fragments of gastric mucosa with chronic inflammatory cell infiltrates in the lamina propria consisting of lymphocytes and plasma cells, consistent with mild chronic gastritis. GROSS DESCRIPTION Received in fixative is one container labeled with the patient's name and designated gastric antrum. The specimen consists of one irregular fragment of light sabillon soft tissue that measures 0.4 x 0.3 x 0.1 cm. The specimen is totally submitted in one cassette. / GERRY:favio 07/12/2023 TC:3 CPT: 13530
--- NOTE | 2023-07-09 08:55 | EKG12_ITS ---
Test Reason : SYNCOPE Blood Pressure : / mmHG Vent. Rate : 057 BPM Atrial Rate : 057 BPM P-R Int : 196 ms QRS Dur : 136 ms QT Int : 462 ms P-R-T Axes : 037 013 151 degrees QTc Int : 449 ms Sinus bradycardia Left ventricular hypertrophy with QRS widening and repolarization abnormality ( Artemus product ) Abnormal ECG Confirmed by BILLY ZAYAS, TELLY ([id number]), news assignment editor KENNETH CONTRERAS ([id number]) on 07/15/2023 2:12:13 PM Referred By: Confirmed By:TELLY CERVANTES MD
--- NOTE | 2023-07-09 08:55 | CT_ITS ---
STUDY: CT ABDOMEN AND PELVIS WITH CONTRAST REASON FOR EXAM: Male, 62 years old. Syncopal episode during a bowel movement. Diaphoresis. Abdominal pain. RADIATION DOSAGE (If Supplied By Facility): CTDIvol = ( 14.84 ) mGy, DLP = ( 1044.18 ) mGycm TECHNIQUE: Transaxial images were obtained from the dome of the diaphragm to the symphysis pubis without oral contrast. IV 100mL Isovue-300 was administered. Sagittal and coronal images were reconstructed. Individualized dose optimization techniques were used for this CT. COMPARISON: Comparison is made with prior study dated June 29, 2023. FINDINGS: The visualized lung bases are unremarkable. Coronary artery calcification. There is decreased attenuation of the liver consistent with steatosis. Small gallstones are seen along the dependent portion of the gallbladder lumen. Normal spleen. Normal pancreas. There is a 2.9 cm x 1.3 cm heterogeneously enhancing mass in the right adrenal gland. This may represent an adenoma although further evaluation with MRI and adrenal function testing is recommended for further evaluation. Normal right kidney. Normal left kidney. There is a small hiatal hernia. Normal small intestine. There are multiple colonic diverticula consistent with diverticulosis. The appendix is visualized and appears normal. There is diffuse atherosclerotic calcification of the abdominal aorta, without a demonstrated aneurysm. Normal inferior vena cava. Normal retroperitoneum. Diffuse urinary bladder wall thickening although the urinary bladder is not completely distended. Heterogeneous enlargement of the prostate. The prostate measures 4.5 cm x 4.4 cm. This causes indentation at the bladder base. Small bilateral inguinal hernias containing fat. There are degenerative changes of the visualized lumbar spine. CT/Abdomen/Pelvis W IV Cont ONLY IMPRESSION: Fatty infiltration of the liver. Small layering gallstones along the dependent portion of the gallbladder lumen. 2.9 cm x 1.3 cm heterogeneous enhancing mass in the right adrenal gland. This may represent an adenoma although correlation with MRI and adrenal function testing recommended for further evaluation. Heterogeneous enlargement of the prostate within the patient the bladder base. The urinary bladder wall is thickened. Electronically Signed: Navi Velazco MD at 10:32 EDT ,
--- NOTE | 2023-07-09 09:00 | EX.ED.DYSGE1 ---
HPI History of Present Illness Chief Complaint: Syncope Detail of Chief Complaint: Syncope while in the bathtub. Informant: patient and EMS Onset/Context/Timing Onset: Today Context: Sudden Onset Timing: Intermittent Current Severity: Gone Maximum Severity: Moderate Narrative Narrative: 62-year-old male history of prior stroke and hypertension prior appendectomy. States he is in the bathtub this morning his significant other was helping him bathe. Had a syncopal episode. Said prior to the episode he denied any headache, chest pain, shortness of breath or abdominal pain. He denied any nausea, vomiting or diarrhea. Patient has been seen in the ER 3 times in the last 1 to 2 months. Prior similar symptoms: No Recent Illness/Hospitalization: No PFSH PFSH Medical History Acute constipation Atherosclerotic heart disease of [place] coronary artery without angina pectoris BPH (benign prostatic hyperplasia) CVD (cerebrovascular disease) Essential hypertension H/O left bundle branch block History of alcoholism History of stroke History of substance abuse Hyperlipidemia Non-ST elevation DC (NSTEMI) Tobacco use Home Medications tamsulosin 0.4 mg capsule (Flomax) 0.4 mg PO DAILY 12/11/21 [History Last Taken Unknown] finasteride 5 mg tablet 5 mg PO DAILY #30 tabs 05/15/23 [Rx Last Taken Unknown] nitroglycerin 0.4 mg sublingual tablet 0.4 mg sublingual Q5M PRN CHEST PAIN #30 tabs 05/15/23 [Rx Last Taken Unknown] phenylephrine-shark liver oil-mineral oil-petrolatum rectal ointment (Hemorrhoidal ointment) 1 applic [place] Q8H PRN hemorrhoids #57 grams 05/15/23 [Rx Last Taken Unknown] psyllium husk (aspartame) 3 gram oral powder packet (Daily Fiber (psyllium-aspartame)) 1 packet PO DAILY #0 ea 05/15/23 [Rx Last Taken Unknown] sennosides 8.6 mg-docusate sodium 50 mg tablet (Stool Softener-Stimulant Laxative) 2 tab PO BID PRN PRN Constipation #0 tabs 05/15/23 [Rx Last Taken Unknown] aspirin 81 mg tablet,delayed release 81 mg PO DAILY@0800 #90 tabs 05/24/23 [Rx Last Taken 06/16/23] atorvastatin 80 mg tablet 80 mg PO QHS #90 tabs 05/24/23 [Rx Last Taken Unknown] clopidogrel 75 mg tablet 75 mg PO DAILY #90 tabs 05/24/23 [Rx Last Taken 06/16/23] lisinopril 5 mg tablet 5 mg PO DAILY #90 tabs 05/24/23 [Rx Last Taken 06/16/23] metoprolol tartrate 25 mg tablet 25 mg PO DAILY 07/09/23 [History Last Taken Unknown] Allergy/AdvReac Type Severity Reaction Status Date / Time No Known Allergies Allergy Verified 06/29/23 01:24 Family History Mother Diabetes Cancer Breast cancer Father Diabetes Cancer Brother Cancer Surgical History History of creation of ostomy Hx of appendectomy S/P percutaneous endoscopic gastrostomy (PEG) tube placement Stented coronary artery (06/16/23) Social History household members: significant other Smoking Status: Current every day smoker tobacco type: cigarettes alcohol intake: former details: Sober x 3 years. substance use type: former substance user Date of last use: Prior polysubstance abuse including cocaine, clean x 3 years. ROS ROS ED ROS Narrative Denies recent illness. History of constipation. Review of Systems ROS Unobtainable: Denies due to encephalopathy Constitutional Constitutional ED: Denies chills or fever(s) Eyes Eyes: Denies blurry vision ENT ENT ED: Denies ear pain Cardiovascular Cardiovascular: Denies chest pain Respiratory/Chest Respiratory/Chest: Denies cough or dyspnea Gastrointestinal Gastrointestinal: Reports constipation; Denies abdominal pain, diarrhea, melena, nausea or vomiting Genitourinary Genitourinary ED: Denies dysuria or hematuria Musculoskeletal Musculoskeletal: Denies arthralgias Integumentary Denies abscess Neurologic Neurologic: Denies headache(s) Psychiatric Psychiatric: Denies anxiety Endocrine Endocrinology: Denies cold intolerance Hematologic/Lymphatic Hematologic/Lymphatic: Reports none Allergic/Immunologic Allergic/Immunologic ED: Denies mouth swelling, tongue swelling or urticaria EXAM Physical Exam Narrative Exam Narrative: 62-year-old male vital signs initial blood pressure is 81/52. After fluid bolus he is 105/58 and fluid boluses still running. He does not seem septic or toxic. He is awake and alert. He is answering questions following commands. H EENT exam unremarkable. Moist extremities. Neck nontender. Lungs clear to auscultation bilaterally. Heart regular rhythm rate about 60 no murmur. Chest wall nontender. Abdomen soft mildly tender periumbilically. No pulsatile mass. No distention. No peritoneal signs. Moving all 4 extremities. Bipedal edema which is chronic. No deformity. He can lift either leg off the bed. Normal dermatopathologist strength bilaterally. Neurologically he is awake and alert. Answering questions following commands. He is a limited informant. Const Vital Signs: 07/09/23 08:30 07/09/23 08:43 07/09/23 08:46 Temperature 95.1 F L Temperature Source Temporal Pulse Rate 63 Respiratory Rate 17 Blood Pressure 81/52 L 79/46 L 88/55 L Blood Pressure Mean 61 57 66 Pulse Ox 99 Oxygen Delivery Method 07/09/23 08:49 07/09/23 09:23 07/09/23 10:24 Temperature 98.2 F Temperature Source Oral Pulse Rate 60 67 Respiratory Rate 18 Blood Pressure 105/58 L 86/53 L 106/50 L Blood Pressure Mean 73 64 68 Pulse Ox 100 Oxygen Delivery Method Room Air Positive well nourished and well developed; Negative for cachectic, contractures or unkempt General Appearance ED: well developed and NAD; Negative for unkempt, cachectic, contractures, cyanotic, diaphoretic or pallor Nutritional Appearance: Negative for cachectic HEENT Reports moist mucous membranes Negative for trauma or tenderness Eyes PERRL and EOMs intact bilaterally General Eye ED: Negative for pale conjunctiva or scleral icterus Neck no lymphadenopathy, supple and no JVD General: Negative for tenderness Lymph Lymphatic: Negative for other Chest Wall inspection of chest normal and palpation of chest normal Chest: Negative for other Resp normal respiratory effort and clear to auscultation bilaterally Effort and Inspection: Negative for retractions Auscultation: Negative for rales, rhonchi or wheezes Cardio regular rate, regular rhythm, S1 normal heart sound, S2 normal heart sound and no murmurs Palpation: Negative for palpable S3 Rate: Negative for bradycardia Rhythm: Negative for abnormal rhythm GI normal to inspection, nondistended, normoactive bowel sounds and no masses; Negative for non-tender GI Narrative: Mild diffuse periumbilical tenderness. No hernia or mass. No pulsatile mass. No distention or obstruction. Inspection: Negative for abdominal distention Auscultation: normoactive bowel sounds Palpation: soft and tender; Negative for guarding, mass or rebound tenderness present Back/Spine no CVA tenderness General Back: Negative for CVA tenderness Cervical Spine: Negative for cervical spine tenderness Thoracic Spine / Upper Back: Negative for thoracic spinal tenderness Lumbar Spine / Lower Back: Negative for lumbar spinal tenderness Extremity Negative for normal to inspection Extremity Narrative: Bipedal edema. General Extremety ED: Yes edema; Negative for tenderness General Extremity: edema Neuro oriented x3 Sensorium / Orientation: alert Motor Exam: strength 5/5 throughout Psych mental status grossly normal Appearance: Negative for unkempt Attitude: No agitated Mood & Affect: Negative for depressed, anxious or tearful Skin no rashes or lesions noted and no wounds General Skin Exam: elasticity normal; Negative for jaundice or pallor Lesions: No lesion noted Rashes: No rashes noted Trauma: Negative for abrasion Wounds: Negative for wounds noted MDM MDM MDM Narrative Medical decision making narrative: 62-year-old male history of prior stroke and hypertension and coronary disease. Had a syncopal episode in the bathtub. Cardiac work-up will be done. He is also having some abdominal discomfort he had a recent CT several weeks ago which was showed chronic changes. There is no history of a AAA. Able to have another CAT scan and abdominal labs also. Presents hypotensive but after initial fluid boluses pressures 105/58. Repeat exam at 10:30 AM no significant change. I did do a rectal exam female nurse present in the room there is no gross blood or black stool. No mass. Patient significant other is in the room. She states he was on the toilet when he had a syncopal episode not the bath tub. Pains borderline hypotensive at 101/58. He has received a liter of normal saline. Patient is being typed and screened for blood. I will speak to the hospitalist about admission. History & Record Review Discussion w/independent historian: EMS personnel and Patient Lab Data Attestation: I reviewed the patient's lab results. Lab results narrative: Has a white count 8.4 his hemoglobin is 8.6 and hematocrit is 28 3 weeks ago they were 14-1/2 so I suspect he has acute blood loss. Its been consistently coming down the last several weeks. Platelets 397. BMP shows potassium of 3.2 gap is 6. Normal BUN and creatinine is 17 and 1.1. Glucose 118. His lactic acid is 2.6. Liver enzymes are normal. Lipase is normal at 51. Chest x-ray unremarkable. Troponin is 8. Lactic acid is elevated 2.6. Labs: Laboratory Results - last 24 hr 07/09/23 08:42 WBC 8.4 RBC 3.07 L Hgb 8.6 L Hct 28.3 L MCV 92.2 MCH 28.0 MCHC 30.4 L RDW Std Deviation 46.7 H RDW Coeff of Renny 13.8 Plt Count 397 MPV 9.8 Immature Gran % (Auto) 0.500 Neut % (Auto) 65.8 Lymph % (Auto) 16.6 L [place] % (Auto) 11.2 H Eos % (Auto) 4.8 Baso % (Auto) 1.1 H Absolute Neuts (auto) 5.5 Absolute Lymphs (auto) 1.39 Nucleated RBC % 0 Sodium 140 Potassium 3.2 L Chloride 108 H Carbon Dioxide 26.0 Anion Gap 6 BUN 17 Creatinine 1.10 Estim Creat Clear Calc 70.05 Est GFR (MDRD) Af Amer 86 Est GFR (MDRD) Non-Af 71 BUN/Creatinine Ratio 15.5 Glucose 118 H Lactic Acid 2.6 H* Calcium 8.2 L Total Bilirubin 0.30 AST 12 L ALT 22 Alkaline Phosphatase 85 Troponin I High Sens 8 Total Protein 7.2 Albumin 3.4 Globulin 3.8 Albumin/Globulin Ratio 0.9 Lipase 51 Radiography Chest X-Ray - ED: 1 View, Read by ED Physician, Read by Radiologist, Heart, Lungs, Mediastinum, Bony Structures, No Acute Disease and Chronic Changes Diagnostic Testing: Clinical Impression(s) from Imaging Studies Abdomen/Pelvis CT 07/09/23 08:55 IMPRESSION: Fatty infiltration of the liver. Small layering gallstones along the dependent portion of the gallbladder lumen. 2.9 cm x 1.3 cm heterogeneous enhancing mass in the right adrenal gland. This may represent an adenoma although correlation with MRI and adrenal function testing recommended for further evaluation. Heterogeneous enlargement of the prostate within the patient the bladder base. The urinary bladder wall is thickened. Electronically Signed: Navi Velazco MD at 10:32 EDT , Chest X-Ray 07/09/23 10:00 IMPRESSION: No acute abnormality seen. Electronically Signed: Navi Velazco MD at 10:33 EDT , Chest x-ray, portable, single view interpreted both by myself and the radiologist shows no acute abnormality. Normal cardiac silhouette. No infiltrates. Rhythm Strip Rhythm Strip: Sinus Rhythm Rate: 57 Ectopy: None EKG Initial EKG: Attestation: I personally reviewed and interpreted this EKG as follows: Interpretation: Sinus Rhythm and Sinus Bradycardia Comments: Sinus bradycardia rate of 57. LVH. Unchanged from prior EKG from June 17. At that time he is bradycardic also. Prior EKG tracings: available for review Prior: Unchanged Critical Care Time Critical Care Time: Yes Critical care time (excluding procedures): 30-74 minutes, Including time spent:, Discussing w/Patient &/or Family/Group Leader [employer], Discussing w/Consultants, Arranging Admission or Transfer, Performing Direct Patient Care at Bedside and - (35 min) Discharge Plan Dx/Rx/DC Orders Clinical Impression: Acute hypotension, Anemia, Syncope, Acute GI bleeding Disposition Disposition: [facility]
[2023-07-09] MEDS: 0.9% Normal Saline (1000mL) 1,000 ML 999 ML IV ×2 (09:01→10:31)
[2023-07-09 09:14] LABS: Absolute Lymphocyte Count 1.39 X10^3/uL (0.83-4.51); Absolute Neutrophil Count 5.5 X10^3/uL (2.0-7.7); Basophil# 0.09 X10^3/uL; Basophil% 1.1 % (0-1); Eosinophils% 4.8 % (0-5); Hematocrit 28.3 % (40-54); Hemoglobin 8.6 g/dL (13.0-16.5); Lymphocyte # 1.39 X10^3/ul (0.83-4.51); Lymphocyte % 16.6 % (19-41); Mean Corp Hgb Conc 30.4 g/dL (32-36); Mean Corpuscular Volume 92.2 fL (80-94); Mean Platelet Vol. 9.8 fl (6.2-12.0); Monocyte# 0.94 X10^3/uL; Monocyte% 11.2 % (0-10); NRBC Flagged by Analyzer 0 % (0-5); Neutrophil % 65.8 % (47-70); Platelet Count 397 K/mm3 (150-450); RBC Distribution Width CV 13.8 % (11.6-14.6); RBC Distribution Width SD 46.7 fl (35.1-43.9); Red Blood Count 3.07 M/mm3 (4.6-6.2); White Blood Count 8.4 K/mm3 (4.4-11.0)
[2023-07-09 09:31] LABS: Lactic Acid 2.6 mmol/L (0.4-1.9)
[2023-07-09 09:48] LABS: ALB/GLOB Ratio 0.9 RATIO (0.9-2.4); AST(SGOT) 12 U/L (15-37); Alanine Aminotransfer ALT/SGPT 22 U/L (16-61); Albumin, Serum 3.4 g/dL (3.2-5.0); Alkaline Phosphatase 85 U/L (45-117); Anion Gap 6 (5-15); BUN 17 mg/dL (7-18); BUN/Creat Ratio 15.5 RATIO (10-20); Calcium,Total 8.2 mg/dL (8.5-10.1); Chloride 108 mmol/L (98-107); EST Glomerular Filtration Rate 71 mL/min (>60); Est Glom Filt Rate - Afr Amer 86 mL/min (>60); Estimated Creatinine Clearance 70.05 ml/min; Globulin 3.8 g/dL (2.2-4.2); Glucose 118 mg/dL (74-106); Lipase 51 U/L (13-75); Potassium 3.2 mmol/L (3.5-5.1); Protein, Total 7.2 g/dL (6.4-8.2); Sodium Level 140 mmol/L (136-145); Troponin-I HS 8 pg/mL (3.0-78.0)
--- NOTE | 2023-07-09 10:00 | RAD_ITS ---
STUDY: X-RAY CHEST REASON FOR EXAM: Male, 62 years old. Syncope TECHNIQUE: Single AP portable view of the chest. COMPARISON: Comparison is made with prior study dated May 13, 2023. FINDINGS: EKG electrodes are seen. The lungs are clear and expanded. There is no demonstrated pleural abnormality. Normal size heart. Normal mediastinum and ted. Normal visualized pulmonary arteries. There is atherosclerotic calcification of the aortic arch with tortuosity. There are diffuse degenerative changes of the visualized thoracic spine. Normal visualized ribs, clavicles, and shoulders. There is no demonstrated abnormality of the visualized soft tissue structures of the upper abdomen. RAD/Chest 1 View (Portable) IMPRESSION: No acute abnormality seen. Electronically Signed: Navi Velazco MD at 10:33 EDT ,
--- NOTE | 2023-07-09 10:43 | NURSING ---
DR HERNANDEZ FOR DR FRAGOSO
--- NOTE | 2023-07-09 10:47 | PCM.HP.STD ---
[facility] - General General Date of Admission: 07/09/23 Date of Service: 07/09/23 Chief Complaint: Passed out today on the toilet seat. Hypotension. Chronic abdominal pain. Dark stool/melena HPI Narrative PADDY DAVID, is a 62 M was brought to ED by EMS after he passed out. He got out of the shower and sat into the toilet and then felt blackout and then passed out. He bended forward with face down but his said he did not hit the floor or fall. No head injury. As per probably passed out for about 1 minute. As per emergency skin was pale and moist patient was speaking in full sentences after he got conscious. Blood pressure was low systolic 90/54. Glucose 117. EKG did not sinus rhythm heart rate 62/min. Patient himself denies chest pain, pressure or tightness or shortness of breath. His BP in ER was 79/46, 81/52 with heart rate in low 60s. Patient was discharged IV fluid bolus normal saline 2 L and blood pressure improved to systolic 100s. Patient himself had a stroke in October 2021 and as per he has short memory therefore history mainly taken from patient's near the bedside. As per and patient he has dark stool probably melena, exact duration patient does not remember. Patient also has chronic abdominal pain mainly upper abdominal pain since May 2023 and is generalized, states feels like punching, constant 7-8/10 intensity but predominantly in upper abdominal pain. He states food does not make any difference and he is used to eat. He was told to follow-up with GI but because of insurance issues he could not see it. Is any vomiting hematemesis. His bowel movement is regular and no acute change in consistency but darker stool as mentioned above In ED hemoglobin 8.6, hematocrit 28%. 3 weeks ago it was 14 g so it is acute blood loss anemia. Right total was done by ED physician and no gross blood or black stool found. [facility] Medical History Acute constipation Atherosclerotic heart disease of [place] coronary artery without angina pectoris BPH (benign prostatic hyperplasia) CVD (cerebrovascular disease) Essential hypertension H/O left bundle branch block History of alcoholism History of stroke History of substance abuse Hyperlipidemia Non-ST elevation [place] (NSTEMI) Tobacco use Home Medications tamsulosin 0.4 mg capsule (Flomax) 0.4 mg PO DAILY 12/11/21 [History Last Taken Unknown] finasteride 5 mg tablet 5 mg PO DAILY #30 tabs 05/15/23 [Rx Last Taken Unknown] nitroglycerin 0.4 mg sublingual tablet 0.4 mg sublingual Q5M PRN CHEST PAIN #30 tabs 05/15/23 [Rx Last Taken Unknown] phenylephrine-shark liver oil-mineral oil-petrolatum rectal ointment (Hemorrhoidal ointment) 1 applic NE Q8H PRN hemorrhoids #57 grams 05/15/23 [Rx Last Taken Unknown] psyllium husk (aspartame) 3 gram oral powder packet (Daily Fiber (psyllium-aspartame)) 1 packet PO DAILY #0 ea 05/15/23 [Rx Last Taken Unknown] sennosides 8.6 mg-docusate sodium 50 mg tablet (Stool Softener-Stimulant Laxative) 2 tab PO BID PRN PRN Constipation #0 tabs 05/15/23 [Rx Last Taken Unknown] aspirin 81 mg tablet,delayed release 81 mg PO DAILY@0800 #90 tabs 05/24/23 [Rx Last Taken 06/16/23] atorvastatin 80 mg tablet 80 mg PO QHS #90 tabs 05/24/23 [Rx Last Taken Unknown] clopidogrel 75 mg tablet 75 mg PO DAILY #90 tabs 05/24/23 [Rx Last Taken 06/16/23] lisinopril 5 mg tablet 5 mg PO DAILY #90 tabs 05/24/23 [Rx Last Taken 06/16/23] metoprolol tartrate 25 mg tablet 25 mg PO DAILY 07/09/23 [History Last Taken Unknown] Allergy/AdvReac Type Severity Reaction Status Date / Time No Known Allergies Allergy Verified 06/29/23 01:24 Family History Mother Diabetes Cancer Breast cancer Father Diabetes Cancer Brother Cancer Surgical History History of creation of ostomy Hx of appendectomy S/P percutaneous endoscopic gastrostomy (PEG) tube placement Stented coronary artery (06/16/23) Social History household members: significant other Smoking Status: Current every day smoker tobacco type: cigarettes alcohol intake: former details: Sober x 3 years. substance use type: former substance user Date of last use: Prior polysubstance abuse including cocaine, clean x 3 years. ROS ROS Narrative Constitutional: Reports fatigue and weakness. No fever. HEENT: Reports systems reviewed and no addt'l complaints, except as documented Respiratory/Chest: No acute shortness of breath or respiratory distress or wheezing. CVS: Syncope as described in HPI Gastrointestinal: Chronic abdominal pain. Denies coffee ground emesis, hematemesis or vomiting Genitourinary: Denies burning urination. Chronic obstructive symptoms related to BPH Musculoskeletal: Denies acute joint pain or limited range of motion. No acute injury. Chronic left ankle injury 5 years ago. Neurologic: Denies seizure-like symptoms. History of hemorrhagic stroke in the past in 2010 and mild cortical blindness. Psychiatric: Poor memory mainly short-term after his hemorrhagic stroke. skin: No ulcer. No rash Endocrinology: Reports systems reviewed and no addt'l complaints, except as documented Hematologic/Lymphatic: Reports systems reviewed and no addt'l complaints, except as documented Rest 14 ROS are negative except as mentioned in HPI Vital Signs Vital Signs Vital Signs: 07/09/23 08:30 07/09/23 08:43 07/09/23 08:46 Temperature 95.1 F L Temperature Source Temporal Pulse Rate 63 Respiratory Rate 17 Blood Pressure 81/52 L 79/46 L 88/55 L Blood Pressure Mean 61 57 66 Pulse Ox 99 Oxygen Delivery Method 07/09/23 08:49 07/09/23 09:23 07/09/23 10:24 Temperature 98.2 F Temperature Source Oral Pulse Rate 60 67 Respiratory Rate 18 Blood Pressure 105/58 L 86/53 L 106/50 L Blood Pressure Mean 73 64 68 Pulse Ox 100 Oxygen Delivery Method Room Air Weight Weight: 204 lb 9.423 oz Body Mass Index (BMI) 29.3 Physical Exam Narrative General: Alert, Oriented x3, Cooperative HEENT: Atraumatic, PERRLA, EOMI, Normocephalic Oral: Oral mucosa dry. No Gingival or Mucosal Lesions/ Ulcerations Neck: Supple, No JVD, Negative Carotid Bruits Lungs: Air entry diminished in bilateral lung bases. No crepitation/rhonchi Cardiovascular: Regular rate, Regular Rhythm, Normal S1, Normal S2, No murmurs Abdomen: bowel Sounds Present, Soft, tenderness present over upper abdomen, no guarding/rigidity, Non-Distended : No renal angle tenderness. No suprapubic tenderness. Extremities: No edema, Capillary Refill Less than 3 Seconds Skin: No rashes, No breakdown Musculoskeletal: No Tenderness to Palpation of Joints or Extremities Neurological: Cranial nerves II-XII grossly intact, DTR 2+/4. No acute focal neurological deficit. Psychiatric: Short-term memory loss. Retrograded anterograde amnesia. Psych/Mental Status: Flat affect. Results Lab / Micro Data 07/09/23 08:42 07/09/23 08:42 Labs: Laboratory Results - last 24 hr 07/09/23 08:42: WBC 8.4, RBC 3.07 L, Hgb 8.6 L, Hct 28.3 L, MCV 92.2, MCH 28.0, MCHC 30.4 L, RDW Std Deviation 46.7 H, RDW Coeff of Renny 13.8, Plt Count 397, MPV 9.8, Immature Gran % (Auto) 0.500, Neut % (Auto) 65.8, Lymph % (Auto) 16.6 L, [place] % (Auto) 11.2 H, Eos % (Auto) 4.8, Baso % (Auto) 1.1 H, Absolute Neuts (auto) 5.5, Absolute Lymphs (auto) 1.39, Nucleated RBC % 0, Sodium 140, Potassium 3.2 L, Chloride 108 H, Carbon Dioxide 26.0, Anion Gap 6, BUN 17, Creatinine 1.10, Estim Creat Clear Calc 70.05, Est GFR (MDRD) Af Amer 86, Est GFR (MDRD) Non-Af 71, BUN/Creatinine Ratio 15.5, Glucose 118 H, Lactic Acid 2.6 H*, Calcium 8.2 L, Total Bilirubin 0.30, AST 12 L, ALT 22, Alkaline Phosphatase 85, Troponin I High Sens 8, Total Protein 7.2, Albumin 3.4, Globulin 3.8, Albumin/Globulin Ratio 0.9, Lipase 51 Rhythm Strip Rhythm Strip: Sinus Rhythm Rate: 57 Ectopy: None Radiology Impression Abdomen/Pelvis CT 07/09/23 08:55 IMPRESSION: Fatty infiltration of the liver. Small layering gallstones along the dependent portion of the gallbladder lumen. 2.9 cm x 1.3 cm heterogeneous enhancing mass in the right adrenal gland. This may represent an adenoma although correlation with MRI and adrenal function testing recommended for further evaluation. Heterogeneous enlargement of the prostate within the patient the bladder base. The urinary bladder wall is thickened. Electronically Signed: Navi Velazco MD at 10:32 EDT , Chest X-Ray 07/09/23 10:00 IMPRESSION: No acute abnormality seen. Electronically Signed: Navi Velazco MD at 10:33 EDT , Assessment & Plan Assessment/Plan (1) Acute GI bleeding: (2) Syncope: QUALIFIERS: Syncope type: unspecified Qualified Code(s): R55 - Syncope and collapse (3) Anemia: QUALIFIERS: Anemia type: iron deficiency Iron deficiency anemia type: other iron deficiency Qualified Code(s): D50.8 - Other iron deficiency anemias (4) Acute hypotension: PLAN: Plan 62-year-old gentleman being admitted for evaluation of syncope, hypotension and dark stool most likely due to acute GI blood loss 1. Syncope and hypotension most likely due to acute GI blood loss/dual antiplatelet agent: Patient had drop in hemoglobin from 14.5 in May 20-8.6. It was 10.1 in June 2023. It seems mainly upper GI blood loss. Started on IV pantoprazole 40 mg every 12 hourly. IV fluid volume resuscitation for hypotension. Patient is awake alert denies any dizziness. GI is consulted. Type and crossmatch ordered by ER physician. Started on octreotide drip although it seems patient does not drink alcohol actively but history of alcohol use and substance use in the past. Patient might need EGD/colonoscopy as per discretion of delivery table operator. 2 recent history of NSTEMI: Patient was admitted in [facility] in May 2023 for non-STEMI. Aspirin and Plavix hold. Hold beta-josé luis and lisinopril/antihypertensive agent but continue high intensity statin.Patient had LHC on 05/14/23. LAD subtotal to total occlusion at mid LAD after large septal branch. Collateralization noted to distal LAD from left coronary system. D1 large vessel with calcified proximal 80% stenosis. RCA dominant proximal RCA 80% stenosis. OM1 around 20 to 30%. Successful PCI with YAIR of mid LAD. After that patient had a staged PCI/stenting proximal RCA by Dr. Gonzalez on 06/16/2023. Patient followed Rain. Patient is discharged on aspirin, Plavix, metoprolol, lisinopril, nitro sublingual and high intensity statin. Echo shows EF 40 to 45%. Mildly dilated LV. Apical and distal septal hypokinesis. #3. 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 Patient also had chronic cortical blindness but has improvement on left-sided weakness. He had reversal of PEG tube and ostomy. #4. Chronic constipation: continue patient home bowel regimen. No acute blood staining found on per rectal exam Patient on hemorrhoidal cream [id number] stool softener senna-s and Metamucil. #5. Hypertension: Continue home regimen including metoprolol, PRN hydralazine. #6. Hyperlipidemia: Continue home statin regimen. #7. BPH: Continue patient home Flomax and finasteride. During previous admission patient was advised to follow with Dr. Chi in 2 to 3 weeks but since he has not followed. Patient continued to have symptoms of hesitancy, incomplete emptying of bladder and intermittent micturition and dribbling. #8. Obesity: Weight loss and lifestyle changes encouraged. #9. Tobacco Abuse: Encouraged cessation. Patient is still smokes cigarettes half pack per day. Advised quitting. #10. History of EtOH Abuse, History of Polysubstance abuse and mild hyperglycemia: During previous admission, Hepatitis B surface antigen, antibody and hep C antibody nonreactive. HIV 1 and 2 antibody nonreactive. Advised hepatitis A and B vaccination. Patient complaining of burning sensation of her hands and feet. Chronic neuropathy. Patient denies history of diabetes mellitus. A1c 5.4% in May 2023. Diabetes mellitus ruled out. #11. DVT prophylaxis: Pharmacological prophylaxis contraindicated. Bilateral SCDs #12. Chronic dental caries: During last admission patient was treated with Augmentin. Currently does not have acute issues Living will/advanced directive/end of life care: Patient does not have living will or advanced directive. His is next of kin but no designated power of search engine optimization specialist for health. After discussion of benefits/risks procedures involved with full code, DNR CC arrest and DNR CC, the patient opted for full code. Patient does want artificial life support including intubation, tube feed, ventilator and/chest compression, central venous catheter, vasopressor and DC shock if needed Total time spent in [id number] encounter in discussion of advanced directive 17 minutes. Charges/Coding Visit Charges Inpatient E&M: 62272 Init Hosp L3 Procedures Hospitalists Procedures: 64597 Advncd Care Plan 30 Min
--- NOTE | 2023-07-09 10:52 | NURSING ---
PCU MARY SYNCOPE, ANEMIA, SUSPECT GI BLEED, HX OF IC BLEED
[2023-07-09 10:53] LABS: Bacteria 0 SEEN /hpf (None Seen); Mucous, Urine 0 SEEN /hpf (<or=2+); Red Blood Cells-Urine 0 SEEN /hpf (0-5); Squamous Epithelial Cells - UA 0 SEEN /hpf (0-5)
--- NOTE | 2023-07-09 10:53 | ED.RN ---
spoke with lab that physician wants to infuse 1 unit now.
[2023-07-09 10:56] LABS: Color, Urine Yellow (Yellow); Glucose, Dipstick Normal (Normal); Ketone-Dipstick Negative (Negative); Leukocyte Esterase-Dipstick 25 /ul (Negative); Nitrite-Dipstick Negative (Negative); Occult Blood-Urine 10 /ul (Negative); Protein-Dipstick 15 mg/dl (Negative); Urine Bilirubin Dipstick Negative (Negative); Urine Clarity Clear (Clear); Urine Urobilinogen Normal (Normal)
[2023-07-09 11:03] LABS: White Blood Cells 0-5 SEEN /hpf (0-5)
--- NOTE | 2023-07-09 12:00 | EX.PCM.CON.G ---
HPI Consult Data Date of Consult: 07/09/23 HPI Narrative Reason for Consultation: Syncope HPI Narrative: PADDY DAVID, is a 62 M who presents after a syncopal episode at home. He has a past medical history of CVA from uncontrolled hypertension, also carotid heart disease status post PTCA with stenting on 81 mg of aspirin, clopidogrel and statin. States he is in the bathtub this morning his significant other was helping him bathe. As per his he had a syncopal episode. She said prior to the episode he denied any headache, chest pain, shortness of breath or abdominal pain. He denied any nausea, vomiting or diarrhea. Patient has been seen in the ER 3 times in the last 1 to 2 months. I was called to evaluate him because he was severely anemic with a hemoglobin of 8.6. His labs in the ED: WBC 8.4, RBC 3.07 L, Hgb 8.6 L, Hct 28.3 L, MCV 92.2, MCH 28.0, MCHC 30.4 L, RDW Std Deviation 46.7 H, RDW Coeff of Renny 13.8, Plt Count 397, MPV 9.8, Immature Gran % (Auto) 0.500, Neut % (Auto) 65.8, Lymph % (Auto) 16.6 L, [place] % (Auto) 11.2 H, Eos % (Auto) 4.8, Baso % (Auto) 1.1 H, Absolute Neuts (auto) 5.5, Absolute Lymphs (auto) 1.39, Nucleated RBC % 0, Sodium 140, Potassium 3.2 L, Chloride 108 H, Carbon Dioxide 26.0, Anion Gap 6, BUN 17, Creatinine 1.10, Estim Creat Clear Calc 70.05, Est GFR (MDRD) Af Amer 86, Est GFR (MDRD) Non-Af 71, BUN/Creatinine Ratio 15.5, Glucose 118 H, Lactic Acid 2.6 H* PFSH Medical History Acute constipation Atherosclerotic heart disease of [place] coronary artery without angina pectoris BPH (benign prostatic hyperplasia) CVD (cerebrovascular disease) Essential hypertension H/O left bundle branch block History of alcoholism History of stroke History of substance abuse Hyperlipidemia Non-ST elevation [place] (NSTEMI) Tobacco use Home Medications tamsulosin 0.4 mg capsule (Flomax) 0.4 mg PO DAILY 12/11/21 [History Last Taken Unknown] finasteride 5 mg tablet 5 mg PO DAILY #30 tabs 05/15/23 [Rx Last Taken Unknown] nitroglycerin 0.4 mg sublingual tablet 0.4 mg sublingual Q5M PRN CHEST PAIN #30 tabs 05/15/23 [Rx Last Taken Unknown] phenylephrine-shark liver oil-mineral oil-petrolatum rectal ointment (Hemorrhoidal ointment) 1 applic MS Q8H PRN hemorrhoids #57 grams 05/15/23 [Rx Last Taken Unknown] psyllium husk (aspartame) 3 gram oral powder packet (Daily Fiber (psyllium-aspartame)) 1 packet PO DAILY #0 ea 05/15/23 [Rx Last Taken Unknown] sennosides 8.6 mg-docusate sodium 50 mg tablet (Stool Softener-Stimulant Laxative) 2 tab PO BID PRN PRN Constipation #0 tabs 05/15/23 [Rx Last Taken Unknown] aspirin 81 mg tablet,delayed release 81 mg PO DAILY@0800 #90 tabs 05/24/23 [Rx Last Taken 06/16/23] atorvastatin 80 mg tablet 80 mg PO QHS #90 tabs 05/24/23 [Rx Last Taken Unknown] clopidogrel 75 mg tablet 75 mg PO DAILY #90 tabs 05/24/23 [Rx Last Taken 06/16/23] lisinopril 5 mg tablet 5 mg PO DAILY #90 tabs 05/24/23 [Rx Last Taken 06/16/23] metoprolol tartrate 25 mg tablet 25 mg PO DAILY 07/09/23 [History Last Taken Unknown] Allergy/AdvReac Type Severity Reaction Status Date / Time No Known Allergies Allergy Verified 06/29/23 01:24 Family History Mother Diabetes Cancer Breast cancer Father Diabetes Cancer Brother Cancer Surgical History History of creation of ostomy Hx of appendectomy S/P percutaneous endoscopic gastrostomy (PEG) tube placement Stented coronary artery (06/16/23) Social History household members: significant other Smoking Status: Current every day smoker tobacco type: cigarettes alcohol intake: former details: Sober x 3 years. substance use type: former substance user Date of last use: Prior polysubstance abuse including cocaine, clean x 3 years. ROS ROS Narrative Constitutional: Reports fatigue and weakness. No fever. HEENT: Reports systems reviewed and no addt'l complaints, except as documented Respiratory/Chest: No acute shortness of breath or respiratory distress or wheezing. CVS: Syncope as described in HPI Gastrointestinal: Chronic abdominal pain. Denies coffee ground emesis, hematemesis or vomiting Genitourinary: Denies burning urination. Chronic obstructive symptoms related to BPH Musculoskeletal: Denies acute joint pain or limited range of motion. No acute injury. Chronic left ankle injury 5 years ago. Neurologic: Denies seizure-like symptoms. History of hemorrhagic stroke in the past in 2010 and mild cortical blindness. Psychiatric: Poor memory mainly short-term after his hemorrhagic stroke. skin: No ulcer. No rash Endocrinology: Reports systems reviewed and no addt'l complaints, except as documented Hematologic/Lymphatic: Reports systems reviewed and no addt'l complaints, except as documented Rest 14 ROS are negative except as mentioned in HPI Physical Exam Narrative General: Alert, Oriented x3, Cooperative HEENT: Atraumatic, PERRLA, EOMI, Normocephalic Oral: Oral mucosa dry. No Gingival or Mucosal Lesions/ Ulcerations Neck: Supple, No JVD, Negative Carotid Bruits Lungs: Air entry diminished in bilateral lung bases. No crepitation/rhonchi Cardiovascular: Regular rate, Regular Rhythm, Normal S1, Normal S2, No murmurs Abdomen: bowel Sounds Present, Soft, tenderness present over upper abdomen, no guarding/rigidity, Non-Distended : No renal angle tenderness. No suprapubic tenderness. Extremities: No edema, Capillary Refill Less than 3 Seconds Skin: No rashes, No breakdown Musculoskeletal: No Tenderness to Palpation of Joints or Extremities Neurological: Cranial nerves II-XII grossly intact, DTR 2+/4. No acute focal neurological deficit. Psychiatric: Short-term memory loss. Retrograded anterograde amnesia. Psych/Mental Status: Flat affect. Lab / Micro Data 07/09/23 14:23 07/09/23 08:42 Labs: Laboratory Results - last 24 hr 07/09/23 08:42: WBC 8.4, RBC 3.07 L, Hgb 8.6 L, Hct 28.3 L, MCV 92.2, MCH 28.0, MCHC 30.4 L, RDW Std Deviation 46.7 H, RDW Coeff of Renny 13.8, Plt Count 397, MPV 9.8, Immature Gran % (Auto) 0.500, Neut % (Auto) 65.8, Lymph % (Auto) 16.6 L, [place] % (Auto) 11.2 H, Eos % (Auto) 4.8, Baso % (Auto) 1.1 H, Absolute Neuts (auto) 5.5, Absolute Lymphs (auto) 1.39, Nucleated RBC % 0, Sodium 140, Potassium 3.2 L, Chloride 108 H, Carbon Dioxide 26.0, Anion Gap 6, BUN 17, Creatinine 1.10, Estim Creat Clear Calc 70.05, Est GFR (MDRD) Af Amer 86, Est GFR (MDRD) Non-Af 71, BUN/Creatinine Ratio 15.5, Glucose 118 H, Lactic Acid 2.6 H*, Calcium 8.2 L, Magnesium 2.0, Total Bilirubin 0.30, AST 12 L, ALT 22, Alkaline Phosphatase 85, Troponin I High Sens 8, Total Protein 7.2, Albumin 3.4, Globulin 3.8, Albumin/Globulin Ratio 0.9, Lipase 51 07/09/23 10:50: Urine Color Yellow, Urine Clarity Clear, Urine pH 5.0, Ur Specific [place] 1.010, Urine Protein 15 H, Urine Glucose (UA) Normal, Urine Ketones Negative, Urine Occult Blood 10 H, Urine Nitrite Negative, Urine Bilirubin Negative, Urine Urobilinogen Normal, Ur Leukocyte Esterase 25 H, Urine RBC 0 SEEN, Urine WBC 0-5 SEEN, Ur Squamous Epith Cells 0 SEEN, Urine Bacteria 0 SEEN, Urine Mucus 0 SEEN, Blood Type B POSITIVE, Antibody Screen NEGATIVE, Crossmatch See Detail 07/09/23 14:23: Hgb 8.4 L, Hct 26.8 L, PT 13.3, INR 1.0 07/09/23 14:50: Lactic Acid 1.8 Rhythm Strip Rhythm Strip: Sinus Rhythm Rate: 57 Ectopy: None Radiology Impression Abdomen/Pelvis CT 07/09/23 08:55 IMPRESSION: Fatty infiltration of the liver. Small layering gallstones along the dependent portion of the gallbladder lumen. 2.9 cm x 1.3 cm heterogeneous enhancing mass in the right adrenal gland. This may represent an adenoma although correlation with MRI and adrenal function testing recommended for further evaluation. Heterogeneous enlargement of the prostate within the patient the bladder base. The urinary bladder wall is thickened. Electronically Signed: Navi Velazco MD at 10:32 EDT , Chest X-Ray 07/09/23 10:00 IMPRESSION: No acute abnormality seen. Electronically Signed: Navi Velazco MD at 10:33 EDT , Assessment & Plan Assessment/Plan (1) Acute GI bleeding: (2) Syncope: QUALIFIERS: Syncope type: unspecified Qualified Code(s): R55 - Syncope and collapse (3) Anemia: QUALIFIERS: Anemia type: iron deficiency Iron deficiency anemia type: other iron deficiency Qualified Code(s): D50.8 - Other iron deficiency anemias (4) Acute hypotension: PLAN: Plan 62-year-old being admitted for evaluation of syncope, and melanotic stools hypotension and melanotic stools on aspirin, Plavix and statin. The differential diagnosis for his syncope and hypotension is probably upper GI bleed. However it could be lower GI bleed in the setting of a patient that has not had a colonoscopy in the past. We will perform an upper endoscopy and possibly colonoscopy. Him and his were explained alternatives, risk, benefits including not withstanding bleeding, infection, sepsis, perforation, need for emergent surgery . He will then ASA of 3. Charges/Coding Visit Charges Inpatient E&M: 72270 Init Hosp L3
--- NOTE | 2023-07-09 12:27 | ED.RN ---
pt down to endoscopy at this time. will then be admitted to PCU. will inform PCU that unit of blood will need started when pt is to floor.
--- NOTE | 2023-07-09 12:31 | ED.RN ---
Haroon on PCU aware that pt will come to PCU after endo and will need 1 unit of blood.
[2023-07-09] MEDS: Lactated Ringers 1,000 ML 15 ML IV (12:37)
--- NOTE | 2023-07-09 12:45 | IMM_PTH ---
PATIENT: PADDY DAVID LOC: [facility] U#:[id number] AGE/SX: 62/M ROOM: [facility] RE07/09/[address]: Dr. Elia Adam MD : 1960 BED: 1 DIS: 07/10/2023 SPEC #: [id number] RECD: 07/12/23 13:30 STATUS: ALVERTO REQ #: [id number] CAROLYN: 07/09/23 12:[address]: Isaiah Guerrero DEPT: IMMUNOHISTOCHEMISTRY RECD BY: Madison Neal ENTERED: 07/12/23 13:31 SP TYPE: IMMUNO OTHR DR: MD Anuradha Hsu PA Tissues: Stomach, NOS Procedures: H Pylori (initial) PHYSICIAN & INSTITUTION [place] [id number] SPECIMEN INFORMATION: Tissue Source: Gastric antrum Clinical Info: GI bleed Specimen Number: [id number] CPT code: 16861 METHODOLOGY: Deparaffinized sections of prefer/formalin-fixed tissue or PAP/DQ stained slides are incubated with monoclonal/polyclonal antibodies/oligonucleotide probes. Localization is made via biotin free immunoperoxidase method. Appropriate controls are performed and reacted as expected. Results on target cell population are indicated in the following table: RESULTS: ANTIBODY / CLONE RESULT H Pylori (polyclonal) negative These tests were developed and their performance characteristics determined by [facility]. They may not have been cleared or approved by the U.S. Food and Drug Administration. The FDA has determined that such clearance or approval is not necessary. The above immunohistochemical/dualISH markers are ordered and reviewed by the Pathologist. INTERPRETATION: Gastric antrum, biopsy: Negative for Helicobacter pylori organisms. SJ:favio 07/13/2023
--- NOTE | 2023-07-09 13:03 | OP.EGD_ITS ---
Patient Name: Eliazar Dick Procedure Date: 07/09/2023 12:48 PM Date of : 1960 Age: 62 Procedure: Upper GI endoscopy Indications: Iron deficiency anemia, Melena Providers: Isaiah Guerrero DO Medicines: Monitored Anesthesia Care Patient Profile: This is a 62 year old male. Refer to note in patient chart for documentation of history and physical. Patient has symptoms of acute abdominal cramping and acute epigastric abdominal pain. Complications: No immediate complications. Procedure: Pre-Anesthesia Assessment: - Prior to the procedure, a History and Physical was performed, and patient medications and allergies were reviewed. The patient is competent. The risks and benefits of the procedure and the sedation options and risks were discussed with the patient. All questions were answered and informed consent was obtained. Patient identification and proposed procedure were verified by the physician. Mental Status Examination: alert and oriented. Airway Examination: normal oropharyngeal airway and neck mobility. Respiratory Examination: clear to auscultation. CV Examination: normal. Prophylactic Antibiotics: The patient does not require prophylactic antibiotics. Prior Anticoagulants: The patient has taken no anticoagulant or antiplatelet agents. ASA Grade Assessment: II - A patient with mild systemic disease. After reviewing the risks and benefits, the patient was deemed in satisfactory condition to undergo the procedure. The anesthesia plan was to use monitored anesthesia care (MAC). Immediately prior to administration of medications, the patient was re-assessed for adequacy to receive sedatives. The heart rate, respiratory rate, oxygen saturations, blood pressure, adequacy of pulmonary ventilation, and response to care were monitored throughout the procedure. The physical status of the patient was re-assessed after the procedure. After obtaining informed consent, the endoscope was passed under direct vision. Throughout the procedure, the patient's blood pressure, pulse, and oxygen saturations were monitored continuously. The gastroscope was introduced through the mouth, and advanced to the second part of duodenum. The upper GI endoscopy was accomplished without difficulty. The patient tolerated the procedure well. Scope In: 12:53:50 PM Scope Out: 12:59:43 PM Total Procedure Duration Time 0 hours 5 minutes 53 seconds Findings: The examined esophagus was normal. Patchy mildly erythematous mucosa without bleeding was found in the gastric antrum. Biopsies were taken with a cold forceps for Helicobacter pylori testing. Verification of patient identification for the specimen was done. Estimated blood loss was minimal. Biopsies were taken with a cold forceps for histology. Verification of patient identification for the specimen was done. Estimated blood loss was minimal. One oozing cratered duodenal ulcer with a visible vessel was found in the duodenal bulb. The lesion was 6 mm in largest dimension. Area was successfully injected with 5 mL of a 0.1 mg/mL solution of epinephrine for drug delivery. Coagulation for hemostasis using heater probe was successful. Estimated blood loss was minimal. Impression: - Normal esophagus. - Erythematous mucosa in the antrum. Biopsied. - Oozing duodenal ulcer with a visible vessel. Injected. Treated with a heater probe. Recommendation: - [facility]. - Continue present medications. Procedure Code(s): --- Professional --- 63947, 59, Esophagogastroduodenoscopy, flexible, transoral; with control of bleeding, any method 36636, Esophagogastroduodenoscopy, flexible, transoral; with biopsy, single or multiple 22672, 59, Esophagogastroduodenoscopy, flexible, transoral; with directed submucosal injection(s), any substance CPT copyright 2021 [employer]. All rights reserved. The codes documented in this report are preliminary and upon director financial analysis review may be revised to meet current compliance requirements. Isaiah Guerrero DO 07/09/2023 1:03:26 PM This report has been signed electronically. Number of Addenda: 0 Note Initiated On: 07/09/2023 12:48 PM
--- NOTE | 2023-07-09 13:04 | OP.CCLET_ITS ---
07/09/2023 Anuradha Davis Re : Upper GI endoscopy procedure for Eliazar Dick Dear Ryan This procedure was performed on Sunday, July 09, 2023. My impressions and recommendations are as follows: Impressions : - Normal esophagus. - Erythematous mucosa in the antrum. Biopsied. - Oozing duodenal ulcer with a visible vessel. Injected. Treated with a heater probe. Recommendations : - [facility]. - Continue present medications. My findings are described in the full procedure note, which is enclosed. If I can be of further assistance, please feel free to contact me at . Sincerely, Isaiah Guerrero, 07/09/2023 1:03:26 PM This report has been signed electronically.
[2023-07-09 13:07] LABS: Reflex Lactate? Y
[2023-07-09 14:40] LABS: Hematocrit 26.8 % (40-54); Hemoglobin 8.4 g/dL (13.0-16.5)
[2023-07-09 14:49] LABS: Prothrombin Time (Protime)PT. 13.3 SECONDS (11.7-14.9)
--- NOTE | 2023-07-09 15:15 | SUR.PHASEI ---
1400 MET CRITERIA TO BE DISCHARGED FROM PACU. WAITED FOR PHLEBOTOMY TO DRAW LABS. SUPERVISOR MOLD SHOP UNABLE TO OBTAIN LACTIC ACID. LACTIC ACID OBTAINED ON 2ND ATTEMPT BY RN USING ULTRASOUND. UPDATE GIVEN TO PCU CHARGE MARCUS BAKER AND . 1514 ORA TRANSPORTED PATIENT TO PCU 119.
[2023-07-09 15:30] LABS: Lactic Acid 1.8 mmol/L (0.4-1.9)
[2023-07-09] MEDS: Pantoprazole Sodium 40 MG in 0.9% Normal Saline (100mL MB+) 100 ML 330 MG IV ×2 (16:07→20:52)
[2023-07-09] MEDS: Lactated Ringers 1,000 ML 150 ML IV (16:07)
[2023-07-09] MEDS: Sodium Ferric Gluconat/Sucrose 250 MG in 0.9% Normal Saline (250mL Bag) 250 ML 135 MG IV (16:34)
[2023-07-09] MEDS: Acetaminophen 325 MG Tablet 650 MG PO (20:52)
[2023-07-09] MEDS: ALPRAZolam 0.25 MG Tablet PO (20:52)
[2023-07-09 20:53] LABS: Hematocrit 23.9 % (40-54); Hemoglobin 7.1 g/dL (13.0-16.5)
[2023-07-09] MEDS: Atorvastatin Calcium 80 MG Tablet PO (20:55)
[2023-07-10] VITALS (7 sets, daily range): BP systolic 110–139; BP diastolic 51–69; PULSE 61–73; RESP 18; TEMP 36.4–36.8; O2SAT 94–98
[2023-07-10] MEDS: Lactated Ringers 1,000 ML 150 ML IV (00:56)
[2023-07-10 02:05] LABS: Hematocrit 25.4 % (40-54); Hemoglobin 7.5 g/dL (13.0-16.5)
--- NOTE | 2023-07-10 02:29 | NURSING ---
attempted to medicate pt for pain. pt was asleep.
[2023-07-10] MEDS: oxyCODONE 5 MG Tablet PO (05:09)
[2023-07-10] MEDS: Acetaminophen 325 MG Tablet 650 MG PO (05:09)
[2023-07-10] MEDS: Senna/Docusate Sodium 1 Tablet 2 TABLET PO (05:27)
[2023-07-10 06:34] LABS: Absolute Lymphocyte Count 0.76 X10^3/uL (0.83-4.51); Absolute Neutrophil Count 5.5 X10^3/uL (2.0-7.7); Basophil# 0.04 X10^3/uL; Basophil% 0.5 % (0-1); Eosinophil# 0.34 X10^3/uL; Eosinophils% 4.6 % (0-5); Hematocrit 23.9 % (40-54); Hemoglobin 7.4 g/dL (13.0-16.5); Lymphocyte # 0.76 X10^3/ul (0.83-4.51); Lymphocyte % 10.3 % (19-41); Mean Corpuscular Hgb 28.7 pg (27.0-32.0); Mean Corpuscular Volume 92.6 fL (80-94); Mean Platelet Vol. 9.8 fl (6.2-12.0); Monocyte# 0.75 X10^3/uL; Monocyte% 10.2 % (0-10); NRBC Flagged by Analyzer 0 % (0-5); Neutrophil # 5.46 X10^3/uL (2.7-7.7); Neutrophil % 74.1 % (47-70); Platelet Count 320 K/mm3 (150-450); RBC Distribution Width CV 13.8 % (11.6-14.6); RBC Distribution Width SD 46.8 fl (35.1-43.9); Red Blood Count 2.58 M/mm3 (4.6-6.2); White Blood Count 7.4 K/mm3 (4.4-11.0)
[2023-07-10 07:02] LABS: Anion Gap 4 (5-15); BUN 9 mg/dL (7-18); BUN/Creat Ratio 10.2 RATIO (10-20); Calcium,Total 7.6 mg/dL (8.5-10.1); Chloride 110 mmol/L (98-107); Creatinine, Serum 0.88 mg/dL (0.70-1.30); EST Glomerular Filtration Rate 92 mL/min (>60); Est Glom Filt Rate - Afr Amer 112 mL/min (>60); Estimated Creatinine Clearance 87.56 ml/min; Glucose 94 mg/dL (74-106); Potassium 3.7 mmol/L (3.5-5.1); Sodium Level 141 mmol/L (136-145)
--- NOTE | 2023-07-10 07:50 | NURSING ---
THIS RN WAS ADVISED THAT PT'S S.O. FERNANDO HAD ARRIVED AND WAS IN THE HALLWAY YELLING AND SWEARING AT MULTIPLE STAFF MEMBERS. FERNANDO WAS UPSET THAT A WRITTEN NOTE HAD BEEN LEFT FOR THE PATIENT AND THE PATIENT WAS ILLITERATE. FERNANDO DEMANDED TO SPEAK TO THIS RN IMMEDIATELY. THIS RN AND KALIE, HIS DAYSHIFT RN WENT BACK TO THE PT'S ROOM. I APOLOGIZED TO FERNANDO FOR NOT BEING AWARE OF THE PT'S LITERACY LEVEL. FERNANDO WAS CALM AND COOPERATIVE DURING OUR CONVERSATION. I ANSWERED ALL OF FERNANDO'S QUESTIONS RE: THE PT'S NIGHT AND HIS PLAN OF CARE. GUIDO AND SHARDA, CHARGE RNS WERE MADE AWARE OF FERNANDO'S REPORTED BEHAVIORS AND THIS RN'S CONVERSATIONS WITH HER.
--- NOTE | 2023-07-10 09:11 | DCINST_ITS ---
Discharge Instructions Diet Discharge Diet: Light diet - advance as tolerated Activity Discharge Activity: Return to Normal Activity Weight Bearing Status: Weight bearing as tolerated Dressing / Incision Call your doctor if you observe: Fever of 101 or Higher, Coldness, Increased Pain, Numbness or Tingling, Change in Color, Inability to urinate, Inability to have a bowel movement, Shortness of breath, Dizziness, Fainting spells, Swelling in the ankles, Chest pain, Prolonged hiccupping, Increased palpitations (irregular heartbeat) and Calf discomfort Follow Up Care When: IN 2 WEEKS Test Results: Test results from this visit will be discussed in further detail at your follow- up appointment, if applicable. Discharge Plan Admission Admit Date/Time: 07/09/23 10:43 Primary Reason for Your Visit: Acute severe anemia from GI bleed Attending Provider: Elia Adam Primary Care Provider: Anuradha Davis Discharge Orders/Prescriptions Prescriptions: No Action aspirin 81 mg tablet,delayed release (DR/EC) 81 mg PO DAILY@0800 Qty: 90 3RF atorvastatin 80 mg tablet 80 mg PO QHS Qty: 90 3RF clopidogrel 75 mg tablet 75 mg PO DAILY Qty: 90 3RF lisinopril 5 mg tablet 5 mg PO DAILY Qty: 90 3RF tamsulosin [Flomax] 0.4 mg capsule 0.4 mg PO DAILY Patient Comments: Take 1 capsule by mouth daily at bedtime. metoprolol tartrate 25 mg Tablet 25 mg PO DAILY sennosides-docusate sodium [Stool Softener-Stimulant Laxat] 8.6-50 mg Tablet 2 tab PO BID PRN PRN (Reason: Constipation) Qty: 0 0RF nitroglycerin 0.4 mg Tablet, Sublingual 0.4 mg sublingual Q5M PRN (Reason: CHEST PAIN) Qty: 30 0RF Daily Fiber (psyllium-aspart) 3 gram Powder In Packet 1 packet PO DAILY Qty: 0 0RF finasteride 5 mg tablet 5 mg PO DAILY Qty: 30 0RF Hemorrhoidal Ointment 1 applic MN Q8H PRN (Reason: hemorrhoids) Qty: 57 0RF Rx Instructions: Available OTC Referrals / Follow Up: Isaiah Guerrero DO [Med Staff - Active Staff] - Within 1 Month Anuradha Davis PA [Primary Care Provider] - Within 2 Weeks (Follow-up CBC in 1 week with PCP) Disposition Disposition (needs filled in before D/C Order can be placed): Home, Self Care
[2023-07-10] MEDS: Pantoprazole Sodium 40 MG in 0.9% Normal Saline (100mL MB+) 100 ML 330 MG IV (09:38)
[2023-07-10] MEDS: Tamsulosin HCl 0.4 MG Capsule PO (09:38)
[2023-07-10] MEDS: 0.9% Saline Lock 10 ML Syringe IV (09:38)
[2023-07-10] MEDS: Finasteride 5 MG Tablet PO (09:38)
--- NOTE | 2023-07-10 12:21 | DS.PCM_ITS ---
Providers Date of Admission: 07/09/23 Date of Discharge: 07/10/23 Primary Care Physician: SHAYE Urbano Consultations 07/09/23 13:34 Consult: Gastroenterology Routine Consulting Provider: E[facility] Reason for Consult: GI bleed EMERGENT Consult: No MD Notified: Yes Date Notified: 07/09/23 Time Notified: 13:34 Method of Notification: ED Physician Initiated Reason For Visit: SYNCOPE Diagnosis Discharge Diagnosis (1) Acute GI bleeding: Status: Acute Code(s): K92.2 - Gastrointestinal hemorrhage, unspecified (2) Syncope: Status: Acute Code(s): R55 - Syncope and collapse Qualifiers: Syncope type: unspecified Qualified Code(s): R55 - Syncope and collapse (3) Anemia: Status: Acute Code(s): D64.9 - Anemia, unspecified Qualifiers: Anemia type: iron deficiency Iron deficiency anemia type: other iron deficiency Qualified Code(s): D50.8 - Other iron deficiency anemias (4) Acute hypotension: Status: Acute Code(s): I95.9 - Hypotension, unspecified Plan 62-year-old gentleman being admitted for evaluation of syncope, hypotension and dark stool most likely due to acute GI blood loss 1. Syncope and hypotension most likely due to acute GI blood loss/dual antiplatelet agent: Patient had drop in hemoglobin from 14.5 in May 20-8.6. It was 10.1 in June 2023. It seems mainly upper GI blood loss. Started on IV pantoprazole 40 mg every 12 hourly. IV fluid volume resuscitation for hypotension. Patient is awake alert denies any dizziness. GI is consulted. Type and crossmatch ordered by ER physician. Started on octreotide drip although it seems patient does not drink alcohol actively but history of alcohol use and substance use in the past. Patient might need EGD/colonoscopy as per discretion of senior project manager. 07/10: Patient was taken to endoscopy suite from ED. EGD reported oozing duodenal ulcer with visible vessel injected treated with heater probe. Erythematous mucosa in antrum biopsied. Normal esophagus.Patient hemoglobin continue to be low 7.4 therefore transfuse 1 unit of PRBC. Advised repeat CBC after 1 week. Discussed with GI today. Patient is discharged on ferrous sulfate, ascorbic acid and pantoprazole 40 mg p.o. twice daily and advised to follow-up with senior project manager in 2 weeks 2 recent history of NSTEMI: Patient was admitted in [facility] in May 2023 for non-STEMI. Aspirin and Plavix hold. Hold beta-josé luis and lisinopril/antihypertensive agent but continue high intensity statin.Patient had LHC on 05/14/23. LAD subtotal to total occlusion at mid LAD after large septal branch. Collateralization noted to distal LAD from left coronary system. D1 large vessel with calcified proximal 80% stenosis. RCA dominant proximal RCA 80% stenosis. OM1 around 20 to 30%. Successful PCI with YAIR of mid LAD. After that patient had a staged PCI/stenting proximal RCA by Dr. Gonzalez on 06/16/2023. Patient followed Rain. 07/10: Patient recently had 2 PCI as mentioned above. Hold baby aspirin for 1 week but continue Plavix, metoprolol, lisinopril, nitro sublingual and high intensity statin. Echo shows EF 40 to 45%. Mildly dilated LV. Apical and d istal septal hypokinesis. Patient on PPI twice daily as mentioned above. #3. 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 Patient also had chronic cortical blindness but has improvement on left-sided weakness. He had reversal of PEG tube and ostomy. #4. Chronic constipation: continue patient home bowel regimen. No acute blood staining found on per rectal exam Patient on hemorrhoidal cream Amdd-fww-xfryzrs stool softener senna-s and Metamucil. #5. Hypertension: Continue home regimen including metoprolol, PRN hydralazine. #6. Hyperlipidemia: Continue home statin regimen. #7. BPH: Continue patient home Flomax and finasteride. During previous admission patient was advised to follow with Dr. Chi in 2 to 3 weeks but since he has not followed. Patient continued to have symptoms of hesitancy, incomplete emptying of bladder and intermittent micturition and dribbling. #8. Obesity: Weight loss and lifestyle changes encouraged. #9. Tobacco Abuse: Encouraged cessation. Patient is still smokes cigarettes half pack per day. Advised quitting. #10. History of EtOH Abuse, History of Polysubstance abuse and mild hyperglycemia: During previous admission, Hepatitis B surface antigen, antibody and hep C antibody nonreactive. HIV 1 and 2 antibody nonreactive. Advised hepatitis A and B vaccination. Patient complaining of burning sensation of her hands and feet. Chronic neuropathy. Patient denies history of diabetes mellitus. A1c 5.4% in May 2023. Diabetes mellitus ruled out. #11. DVT prophylaxis: Pharmacological prophylaxis contraindicated. Bilateral SCDs #12. Chronic dental caries: During last admission patient was treated with Augmentin. Currently does not have acute issues Living will/advanced directive/end of life care: Patient does not have living will or advanced directive. His is next of kin but no designated power of employment law attorney for health. After discussion of benefits/risks procedures involved with full code, DNR CC arrest and DNR CC, the patient opted for full code. Patient does want artificial life support including intubation, tube feed, ventilator and/chest compression, central venous catheter, vasopressor and DC shock if needed Discharge medication reconciliation done. Discharge follow-up instructions completed. Discharge process discussed with the patient and all questions were answered to patient's satisfaction. Total time spent, exact 35 minutes on discharge meds reconciliation, examination, coordination of care with nurses and ancillary staff, review of imaging and blood test and discussion with the patient on follow-up instructions. Medications at Discharge Home Medications tamsulosin 0.4 mg capsule (Flomax) 0.4 mg PO DAILY 12/11/21 finasteride 5 mg tablet 5 mg PO DAILY #30 tabs 05/15/23 nitroglycerin 0.4 mg sublingual tablet 0.4 mg sublingual Q5M PRN CHEST PAIN #30 tabs 05/15/23 phenylephrine-shark liver oil-mineral oil-petrolatum rectal ointment (Hemorrhoidal ointment) 1 applic [place] Q8H PRN hemorrhoids #57 grams 05/15/23 psyllium husk (aspartame) 3 gram oral powder packet (Daily Fiber (psyllium- aspartame)) 1 packet PO DAILY #0 ea 05/15/23 sennosides 8.6 mg-docusate sodium 50 mg tablet (Stool Softener-Stimulant Laxative) 2 tab PO BID PRN PRN Constipation #0 tabs 05/15/23 aspirin 81 mg tablet,delayed release 81 mg PO DAILY@0800 #90 tabs 05/24/23 atorvastatin 80 mg tablet 80 mg PO QHS #90 tabs 05/24/23 clopidogrel 75 mg tablet 75 mg PO DAILY #90 tabs 05/24/23 metoprolol tartrate 25 mg tablet 25 mg PO DAILY 07/09/23 ascorbic acid (vitamin C) 500 mg tablet 500 mg PO BID #60 tabs 07/10/23 ferrous sulfate 325 mg (65 mg iron) tablet,delayed release 325 mg PO DAILY #30 tabs 07/10/23 lisinopril 5 mg tablet 5 mg PO DAILY #90 tabs 07/10/23 pantoprazole 40 mg tablet,delayed release (Protonix) 40 mg PO BID #60 tabs 07/10/23 Physical Exam Narrative Annual exam. Patient not having dizziness lightheadedness or any syncope after admission. Hemoglobin low 7.4. Patient wants to go home. Patient has 1 unit of PRBC arranged and blood transfusion prior to discharge. Patient has chronic abdominal pain in mid abdomen since May 2023 may be from duodenal ulcer. Physical exam General: Alert, Oriented x3, Cooperative HEENT: Atraumatic, PERRLA, EOMI, Normocephalic Oral: Oral mucosa dry. No Gingival or Mucosal Lesions/ Ulcerations Neck: Supple, No JVD, Negative Carotid Bruits Lungs: Air entry diminished in bilateral lung bases. No crepitation/rhonchi Cardiovascular: Regular rate, Regular Rhythm, Normal S1, Normal S2, No murmurs Abdomen: Bowel Sounds Present, Soft, mild tenderness Non-Distended : No renal angle tenderness. No suprapubic tenderness. Extremities: No edema, Capillary Refill Less than 3 Seconds Skin: No rashes, No breakdown Musculoskeletal: No Tenderness to Palpation of Joints or Extremities Neurological: Cranial nerves II-XII grossly intact, DTR 2+/4. No acute focal neurological deficit. Psych/Mental Status: Has anxiety. Weight / BMI Weight Weight: 203 lb 4.259 oz Body Mass Index (BMI) 29.0 ABG / Lab / Microbiology Data 07/10/23 06:15 07/10/23 06:15 Laboratory: Laboratory Results - last 24 hr 07/09/23 08:42: Magnesium 2.0 07/09/23 10:50: Blood Type B POSITIVE, Antibody Screen NEGATIVE, Crossmatch See Detail 07/09/23 14:23: Hgb 8.4 L, Hct 26.8 L, PT 13.3, INR 1.0 07/09/23 14:50: Lactic Acid 1.8 07/09/23 20:35: Hgb 7.1 L, Hct 23.9 L 07/10/23 01:55: Hgb 7.5 L, Hct 25.4 L 07/10/23 06:15: WBC 7.4, RBC 2.58 L, Hgb 7.4 L, Hct 23.9 L, MCV 92.6, MCH 28.7, MCHC 31.0 L, RDW Std Deviation 46.8 H, RDW Coeff of Renny 13.8, Plt Count 320, MPV 9.8, Immature Gran % (Auto) 0.300, Neut % (Auto) 74.1 H, Lymph % (Auto) 10.3 L, Loíza % (Auto) 10.2 H, Eos % (Auto) 4.6, Baso % (Auto) 0.5, Absolute Neuts (auto) 5.5, Absolute Lymphs (auto) 0.76 L, Nucleated RBC % 0, Sodium 141, Potassium 3.7, Chloride 110 H, Carbon Dioxide 27.0, Anion Gap 4 L, BUN 9, Creatinine 0.88, Estim Creat Clear Calc 87.56, Est GFR (MDRD) Af Amer 112, Est GFR (MDRD) Non-Af 92, BUN/Creatinine Ratio 10.2, Glucose 94, Calcium 7.6 L D/C Instructions Discharge Diet: Light diet - advance as tolerated Weight Bearing Status: Weight bearing as tolerated Call your doctor if you observe: Fever of 101 or Higher, Coldness, Increased Pain, Numbness or Tingling, Change in Color, Inability to urinate, Inability to have a bowel movement, Shortness of breath, Dizziness, Fainting spells, Swelling in the ankles, Chest pain, Prolonged hiccupping, Increased palpitations (irregular heartbeat) and Calf discomfort When: IN 2 WEEKS Meaningful Use Info Meaningful Use Diagnoses (Choose all that apply): None applicable Discharge Plan Admission Admit Date/Time: 07/09/23 10:43 Primary Reason for Your Visit: Acute severe anemia from GI bleed Attending Provider: Elia Adam Primary Care Provider: Anuradha Davis Instructions Additional Instructions / Restrictions: CV in 1 week and follow with PCP. Discharge Orders/Prescriptions Prescriptions: New ferrous sulfate 325 mg (65 mg iron) tablet,delayed release (DR/EC) 325 mg PO DAILY Qty: 30 2RF ascorbic acid (vitamin C) 500 mg tablet 500 mg PO BID Qty: 60 2RF pantoprazole [Protonix] 40 mg tablet,delayed release (DR/EC) 40 mg PO BID Qty: 60 3RF Rx Instructions: advised TWICE DAILY FOR 8 weeks and then once daily. Continued atorvastatin 80 mg tablet 80 mg PO QHS Qty: 90 3RF clopidogrel 75 mg tablet 75 mg PO DAILY Qty: 90 3RF tamsulosin [Flomax] 0.4 mg capsule 0.4 mg PO DAILY Patient Comments: Take 1 capsule by mouth daily at bedtime. metoprolol tartrate 25 mg Tablet 25 mg PO DAILY lisinopril 5 mg tablet 5 mg PO DAILY Qty: 90 3RF Rx Instructions: Hold for SBP less than 130 mmHg sennosides-docusate sodium [Stool Softener-Stimulant Laxat] 8.6-50 mg Tablet 2 tab PO BID PRN PRN (Reason: Constipation) Qty: 0 0RF nitroglycerin 0.4 mg Tablet, Sublingual 0.4 mg sublingual Q5M PRN (Reason: CHEST PAIN) Qty: 30 0RF Daily Fiber (psyllium-aspart) 3 gram Powder In Packet 1 packet PO DAILY Qty: 0 0RF finasteride 5 mg tablet 5 mg PO DAILY Qty: 30 0RF Hemorrhoidal Ointment 1 applic [place] Q8H PRN (Reason: hemorrhoids) Qty: 57 0RF Rx Instructions: Available OTC Held aspirin 81 mg tablet,delayed release (DR/EC) 81 mg PO DAILY@0800 Qty: 90 3RF Hold Instructions: Hold for 1 week. Referrals / Follow Up: Isaiah Guerrero DO [Med Staff - Active Staff] - Within 1 Month Anuradha Davis PA [Primary Care Provider] - Within 2 Weeks (Follow-up CBC in 1 week with PCP) Disposition Disposition (needs filled in before D/C Order can be placed): Home, Self Care Charges/Coding Visit Charges Inpatient E&M: 76789 Disch Hosp >30min
--- NOTE | 2023-07-10 12:45 | CASEMGMT ---
RN?CM?PORCELAIN ENAMELING SUPERVISOR?CM?to room to meet with patient for initial transition planning/care coordination?assessment.?RN?CM?introduced self and role at [facility].? Pt voices understanding and consents to?assessment?at this time.? Pt resting in bed in no distress at this time.? Significant other, Annie, @ bedside and pt agreeable to her being present during assessment. Pt is A/O at this time and answers all questions appropriately.?? Care providers, pharmacy, and demographics verified/updated at this time. PCP: SHAYE Griggs Specialists: LEIF/Jose Cerda NP. Pt has an appt Wednesday @ 10 AM. [email or web address]: [employer] [facility] Prescription Benefit:?Yes Living Will/HPOA:?Pt does not have LW or HCPOA and would like to complete AD. Asha IRVING, made aware. Pt and S.O made aware if SW unable to meet w/him to complete AD while @ [facility], that this could be completed as an OP w/SW. They voice understanding. LNOK: Pt has one biological child but they are not in contact w/each other. He states he would like his S.O, Annie, be his HCPOA. Living Arrangements: Lives w/ S.O, Annie, in one-story apt w/no steps to enter. Annie assists w/bathing and dressing as needed and does home mgnt tasks. He uses no AD to ambulate. Annie states pt either furniture walks around the home or she assists him when up. Transportation:?Pt does not drive. Annie drives, but states her car broke down a couple months ago. They are aware of [facility] van transportation and rely on friends/family to assist when available. Asha IRVING, aware of need of transportation resources. DME: ?Pt has the following DME:?shower chair, grab bars, pulse ox, BP cuff. Has a cane but does not use it. HHC/SNF: Hx of [facility]. No hx of HHC. Annie and pt interested in HHC. Discussed homebound criteria. Annie states it is difficult for pt to ambulate and that he doesn't get out much d/t difficulty getting around. She states she has been provided w/HHC lists in the past and [facility], but was having difficulty and would like assistance w/this. She declines wanting another HHC list at this time. MARCUS RODAS informed them HHC unable to be set up on the weekend, but referral process could be initiated w/[facility] and MARCUS RODAS will f/u with this on Wednesday. Pt wishes to return home and states has no further concerns with going home at time of discharge.? PLAN:??Home w/Significant other and discharge plans in place. RN CM to f/u re: HHC referral on Wednesday. Zunilda MCGRATHN?RN?CM
--- NOTE | 2023-07-10 14:00 | CASEMGMT ---
Social Work SW met with patient and patient's significant other and introduced self and role as [facility] SW. Patient was agreeable to speak to SW with significant other present. SW engaged patient in conversation regarding SDOH, patient states he is ready to leave. Patient agreeable to participate in completion of SDOH with assistance from significant other. Patient's significant other reports they currently live at [facility] apartments, however, they want to find other housing options due to an increase in younger adults moving into [facility] and using drugs. Patient's significant other reports they are likely getting evicted due to negative interactions between themselves and neighbors. Patient's significant other also reports transportation needs and safety concerns regarding their neighbors being impulsive and unpredictable due to drug use. Patient's significant other reports patient has been in contact with police regarding neighbors and safety concerns, no additional resources needed. SW provided emotional support and reviewed community transportation resources as well as [facility] resource list. Patient's significant other states I know more about that list than you, we don't qualify for any assistance. SW continued to offer support and validated patient's significant other's frustration with limited resources in [facility]. SW then reviewed [facility] resource previously provided. Patient's significant other reports they were in contact and were told someone would be contacting them within 5-7 days. SW encouraged patient to contact [facility] SW to discuss scheduling appointment to complete AD; patient voiced understanding. No other needs voiced. Plan: transportation and housing resources provided NOEL Mims
--- NOTE | 2023-07-10 17:07 | NURSING ---
1700; Pt and significant other were walking down oneill. Refused this nurse to go over dc instructions. This nurse took out pts IV and told him to get dressed and nurse would be back soon. Pt and significant other stated they were getting a taxi and they were leaving. Instructed on number of hospital to call with any questions.
--- NOTE | 2023-07-12 09:40 | CASEMGMT ---
MARCUS RODAS NOTE: VM received from Analisa @ [facility]. They are unable to accept pt d/t they are at their capacity. Mari, conservation planner, made aware and will work on finding an accepting [facility] agency. Zunilda KUMAR RN CM
--- NOTE | 2023-07-12 13:23 | CASEMGMT ---
Discharge Planning Referral sent via [facility] to; [facility], Anita, [facility], [facility], [facility], [facility], [place], [facility], [facility], [facility], [facility], [facility], [facility], [facility], [facility] Mary, and [facility]. Mari Beatty, Discharge Planning Asst.
--- NOTE | 2023-07-14 14:51 | CASEMGMT ---
MARCUS RODAS NOTE: MARCUS RODAS spoke w/pt's significant other, Annie, and notified her all C's have declined accepting pt so far, except for [facility] and she was made aware of need of [facility] Policy #. She states she is not @ home now and does not have that information at this time. MARCUS RODAS to talk w/Annie tomorrow to obtain this information. Mari, lock operator, made aware. Zunilda KUMAR RN, CM
--- NOTE | 2023-07-14 14:58 | CASEMGMT ---
Discharge Planning Patient has been declined by; Aicha Dunne, LATESHA DAN, [facility], [facility], [facility], [facility], [facility], [facility] Mac, and [facility], stating the policy number of record is incorrect. Call placed to Lexis @ [facility], she stated that she would attempt to run with number on file and call me back. Follow up via [facility] on 07/14 resulting in another request for copy of card. Message left with Garima ([phone]). Awaiting response. RN CM updated. Mari Beatty, Discharge Planning Asst.
--- NOTE | 2023-07-15 08:41 | CASEMGMT ---
RN CM NOTE: Call placed to Annie, pt's sig other, to obtain [facility] policy #. No answer. VM left for her to return call to Mari/[employer] planners, or to this RN CM. Phone #'s provided. Zunilda MCGRATHN RN CM
--- NOTE | 2023-07-15 14:12 | CASEMGMT ---
Discharge Planning Copy of insurance card is required for services. Two messages were left today at [phone]. A return call was requested. MARCUS CM updated. Mari Beatty, Discharge Planning Asst.
--- NOTE | 2023-07-16 08:42 | CASEMGMT ---
Discharge Planning An incoming call from patient's phone number was received but caller hung up after 2 rings. A short time later an email was received from [facility] stating that caller (pt's sig other) was on the phone and very upset. Switchboard let caller know that I was attempting to call her back. Upon speaking with patients significant other, I explained that home health could not be secured until the agency was able to verify insurance benefits. Annie stated that patient has never received a card but provided a number that she thinks is the policy number ([id number]). I explained that I would give this information to registration and call her back when I knew if this was his policy number or not. Mari Beatty, Discharge Planning Asst.
--- NOTE | 2023-07-16 14:58 | CASEMGMT ---
Discharge Planning This administrative underwriter was able to obtain policy number from [facility] ([id number]). This information was [facility] to [facility]. Awaiting response. Mari Beatty, Discharge Planning Asst.
--- NOTE | 2023-07-16 16:10 | CASEMGMT ---
Discharge Planning [facility] to verify financials with new policy number provided. VM left with patients sig other with this information. Mari Beatty, Discharge Planning Asst.
--- NOTE | 2023-07-21 09:23 | CASEMGMT ---
Discharge Planning [facility] is able to accept patient. SOC next week. VM left at [phone]. RN CM updated. Mari Beatty, Discharge Planning Asst.
== END 2023-07-10 16:53 | disposition home or self-care (01) | DRG 378 ==
LOC: ED 10:52 → PCU 12:25
PROVIDERS: Internal Medicine Gastroenterology; Admitting Provider Internal Medicine; Emergency Provider Emergency Medicine; PCP Physician Assistant; Visit Provider Internal Medicine
PROC: 0DJ08ZZ Inspection of Upper Intestinal Tract, Via Natural or Artificial Opening Endoscopic (ICD-10-PCS; CPT 43235; principal; 2023-07-09 12:40)
DX: K26.4 Chronic or unspecified duodenal ulcer with hemorrhage (principal); I69.354 Hemiplegia and hemiparesis following cerebral infarction affecting left non-dominant side; D62 Acute posthemorrhagic anemia; F10.21 Alcohol dependence, in remission; I10 Essential (primary) hypertension; E78.5 Hyperlipidemia, unspecified; F17.210 Nicotine dependence, cigarettes, uncomplicated; I25.10 Atherosclerotic heart disease of native coronary artery without angina pectoris; I25.2 Old myocardial infarction; I69.311 Memory deficit following cerebral infarction; K59.09 Other constipation; K02.9 Dental caries, unspecified; I69.312 Visuospatial deficit and spatial neglect following cerebral infarction; E66.9 Obesity, unspecified; G89.29 Other chronic pain; N40.1 Benign prostatic hyperplasia with lower urinary tract symptoms; R39.11 Hesitancy of micturition; R39.14 Feeling of incomplete bladder emptying; Z68.29 Body mass index [BMI] 29.0-29.9, adult; Z95.5 Presence of coronary angioplasty implant and graft; Z79.02 Long term (current) use of antithrombotics/antiplatelets; Z79.82 Long term (current) use of aspirin; Z79.899 Other long term (current) drug therapy
CPT/HCPCS: 36415; 71045; 74177; 80048; 80053; 81001; 83605; 83690; 83735; 84484; 85014; 85018; 85025; 85610; 86850; 86900; 86901; 86920; 86922; 88305; 88342; 93005; 94668; 97802; 99285; J7030; J7050; J7120; P9016; Q9967; A4216; J2405; J2916

== ENCOUNTER 2023-08-17 10:29 | Outpatient (RCR) | payer MEDICARE, SELFPAY ==
[2023-08-17 11:13] LABS: Absolute Lymphocyte Count 1.06 X10^3/uL (0.83-4.51); Absolute Neutrophil Count 4.3 X10^3/uL (2.0-7.7); Basophil# 0.07 X10^3/uL; Basophil% 1.1 % (0-1); Eosinophil# 0.21 X10^3/uL; Eosinophils% 3.4 % (0-5); Hematocrit 38.3 % (40-54); Hemoglobin 11.5 g/dL (13.0-16.5); Lymphocyte # 1.06 X10^3/ul (0.83-4.51); Lymphocyte % 17.1 % (19-41); Mean Corpuscular Hgb 28.3 pg (27.0-32.0); Mean Corpuscular Volume 94.3 fL (80-94); Monocyte# 0.54 X10^3/uL; Monocyte% 8.7 % (0-10); NRBC Flagged by Analyzer 0 % (0-5); Neutrophil # 4.31 X10^3/uL (2.7-7.7); Neutrophil % 69.5 % (47-70); Platelet Count 308 K/mm3 (150-450); RBC Distribution Width CV 17.1 % (11.6-14.6); RBC Distribution Width SD 59.5 fl (35.1-43.9); Red Blood Count 4.06 M/mm3 (4.6-6.2); White Blood Count 6.2 K/mm3 (4.4-11.0)
[2023-08-17 11:29] LABS: ALB/GLOB Ratio 0.8 RATIO (0.9-2.4); AST(SGOT) 17 U/L (15-37); Alanine Aminotransfer ALT/SGPT 29 U/L (16-61); Albumin, Serum 3.7 g/dL (3.2-5.0); Alkaline Phosphatase 84 U/L (45-117); Anion Gap 3 (5-15); BUN 13 mg/dL (7-18); BUN/Creat Ratio 16.2 RATIO (10-20); Calcium,Total 8.7 mg/dL (8.5-10.1); Chloride 110 mmol/L (98-107); Cholesterol 93 mg/dL (200); EST Glomerular Filtration Rate 103 mL/min (>60); Est Glom Filt Rate - Afr Amer 124 mL/min (>60); Globulin 4.4 g/dL (2.2-4.2); Glucose 97 mg/dL (74-106); High Density Lipoprotein 33 mg/dL; Potassium 3.8 mmol/L (3.5-5.1); Protein, Total 8.1 g/dL (6.4-8.2); Sodium Level 141 mmol/L (136-145); Triglycerides 72 mg/dL; Very Low Density Lipoprotein 14 mg/dL (5-40)
[2023-08-17 12:02] LABS: Hemoglobin A1c 4.9 % (3.8-5.6)
== END 2023-08-17 18:00 | disposition home or self-care (01) ==
LOC: HHLAB 10:29
PROVIDERS: PCP Physician Assistant
DX: K26.4 Chronic or unspecified duodenal ulcer with hemorrhage (principal); D50.8 Other iron deficiency anemias; I95.9 Hypotension, unspecified
CPT/HCPCS: 80053; 80061; 83036; 85025

== ENCOUNTER 2023-09-26 12:45 | Emergency (ER) | payer MEDICARE, SELFPAY ==
[2023-09-26 12:47] VITALS: BP 167/87; PULSE 68; RESP 16; TEMP 36.3; O2SAT 99
--- NOTE | 2023-09-26 14:43 | CT_ITS ---
STUDY: CT ABDOMEN AND PELVIS WITH CONTRAST REASON FOR EXAM: Male, 63 years old. abdominal pain RADIATION DOSAGE (If Supplied By Facility): CTDIvol = ( 15.69 ) mGy, DLP = ( 946.88 ) mGycm TECHNIQUE: Transaxial images were obtained from the dome of the diaphragm to the symphysis pubis without oral contrast. IV 100mL Isovue-370 was administered. Sagittal and coronal images were reconstructed. Individualized dose optimization techniques were used for this CT. COMPARISON: None. FINDINGS: The visualized lung bases are unremarkable. The visualized portions of the heart are within normal limits. Normal liver. Cholelithiasis. No significant dilatation of the extrahepatic biliary system. Normal spleen. Normal pancreas. 1.3 cm right adrenal nodule. Normal right kidney. Normal left kidney. Small hiatal hernia. Normal small intestine. Mild diverticulosis of the colon. The appendix is not visualized. Calcified abdominal aorta. Normal inferior vena cava. Normal retroperitoneum. Diverticulum of the urinary bladder. Fatty density in the inguinal canals. Small fatty ventral hernia of the upper anterior abdominal wall. Degenerative vertebral changes. Spondylolysis of L5. The endometrium is a healing CT/Abdomen/Pelvis W IV Cont ONLY IMPRESSION: Cholelithiasis. Right adrenal nodule Small hiatal hernia. Colonic diverticulosis. Urinary bladder diverticulum. Fatty density in the inguinal canals. Small fatty upper abdominal wall ventral hernia. Electronically Signed: Denver Knight DO at 16:55 EST ,
--- NOTE | 2023-09-26 14:44 | EDS_ITS ---
HPI <SHAYE Zuniga - Last Filed: 09/26/23 17:19> History of Present Illness Chief Complaint: Abd Pain Narrative Narrative: 63-year-old male with PMH of HTN, HLD, CAD, CVA presents with abdominal pain. He has had sharp pain above his umbilicus intermittently over the last few days. Comes with no pattern and doubles him over. He has no recent nausea, vomiting, and has normal p.o. intake. He feels like it is difficult to urinate and defecate. He has chronic constipation and takes Linzess and has a bowel movement every couple days. He had a BM yesterday. No black or bloody stools. When he had a stroke several years ago he had a feeding tube and states after it was removed he had chronic abdominal discomfort but this feels worse. States it feels like there are bag of rocks in his belly. He also had an appendectomy. PFSH <SHAYE Zuniga - Last Filed: 09/26/23 17:19> PFSH Medical History Acute constipation Atherosclerotic heart disease of [place] coronary artery without angina pectoris BPH (benign prostatic hyperplasia) CVD (cerebrovascular disease) Essential hypertension H/O left bundle branch block History of alcoholism History of stroke History of substance abuse Hyperlipidemia Ischemic cardiomyopathy Non-ST elevation CT (NSTEMI) Tobacco use Home Medications tamsulosin 0.4 mg capsule (Flomax) 0.4 mg PO DAILY 12/11/21 [History Last Taken Unknown] finasteride 5 mg tablet 5 mg PO DAILY #30 tabs 05/15/23 [Rx Last Taken Unknown] nitroglycerin 0.4 mg sublingual tablet 0.4 mg sublingual Q5M PRN CHEST PAIN #30 tabs 05/15/23 [Rx Last Taken Unknown] phenylephrine-shark liver oil-mineral oil-petrolatum rectal ointment (Hemorrhoidal ointment) 1 applic MT Q8H PRN hemorrhoids #57 grams 05/15/23 [Rx Last Taken Unknown] psyllium husk (aspartame) 3 gram oral powder packet (Daily Fiber (psyllium- aspartame)) 1 packet PO DAILY #0 ea 05/15/23 [Rx Last Taken Unknown] sennosides 8.6 mg-docusate sodium 50 mg tablet (Stool Softener-Stimulant Laxative) 2 tab PO BID PRN PRN Constipation #0 tabs 05/15/23 [Rx Last Taken Unknown] aspirin 81 mg tablet,delayed release 81 mg PO DAILY@0800 #90 tabs 05/24/23 [Rx Last Taken 06/16/23] atorvastatin 80 mg tablet 80 mg PO QHS #90 tabs 05/24/23 [Rx Last Taken Unknown] clopidogrel 75 mg tablet 75 mg PO DAILY #90 tabs 05/24/23 [Rx Last Taken 06/16/23] metoprolol tartrate 25 mg tablet 25 mg PO DAILY 07/09/23 [History Last Taken Unknown] ascorbic acid (vitamin C) 500 mg tablet 500 mg PO BID #60 tabs 07/10/23 [Rx Last Taken Unknown] lisinopril 5 mg tablet 5 mg PO DAILY #90 tabs 07/10/23 [Rx Last Taken 06/16/23] pantoprazole 40 mg tablet,delayed release (Protonix) 40 mg PO BID #60 tabs 07/10/23 [Rx Last Taken Unknown] ferrous sulfate 325 mg (65 mg iron) tablet,delayed release 325 mg PO BID 90 days #180 tabs 08/11/23 [Rx Last Taken Unknown] gabapentin 300 mg capsule 300 mg PO DAILY 09/06/23 [History Last Taken Unknown] peg 3350-electrolytes 236 gram-22.74 gram-6.74 gram-5.86 gram solution (Golytely) 240 ml PO Q10M PRN constipat 1 day #4,000 mL 09/26/23 [Rx Last Taken Unknown] Allergy/AdvReac Type Severity Reaction Status Date / Time No Known Allergies Allergy Verified 09/26/23 12:51 Family History Mother Diabetes Cancer Breast cancer Father Diabetes Cancer Brother Cancer Surgical History History of creation of ostomy Hx of appendectomy S/P percutaneous endoscopic gastrostomy (PEG) tube placement Stented coronary artery (06/16/23) Social History household members: significant other Smoking Status: Current every day smoker tobacco type: cigarettes alcohol intake: former details: Sober x 3 years. substance use type: former substance user Date of last use: Prior polysubstance abuse including cocaine, clean x 3 years. ROS <SHAYE Zuniga - Last Filed: 09/26/23 17:19> ROS ED ROS Narrative Constitutional: Negative for fever, chills, malaise. CVS: Negative for chest pain, syncope. Respiratory: Negative for shortness of breath, cough. GI: Positive for abdominal pain. Negative for nausea, vomiting, diarrhea, melena, hematochezia. : Negative for dysuria, hematuria or frequency. EXAM <SHAYE Zuniga - Last Filed: 09/26/23 17:19> Physical Exam Narrative Exam Narrative: CONST: Patient sitting in no acute distress. EYES: Normal inspection. NECK: Normal inspection. RESP: No respiratory distress, CTAB. CVS: Regular rate and rhythm, no murmur, no gallop. ABD: Soft with periumbilical tenderness and voluntary guarding, no rebound, nondistended, no hepatosplenomegaly. SKIN: Color normal, no rash, warm, dry, intact. EXTREMITIES: Normal appearance, no pedal edema. NEURO: Oriented x4. PSYCH: Normal affect. Const Vital Signs: 09/26/23 12:47 09/26/23 16:33 09/26/23 17:13 Temperature 97.4 F L Temperature Source Temporal Pulse Rate 68 51 L Respiratory Rate 16 18 18 Blood Pressure 167/87 H 124/60 H Blood Pressure Mean 113 81 Pulse Ox 99 97 Oxygen Delivery Method Room Air Room Air Room Air <Dr. Lito Pratt MD - Last Filed: 09/26/23 16:05> Physical Exam Const Vital Signs: 09/26/23 12:47 09/26/23 16:33 09/26/23 17:13 Temperature 97.4 F L Temperature Source Temporal Pulse Rate 68 51 L Respiratory Rate 16 18 18 Blood Pressure 167/87 H 124/60 H Blood Pressure Mean 113 81 Pulse Ox 99 97 Oxygen Delivery Method Room Air Room Air Room Air MDM <SHAYE Zuniga - Last Filed: 09/26/23 17:19> MDM MDM Narrative Medical decision making narrative: History gathered from: Patient and significant other Patient has chronic abdominal pain reports a few days of sharper periumbilical pain. He has had normal p.o. intake. He states he has difficulty urinating and chronic constipation. He appears well and nontoxic. Vital signs within normal limits. Abdomen is soft with periumbilical tenderness but no peritoneal signs. CBC, CMP, lipase are all within normal limits. Patient was able to urinate and has no signs of infection. CT abdomen/pelvis shows no acute process. Incidentally notes cholelithiasis with no evidence of acute infection. He has no right upper quadrant tenderness. On my review there is a moderate amount of stool but no obstruction. His pain could be secondary to spasm and constipation. I prescribed GoLytely and recommend follow-up with PCP and GI. On the scan he also has no evidence of urinary retention and easily urinated here so I have no concern for this. Patient was given return precautions and discharged in stable condition. Differential: Constipation, obstruction, diverticulitis, hernia among others I have personally performed a face to face assessment of the patient and have reviewed the SILVA Note. I performed a substantive portion of the visit including all aspects of the following. My coronado findings include: History is 63-year-old male complaining of acute on chronic abdominal pain with a history of constipation. Also states he has difficulty urinating. Denies any diarrhea nor melena. No fever. No dysuria. No prior abdominal surgeries other than an appendectomy. Exam is [well-appearing 63-year-old male. Vital signs are stable and afebrile. He does not look to be in any distress. HEENT exam unremarkable. Lungs clear. Heart regular rhythm no murmur. Rate about 70. Abdomen soft nondistended normal bowel sounds without peritoneal signs. No pulsatile mass. No localizing right upper or right lower quadrant tenderness. No hernia or mass. No signs of obstruction. Diffusely tender. No rebound or guarding. Moving all 4 extremities. Nontender. No edema. He is awake and alert.] Medical Decision Making [63-year-old male with acute on chronic abdominal pain. CAT scan and labs are pending. This may be secondary constipation. Could have urinary retention. Versus other etiologies. Clinically does not appear to have an appendicitis, bowel obstruction.] Other additions or changes: [None] Lab Data Labs: Laboratory Results - last 24 hr 09/26/23 09/26/23 14:55 15:45 WBC 6.7 RBC 3.96 L Hgb 11.7 L Hct 37.3 L MCV 94.2 H MCH 29.5 MCHC 31.4 L RDW Std Deviation 56.2 H RDW Coeff of Renny 16.4 H Plt Count 284 MPV 10.2 Immature Gran % (Auto) 0.400 Neut % (Auto) 69.1 Lymph % (Auto) 15.7 L [place] % (Auto) 9.3 Eos % (Auto) 4.6 Baso % (Auto) 0.9 Absolute Neuts (auto) 4.7 Absolute Lymphs (auto) 1.06 Nucleated RBC % 0 Sodium 140 Potassium 3.9 Chloride 106 Carbon Dioxide 29.0 Anion Gap 5 BUN 10 Creatinine 0.85 Est GFR (MDRD) Af Amer 117 Est GFR (MDRD) Non-Af 96 BUN/Creatinine Ratio 11.8 Glucose 95 Calcium 8.3 L Total Bilirubin 0.20 AST 18 ALT 26 Alkaline Phosphatase 80 Total Protein 7.3 Albumin 3.6 Globulin 3.7 Albumin/Globulin Ratio 1.0 Lipase 42 Urine Color Yellow Urine Clarity Cloudy Urine pH 5.0 Ur Specific [place] 1.025 Urine Protein 15 H Urine Glucose (UA) Normal Urine Ketones 5 H Urine Occult Blood 10 H Urine Nitrite Negative Urine Bilirubin Negative Urine Urobilinogen 1 H Ur Leukocyte Esterase 25 H Urine RBC 0-5 SEEN Urine WBC 0 SEEN Ur Squamous Epith Cells 0 SEEN Amorphous Sediment 3+ Urine Bacteria 0 SEEN Urine Mucus 0 SEEN Radiography Diagnostic Testing: Clinical Impression(s) from Imaging Studies Abdomen/Pelvis CT 09/26/23 14:43 IMPRESSION: Cholelithiasis. Right adrenal nodule Small hiatal hernia. Colonic diverticulosis. Urinary bladder diverticulum. Fatty density in the inguinal canals. Small fatty upper abdominal wall ventral hernia. Electronically Signed: Denver Knight DO at 16:55 EST Reading Location ID and State: [facility] / [place] Tel [phone], Service support , <Dr. Lito Pratt MD - Last Filed: 09/26/23 16:05> [facility] Narrative Medical decision making narrative: I have personally performed a face to face assessment of the patient and have reviewed the SILVA Note. I performed a substantive portion of the visit including all aspects of the following. My coronado findings include: History is 63-year-old male complaining of acute on chronic abdominal pain with a history of constipation. Also states he has difficulty urinating. Denies any diarrhea nor melena. No fever. No dysuria. No prior abdominal surgeries other than an appendectomy. Exam is [well-appearing 63-year-old male. Vital signs are stable and afebrile. He does not look to be in any distress. HEENT exam unremarkable. Lungs clear. Heart regular rhythm no murmur. Rate about 70. Abdomen soft nondistended normal bowel sounds without peritoneal signs. No pulsatile mass. No localizing right upper or right lower quadrant tenderness. No hernia or mass. No signs of obstruction. Diffusely tender. No rebound or guarding. Moving all 4 extremities. Nontender. No edema. He is awake and alert.] Medical Decision Making [63-year-old male with acute on chronic abdominal pain. CAT scan and labs are pending. This may be secondary constipation. Could have urinary retention. Versus other etiologies. Clinically does not appear to have an appendicitis, bowel obstruction.] Other additions or changes: [None] History & Record Review Discussion w/independent historian: Patient Lab Data Attestation: I reviewed the patient's lab results. Lab results narrative: CBC shows normal white count 6.7. H&H 11.7 and 37 patient has a baseline anemia. Platelets 284. Electrolytes show a gap of 5 normal BUN of 10 and creatinine 0.8. Glucose 95. Liver enzymes are normal. Pace is normal at 42. Labs: Laboratory Results - last 24 hr 09/26/23 09/26/23 14:55 15:45 WBC 6.7 RBC 3.96 L Hgb 11.7 L Hct 37.3 L MCV 94.2 H MCH 29.5 MCHC 31.4 L RDW Std Deviation 56.2 H RDW Coeff of [place]enny 16.4 H Plt Count 284 MPV 10.2 Immature Gran % (Auto) 0.400 Neut % (Auto) 69.1 Lymph % (Auto) 15.7 L [place] % (Auto) 9.3 Eos % (Auto) 4.6 Baso % (Auto) 0.9 Absolute Neuts (auto) 4.7 Absolute Lymphs (auto) 1.06 Nucleated RBC % 0 Sodium 140 Potassium 3.9 Chloride 106 Carbon Dioxide 29.0 Anion Gap 5 BUN 10 Creatinine 0.85 Est GFR (MDRD) Af Amer 117 Est GFR (MDRD) Non-Af 96 BUN/Creatinine Ratio 11.8 Glucose 95 Calcium 8.3 L Total Bilirubin 0.20 AST 18 ALT 26 Alkaline Phosphatase 80 Total Protein 7.3 Albumin 3.6 Globulin 3.7 Albumin/Globulin Ratio 1.0 Lipase 42 Urine Color Yellow Urine Clarity Cloudy Urine pH 5.0 Ur Specific [place] 1.025 Urine Protein 15 H Urine Glucose (UA) Normal Urine Ketones 5 H Urine Occult Blood 10 H Urine Nitrite Negative Urine Bilirubin Negative Urine Urobilinogen 1 H Ur Leukocyte Esterase 25 H Urine RBC 0-5 SEEN Urine WBC 0 SEEN Ur Squamous Epith Cells 0 SEEN Amorphous Sediment 3+ Urine Bacteria 0 SEEN Urine Mucus 0 SEEN Radiography Diagnostic Testing: Clinical Impression(s) from Imaging Studies Abdomen/Pelvis CT 09/26/23 14:43 IMPRESSION: Cholelithiasis. Right adrenal nodule Small hiatal hernia. Colonic diverticulosis. Urinary bladder diverticulum. Fatty density in the inguinal canals. Small fatty upper abdominal wall ventral hernia. Electronically Signed: Denver Knight DO at 16:55 EST Reading Location ID and State: [facility] / [place] Tel [phone], Service support , Discharge Plan Triage Chief Complaint: Abd Pain ED Midlevel Provider: Sharron Ann ED Provider: Lito Pratt Dx/Rx/DC Orders Clinical Impression: Acute constipation, Abdominal pain Instructions: Abdominal Pain Prescriptions: New peg 3350-electrolytes [Golytely] 236-22.74-6.74 -5.86 gram recon soln 240 ml PO Q10M PRN 1 Days Qty: 4000 0RF Rx Instructions: 1/2 bottle today, 1/2 next day as needed if no significant bowel movements No Action aspirin 81 mg tablet,delayed release (DR/EC) 81 mg PO DAILY@0800 Qty: 90 3RF Hold Instructions: Hold for 1 week. atorvastatin 80 mg tablet 80 mg PO QHS Qty: 90 3RF clopidogrel 75 mg tablet 75 mg PO DAILY Qty: 90 3RF gabapentin 300 mg capsule 300 mg PO DAILY tamsulosin [Flomax] 0.4 mg capsule 0.4 mg PO DAILY Patient Comments: Take 1 capsule by mouth daily at bedtime. metoprolol tartrate 25 mg Tablet 25 mg PO DAILY ascorbic acid (vitamin C) 500 mg tablet 500 mg PO BID Qty: 60 2RF pantoprazole [Protonix] 40 mg tablet,delayed release (DR/EC) 40 mg PO BID Qty: 60 3RF Rx Instructions: advised TWICE DAILY FOR 8 weeks and then once daily. lisinopril 5 mg tablet 5 mg PO DAILY Qty: 90 3RF Rx Instructions: Hold for SBP less than 130 mmHg sennosides-docusate sodium [Stool Softener-Stimulant Laxat] 8.6-50 mg Tablet 2 tab PO BID PRN PRN (Reason: Constipation) Qty: 0 0RF nitroglycerin 0.4 mg Tablet, Sublingual 0.4 mg sublingual Q5M PRN (Reason: CHEST PAIN) Qty: 30 0RF Daily Fiber (psyllium-aspart) 3 gram Powder In Packet 1 packet PO DAILY Qty: 0 0RF finasteride 5 mg tablet 5 mg PO DAILY Qty: 30 0RF Hemorrhoidal Ointment 1 applic MT Q8H PRN (Reason: hemorrhoids) Qty: 57 0RF Rx Instructions: Available OTC ferrous sulfate 325 mg (65 mg iron) tablet,delayed release (DR/EC) 325 mg PO BID 90 Days Qty: 180 0RF Primary Care Provider: Anuradha Davis Referrals: Anuradha Davis PA [Primary Care Provider] - Activity Restrictions/Additional Instructions: Please use GoLytely and follow-up with your primary care and GI. Disposition Disposition: Home, Self Care
[2023-09-26] MEDS: Morphine 4 MG/ML Syringe IV (14:54)
[2023-09-26] MEDS: 0.9% Normal Saline (1000mL) 1,000 ML 1000 ML IV (14:54)
[2023-09-26] MEDS: Ondansetron 4 MG/2 ML Vial IV (14:54)
[2023-09-26 14:59] LABS: Absolute Lymphocyte Count 1.06 X10^3/uL (0.83-4.51); Absolute Neutrophil Count 4.7 X10^3/uL (2.0-7.7); Basophil# 0.06 X10^3/uL; Basophil% 0.9 % (0-1); Eosinophil# 0.31 X10^3/uL; Eosinophils% 4.6 % (0-5); Hematocrit 37.3 % (40-54); Hemoglobin 11.7 g/dL (13.0-16.5); Lymphocyte # 1.06 X10^3/ul (0.83-4.51); Lymphocyte % 15.7 % (19-41); Mean Corp Hgb Conc 31.4 g/dL (32-36); Mean Corpuscular Hgb 29.5 pg (27.0-32.0); Mean Corpuscular Volume 94.2 fL (80-94); Mean Platelet Vol. 10.2 fl (6.2-12.0); Monocyte# 0.63 X10^3/uL; Monocyte% 9.3 % (0-10); NRBC Flagged by Analyzer 0 % (0-5); Neutrophil # 4.65 X10^3/uL (2.7-7.7); Neutrophil % 69.1 % (47-70); Platelet Count 284 K/mm3 (150-450); RBC Distribution Width CV 16.4 % (11.6-14.6); RBC Distribution Width SD 56.2 fl (35.1-43.9); Red Blood Count 3.96 M/mm3 (4.6-6.2); White Blood Count 6.7 K/mm3 (4.4-11.0)
[2023-09-26 15:19] LABS: AST(SGOT) 18 U/L (15-37); Alanine Aminotransfer ALT/SGPT 26 U/L (16-61); Albumin, Serum 3.6 g/dL (3.2-5.0); Alkaline Phosphatase 80 U/L (45-117); Anion Gap 5 (5-15); BUN 10 mg/dL (7-18); BUN/Creat Ratio 11.8 RATIO (10-20); Calcium,Total 8.3 mg/dL (8.5-10.1); Chloride 106 mmol/L (98-107); Creatinine, Serum 0.85 mg/dL (0.70-1.30); EST Glomerular Filtration Rate 96 mL/min (>60); Est Glom Filt Rate - Afr Amer 117 mL/min (>60); Globulin 3.7 g/dL (2.2-4.2); Glucose 95 mg/dL (74-106); Lipase 42 U/L (13-75); Potassium 3.9 mmol/L (3.5-5.1); Protein, Total 7.3 g/dL (6.4-8.2); Sodium Level 140 mmol/L (136-145)
[2023-09-26 16:07] LABS: Bacteria 0 SEEN /hpf (None Seen); Mucous, Urine 0 SEEN /hpf (<or=2+); Squamous Epithelial Cells - UA 0 SEEN /hpf (0-5); White Blood Cells 0 SEEN /hpf (0-5)
[2023-09-26 16:10] LABS: Color, Urine Yellow (Yellow); Glucose, Dipstick Normal (Normal); Ketone-Dipstick 5 mg/dl (Negative); Leukocyte Esterase-Dipstick 25 /ul (Negative); Nitrite-Dipstick Negative (Negative); Occult Blood-Urine 10 /ul (Negative); Protein-Dipstick 15 mg/dl (Negative); Specific Gravity, Urine 1.025 (1.002-1.030); Urine Bilirubin Dipstick Negative (Negative); Urine Clarity Cloudy (Clear); Urine Urobilinogen 1 mg/dl (Normal)
[2023-09-26 16:25] LABS: Amorphous Sediment 3+; Red Blood Cells-Urine 0-5 SEEN /hpf (0-5)
[2023-09-26 16:33] VITALS: BP 124/60; PULSE 51; RESP 18; O2SAT 97
[2023-09-26 17:13] VITALS: RESP 18
[2023-09-26 17:38] VITALS: BP 154/75; PULSE 68; RESP 18; O2SAT 93
== END 2023-09-26 17:40 | disposition home or self-care (01) ==
PROVIDERS: Physician Assistant; Emergency Provider Emergency Medicine; PCP Physician Assistant; Visit Provider Emergency Medicine
DX: K59.00 Constipation, unspecified (principal); R10.9 Unspecified abdominal pain; I25.10 Atherosclerotic heart disease of native coronary artery without angina pectoris; F17.210 Nicotine dependence, cigarettes, uncomplicated; I25.2 Old myocardial infarction; Z86.73 Personal history of transient ischemic attack (TIA), and cerebral infarction without residual deficits; Z95.5 Presence of coronary angioplasty implant and graft
CPT/HCPCS: 74177; 80053; 81001; 83690; 85025; 96361; 96374; 96375; 99285; J7030; Q9967; A4216; J2405

== ENCOUNTER 2024-01-03 08:08 | Inpatient (IN) | payer MEDICARE, SELFPAY ==
[2024-01-03] VITALS (10 sets, daily range): BP systolic 89–114; BP diastolic 50–72; PULSE 52–94; RESP 14–19; TEMP 36.5–37; O2SAT 95–100; BMI 27.2; BMI 26.4
--- NOTE | 2024-01-03 08:26 | EKG12_ITS ---
Test Reason : SHANEL Blood Pressure : / mmHG Vent. Rate : 056 BPM Atrial Rate : 056 BPM P-R Int : 206 ms QRS Dur : 132 ms QT Int : 450 ms P-R-T Axes : 034 009 110 degrees QTc Int : 434 ms Sinus bradycardia LVH w QRS widening T wave abnormality, consider lateral ischemia Abnormal ECG No significant changes from 07/09/2023 Confirmed by Eliazar Arias ([id number]), pictures editor SHARDA BRISCOE ([id number]) on 01/05/2024 9:25:05 AM Referred By: Confirmed By:Eliazar Arias
[2024-01-03] MEDS: 0.9% Normal Saline (1000mL) 1,000 ML 1000 ML IV (08:34)
[2024-01-03] MEDS: Aspirin 81 MG TAB.CHEW 324 MG PO (08:34)
[2024-01-03 08:39] LABS: Absolute Lymphocyte Count 1.52 X10^3/uL (0.83-4.51); Absolute Neutrophil Count 4.3 X10^3/uL (2.0-7.7); Basophil# 0.08 X10^3/uL; Basophil% 1.2 % (0-1); Eosinophils% 4.4 % (0-5); Hematocrit 29.6 % (40-54); Hemoglobin 8.6 g/dL (13.0-16.5); Lymphocyte # 1.52 X10^3/ul (0.83-4.51); Lymphocyte % 22.2 % (19-41); Mean Corp Hgb Conc 29.1 g/dL (32-36); Mean Corpuscular Hgb 22.9 pg (27.0-32.0); Mean Corpuscular Volume 78.7 fL (80-94); Mean Platelet Vol. 9.8 fl (6.2-12.0); Monocyte# 0.65 X10^3/uL; Monocyte% 9.5 % (0-10); NRBC Flagged by Analyzer 0 % (0-5); Neutrophil # 4.29 X10^3/uL (2.7-7.7); Neutrophil % 62.4 % (47-70); Platelet Count 375 K/mm3 (150-450); RBC Distribution Width CV 16.7 % (11.6-14.6); RBC Distribution Width SD 48.1 fl (35.1-43.9); Red Blood Count 3.76 M/mm3 (4.6-6.2); White Blood Count 6.9 K/mm3 (4.4-11.0)
--- NOTE | 2024-01-03 08:45 | RAD_ITS ---
INDICATION: chest pain EXAMINATION/TECHNIQUE: X-RAY - XR Chest 1 View COMPARISON: July 09, 2023 FINDINGS: LINES/DEVICES: None. LUNGS: No consolidation, edema or effusion. No pneumothorax. MEDIASTINUM AND CARDIOVASCULAR STRUCTURES: Cardiac silhouette not enlarged. Central airways and mediastinal contour are unremarkable. BONES AND SOFT TISSUES: Unremarkable. RAD/Chest 1 View (Portable) IMPRESSION: No radiographic evidence of acute cardiopulmonary disease. Electronically Signed: Viviana Sanchez MD at 9:10 EST ,
[2024-01-03 09:02] LABS: Anion Gap 6 (5-15); BUN 20 mg/dL (7-18); Calcium,Total 8.5 mg/dL (8.5-10.1); Chloride 108 mmol/L (98-107); Creatinine, Serum 1.05 mg/dL (0.70-1.30); EST Glomerular Filtration Rate 75 mL/min (>60); Est Glom Filt Rate - Afr Amer 91 mL/min (>60); Estimated Creatinine Clearance 72.42 ml/min; Glucose 162 mg/dL (74-106); Potassium 3.6 mmol/L (3.5-5.1); Sodium Level 138 mmol/L (136-145); Troponin-I HS (w/2H Reflex) 7 pg/mL (3.0-78.0)
--- NOTE | 2024-01-03 09:03 | EDS_ITS ---
HPI History of Present Illness Chief Complaint: Abd Pain Detail of Chief Complaint: Abdominal pain, near syncope Informant: patient and spouse/S.O. Onset/Context/Timing Onset: Today and Hours Context: Sudden Onset Timing: Intermittent Quality: Significant other called EMS because he looked pale and almost passed out. Location: Residence Current Severity: Mild Maximum Severity: Severe Worsened by: Upright position Relieved by: Better supine position Associated Symptoms Associated Symptoms: [place] as if the truck ran him over and chest discomfort Narrative Narrative: Patient is a 63-year-old male. He is not a good informant. I was informed this is due to the fact that he had a stroke and has memory impairment. Significant other called EMS because he became pale and lightheaded and almost passed out. He complains of discomfort in his chest as if a truck hit him. He then made the comment that he feels like a truck ran over him. At times patient's answers are inappropriate. Significant other modifies and supplements his responses. He apparently seen Dr. Guerrero in the past for GI bleed, July 2023 will review prior records. He has been seen by cardiology and has had 2 stents placed. He is a smoker. He states he smokes as much as he can. He used to smoke several packs. He is down to half to 1 pack/day. He also complains of discoloration of his feet with burning of his feet. He is on gabapentin. Apparently has neuropathy. He denies nausea or vomiting. He denied diaphoresis. He does have dark stool. He will not endorse that it was maroon or black. He has had no vomiting. He denies blood in his urine. He denies bruising easily. He is on Plavix and aspirin according to significant other. He is not on an a nticoagulant. Prior similar symptoms: No Recent Illness/Hospitalization: Yes PFSH PFSH Medical History Acute constipation Atherosclerotic heart disease of [place] coronary artery without angina pectoris BPH (benign prostatic hyperplasia) CVD (cerebrovascular disease) Essential hypertension H/O left bundle branch block History of alcoholism History of stroke History of substance abuse Hyperlipidemia Ischemic cardiomyopathy Non-ST elevation CT (NSTEMI) Tobacco use Home Medications tamsulosin 0.4 mg capsule (Flomax) 0.4 mg PO DAILY 12/11/21 [History Last Taken Unknown] finasteride 5 mg tablet 5 mg PO DAILY #30 tabs 05/15/23 [Rx Last Taken Unknown] nitroglycerin 0.4 mg sublingual tablet 0.4 mg sublingual Q5M PRN CHEST PAIN #30 tabs 05/15/23 [Rx Last Taken Unknown] phenylephrine-shark liver oil-mineral oil-petrolatum rectal ointment (Hemorrhoidal ointment) 1 applic TN Q8H PRN hemorrhoids #57 grams 05/15/23 [Rx Last Taken Unknown] psyllium husk (aspartame) 3 gram oral powder packet (Daily Fiber (psyllium- aspartame)) 1 packet PO DAILY #0 ea 05/15/23 [Rx Last Taken Unknown] sennosides 8.6 mg-docusate sodium 50 mg tablet (Stool Softener-Stimulant Laxative) 2 tab PO BID PRN PRN Constipation #0 tabs 05/15/23 [Rx Last Taken Un known] aspirin 81 mg tablet,delayed release 81 mg PO DAILY@0800 #90 tabs 05/24/23 [Rx Last Taken 06/16/23] atorvastatin 80 mg tablet 80 mg PO QHS #90 tabs 05/24/23 [Rx Last Taken Unknown] clopidogrel 75 mg tablet 75 mg PO DAILY #90 tabs 05/24/23 [Rx Last Taken 06/16/23] metoprolol tartrate 25 mg tablet 25 mg PO DAILY 07/09/23 [History Last Taken Unknown] ascorbic acid (vitamin C) 500 mg tablet 500 mg PO BID #60 tabs 07/10/23 [Rx Last Taken Unknown] lisinopril 5 mg tablet 5 mg PO DAILY #90 tabs 07/10/23 [Rx Last Taken 06/16/23] pantoprazole 40 mg tablet,delayed release (Protonix) 40 mg PO BID #60 tabs 07/10/23 [Rx Last Taken Unknown] gabapentin 300 mg capsule 300 mg PO DAILY 09/06/23 [History Last Taken Unknown] peg 3350-electrolytes 236 gram-22.74 gram-6.74 gram-5.86 gram solution (Golytel y) 240 ml PO Q10M PRN constipat 1 day #4,000 mL 09/26/23 [Rx Last Taken Unknown] Allergy/AdvReac Type Severity Reaction Status Date / Time No Known Allergies Allergy Verified 01/03/24 08:17 Family History Mother Diabetes Cancer Breast cancer Father Diabetes Cancer Brother Cancer Surgical History History of creation of ostomy Hx of appendectomy S/P percutaneous endoscopic gastrostomy (PEG) tube placement Stented coronary artery (06/16/23) Social History household members: significant other Smoking Status: Current every day smoker tobacco type: cigarettes alcohol intake: former details: Sober x 3 years. substance use type: former substance user Date of last use: Prior polysubstance abuse including cocaine, clean x 3 years. ROS ROS ED Constitutional Constitutional ED: Denies chills, fever(s), subjective or sweats Eyes Eyes: Denies blurry vision or change in vision ENT ENT ED: Denies ear pain, rhinorrhea or sore throat Cardiovascular Cardiovascular: Reports chest pain; Denies orthopnea, palpitations or paroxysmal nocturnal dyspnea Respiratory/Chest Respiratory/Chest: Reports dyspnea; Denies cough, orthopnea, paroxysmal nocturnal dyspnea or sputum Gastrointestinal Gastrointestinal: Denies abdominal pain, diarrhea, melena or vomiting Genitourinary Genitourinary ED: Denies dysuria, hematuria or urinary frequency Musculoskeletal Musculoskeletal: Denies arthralgias or myalgias Integumentary Denies abscess or rash Neurologic Neurologic: Reports weakness Psychiatric Psychiatric: Denies anxiety Hematologic/Lymphatic Hematologic/Lymphatic: Reports systems reviewed and no addt'l complaints, except as documented EXAM Physical Exam Const Vital Signs: 01/03/24 08:09 01/03/24 08:18 01/03/24 08:27 Temperature 97.7 F L Temperature Source Oral Pulse Rate 55 L 59 L Respiratory Rate 14 14 Respiratory Effort Normal Blood Pressure 89/55 L 95/57 L Blood Pressure Mean 66 69 Pulse Ox 98 Oxygen Delivery Method Room Air Room Air 01/03/24 08:26 01/03/24 10:12 Temperature Temperature Source Pulse Rate 54 L Respiratory Rate 14 Respiratory Effort Blood Pressure 111/61 Blood Pressure Mean 77 Pulse Ox 100 Oxygen Delivery Method Room Air Room Air Positive well nourished and well developed Constitutional Narrative: Patient appears ill and pale. Patient is awake but not necessarily alert. General Appearance ED: well developed and pallor; Negative for cyanotic or diaphoretic HEENT Reports dry mucous membranes HEENT Narrative: Head is atraumatic and normocephalic. Ears normal. Nares patent. Posterior pharynx is normal. Mouth ED: Yes dry mucous membranes Mouth: dry mucous membranes Eyes PERRL and EOMs intact bilaterally General Eye ED: Yes pale conjunctiva; Negative for scleral icterus Neck no lymphadenopathy, supple and no JVD Chest Wall inspection of chest normal and palpation of chest normal Resp normal respiratory effort and clear to auscultation bilaterally Cardio regular rhythm, S1 normal heart sound, S2 normal heart sound and no murmurs Rate: bradycardia GI normal to inspection, nondistended, normoactive bowel sounds, non-tender, non- distended and no masses; Negative for hepatosplenomegaly GI Narrative: There is no palpable pulsatile mass. There is no abdominal bruit. Back/Spine no CVA tenderness Extremity Negative for normal to inspection Extremity Narrative: Patient has discoloration of his feet. Capillary refill is delayed. He does have palpable DP pulse bilaterally. Did not appreciate a PT pulse. Radial pulses palpable bilaterally. Neuro oriented x3, CN's II-XII intact bilaterally and no sensory deficits noted Sensorium / Orientation: Negative for alert Psych Psych Narrative: Uncertain since patient's affect is unusual and at times he his responses are inappropriate. Skin no wounds and No skin turgor normal General Skin Exam: pallor; Negative for jaundice MDM MDM MDM Narrative Medical decision making narrative: Will review prior records. Patient is hypotensive. He is bradycardic. He probably does not have a reflexive tachycardia since he is on beta-josé luis. Because of his history coronary disease with chest discomfort will obtain EKG and troponin. Clinically patient is anemic. He was mildly anemic September 2023. His indices at that time were also normal. Will obtain BMP to assess renal function and BUN to creatinine ratio. Since patient has poor perfusion will obtain lactate. Lab Data Attestation: I reviewed the patient's lab results. Lab results narrative: CBC is remarkable for anemia with abnormal indices. H&H is 8.6 and 29.6 with MCV of 78.7. Differential is unremarkable. Basic metabolic panel is remarkable glucose of 162 with a normal CO2 anion gap. Patient does not have history of diabetes. Initial troponin is normal at 7. Patient lactate elevated 4.3 which is consistent with poor perfusion since he is hypotensive. She also had a significant drop in his H&H. He was typed and screened. Stool was positive for blood. Once patient's second troponin returns will contact hospitalist for admission Labs: Laboratory Results - last 24 hr 01/03/24 01/03/24 08:10 10:41 WBC 6.9 RBC 3.76 L Hgb 8.6 L Hct 29.6 L MCV 78.7 L MCH 22.9 L MCHC 29.1 L RDW Std Deviation 48.1 H RDW Coeff of Renny 16.7 H Plt Count 375 MPV 9.8 Immature Gran % (Auto) 0.300 Neut % (Auto) 62.4 Lymph % (Auto) 22.2 [place] % (Auto) 9.5 Eos % (Auto) 4.4 Baso % (Auto) 1.2 H Absolute Neuts (auto) 4.3 Absolute Lymphs (auto) 1.52 Nucleated RBC % 0 Sodium 138 Potassium 3.6 Chloride 108 H Carbon Dioxide 24.0 Anion Gap 6 BUN 20 H Creatinine 1.05 Estim Creat Clear Calc 72.42 Est GFR (MDRD) Af Amer 91 Est GFR (MDRD) Non-Af 75 BUN/Creatinine Ratio 19.0 Glucose 162 H Lactic Acid 4.3 H* Calcium 8.5 Troponin I High Sens 7 8 Blood Type B POSITIVE Antibody Screen NEGATIVE First troponin is 7, second troponin is 8 with a delta of 1. These are both negative. Hospitalist was paged. Radiography Chest X-Ray - ED: 1 View and Read by ED Physician (Single view portable chest x- rays and family reviewed interpreted by tx at 0902 as unremarkable. He is rotated. The cardiac silhouette and size is normal. Perihilar region is unremarkable. Lung parenchyma is normal. Osseous structures are unremarkable.) Diagnostic Testing: Clinical Impression(s) from Imaging Studies Chest X-Ray 01/03/24 08:45 IMPRESSION: No radiographic evidence of acute cardiopulmonary disease. Electronically Signed: Viviana Sanchez MD at 9:10 EST , Impression by radiologist was read. There is no difference per my read. EKG Initial EKG: Attestation: I personally reviewed and interpreted this EKG as follows: Interpretation: Sinus Bradycardia (Rate is 56. There is no ossific ST-T wave changes. This is essentially unchanged from July 09, 2023. TN interval is 206 ms. Cures duration 132 ms. QT duration is 450 ms. Shirley is normal. The ST-T wave changes may be due to LVH.) Critical Care Time Critical Care Time: Yes Critical care time (excluding procedures): 30-74 minutes (31), Including time spent: (History, physical, documentation, review of prior records,), Discussing w/Patient &/or Family/Recreation Director (Keeping the patient and significant other informed of lab results and need for admission), Discussing w/Consultants (Will contact hospitalist. Patient has been seen by Dr. Guerrero in the past.) and Arranging Admission or Transfer Discharge Plan Triage Chief Complaint: Abd Pain ED Provider: Eulogio Rodriguez Dx/Rx/DC Orders Clinical Impression: Acute hypotension, Hyperlipidemia, Stented coronary artery, Atherosclerotic heart disease of [place] coronary artery without angina pectoris, Ischemic cardiomyopathy, Microcytic anemia, Signs and symptoms of anemia, Acidosis, lactic, Bradycardia, sinus Prescriptions: No Action aspirin 81 mg tablet,delayed release (DR/EC) 81 mg PO DAILY@0800 Qty: 90 3RF Hold Instructions: Hold for 1 week. atorvastatin 80 mg tablet 80 mg PO QHS Qty: 90 3RF clopidogrel 75 mg tablet 75 mg PO DAILY Qty: 90 3RF gabapentin 300 mg capsule 300 mg PO DAILY tamsulosin [Flomax] 0.4 mg capsule 0.4 mg PO DAILY Patient Comments: Take 1 capsule by mouth daily at bedtime. metoprolol tartrate 25 mg Tablet 25 mg PO DAILY ascorbic acid (vitamin C) 500 mg tablet 500 mg PO BID Qty: 60 2RF pantoprazole [Protonix] 40 mg tablet,delayed release (DR/EC) 40 mg PO BID Qty: 60 3RF Rx Instructions: advised TWICE DAILY FOR 8 weeks and then once daily. lisinopril 5 mg tablet 5 mg PO DAILY Qty: 90 3RF Rx Instructions: Hold for SBP less than 130 mmHg peg 3350-electrolytes [Golytely] 236-22.74-6.74 -5.86 gram recon soln 240 ml PO Q10M PRN 1 Days Qty: 4000 0RF Rx Instructions: 1/2 bottle today, 1/2 next day as needed if no significant bowel movements sennosides-docusate sodium [Stool Softener-Stimulant Laxat] 8.6-50 mg Tablet 2 tab PO BID PRN PRN (Reason: Constipation) Qty: 0 0RF nitroglycerin 0.4 mg Tablet, Sublingual 0.4 mg sublingual Q5M PRN (Reason: CHEST PAIN) Qty: 30 0RF Daily Fiber (psyllium-aspart) 3 gram Powder In Packet 1 packet PO DAILY Qty: 0 0RF finasteride 5 mg tablet 5 mg PO DAILY Qty: 30 0RF Hemorrhoidal Ointment 1 applic TN Q8H PRN (Reason: hemorrhoids) Qty: 57 0RF Rx Instructions: Available OTC Primary Care Provider: Anuradha Davis Referrals: Anuradha Davis PA [Primary Care Provider] - Disposition Disposition: Acute Care [facility]
[2024-01-03 09:34] LABS: Lactic Acid 4.3 mmol/L (0.4-1.9)
[2024-01-03 10:35] LABS: Reflex Troponin-HS? (from REC) Y
[2024-01-03 11:09] LABS: Troponin-I HS 8 pg/mL (3.0-78.0)
--- NOTE | 2024-01-03 11:36 | PCM.HP.STD ---
HPI - General General Date of Admission: 01/03/24 Date of Service: 01/03/24 Chief Complaint: Near passing out episode HPI Narrative PADDY DAVID, is a 63 M with history of vascular dementia who was brought to the emergency department after significant other called EMS squad. Patient was reported to have nearly passed out and was pale in complexion. Patient could not provide much history given his vascular dementia. He apparently has history of coronary artery disease with previous stent placement on dual antiplatelet therapy as well as history of GI bleed. Patient was reported to have developed dark stools and was found to be anemic and assessment of symptomatic anemia from suspected GI bleed made admitted to monitored bed for further management PFSH Medical History Acute constipation Atherosclerotic heart disease of [place] coronary artery without angina pectoris BPH (benign prostatic hyperplasia) CVD (cerebrovascular disease) Essential hypertension H/O left bundle branch block History of alcoholism History of stroke History of substance abuse Hyperlipidemia Ischemic cardiomyopathy Non-ST elevation [place] (NSTEMI) Symptomatic anemia Tobacco use Home Medications tamsulosin 0.4 mg capsule (Flomax) 0.4 mg PO DAILY 12/11/21 [History Last Taken Unknown] finasteride 5 mg tablet 5 mg PO DAILY #30 tabs 05/15/23 [Rx Last Taken Unknown] nitroglycerin 0.4 mg sublingual tablet 0.4 mg sublingual Q5M PRN CHEST PAIN #30 tabs 05/15/23 [Rx Last Taken Unknown] phenylephrine-shark liver oil-mineral oil-petrolatum rectal ointment (Hemorrhoidal ointment) 1 applic [place] Q8H PRN hemorrhoids #57 grams 05/15/23 [Rx Last Taken Unknown] psyllium husk (aspartame) 3 gram oral powder packet (Daily Fiber (psyllium-aspartame)) 1 packet PO DAILY #0 ea 05/15/23 [Rx Last Taken Unknown] sennosides 8.6 mg-docusate sodium 50 mg tablet (Stool Softener-Stimulant Laxative) 2 tab PO BID PRN PRN Constipation #0 tabs 05/15/23 [Rx Last Taken Unknown] aspirin 81 mg tablet,delayed release 81 mg PO DAILY@0800 #90 tabs 05/24/23 [Rx Last Taken 06/16/23] atorvastatin 80 mg tablet 80 mg PO QHS #90 tabs 05/24/23 [Rx Last Taken Unknown] clopidogrel 75 mg tablet 75 mg PO DAILY #90 tabs 05/24/23 [Rx Last Taken 06/16/23] metoprolol tartrate 25 mg tablet 25 mg PO DAILY 07/09/23 [History Last Taken Unknown] ascorbic acid (vitamin C) 500 mg tablet 500 mg PO BID #60 tabs 07/10/23 [Rx Last Taken Unknown] lisinopril 5 mg tablet 5 mg PO DAILY #90 tabs 07/10/23 [Rx Last Taken 06/16/23] pantoprazole 40 mg tablet,delayed release (Protonix) 40 mg PO BID #60 tabs 07/10/23 [Rx Last Taken Unknown] gabapentin 300 mg capsule 300 mg PO DAILY 09/06/23 [History Last Taken Unknown] peg 3350-electrolytes 236 gram-22.74 gram-6.74 gram-5.86 gram solution (Golytely) 240 ml PO Q10M PRN constipat 1 day #4,000 mL 09/26/23 [Rx Last Taken Unknown] Allergy/AdvReac Type Severity Reaction Status Date / Time No Known Allergies Allergy Verified 01/03/24 08:17 Family History Mother Diabetes Cancer Breast cancer Father Diabetes Cancer Brother Cancer Surgical History (Updated 01/03/24 @ 11:[address] Eulogio Rodriguez MD) History of creation of ostomy Hx of appendectomy S/P percutaneous endoscopic gastrostomy (PEG) tube placement Stented coronary artery (06/16/23) Social History household members: significant other Smoking Status: Current every day smoker tobacco type: cigarettes alcohol intake: former details: Sober x 3 years. substance use type: former substance user Date of last use: Prior polysubstance abuse including cocaine, clean x 3 years. ROS ROS Narrative Difficult to elicit Vital Signs Vital Signs Vital Signs: 01/03/24 08:09 01/03/24 08:18 01/03/24 08:27 Temperature 97.7 F L Temperature Source Oral Pulse Rate 55 L 59 L Respiratory Rate 14 14 Respiratory Effort Normal Blood Pressure 89/55 L 95/57 L Blood Pressure Mean 66 69 Pulse Ox 98 Oxygen Delivery Method Room Air Room Air 01/03/24 08:26 01/03/24 10:12 Temperature Temperature Source Pulse Rate 54 L Respiratory Rate 14 Respiratory Effort Blood Pressure 111/61 Blood Pressure Mean 77 Pulse Ox 100 Oxygen Delivery Method Room Air Room Air Weight Weight: 86.1 kg Body Mass Index (BMI) 27.2 Physical Exam Narrative GENERAL: Significantly flat affect HEENT: Atraumatic; normocephalic EYES; Anicteric, Normal Conjunctiva NECK; supple, normal thyroid, RESPIRATORY: Diminished to auscultation CARDIOVASCULAR: Regular S1 S2, GI: soft, normoactive bowel sounds, : No Renal angle tenderness; EXTREMITIES: No edema, no clubbing, MUSCULOSKELETAL: no muscle wasting NEURO: Awake; no lateralizing signs. SKIN: No Rash PSYCH; Flat affect Results Lab / Micro Data 01/03/24 08:10 01/03/24 08:10 Labs: Laboratory Results - last 24 hr 01/03/24 08:10: WBC 6.9, RBC 3.76 L, Hgb 8.6 L, Hct 29.6 L, MCV 78.7 L, MCH 22.9 L, MCHC 29.1 L, RDW Std Deviation 48.1 H, RDW Coeff of [place]enny 16.7 H, Plt Count 375, MPV 9.8, Immature Gran % (Auto) 0.300, Neut % (Auto) 62.4, Lymph % (Auto) 22.2, [place] % (Auto) 9.5, Eos % (Auto) 4.4, Baso % (Auto) 1.2 H, Absolute Neuts (auto) 4.3, Absolute Lymphs (auto) 1.52, Nucleated RBC % 0, Sodium 138, Potassium 3.6, Chloride 108 H, Carbon Dioxide 24.0, Anion Gap 6, BUN 20 H, Creatinine 1.05, Estim Creat Clear Calc 72.42, Est GFR (MDRD) Af Amer 91, Est GFR (MDRD) Non-Af 75, BUN/Creatinine Ratio 19.0, Glucose 162 H, Lactic Acid 4.3 H*, Calcium 8.5, Troponin I High Sens 7, Blood Type B POSITIVE, Antibody Screen NEGATIVE 01/03/24 10:41: Troponin I High Sens 8 Micro: Microbiology 01/03/24 Unknown Stool Stool Occult Blood (CARIDAD) - Final Occult Blood Positive Imaging Radiology Impression Chest X-Ray 01/03/24 08:45 IMPRESSION: No radiographic evidence of acute cardiopulmonary disease. Electronically Signed: Viviana Sanchez MD at 9:10 EST , Assessment & Plan Assessment/Plan (1) Symptomatic anemia: PLAN: Plan Patient is a 63-year-old gentleman presented with near syncope 1. Symptomatic anemia ? Patient was found to have guaiac positive stools. Admitted to monitored bed ordered H&H every 6 patient started on Protonix drip consult placed to Dr. Johnson from the ED for possible endoscopic evaluation 2. Hypertension - Blood pressure controlled, home medications continued with dose adjustment as needed 3. Coronary artery disease ? With previous history of PCI patient remains on guideline directed medical therapy. His dual antiplatelet therapy held in view of his GI bleed 4. Dyslipidemia -Patient is on statin therapy, continued at home dose 5. BPH with lower urinary obstructive symptoms - Patient treated with tamsulosin and finasteride 6. Lactic acidosis ? Do suspect hypoperfusion from patient's significant anemia there was no evidence of infection we will monitor 7. Hyperglycemia ? Patient does not have any documented history of diabetes ordered hemoglobin A1c 8. GERD ? On PPI 9. DVT prophylaxis ? Bilateral SCDs Time spent in the patient's overall evaluation,decision-making process, review of diagnostic data, adjustment of management, discussion with other providers, nursing nursing and ancillary staff involved in patient's care documentation, 75 Minutes Charges/Coding Visit Charges Inpatient E&M: 27694 Init Hosp L3
[2024-01-03] MEDS: Pantoprazole Sodium 80 MG in 0.9% Normal Saline (50mL Bag) 15 ML 420 MG IV BOLUS (12:06)
[2024-01-03] MEDS: KCL 20MEQ in 0.9% NS 20 MEQ/1,000 ML IV.SOLN. 125 MEQ IV ×2 (12:42→20:32)
[2024-01-03 13:10] LABS: Reflex Lactate? Y
[2024-01-03 13:51] LABS: Hematocrit 28.2 % (40-54); Hemoglobin 8.4 g/dL (13.0-16.5)
[2024-01-03 14:25] LABS: Lactic Acid 2.1 mmol/L (0.4-1.9)
[2024-01-03] MEDS: Senna/Docusate Sodium 1 Tablet 2 TABLET PO (16:05)
[2024-01-03] MEDS: Finasteride 5 MG Tablet PO (16:47)
[2024-01-03 18:00] LABS: Hematocrit 27.7 % (40-54); Hemoglobin 8.3 g/dL (13.0-16.5)
[2024-01-03] MEDS: Atorvastatin Calcium 80 MG Tablet PO (20:31)
[2024-01-03] MEDS: Gabapentin 300 MG Capsule 600 MG PO (20:31)
[2024-01-03] MEDS: Tamsulosin HCl 0.4 MG Capsule 0.800000000000000044 MG PO (20:31)
[2024-01-03] MEDS: Pantoprazole Sodium 40 MG in 0.9% Normal Saline (100mL MB+) 100 ML 330 MG IV (21:09)
--- NOTE | 2024-01-03 23:00 | CON.PCM.GI_ITS ---
HPI Consult Data Date of Consult: 01/04/24 HPI Narrative Reason for Consultation: Anemia HPI Narrative: PADDY DAVID, is a 63 M who presents via EMS after passing out. Significant other called EMS because he became pale and lightheaded and almost passed out. He complains of discomfort in his chest as if a truck hit him. He then made the comment that he feels like a truck ran over him. At times patient's answers are inappropriate. Significant other modifies and supplements his responses. He has been seen by cardiology and has had 2 stents placed. He is a smoker. He states he smokes as much as he can. He used to smoke sever al packs. He is down to half to 1 pack/day. He also complains of discoloration of his feet with burning of his feet. He is on gabapentin. Apparently has neuropathy. He denies nausea or vomiting. He denied diaphoresis. He does have dark stool. He will not endorse that it was maroon or black. He has had no vomiting. He denies blood in his urine. He denies bruising easily. He is on Plavix and aspirin according to significant other. He is not on an anticoagulant. I saw him previously back in July 2023 when he was admitted for evaluation of syncope, hypotension and dark stool most likely due to acute GI blood loss It was thought that his syncope and hypotension most likely due to acute GI blood loss/dual antiplatelet agent: Patient had drop in hemoglobin from 14.5 in May 20-8.6. It was 10.1 in June 2023. It seems mainly upper GI blood loss. Started on IV pantoprazole 40 mg every 12 hourly. IV fluid volume resuscitation for hypotension. Patient is awake alert denies any dizziness. Type and crossmatch ordered by ER physician. Started on octreotide drip altho ug it seems patient does not drink alcohol actively but history of alcohol use and substance use in the past. Patient was taken to endoscopy suite from ED. EGD reported oozing duodenal ulcer with visible vessel injected treated with heater probe. Erythematous mucosa in antrum biopsied. Normal esophagus.Patient hemoglobin continue to be low 7.4 therefore transfuse 1 unit of PRBC. Advised repeat CBC after 1 week. Discussed with GI today. Patient is discharged on ferrous sulfate, ascorbic acid and pantoprazole 40 mg p.o. twice daily and advised to follow-up with mechanical manager in 2 weeks He also had a recent history of NSTEMI: Patient was admitted in [facility] in May 2023 for non-STEMI. Aspirin and Plavix hold. Hold beta-josé luis and lisinopril/antihypertensive agent but continue high intensity statin.Patient had LHC on 05/14/23. LAD subtotal to total occlusion at mid LAD after large septal branch. Collateralization noted to distal LAD from left coronary system. D1 large vessel with calcified proximal 80% stenosis. RCA dominant proximal RCA 80% stenosis. OM1 around 20 to 30%. Successful PCI with YARI of mid LAD. After that patient had a staged PCI/stenting proximal RCA by Dr. Gonzalez on 06/16/2023. Patient followed Rain. 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 Patient also had chronic cortical blindness but has improvement on left-sided weakness. He had reversal of PEG tube and ostomy. PFSH Medical History Acute constipation Atherosclerotic heart disease of [place] coronary artery without angina pectoris BPH (benign prostatic hyperplasia) CVD (cerebrovascular disease) Essential hypertension H/O left bundle branch block History of alcoholism History of stroke History of substance abuse Hyperlipidemia Ischemic cardiomyopathy Non-ST elevation NC (NSTEMI) Symptomatic anemia Tobacco use Home Medications tamsulosin 0.4 mg capsule (Flomax) 0.8 mg PO .HS prostate 12/11/21 [History Last Taken Unknown] finasteride 5 mg tablet 5 mg PO DAILY prostate #30 tabs 05/15/23 [Rx Last Taken Unknown] nitroglycerin 0.4 mg sublingual tablet 0.4 mg sublingual Q5M PRN CHEST PAIN #30 tabs 05/15/23 [Rx Last Taken Unknown] phenylephrine-shark liver oil-mineral oil-petrolatum rectal ointment (Hemorrhoidal ointment) 1 applic AL Q8H PRN hemorrhoids #57 grams 05/15/23 [Rx Last Taken Unknown] psyllium husk (aspartame) 3 gram oral powder packet (Daily Fiber (psyllium- aspartame)) 1 packet PO DAILY health maintenance #0 ea 05/15/23 [Rx Last Taken Unknown] aspirin 81 mg tablet,delayed release 81 mg PO DAILY@0800 health maintenance #90 tabs 05/24/23 [Rx Last Taken 06/16/23] atorvastatin 80 mg tablet 80 mg PO QHS cholesterol #90 tabs 05/24/23 [Rx Last Taken Unknown] clopidogrel 75 mg tablet 75 mg PO DAILY antiplatelet #90 tabs 05/24/23 [Rx Last Taken 06/16/23] lisinopril 5 mg tablet 5 mg PO DAILY BP #90 tabs 07/10/23 [Rx Last Taken 06/16/23] gabapentin 300 mg capsule 600 mg PO TID health maintenance 09/06/23 [History Last Taken Unknown] ascorbic acid (vitamin C) 500 mg tablet 500 mg PO DAILY health maintenance 01/03/24 [History Last Taken Unknown] pantoprazole 40 mg tablet,delayed release (Protonix) 40 mg PO DAILY stomach 01/03/24 [History Last Taken Unknown] sertraline 25 mg tablet 25 mg PO DAILY mood 01/03/24 [History Last Taken Unknown] Allergy/AdvReac Type Severity Reaction Status Date / Time No Known Allergies Allergy Verified 01/03/24 08:17 Family History Mother Diabetes Cancer Breast cancer Father Diabetes Cancer Brother Cancer Surgical History (Updated 01/03/24 @ 11:[address] Eulogio Rodriguez MD) History of creation of ostomy Hx of appendectomy S/P percutaneous endoscopic gastrostomy (PEG) tube placement Stented coronary artery (06/16/23) Social History household members: significant other Smoking Status: Current every day smoker tobacco type: cigarettes alcohol intake: former details: Sober x 3 years. substance use type: former substance user Date of last use: Prior polysubstance abuse including cocaine, clean x 3 years. ROS ROS Narrative Difficult to elicit Physical Exam Narrative GENERAL: Patient in no apparent distress HEENT: Atraumatic; normocephalic EYES; Anicteric, Normal Conjunctiva NECK; supple, normal thyroid, RESPIRATORY: Diminished to auscultation CARDIOVASCULAR: Regular S1 S2, GI: soft, normoactive bowel sounds, : No Renal angle tenderness; EXTREMITIES: No edema, no clubbing, MUSCULOSKELETAL: no muscle wasting NEURO: Awake; no lateralizing signs. SKIN: No Rash PSYCH; Flat affect Lab / Micro Data 01/04/24 07:01 01/04/24 07:01 Labs: Laboratory Results - last 24 hr 01/04/24 00:12: Hgb 7.4 L, Hct 25.1 L 01/04/24 07:01: WBC 5.2, RBC 3.57 L, Hgb 8.3 L, Hct 28.5 L, MCV 79.8 L, MCH 23.2 L, MCHC 29.1 L, RDW Std Deviation 47.8 H, RDW Coeff of Renny 16.6 H, Plt Count 321, MPV 9.3, Immature Gran % (Auto) 0.000, Neut % (Auto) 66.6, Lymph % (Auto) 19.8, [place] % (Auto) 8.3, Eos % (Auto) 4.0, Baso % (Auto) 1.3 H, Absolute Neuts (auto) 3.5, Absolute Lymphs (auto) 1.03, Nucleated RBC % 0, Sodium 142, Potassium 4.0, Chloride 114 H, Carbon Dioxide 27.0, Anion Gap 1 L, BUN 9, Creatinine 0.86, Estim Creat Clear Calc 91.21, Est GFR (MDRD) Af Amer 115, Est GFR (MDRD) Non-Af 95, BUN/Creatinine Ratio 10.5, Glucose 94, Calcium 8.1 L, Phosphorus 2.9, Magnesium 1.9 Assessment & Plan Assessment/Plan (1) Acute GI bleeding: (2) Syncope: QUALIFIERS: Syncope type: unspecified Qualified Code(s): R55 - Syncope and collapse (3) Anemia: QUALIFIERS: Anemia type: iron deficiency Iron deficiency anemia type: other iron deficiency Qualified Code(s): D50.8 - Other iron deficiency anemias (4) Acute hypotension: PLAN: Plan 62-year-old being admitted for evaluation of syncope, and melanotic stools hypotension and melanotic stools on aspirin, Plavix and statin. The differential diagnosis for his syncope and hypotension is probably upper GI bleed. However it could be lower GI bleed in the setting of a patient that has not had a colonoscopy in the past. We will perform an upper endoscopy and possibly colonoscopy. Him and his were explained alternatives, risk, benefits including not withstanding bleeding, infection, sepsis, perforation, need for emergent surgery . He will then ASA of 3. Charges/Coding Visit Charges Inpatient E&M: 84371 Init Hosp L3
[2024-01-04] VITALS (10 sets, daily range): BP systolic 107–137; BP diastolic 53–95; PULSE 60–84; RESP 14–18; TEMP 36.4–36.8; O2SAT 95–99; BMI 27.1
[2024-01-04 00:28] LABS: Hematocrit 25.1 % (40-54); Hemoglobin 7.4 g/dL (13.0-16.5)
[2024-01-04] MEDS: KCL 20MEQ in 0.9% NS 20 MEQ/1,000 ML IV.SOLN. 125 MEQ IV (05:03)
[2024-01-04] MEDS: Morphine 2 MG/ML Syringe IV (05:51)
[2024-01-04] MEDS: Gabapentin 300 MG Capsule 600 MG PO ×2 (05:52→20:43)
[2024-01-04] MEDS: 0.9% Saline Lock 10 ML Syringe IV (05:52)
[2024-01-04 07:22] LABS: Absolute Lymphocyte Count 1.03 X10^3/uL (0.83-4.51); Absolute Neutrophil Count 3.5 X10^3/uL (2.0-7.7); Basophil# 0.07 X10^3/uL; Basophil% 1.3 % (0-1); Eosinophil# 0.21 X10^3/uL; Hematocrit 28.5 % (40-54); Hemoglobin 8.3 g/dL (13.0-16.5); Lymphocyte # 1.03 X10^3/ul (0.83-4.51); Lymphocyte % 19.8 % (19-41); Mean Corp Hgb Conc 29.1 g/dL (32-36); Mean Corpuscular Hgb 23.2 pg (27.0-32.0); Mean Corpuscular Volume 79.8 fL (80-94); Mean Platelet Vol. 9.3 fl (6.2-12.0); Monocyte# 0.43 X10^3/uL; Monocyte% 8.3 % (0-10); NRBC Flagged by Analyzer 0 % (0-5); Neutrophil # 3.45 X10^3/uL (2.7-7.7); Neutrophil % 66.6 % (47-70); Platelet Count 321 K/mm3 (150-450); RBC Distribution Width CV 16.6 % (11.6-14.6); RBC Distribution Width SD 47.8 fl (35.1-43.9); Red Blood Count 3.57 M/mm3 (4.6-6.2); White Blood Count 5.2 K/mm3 (4.4-11.0)
--- NOTE | 2024-01-04 07:58 | PCM.PN.HOSP ---
Reason for Visit Reason for Visit: Diagnoses Anemia, unspecified (01/03/24) Subjective Subjective Patient seen much more interactive compared to the day prior. Patient was kept n.p.o. overnight pending evaluation and possible EGD by GI Objective Data Objective Data Vital Signs: Vital Signs Temp Pulse Resp BP Pulse Ox O2 Del Method 98 F 84 16 137/67 H 99 Room Air 01/04/24 02:53 01/04/24 02:53 01/04/24 02:53 01/04/24 02:53 01/04/24 07:24 01/04/24 07:24 Oxygen Delivery Method Room Air Weight: 86.001 kg Body Mass Index (BMI) 26.4 Intake & Output: Intake and Output for Last 24 Hours 01/02/24 01/03/24 01/04/24 23:59 23:59 23:59 Intake Total 2604.17 / 2604.17 1000 / 1000 Output Total 500 / 1100 2100 / 2100 Balance 2104.17 / 1504.17 -1100 / -1100 Lab / Micro Data 01/04/24 07:01 01/04/24 07:01 Labs: Laboratory Results - last 24 hr 01/03/24 08:10: WBC 6.9, RBC 3.76 L, Hgb 8.6 L, Hct 29.6 L, MCV 78.7 L, MCH 22.9 L, MCHC 29.1 L, RDW Std Deviation 48.1 H, RDW Coeff of Renny 16.7 H, Plt Count 375, MPV 9.8, Immature Gran % (Auto) 0.300, Neut % (Auto) 62.4, Lymph % (Auto) 22.2, [place] % (Auto) 9.5, Eos % (Auto) 4.4, Baso % (Auto) 1.2 H, Absolute Neuts (auto) 4.3, Absolute Lymphs (auto) 1.52, Nucleated RBC % 0, Sodium 138, Potassium 3.6, Chloride 108 H, Carbon Dioxide 24.0, Anion Gap 6, BUN 20 H, Creatinine 1.05, Estim Creat Clear Calc 72.42, Est GFR (MDRD) Af Amer 91, Est GFR (MDRD) Non-Af 75, BUN/Creatinine Ratio 19.0, Glucose 162 H, Lactic Acid 4.3 H*, Calcium 8.5, Troponin I High Sens 7, Blood Type B POSITIVE, Antibody Screen NEGATIVE 01/03/24 10:41: Troponin I High Sens 8 01/03/24 13:39: Hgb 8.4 L, Hct 28.2 L, Lactic Acid 2.1 H* 01/03/24 17:54: Hgb 8.3 L, Hct 27.7 L 01/04/24 00:12: Hgb 7.4 L, Hct 25.1 L 01/04/24 07:01: WBC 5.2, RBC 3.57 L, Hgb 8.3 L, Hct 28.5 L, MCV 79.8 L, MCH 23.2 L, MCHC 29.1 L, RDW Std Deviation 47.8 H, RDW Coeff of Renny 16.6 H, Plt Count 321, MPV 9.3, Immature Gran % (Auto) 0.000, Neut % (Auto) 66.6, Lymph % (Auto) 19.8, [place] % (Auto) 8.3, Eos % (Auto) 4.0, Baso % (Auto) 1.3 H, Absolute Neuts (auto) 3.5, Absolute Lymphs (auto) 1.03, Nucleated RBC % 0 Micro: Microbiology 01/03/24 Unknown Stool Stool Occult Blood (CARIDAD) - Final Occult Blood Positive Radiography Diagnostic Testing: Radiology Impression Chest X-Ray 01/03/24 08:45 IMPRESSION: No radiographic evidence of acute cardiopulmonary disease. Electronically Signed: Viviana Sanchez MD at 9:10 EST , Physical Exam Narrative GENERAL: Patient in no apparent distress HEENT: Atraumatic; normocephalic EYES; Anicteric, Normal Conjunctiva NECK; supple, normal thyroid, RESPIRATORY: Diminished to auscultation CARDIOVASCULAR: Regular S1 S2, GI: soft, normoactive bowel sounds, : No Renal angle tenderness; EXTREMITIES: No edema, no clubbing, MUSCULOSKELETAL: no muscle wasting NEURO: Awake; no lateralizing signs. SKIN: No Rash PSYCH; Flat affect Assessment & Plan Assessment/Plan (1) Symptomatic anemia: PLAN: Plan Patient is a 63-year-old gentleman presented with near syncope 1. Symptomatic anemia ? Patient was found to have guaiac positive stools. Admitted to monitored bed ordered H&H every 6 patient started on Protonix drip consult placed to Dr. Johnson from the ED for possible endoscopic evaluation ? 01/04/2024;Patient seen much more interactive compared to the day prior. Patient was kept n.p.o. overnight pending evaluation and possible EGD by GI H&H remains relatively stable. 2. Hypertension - Blood pressure controlled, home medications continued with dose adjustment as needed 3. Coronary artery disease ? With previous history of PCI patient remains on guideline directed medical therapy. His dual antiplatelet therapy held in view of his GI bleed 4. Dyslipidemia -Patient is on statin therapy, continued at home dose 5. BPH with lower urinary obstructive symptoms - Patient treated with tamsulosin and finasteride 6. Lactic acidosis ? Do suspect hypoperfusion from patient's significant anemia there was no evidence of infection we will monitor 7. Hyperglycemia ? Patient does not have any documented history of diabetes ordered hemoglobin A1c 8. GERD ? On PPI 9. DVT prophylaxis ? Bilateral SCDs Time spent in the patient's overall evaluation,decision-making process, review of diagnostic data, adjustment of management, discussion with other providers, nursing nursing and ancillary staff involved in patient's care documentation,40 Minutes Charges/Coding Visit Charges Inpatient E&M: 90746 Subs Hosp L2
[2024-01-04 08:02] LABS: Anion Gap 1 (5-15); BUN 9 mg/dL (7-18); BUN/Creat Ratio 10.5 RATIO (10-20); Calcium,Total 8.1 mg/dL (8.5-10.1); Chloride 114 mmol/L (98-107); Creatinine, Serum 0.86 mg/dL (0.70-1.30); EST Glomerular Filtration Rate 95 mL/min (>60); Est Glom Filt Rate - Afr Amer 115 mL/min (>60); Estimated Creatinine Clearance 91.21 ml/min; Glucose 94 mg/dL (74-106); Magnesium 1.9 mg/dL (1.6-2.6); Phosphorus 2.9 mg/dL (2.5-4.9); Sodium Level 142 mmol/L (136-145)
[2024-01-04] MEDS: Pantoprazole Sodium 40 MG in 0.9% Normal Saline (100mL MB+) 100 ML 330 MG IV ×2 (10:14→20:43)
--- NOTE | 2024-01-04 10:50 | CASEMGMT ---
MARCUS RODAS Face to Face with patient for initial transition planning/care coordination assessment. MARCUS RODAS introduced self and role at [facility]. Patient lying in bed, alert and confused. Patient requested this CM call significant other Annie to complete assessment. RN CM called Annie and she is willing to participate in assessment and is able to answer all questions appropriately. Care providers, pharmacy, and demographics verified. PCP: Ryan CR Specialists: Friend, GI Preferred Pharmacy: [facility] Insurance: [employer] [facility] Prescription Benefit: yes Living Will/HPOA: yes, Annie Nicholas LNOK: significant other Living Arrangements: Patient lives with significant other in a first floor apartment with 1 step to enter. Patient is normally independent at home but significant other assists at times. Transportation: public. MARCUS RODAS inquired if they would like additional resource, Annie declined. DME/HHC: Patient has shower chair, raised toilet, cane, walker, and grab bars at home. Patient has been to [facility] in the past. Patient has had [facility] and [facility] in the past. Annie wishes for patient to discharge home,will monitor for HHC at discharge pending therapy. Annie states she has no further needs or concerns at this time. CM to follow for discharge planning needs that may arise. Disposition Plan: Patient to discharge home with family support and follow-up plans in place. Will monitor for HHC. Toma KUMAR, RN, CM
[2024-01-04] MEDS: Lactated Ringers 1,000 ML 15 ML IV (15:45)
--- NOTE | 2024-01-04 18:43 | OP.EGD_ITS ---
Patient Name: Eliazar Dick Procedure Date: 01/04/2024 6:13 PM Date of : 1960 Age: 63 Procedure: Upper GI endoscopy Indications: Melena Providers: Isaaih Guerrero DO Medicines: Monitored Anesthesia Care Patient Profile: This is a 63 year old male. Refer to note in patient chart for documentation of history and physical. Patient has symptoms of acute dyspepsia and acute nausea. Complications: No immediate complications. Procedure: Pre-Anesthesia Assessment: - Prior to the procedure, a History and Physical was performed, and patient medications and allergies were reviewed. The patient is competent. The risks and benefits of the procedure and the sedation options and risks were discussed with the patient. All questions were answered and informed consent was obtained. Patient identification and proposed procedure were verified by the physician in the pre-procedure area. Mental Status Examination: alert and oriented. Airway Examination: normal oropharyngeal airway and neck mobility. Respiratory Examination: clear to auscultation. CV Examination: normal. Prophylactic Antibiotics: The patient does not require prophylactic antibiotics. Prior Anticoagulants: The patient has taken no anticoagulant or antiplatelet agents. ASA Grade Assessment: III - A patient with severe systemic disease. After reviewing the risks and benefits, the patient was deemed in satisfactory condition to undergo the procedure. The anesthesia plan was to use monitored anesthesia care (MAC). Immediately prior to administration of medications, the patient was re-assessed for adequacy to receive sedatives. The heart rate, respiratory rate, oxygen saturations, blood pressure, adequacy of pulmonary ventilation, and response to care were monitored throughout the procedure. The physical status of the patient was re-assessed after the procedure. After obtaining informed consent, the endoscope was passed under direct vision. Throughout the procedure, the patient's blood pressure, pulse, and oxygen saturations were monitored continuously. The Endoscope was introduced through the mouth, and advanced to the second part of duodenum. The upper GI endoscopy was accomplished without difficulty. The patient tolerated the procedure well. Scope In: 6:28:05 PM Scope Out: 6:31:50 PM Total Procedure Duration Time 0 hours 3 minutes 45 seconds Findings: The examined esophagus was normal. A small hiatal hernia was present. The exam was otherwise without abnormality. Two 5 mm angiodysplastic lesions with bleeding were found in the second portion of the duodenum. Coagulation for hemostasis using heater probe was successful. Estimated blood loss was minimal. Impression: - Normal esophagus. - Small hiatal hernia. - The examination was otherwise normal. - Two bleeding angiodysplastic lesions in the duodenum. Treated with a heater probe. - No specimens collected. Recommendation: - Return [facility] to [facility] care. - Resume regular diet. - Continue present medications. Procedure Code(s): --- Professional --- 18128, Esophagogastroduodenoscopy, flexible, transoral; with control of bleeding, any method CPT copyright 2021 [employer]. All rights reserved. The codes documented in this report are preliminary and upon nurse practical review may be revised to meet current compliance requirements. Isaiah Guerrero DO 01/04/2024 6:42:41 PM This report has been signed electronically. Number of Addenda: 0 Note Initiated On: 01/04/2024 6:13 PM
--- NOTE | 2024-01-04 18:43 | OP.CCLET_ITS ---
01/04/2024 Anuradha Davis Re : Upper GI endoscopy procedure for Eliazar Dick Dear Ryan This procedure was performed on Thursday, January 04, 2024. My impressions and recommendations are as follows: Impressions : - Normal esophagus. - Small hiatal hernia. - The examination was otherwise normal. - Two bleeding angiodysplastic lesions in the duodenum. Treated with a heater probe. - No specimens collected. Recommendations : - Return patient to [facility] care. - Resume regular diet. - Continue present medications. My findings are described in the full procedure note, which is enclosed. If I can be of further assistance, please feel free to contact me at . Sincerely, Isaiah Guerrero, 01/04/2024 6:42:41 PM This report has been signed electronically.
[2024-01-04] MEDS: Finasteride 5 MG Tablet PO (20:42)
[2024-01-04] MEDS: Atorvastatin Calcium 80 MG Tablet PO (20:43)
[2024-01-04] MEDS: Tamsulosin HCl 0.4 MG Capsule 0.800000000000000044 MG PO (20:43)
[2024-01-04] MEDS: Sertraline 50 MG Tablet 25 MG PO (20:43)
[2024-01-04] MEDS: Lisinopril 5 MG Tablet PO (20:52)
[2024-01-05 05:00] VITALS: BP 119/64; PULSE 75; RESP 18; TEMP 36.3; O2SAT 97
[2024-01-05] MEDS: Gabapentin 300 MG Capsule 600 MG PO (05:17)
[2024-01-05 06:45] VITALS: O2SAT 93
[2024-01-05 08:07] LABS: Absolute Lymphocyte Count 1.26 X10^3/uL (0.83-4.51); Absolute Neutrophil Count 3.7 X10^3/uL (2.0-7.7); Basophil# 0.08 X10^3/uL; Basophil% 1.4 % (0-1); Eosinophils% 5.1 % (0-5); Hematocrit 28.4 % (40-54); Hemoglobin 8.5 g/dL (13.0-16.5); Lymphocyte # 1.26 X10^3/ul (0.83-4.51); Lymphocyte % 21.4 % (19-41); Mean Corp Hgb Conc 29.9 g/dL (32-36); Mean Corpuscular Hgb 23.5 pg (27.0-32.0); Mean Corpuscular Volume 78.5 fL (80-94); Mean Platelet Vol. 9.5 fl (6.2-12.0); Monocyte# 0.54 X10^3/uL; Monocyte% 9.2 % (0-10); NRBC Flagged by Analyzer 0 % (0-5); Neutrophil # 3.69 X10^3/uL (2.7-7.7); Neutrophil % 62.7 % (47-70); Platelet Count 342 K/mm3 (150-450); RBC Distribution Width CV 16.6 % (11.6-14.6); RBC Distribution Width SD 47.4 fl (35.1-43.9); Red Blood Count 3.62 M/mm3 (4.6-6.2); White Blood Count 5.9 K/mm3 (4.4-11.0)
[2024-01-05 08:39] LABS: Anion Gap 5 (5-15); BUN 9 mg/dL (7-18); BUN/Creat Ratio 10.2 RATIO (10-20); Calcium,Total 8.6 mg/dL (8.5-10.1); Chloride 108 mmol/L (98-107); Creatinine, Serum 0.88 mg/dL (0.70-1.30); EST Glomerular Filtration Rate 92 mL/min (>60); Est Glom Filt Rate - Afr Amer 111 mL/min (>60); Estimated Creatinine Clearance 86.41 ml/min; Glucose 86 mg/dL (74-106); Potassium 3.6 mmol/L (3.5-5.1); Sodium Level 141 mmol/L (136-145)
--- NOTE | 2024-01-05 09:06 | DS.PCM_ITS ---
Providers Date of Admission: 01/03/24 Date of Discharge: 01/05/24 Primary Care Physician: SHAYE Urbano Consultations 01/03/24 12:14 Consult: Gastroenterology Routine Consulting Provider: [facility] Reason for Consult: GI bleed EMERGENT Consult: No MD Notified: Yes Date Notified: 01/03/24 Time Notified: 11:35 Method of Notification: ED Physician Initiated Reason For Visit: SYMPTOMATIC ANEMIA Diagnosis Discharge Diagnosis (1) Acute GI bleeding: Status: Resolved Code(s): K92.2 - Gastrointestinal hemorrhage, unspecified (2) Syncope: Status: Resolved Code(s): R55 - Syncope and collapse Qualifiers: Syncope type: unspecified Qualified Code(s): R55 - Syncope and collapse (3) Anemia: Status: Resolved Code(s): D64.9 - Anemia, unspecified Qualifiers: Anemia type: iron deficiency Iron deficiency anemia type: other iron deficiency Qualified Code(s): D50.8 - Other iron deficiency anemias (4) Acute hypotension: Status: Resolved Code(s): I95.9 - Hypotension, unspecified Plan Patient is a 63-year-old gentleman presented with near syncope 1. Symptomatic anemia ? Patient was found to have guaiac positive stools. Admitted to monitored bed ordered H&H every 6 patient started on Protonix drip consult placed to Dr. Johnson from the ED for possible endoscopic evaluation ? 01/04/2024;Patient seen much more interactive compared to the day prior. Patient was kept n.p.o. overnight pending evaluation and possible EGD by GI H&H remains relatively stable. -01/05/2024 patient underwent EGD results are as below. Impressions : - Normal esophagus. - Small hiatal hernia. - The examination was otherwise normal. - Two bleeding angiodysplastic lesions in the duodenum. Treated with a heater probe. - No specimens collected. Recommendations : - [facility] for [facility] care. - Resume regular diet. - Continue present medications. -Patient was discharged on Protonix 40 mg p.o. twice daily. His aspirin was held for 1 month. Prescription was also written for oral iron 2. Hypertension - Blood pressure controlled, home medications continued with dose adjustment as needed 3. Coronary artery disease ? With previous history of PCI patient remains on guideline directed medical therapy. His dual antiplatelet therapy held in view of his GI bleed 4. Dyslipidemia -Patient is on statin therapy, continued at home dose 5. BPH with lower urinary obstructive symptoms - Patient treated with tamsulosin and finasteride 6. Lactic acidosis ? Do suspect hypoperfusion from patient's significant anemia there was no evidence of infection we will monitor 7. Hyperglycemia ? Patient does not have any documented history of diabetes ordered hemoglobin A1c 8. GERD ? On PPI 9. DVT prophylaxis ? Bilateral SCDs Time spent in the patient's overall evaluation,decision-making process, review of diagnostic data, adjustment of management, discussion with other providers, nursing nursing and ancillary staff involved in patient's care documentation,40 Minutes Medications at Discharge Home Medications tamsulosin 0.4 mg capsule (Flomax) 0.8 mg PO .HS prostate 12/11/21 finasteride 5 mg tablet 5 mg PO DAILY prostate #30 tabs 05/15/23 nitroglycerin 0.4 mg sublingual tablet 0.4 mg sublingual Q5M PRN CHEST PAIN #30 tabs 05/15/23 phenylephrine-shark liver oil-mineral oil-petrolatum rectal ointment (Hemorrhoidal ointment) 1 applic [place] Q8H PRN hemorrhoids #57 grams 05/15/23 psyllium husk (aspartame) 3 gram oral powder packet (Daily Fiber (psyllium- aspartame)) 1 packet PO DAILY health maintenance #0 ea 05/15/23 aspirin 81 mg tablet,delayed release 81 mg PO DAILY@0800 health maintenance #90 tabs 05/24/23 atorvastatin 80 mg tablet 80 mg PO QHS cholesterol #90 tabs 05/24/23 clopidogrel 75 mg tablet 75 mg PO DAILY antiplatelet #90 tabs 05/24/23 lisinopril 5 mg tablet 5 mg PO DAILY BP #90 tabs 07/10/23 gabapentin 300 mg capsule 600 mg PO TID health maintenance 09/06/23 ascorbic acid (vitamin C) 500 mg tablet 500 mg PO DAILY health maintenance 01/03/24 sertraline 25 mg tablet 25 mg PO DAILY mood 01/03/24 iron polysacch cplx 150 mg iron-vit B12 25 mcg-folic acid 1 mg capsule (Ferrex) 1 cap PO DAILY #60 caps 01/05/24 pantoprazole 40 mg tablet,delayed release (Protonix) 40 mg PO BIDCM stomach #60 tabs 01/05/24 sennosides 8.6 mg-docusate sodium 50 mg tablet (Stool Softener-Stimulant Laxative) 1 tab PO DAILY #60 tabs 01/05/24 Hospital Course Procedures EGD Summary of Care Provided Minutes Spent on Discharge: 40 Physical Exam Narrative GENERAL: Patient in no apparent distress HEENT: Atraumatic; normocephalic EYES; Anicteric, Normal Conjunctiva NECK; supple, normal thyroid, RESPIRATORY: Diminished to auscultation CARDIOVASCULAR: Regular S1 S2, GI: soft, normoactive bowel sounds, : No Renal angle tenderness; EXTREMITIES: No edema, no clubbing, MUSCULOSKELETAL: no muscle wasting NEURO: Awake; no lateralizing signs. SKIN: No Rash PSYCH; Flat affect Weight / BMI Weight Weight: 86 kg Body Mass Index (BMI) 27.1 ABG / Lab / Microbiology Data 01/05/24 07:10 01/05/24 07:10 Laboratory: Laboratory Results - last 24 hr 01/05/24 07:10: WBC 5.9, RBC 3.62 L, Hgb 8.5 L, Hct 28.4 L, MCV 78.5 L, MCH 23.5 L, MCHC 29.9 L, RDW Std Deviation 47.4 H, RDW Coeff of Renny 16.6 H, Plt Count 342, MPV 9.5, Immature Gran % (Auto) 0.200, Neut % (Auto) 62.7, Lymph % (Auto) 21.4, Branch % (Auto) 9.2, Eos % (Auto) 5.1 H, Baso % (Auto) 1.4 H, Absolute Neuts (auto) 3.7, Absolute Lymphs (auto) 1.26, Nucleated RBC % 0, Sodium 141, Potassium 3.6, Chloride 108 H, Carbon Dioxide 28.0, Anion Gap 5, BUN 9, Creatinine 0.88, Estim Creat Clear Calc 86.41, Est GFR (MDRD) Af Amer 111, Est G FR (MDRD) Non-Af 92, BUN/Creatinine Ratio 10.2, Glucose 86, Calcium 8.6 Microbiology: Microbiology 01/03/24 Unknown Stool Stool Occult Blood (CARIDAD) - Final Occult Blood Positive D/C Instructions Discharge Diet: No restrictions Discharge Activity: Return to Normal Activity Call your doctor if you observe: Fever of 101 or Higher, Shortness of breath, Fainting spells and Chest pain Meaningful Use Info Meaningful Use Diagnoses (Choose all that apply): None applicable Discharge Plan Admission Admit Date/Time: 01/03/24 11:26 Attending Provider: Mike Bruce Primary Care Provider: Anuradha Davis Discharge Orders/Prescriptions Prescriptions: New sennosides-docusate sodium [Stool Softener-Stimulant Laxat] 8.6-50 mg Tablet 1 tab PO DAILY Qty: 60 0RF Ferrex 150 Forte 150-25-1 mg-mcg-mg capsule 1 cap PO DAILY Qty: 60 0RF Continued aspirin 81 mg tablet,delayed release (DR/EC) 81 mg PO DAILY@0800 Qty: 90 3RF Hold Instructions: Hold for 1 week. atorvastatin 80 mg tablet 80 mg PO QHS Qty: 90 3RF clopidogrel 75 mg tablet 75 mg PO DAILY Qty: 90 3RF gabapentin 300 mg capsule 600 mg PO TID tamsulosin [Flomax] 0.4 mg capsule 0.8 mg PO .HS Patient Comments: Take 1 capsule by mouth daily at bedtime. lisinopril 5 mg tablet 5 mg PO DAILY Qty: 90 3RF Rx Instructions: Hold for SBP less than 130 mmHg nitroglycerin 0.4 mg Tablet, Sublingual 0.4 mg sublingual Q5M PRN (Reason: CHEST PAIN) Qty: 30 0RF Daily Fiber (psyllium-aspart) 3 gram Powder In Packet 1 packet PO DAILY Qty: 0 0RF finasteride 5 mg tablet 5 mg PO DAILY Qty: 30 0RF Hemorrhoidal Ointment 1 applic IL Q8H PRN (Reason: hemorrhoids) Qty: 57 0RF Rx Instructions: Available OTC sertraline 25 mg tablet 25 mg PO DAILY Patient Comments: Take 1 tablet by mouth once daily. Changed pantoprazole [Protonix] 40 mg tablet,delayed release (DR/EC) 40 mg PO BIDCM Qty: 60 0RF Held ascorbic acid (vitamin C) 500 mg tablet 500 mg PO DAILY Hold Instructions: Resume on 02/05/24. Referrals / Follow Up: Anuradha Davis PA [Primary Care Provider] - Within 2 Weeks Disposition Disposition (needs filled in before D/C Order can be placed): Home, Self Care Charges/Coding Visit Charges Inpatient E&M: 77213 Disch Hosp >30min
[2024-01-05 09:48] VITALS: BP 113/98; PULSE 88; RESP 18; TEMP 36.2; O2SAT 97
[2024-01-05] MEDS: Pantoprazole Sodium 40 MG in 0.9% Normal Saline (100mL MB+) 100 ML 330 MG IV (09:49)
[2024-01-05] MEDS: Lisinopril 5 MG Tablet PO (09:55)
[2024-01-05] MEDS: Sertraline 50 MG Tablet 25 MG PO (09:55)
--- NOTE | 2024-01-05 11:29 | CASEMGMT ---
Discharge Planning A list of HH providers including quality and resource use data and consistent with the patient's preferred geographic region, medical needs, and insurance network was created in [facility] Guide.? This list was provided to the RN ADRIANNA. Mari Beatty, Discharge Planning Asst.
--- NOTE | 2024-01-05 11:31 | CASEMGMT ---
MARCUS RODAS called significant other regarding discharge planning. Therapy recommending therapy at discharge. MARCUS RODAS discuss needs with Annie. Annie would prefer outpatient therapy at [facility] and would like to schedule on her own. Per Annie, they are working on purchasing a vehicle in the next week and will have transportation. Annie denied further needs or concerns at this time. MARCUS RODAS updated hospitalist and script received. MARCUS RODAS provided script and [facility] information is discharge packet.
[2024-01-05] MEDS: Finasteride 5 MG Tablet PO (12:13)
== END 2024-01-05 13:00 | disposition home or self-care (01) | DRG 378 ==
LOC: ED 11:38 → PCU 11:40
PROVIDERS: Internal Medicine Gastroenterology; Admitting Provider Internal Medicine; Emergency Provider Emergency Medicine; PCP Physician Assistant; Visit Provider Internal Medicine
PROC: 0DJ08ZZ Inspection of Upper Intestinal Tract, Via Natural or Artificial Opening Endoscopic (ICD-10-PCS; CPT 43235; principal; 2024-01-04 16:25)
DX: K31.811 Angiodysplasia of stomach and duodenum with bleeding (principal); E87.20 Acidosis, unspecified; I69.354 Hemiplegia and hemiparesis following cerebral infarction affecting left non-dominant side; N13.8 Other obstructive and reflux uropathy; D50.8 Other iron deficiency anemias; F17.210 Nicotine dependence, cigarettes, uncomplicated; I95.89 Other hypotension; I10 Essential (primary) hypertension; E78.5 Hyperlipidemia, unspecified; I25.10 Atherosclerotic heart disease of native coronary artery without angina pectoris; K21.9 Gastro-esophageal reflux disease without esophagitis; K44.9 Diaphragmatic hernia without obstruction or gangrene; I25.2 Old myocardial infarction; I25.5 Ischemic cardiomyopathy; I69.311 Memory deficit following cerebral infarction; Z95.5 Presence of coronary angioplasty implant and graft; N40.1 Benign prostatic hyperplasia with lower urinary tract symptoms; R73.9 Hyperglycemia, unspecified; R55 Syncope and collapse; Z90.49 Acquired absence of other specified parts of digestive tract; Z79.02 Long term (current) use of antithrombotics/antiplatelets; Z79.82 Long term (current) use of aspirin; Z79.899 Other long term (current) drug therapy; Z87.19 Personal history of other diseases of the digestive system; Z83.3 Family history of diabetes mellitus
CPT/HCPCS: 36415; 71045; 80048; 82274; 83605; 83735; 84100; 84484; 85014; 85018; 85025; 86850; 86900; 86901; 93005; 97162; 99285; J7030; J7120; A4216; J3490

== ENCOUNTER 2024-03-09 14:04 | Emergency (ER) | payer MEDICARE, SELFPAY ==
[2024-03-09 14:04] VITALS: BP 138/66; PULSE 69; RESP 14; TEMP 36.6; O2SAT 98
[2024-03-09] MEDS: 0.9% Normal Saline (1000mL) 1,000 ML 1000 ML IV (14:52)
[2024-03-09 15:00] LABS: Absolute Neutrophil Count 2.8 X10^3/uL (2.0-7.7); Basophil# 0.08 X10^3/uL; Basophil% 1.6 % (0-1); Eosinophil# 0.31 X10^3/uL; Eosinophils% 6.1 % (0-5); Lymphocyte % 25.6 % (19-41); Mean Corp Hgb Conc 27.6 g/dL (32-36); Mean Corpuscular Hgb 20.8 pg (27.0-32.0); Mean Corpuscular Volume 75.3 fL (80-94); Mean Platelet Vol. 9.4 fl (6.2-12.0); Monocyte% 11.8 % (0-10); NRBC Flagged by Analyzer 0 % (0-5); Neutrophil # 2.76 X10^3/uL (2.7-7.7); Neutrophil % 54.5 % (47-70); Platelet Count 294 K/mm3 (150-450); RBC Distribution Width CV 19.1 % (11.6-14.6); RBC Distribution Width SD 52.1 fl (35.1-43.9); Red Blood Count 3.85 M/mm3 (4.6-6.2); White Blood Count 5.1 K/mm3 (4.4-11.0)
--- NOTE | 2024-03-09 15:09 | CT_ITS ---
EXAM: CT ABDOMEN AND PELVIS WITH INTRAVENOUS CONTRAST CLINICAL INDICATION: abdominal pain TECHNIQUE: Helically acquired images were obtained of the abdomen and pelvis with intravenous contrast. This CT exam was performed using one or more of the following dose reduction techniques: automated exposure control, adjustment of the mA and/or kV according to patient size, and/or use of iterative reconstruction technique. CONTRAST: [id number] COMPARISON: No relevant prior studies available. FINDINGS: LOWER THORAX: Normal. Lung bases are clear. No cardiomegaly. No pericardial effusion. ABDOMEN: LIVER: Normal. Homogeneous. No focal mass. GALLBLADDER AND BILE DUCTS: Small calcified stones are noted within the gallbladder. No gallbladder wall thickening or pericholecystic fluid. PANCREAS: Normal. No focal cystic or solid mass. SPLEEN: Normal. Normal size without focal cystic or solid mass. ADRENALS: 16mm right adrenal nodule noted with focal fat density suggestive of lipid rich adenoma. KIDNEYS AND URETERS: Normal. Normal renal size and position. No hydronephrosis. STOMACH AND BOWEL: Diverticulosis of the colon noted without evidence of acute diverticulitis. PELVIS: APPENDIX: Normal short appendix/appendiceal stump is noted. BLADDER: 16mm right posterior urinary bladder diverticulum. REPRODUCTIVE: Unremarkable as visualized. No mass. ABDOMEN and PELVIS: INTRAPERITONEAL SPACE: Normal. No ascites or other fluid collection. No free air. BONES/JOINTS: Prominent degenerative changes are noted within the spine. Bilateral L5 spondylolysis without spondylolisthesis. SOFT TISSUES: Small bilateral fat-containing inguinal hernias. VASCULATURE: Normal. Abdominal aorta is non-dilated. LYMPH NODES: Normal. No enlarged lymph nodes. CT/Abdomen/Pelvis W IV Cont ONLY IMPRESSION: 1. No acute abdominal or pelvic abnormality. 2. Cholelithiasis. 3. Diverticulosis coli. 4. Small urinary bladder diverticulum. 5. Small bilateral fat-containing inguinal hernias. Electronically Signed: Sridhar Meneses MD at 16:10 EDT ,
[2024-03-09 15:26] LABS: ALB/GLOB Ratio 0.9 RATIO (0.9-2.4); AST(SGOT) 13 U/L (15-37); Alanine Aminotransfer ALT/SGPT 17 U/L (16-61); Albumin, Serum 3.4 g/dL (3.2-5.0); Alkaline Phosphatase 66 U/L (45-117); Anion Gap 3 (5-15); BUN 14 mg/dL (7-18); BUN/Creat Ratio 14.3 RATIO (10-20); Calcium,Total 8.5 mg/dL (8.5-10.1); Chloride 109 mmol/L (98-107); Creatinine, Serum 0.98 mg/dL (0.70-1.30); EST Glomerular Filtration Rate 82 mL/min (>60); Est Glom Filt Rate - Afr Amer 99 mL/min (>60); Globulin 3.7 g/dL (2.2-4.2); Glucose 97 mg/dL (74-106); Lipase 60 U/L (13-75); Potassium 3.7 mmol/L (3.5-5.1); Protein, Total 7.1 g/dL (6.4-8.2); Sodium Level 140 mmol/L (136-145)
[2024-03-09] MEDS: Morphine 4 MG/ML Syringe IV (15:30)
[2024-03-09] MEDS: Ondansetron 4 MG/2 ML Vial IV (15:30)
--- NOTE | 2024-03-09 15:32 | ED.VIS.GI ---
HPI HPI - GI History of Present Illness Chief Complaint: Abd Pain Narrative Narrative: 63-year-old male presenting with abdominal pain. He describes it as diffuse. Patient states started several days ago. Started fairly abruptly and has not subsided. Patient is a poor informant due to history of stroke and short-term memory loss. He is with his significant other today. She states he has a history of GI bleed and she has been watching his stools but has not seen any black or blood. He has not had a fever at home. Not coughing or short of breath. He has had nausea and vomiting in the hematemesis process. PFSH PFSH Medical History Acute constipation Atherosclerotic heart disease of [place] coronary artery without angina pectoris BPH (benign prostatic hyperplasia) CVD (cerebrovascular disease) Essential hypertension H/O left bundle branch block History of alcoholism History of stroke History of substance abuse Hyperlipidemia Ischemic cardiomyopathy Non-ST elevation [place] (NSTEMI) Symptomatic anemia Tobacco use Home Medications tamsulosin 0.4 mg capsule (Flomax) 0.8 mg PO QHS prostate 12/11/21 [History Last Taken 03/08/24] finasteride 5 mg tablet 5 mg PO DAILY prostate #30 tabs 05/15/23 [Rx Last Taken 03/09/24] nitroglycerin 0.4 mg sublingual tablet 0.4 mg sublingual Q5M PRN CHEST PAIN #30 tabs 05/15/23 [Rx Last Taken Unknown] aspirin 81 mg tablet,delayed release 81 mg PO DAILY@0800 health maintenance #90 tabs 05/24/23 [Rx Last Taken 03/09/24] atorvastatin 80 mg tablet 80 mg PO QHS cholesterol #90 tabs 05/24/23 [Rx Last Taken 03/08/24] clopidogrel 75 mg tablet 75 mg PO DAILY antiplatelet #90 tabs 05/24/23 [Rx Last Taken 03/09/24] lisinopril 5 mg tablet 5 mg PO DAILY BP #90 tabs 07/10/23 [Rx Last Taken 03/09/24] pantoprazole 40 mg tablet,delayed release (Protonix) 40 mg PO BIDCM stomach #60 tabs 01/05/24 [Rx Last Taken 03/09/24] sennosides 8.6 mg-docusate sodium 50 mg tablet (Stool Softener-Stimulant Laxative) 1 tab PO DAILY #60 tabs 01/05/24 [Rx Last Taken 03/09/24] acetaminophen 500 mg capsule 500 mg PO Q6H PRN pain 03/09/24 [History Last Taken 03/09/24] gabapentin 600 mg tablet 600 mg PO TID 03/09/24 [History Last Taken 03/09/24] metoprolol tartrate 25 mg tablet 25 mg PO BID 03/09/24 [History Last Taken 03/09/24] omeprazole 20 mg tablet,delayed release 20 mg PO DAILY PRN stomach upset 03/09/24 [History Last Taken 03/09/24] ondansetron 4 mg disintegrating tablet 4 mg PO Q8H PRN PRN Nausea #20 tabs 03/09/24 [Rx Last Taken Unknown] polysaccharide iron complex 150 mg iron capsule (Ferrex) 150 mg PO DAILY 03/09/24 [History Last Taken 03/09/24] sertraline 50 mg tablet 50 mg PO DAILY 03/09/24 [History Last Taken 03/09/24] Allergy/AdvReac Type Severity Reaction Status Date / Time No Known Allergies Allergy Verified 03/09/24 14:06 Family History Mother Diabetes Cancer Breast cancer Father Diabetes Cancer Brother Cancer Surgical History History of creation of ostomy Hx of appendectomy S/P percutaneous endoscopic gastrostomy (PEG) tube placement Stented coronary artery (06/16/23) Social History household members: significant other Smoking Status: Current every day smoker tobacco type: cigarettes alcohol intake: former details: Sober x 3 years. substance use type: former substance user Date of last use: Prior polysubstance abuse including cocaine, clean x 3 years. ROS ROS ED Constitutional Constitutional ED: Denies chills, fever(s) or sweats Eyes Eyes: Denies blurry vision or change in vision ENT ENT ED: Denies ear pain or sore throat Cardiovascular Cardiovascular: Denies chest pain, palpitations or racing heartbeat Respiratory/Chest Respiratory/Chest: Denies cough, dyspnea or sputum Gastrointestinal Gastrointestinal: Reports abdominal pain, nausea and vomiting; Denies constipation or diarrhea Genitourinary Genitourinary ED: Denies dysuria, hematuria or urinary frequency Musculoskeletal Musculoskeletal: Denies arthralgias, myalgias or neck pain Integumentary Denies abscess, Abrasions or rash Neurologic Neurologic: Denies headache(s), paresthesias or weakness Psychiatric Psychiatric: Denies anxiety, depression, suicidal ideation or suicidal thoughts Endocrine Endocrinology: Denies polydipsia or polyuria EXAM Physical Exam Const Vital Signs: 03/09/24 14:04 Temperature 98 F Temperature Source Temporal Pulse Rate 69 Respiratory Rate 14 Blood Pressure 138/66 H Blood Pressure Mean 90 Pulse Ox 98 Oxygen Delivery Method Room Air Positive well nourished General Appearance ED: NAD; Negative for pallor HEENT Reports moist mucous membranes normocephalic and atraumatic Eyes PERRL Resp normal respiratory effort Cardio regular rate and regular rhythm GI non-distended Palpation: tender epigastric and periumbilical Neuro CN's II-XII intact bilaterally Sensorium / Orientation: alert Motor Exam: strength 5/5 throughout Psych mental status grossly normal and thought process normal Skin General Skin Exam: Negative for jaundice or pallor MDM MDM MDM Narrative Medical decision making narrative: Patient presenting with abdominal pain and nausea and vomiting. Abdominal exam he has some mild mid abdominal tenderness. No rebound or guarding. Patient presenting with right flank pain. Differential includes colitis, diverticulitis, gastritis, pancreatitis, acute cholecystitis, constipation, appendicitis, UTI, pyelonephritis, calculi, ureteral calculi, obstruction, malignancy, dehydration, electrolyte abnormalities. CBC was obtained to assess white blood cell count, hemoglobin and platelets. CMP to assess liver function, renal function, electrolytes, glucose. Lipase to assess for pancreatitis. Patient medicated with morphine, Zofran. He was given a liter normal saline. CBC shows normal white blood cell count of 5.1. Hemoglobin near baseline at 8.0. Platelets are normal at 294. Creatinine and electrolytes are normal. LFTs are normal. Lipase within normal limits. CT of the abdomen pelvis with IV contrast was obtained which shows cholelithiasis although the patient's liver enzymes are normal and he does not have right upper quadrant pain. There is nothing else acute on the CT. Patient was given a p.o. challenge and he says he feels much better. He is discharged home on Zofran. Return precautions were discussed. Impression: 1. Nausea/vomiting 2. abdominal pain Lab Data Labs: Laboratory Results - last 24 hr 03/09/24 14:52 WBC 5.1 RBC 3.85 L Hgb 8.0 L Hct 29.0 L MCV 75.3 L MCH 20.8 L MCHC 27.6 L RDW Std Deviation 52.1 H RDW Coeff of Renny 19.1 H Plt Count 294 MPV 9.4 Immature Gran % (Auto) 0.400 Neut % (Auto) 54.5 Lymph % (Auto) 25.6 [place] % (Auto) 11.8 H Eos % (Auto) 6.1 H Baso % (Auto) 1.6 H Absolute Neuts (auto) 2.8 Absolute Lymphs (auto) 1.30 Nucleated RBC % 0 Sodium 140 Potassium 3.7 Chloride 109 H Carbon Dioxide 28.0 Anion Gap 3 L BUN 14 Creatinine 0.98 Est GFR (MDRD) Af Amer 99 Est GFR (MDRD) Non-Af 82 BUN/Creatinine Ratio 14.3 Glucose 97 Calcium 8.5 Total Bilirubin 0.20 AST 13 L ALT 17 Alkaline Phosphatase 66 Troponin I High Sens 8 Total Protein 7.1 Albumin 3.4 Globulin 3.7 Albumin/Globulin Ratio 0.9 Lipase 60 Radiography Diagnostic Testing: Clinical Impression(s) from Imaging Studies Abdomen/Pelvis CT 03/09/24 15:09 IMPRESSION: 1. No acute abdominal or pelvic abnormality. 2. Cholelithiasis. 3. Diverticulosis coli. 4. Small urinary bladder diverticulum. 5. Small bilateral fat-containing inguinal hernias. Electronically Signed: Sridhar Meneses MD at 16:10 EDT Reading Location ID and State: [facility] / [place] Tel , Service support , Discharge Plan Triage Chief Complaint: Abd Pain ED Provider: Shiv Jha Dx/Rx/DC Orders Instructions: ED Vomiting (Adult), ED Abdominal Pain Unkn Cause Male... Prescriptions: New ondansetron 4 mg tablet,disintegrating 4 mg PO Q8H PRN PRN (Reason: Nausea) Qty: 20 0RF No Action aspirin 81 mg tablet,delayed release (DR/EC) 81 mg PO DAILY@0800 Qty: 90 3RF Hold Instructions: Hold for 1 week. atorvastatin 80 mg tablet 80 mg PO QHS Qty: 90 3RF clopidogrel 75 mg tablet 75 mg PO DAILY Qty: 90 3RF tamsulosin [Flomax] 0.4 mg capsule 0.8 mg PO QHS Patient Comments: Take 1 capsule by mouth daily at bedtime. lisinopril 5 mg tablet 5 mg PO DAILY Qty: 90 3RF Rx Instructions: Hold for SBP less than 130 mmHg nitroglycerin 0.4 mg Tablet, Sublingual 0.4 mg sublingual Q5M PRN (Reason: CHEST PAIN) Qty: 30 0RF finasteride 5 mg tablet 5 mg PO DAILY Qty: 30 0RF sennosides-docusate sodium [Stool Softener-Stimulant Laxat] 8.6-50 mg Tablet 1 tab PO DAILY Qty: 60 0RF pantoprazole [Protonix] 40 mg tablet,delayed release (DR/EC) 40 mg PO BIDCM Qty: 60 0RF gabapentin 600 mg tablet 600 mg PO TID polysaccharide iron complex [Ferrex 150] 150 mg iron capsule 150 mg PO DAILY sertraline 50 mg tablet 50 mg PO DAILY metoprolol tartrate 25 mg tablet 25 mg PO BID omeprazole 20 mg tablet,delayed release (DR/EC) 20 mg PO DAILY PRN (Reason: stomach upset) acetaminophen 500 mg capsule 500 mg PO Q6H PRN (Reason: pain) Primary Care Provider: Anuradha Davis Referrals: Anuradha Davis PA [Primary Care Provider] - Disposition Disposition: Home, Self Care
[2024-03-09 16:04] VITALS: BP 132/84; PULSE 76; RESP 18; O2SAT 99
[2024-03-09 16:17] LABS: Troponin-I HS 8 pg/mL (3.0-78.0)
[2024-03-09 17:09] VITALS: BP 133/74; PULSE 82; RESP 18; TEMP 36.7; O2SAT 98
== END 2024-03-09 17:10 | disposition home or self-care (01) ==
PROVIDERS: Emergency Provider Student in an Organized Health Care Education/Training Program; PCP Physician Assistant; Visit Provider Student in an Organized Health Care Education/Training Program
DX: R10.9 Unspecified abdominal pain (principal); F17.210 Nicotine dependence, cigarettes, uncomplicated; K80.20 Calculus of gallbladder without cholecystitis without obstruction; I69.311 Memory deficit following cerebral infarction; I25.10 Atherosclerotic heart disease of native coronary artery without angina pectoris; I10 Essential (primary) hypertension; I25.5 Ischemic cardiomyopathy; Z79.899 Other long term (current) drug therapy; Z79.02 Long term (current) use of antithrombotics/antiplatelets; Z79.82 Long term (current) use of aspirin; R11.2 Nausea with vomiting, unspecified
CPT/HCPCS: 74177; 80053; 83690; 84484; 85025; 96361; 96374; 96375; 99283; J7030; Q9967; A4216; J2405

== ENCOUNTER 2024-04-16 03:57 | Emergency (ER) | payer MEDICARE, SELFPAY ==
[2024-04-16 03:58] VITALS: BP 126/67; PULSE 78; RESP 17; TEMP 36.6; O2SAT 95; BMI 27.8
--- NOTE | 2024-04-16 04:20 | CT_ITS ---
EXAM: CT Abdomen And Pelvis W/ Contrast Injection HISTORY: rlq pain; remote appendectomy TECHNIQUE: Routine protocol CT abdomen pelvis. IV Contrast: IV 100mL [id number] . Oral Contrast: without. Sagittal and coronal images were reconstructed. RADIATION DOSAGE (If Supplied By Facility): CTDIvol = ( 12.99 ) mGy, DLP = ( 1001.01 ) mGycm Individualized dose optimization techniques were used for this CT. COMPARISON: CT abdomen and pelvis 03/09/2024. LIMITATIONS: None. FINDINGS: LOWER CHEST: Lung bases are clear. LIVER: Unremarkable. GALLBLADDER/BILE DUCTS: Gallstones in the gallbladder. PANCREAS: Unremarkable. SPLEEN: Unremarkable. ADRENAL GLANDS: 1.6 cm nodule in the right adrenal gland unchanged likely adenoma. KIDNEYS / URETERS: Unremarkable. BOWEL / MESENTERY: Diverticula throughout the colon. No bowel obstruction. APPENDIX: Not identified. Surgically absent. PERITONEUM: No free air. No free fluid. VESSELS: Abdominal aorta is normal caliber. RETROPERITONEUM: Unremarkable. REPRODUCTIVE ORGANS: Unremarkable. BLADDER: Minimally distended. Prominent wall. ABDOMINAL WALL: Small bilateral inguinal hernias containing only fat, no bowel. BONES: No acute abnormality. Degenerative changes in the lumbar spine OTHER: None. CT/Abdomen/Pelvis W IV Cont ONLY IMPRESSION: Prominent wall of the urinary bladder may be due to nondistention, correlate for cystitis. Colonic diverticulosis without evidence of acute diverticulitis. Cholelithiasis.. Electronically Signed: Naz Castano MD at 5:59 EDT ,
[2024-04-16] MEDS: Ondansetron 4 MG/2 ML Vial IV (04:31)
[2024-04-16] MEDS: Morphine 4 MG/ML Syringe IV (04:31)
--- NOTE | 2024-04-16 04:36 | EDS_ITS ---
HPI HPI - GI History of Present Illness Chief Complaint: Abd Pain Informant: patient and EMS Narrative Narrative: Patient complaining of gradual onset of abdominal discomfort in the past 4 days now progressively worsening sharp right lower quadrant without radiation. He also states that my kidneys hurt, the pain goes down my legs to the bottom of my feet and they burn. When asked if this is something new in the past 4 days or not, he states it has been off-and-on for some time, but it is worse now. He denies any vomiting. Has not had a bowel movement in the last couple days but he states that is not unusual for him since my stroke. Denies any new urinary symptoms. No fevers or chills that he knows of. No new bowel or bladder dysfunction. He has had a prior appendectomy. [facility] Medical History Symptomatic anemia Ischemic cardiomyopathy Acute constipation Atherosclerotic heart disease of [place] coronary artery without angina pectoris BPH (benign prostatic hyperplasia) Tobacco use History of substance abuse Hyperlipidemia History of stroke H/O left bundle branch block Non-ST elevation [place] (NSTEMI) CVD (cerebrovascular disease) History of alcoholism Essential hypertension Home Medications ?Medication ?Instructions ?Recorded ?Last Taken ?Type tamsulosin 0.4 mg capsule (Flomax) 0.8 mg PO QHS prostate 12/11/21 03/08/24 History finasteride 5 mg tablet 5 mg PO DAILY prostate #30 tabs 05/15/23 03/09/24 Rx nitroglycerin 0.4 mg sublingual 0.4 mg sublingual Q5M PRN CHEST 05/15/23 Unknown Rx tablet PAIN #30 tabs aspirin 81 mg tablet,delayed 81 mg PO DAILY@0800 health 05/24/23 03/09/24 Rx release maintenance #90 tabs atorvastatin 80 mg tablet 80 mg PO QHS cholesterol #90 tabs 05/24/23 03/08/24 Rx clopidogrel 75 mg tablet 75 mg PO DAILY antiplatelet #90 05/24/23 03/09/24 Rx tabs lisinopril 5 mg tablet 5 mg PO DAILY BP #90 tabs 07/10/23 03/09/24 Rx pantoprazole 40 mg tablet,delayed 40 mg PO BIDCM stomach #60 tabs 01/05/24 03/09/24 Rx release (Protonix) sennosides 8.6 mg-docusate sodium 1 tab PO DAILY #60 tabs 01/05/24 03/09/24 Rx 50 mg tablet (Stool Softener-Stimulant Laxative) acetaminophen 500 mg capsule 500 mg PO Q6H PRN pain 03/09/24 03/09/24 History gabapentin 600 mg tablet 600 mg PO TID 03/09/24 03/09/24 History metoprolol tartrate 25 mg tablet 25 mg PO BID 03/09/24 03/09/24 History omeprazole 20 mg tablet,delayed 20 mg PO DAILY PRN stomach upset 03/09/24 03/09/24 History release ondansetron 4 mg disintegrating 4 mg PO Q8H PRN PRN Nausea #20 tabs 03/09/24 Unknown Rx tablet sertraline 50 mg tablet 50 mg PO DAILY 03/09/24 03/09/24 History dicyclomine 10 mg capsule 20 mg (2 x 10 mg) PO Q6H PRN PRN 04/16/24 Unknown Rx abdominal discomfort #20 CAPSULES magnesium citrate 150 ml PO DAILY PRN constipation 04/16/24 Unknown Rx #296 mL Allergy/AdvReac Type Severity Reaction Status Date / Time No Known Allergies Allergy Verified 03/09/24 14:06 Family History Mother Diabetes Cancer Breast cancer Father Diabetes Cancer Brother Cancer Surgical History History of creation of ostomy Hx of appendectomy S/P percutaneous endoscopic gastrostomy (PEG) tube placement Stented coronary artery (06/16/23) Social History household members: significant other Smoking Status: Current every day smoker tobacco type: cigarettes alcohol intake: former details: Sober x 3 years. substance use type: former substance user Date of last use: Prior polysubstance abuse including cocaine, clean x 3 years. ROS ROS ED Constitutional Constitutional ED: Denies chills or fever(s) Eyes Eyes: Denies change in vision or diplopia ENT ENT ED: Denies rhinorrhea or sore throat Cardiovascular Cardiovascular: Denies chest pain or palpitations Respiratory/Chest Respiratory/Chest: Denies cough or dyspnea Gastrointestinal Gastrointestinal: Reports abdominal pain; Denies diarrhea, nausea or vomiting Genitourinary Genitourinary ED: Denies dysuria or hematuria Musculoskeletal Musculoskeletal: Reports back pain; Denies neck pain Integumentary Denies abscess or rash Neurologic Neurologic: Reports paresthesias RLE and LLE; Denies headache(s) or weakness Psychiatric Psychiatric: Denies suicidal thoughts EXAM Physical Exam Const Vital Signs: 04/16/24 03:58 04/16/24 05:14 04/16/24 06:00 Temperature 97.9 F 97.4 F L 97.3 F L Temperature Source Oral Oral Temporal Pulse Rate 78 81 69 Respiratory Rate 17 15 14 Blood Pressure 126/67 H 113/64 134/66 H Blood Pressure Mean 86 80 88 Pulse Ox 95 99 100 Oxygen Delivery Method Room Air Room Air Room Air Positive well nourished and well developed General Appearance ED: well developed and NAD HEENT Reports moist mucous membranes normocephalic and atraumatic Eyes PERRL and EOMs intact bilaterally Neck full ROM and supple Resp normal respiratory effort and clear to auscultation bilaterally Cardio regular rate, regular rhythm and no murmurs GI non-distended GI Narrative: Moderate tenderness in right lower quadrant without guarding or rebound. The rest of the abdomen is benign and nontender. No Granger sign no Eisenberg Mckeon sign. Auscultation: normoactive bowel sounds Palpation: soft Back/Spine no CVA tenderness General Back: other FROM Extremity normal to inspection General Extremety ED: Negative for edema, pulses abnormal or tenderness General Extremity: Negative for edema or pulses abnormal Neuro oriented x3 and CN's II-XII intact bilaterally Neuro Narrative: Sensation is decreased but grossly intact both feet Sensorium / Orientation: awake and alert Motor Exam: strength 5/5 throughout Skin no rashes or lesions noted and no wounds MDM MDM MDM Narrative Medical decision making narrative: Labs obtained as well as a CT with IV contrast, differential including kidney stone, functional intestinal pain, intra-abdominal vascular emergency or retroperitoneal process, less likely bowel obstruction since he is not vomiting. His labs are noted, other than anemia and hypokalemia pretty unremarkable. He has a history of chronic anemia that appears to be microcytic. He was given Zofran and morphine as well as some IV fluids. Liver enzymes are normal and he does not have a leukocytosis. I reviewed the CT images as well as report which I agree with, does show cholelithiasis, but he is not tender anywhere near his costal margin/right upper quadrant/gallbladder, which on the images is in the right costal margin area. In fact I did a bedside ultrasound, visualizing his gallbladder which may or may not have a couple of shadowing stones, difficult to visualize given his ribs or in the way but I was able to verify that his sonographic Roche's is negative, and his area of tenderness is definitively distal/caudal to where the gallbladder is located. The CT report does state that the urinary bladder wall is prominent, this could be consistent with cystitis, he does not have any acute urinary symptoms but we did send the urine. It is negative for infection. The rest of the CT is unremarkable. Therefore I think this is more likely to be a functional intestinal pain. He has been constipated, on reexamination he is mildly tender more towards the right lower flank, and this may be colonic/constipation. Going to prescribe him dicyclomine and magnesium citrate and stable for discharge home explained all this to him is comfortable with that plan. Lab Data Attestation: I reviewed the patient's lab results. Labs: Laboratory Results - last 24 hr 04/16/24 04/16/24 04:03 06:00 WBC 6.8 RBC 3.90 L Hgb 7.5 L Hct 27.9 L MCV 71.5 L MCH 19.2 L MCHC 26.9 L RDW Std Deviation 46.1 H RDW Coeff of Renny 18.0 H Plt Count 393 MPV 10.2 Immature Gran % (Auto) 0.100 Neut % (Auto) 66.5 Lymph % (Auto) 19.5 [place] % (Auto) 8.1 Eos % (Auto) 4.3 Baso % (Auto) 1.5 H Absolute Neuts (auto) 4.5 Absolute Lymphs (auto) 1.33 Nucleated RBC % 0.3 Sodium 139 Potassium 3.1 L Chloride 107 Carbon Dioxide 23.0 Anion Gap 9 BUN 15 Creatinine 1.08 Estim Creat Clear Calc 76.12 Est GFR (MDRD) Af Amer 88 Est GFR (MDRD) Non-Af 73 BUN/Creatinine Ratio 13.9 Glucose 152 H Calcium 8.6 Total Bilirubin 0.30 AST 13 L ALT 21 Alkaline Phosphatase 73 Total Protein 7.6 Albumin 3.8 Globulin 3.8 Albumin/Globulin Ratio 1.0 Urine Color Yellow Urine Clarity Clear Urine pH 5.0 Ur Specific [place] 1.010 Urine Protein 30 H Urine Glucose (UA) Normal Urine Ketones Negative Urine Occult Blood Negative Urine Nitrite Negative Urine Bilirubin Negative Urine Urobilinogen Normal Ur Leukocyte Esterase Negative Urine RBC 0 SEEN Urine WBC 0 SEEN Ur Squamous Epith Cells 0 SEEN Ur Transition Epith Cell 0-5 SEEN Urine Bacteria 0 SEEN Hyaline Casts 0-5 SEEN Urine Mucus RARE Radiography Diagnostic Testing: Clinical Impression(s) from Imaging Studies Abdomen/Pelvis CT 04/16/24 04:20 IMPRESSION: Prominent wall of the urinary bladder may be due to nondistention, correlate for cystitis. Colonic diverticulosis without evidence of acute diverticulitis. Cholelithiasis.. Electronically Signed: Naz Castano MD at 5:59 EDT , Discharge Plan Triage Chief Complaint: Abd Pain ED Provider: Reggie Cullen Dx/Rx/DC Orders Clinical Impression: Right sided abdominal pain, Cholelithiasis Instructions: Abdominal Pain Prescriptions: New dicyclomine 10 mg capsule 20 mg PO Q6H PRN PRN (Reason: abdominal discomfort) Qty: 20 0RF magnesium citrate Solution 150 ml PO DAILY PRN (Reason: constipation) Qty: 296 0RF No Action aspirin 81 mg tablet,delayed release (DR/EC) 81 mg PO DAILY@0800 Qty: 90 3RF atorvastatin 80 mg tablet 80 mg PO QHS Qty: 90 3RF clopidogrel 75 mg tablet 75 mg PO DAILY Qty: 90 3RF tamsulosin [Flomax] 0.4 mg capsule 0.8 mg PO QHS Patient Comments: Take 1 capsule by mouth daily at bedtime. lisinopril 5 mg tablet 5 mg PO DAILY Qty: 90 3RF Rx Instructions: Hold for SBP less than 130 mmHg nitroglycerin 0.4 mg Tablet, Sublingual 0.4 mg sublingual Q5M PRN (Reason: CHEST PAIN) Qty: 30 0RF finasteride 5 mg tablet 5 mg PO DAILY Qty: 30 0RF sennosides-docusate sodium [Stool Softener-Stimulant Laxat] 8.6-50 mg Tablet 1 tab PO DAILY Qty: 60 0RF pantoprazole [Protonix] 40 mg tablet,delayed release (DR/EC) 40 mg PO BIDCM Qty: 60 0RF gabapentin 600 mg tablet 600 mg PO TID sertraline 50 mg tablet 50 mg PO DAILY metoprolol tartrate 25 mg tablet 25 mg PO BID omeprazole 20 mg tablet,delayed release (DR/EC) 20 mg PO DAILY PRN (Reason: stomach upset) acetaminophen 500 mg capsule 500 mg PO Q6H PRN (Reason: pain) ondansetron 4 mg tablet,disintegrating 4 mg PO Q8H PRN PRN (Reason: Nausea) Qty: 20 0RF Primary Care Provider: Anuradha Davis Referrals: Anuradha Davis, PA [Primary Care Provider] - 3-5 Days if not improving Print Language: Macanese Disposition Disposition: Home, Self Care
[2024-04-16] MEDS: 0.9% Normal Saline (1000mL) 1,000 ML 125 ML IV (04:42)
[2024-04-16 04:56] LABS: AST(SGOT) 13 U/L (15-37); Alanine Aminotransfer ALT/SGPT 21 U/L (16-61); Albumin, Serum 3.8 g/dL (3.2-5.0); Alkaline Phosphatase 73 U/L (45-117); Anion Gap 9 (5-15); BUN 15 mg/dL (7-18); BUN/Creat Ratio 13.9 RATIO (10-20); Calcium,Total 8.6 mg/dL (8.5-10.1); Chloride 107 mmol/L (98-107); Creatinine, Serum 1.08 mg/dL (0.70-1.30); EST Glomerular Filtration Rate 73 mL/min (>60); Est Glom Filt Rate - Afr Amer 88 mL/min (>60); Estimated Creatinine Clearance 76.12 ml/min; Globulin 3.8 g/dL (2.2-4.2); Glucose 152 mg/dL (74-106); Potassium 3.1 mmol/L (3.5-5.1); Protein, Total 7.6 g/dL (6.4-8.2); Sodium Level 139 mmol/L (136-145)
[2024-04-16 05:07] LABS: Absolute Lymphocyte Count 1.33 X10^3/uL (0.83-4.51); Absolute Neutrophil Count 4.5 X10^3/uL (2.0-7.7); Basophil% 1.5 % (0-1); Eosinophil# 0.29 X10^3/uL; Eosinophils% 4.3 % (0-5); Hematocrit 27.9 % (40-54); Hemoglobin 7.5 g/dL (13.0-16.5); Lymphocyte # 1.33 X10^3/ul (0.83-4.51); Lymphocyte % 19.5 % (19-41); Mean Corp Hgb Conc 26.9 g/dL (32-36); Mean Corpuscular Hgb 19.2 pg (27.0-32.0); Mean Corpuscular Volume 71.5 fL (80-94); Mean Platelet Vol. 10.2 fl (6.2-12.0); Monocyte# 0.55 X10^3/uL; Monocyte% 8.1 % (0-10); NRBC Flagged by Analyzer 0.3 % (0-5); Neutrophil # 4.53 X10^3/uL (2.7-7.7); Neutrophil % 66.5 % (47-70); Platelet Count 393 K/mm3 (150-450); RBC Distribution Width SD 46.1 fl (35.1-43.9); White Blood Count 6.8 K/mm3 (4.4-11.0)
[2024-04-16 05:14] VITALS: BP 113/64; PULSE 81; RESP 15; TEMP 36.3; O2SAT 99
--- NOTE | 2024-04-16 05:14 | ED.RN ---
The patients significant other called in, This RN got verbal consent to give out information to her, and was voicing her complaints about how the EMS crew would not let her ride with them to the hospital. The patient's Significant Other stated she felt like she was not heard or listened to. This RN stated I am sorry you feel that way, we are taking are of him. He is here and being treated, we gave pain medicines and took some images. The patient's SO then hung up and attempted to call back once more but this RN could not hear what she was saying on the other line.
[2024-04-16 06:00] VITALS: BP 134/66; PULSE 69; RESP 14; TEMP 36.3; O2SAT 100
[2024-04-16 06:04] LABS: Bacteria 0 SEEN /hpf (None Seen); Red Blood Cells-Urine 0 SEEN /hpf (0-5); Squamous Epithelial Cells - UA 0 SEEN /hpf (0-5); White Blood Cells 0 SEEN /hpf (0-5)
[2024-04-16 06:17] LABS: Glucose, Dipstick Normal (Normal); Ketone-Dipstick Negative (Negative); Leukocyte Esterase-Dipstick Negative /ul (Negative); Nitrite-Dipstick Negative (Negative); Occult Blood-Urine Negative /ul (Negative); Protein-Dipstick 30 mg/dl (Negative); Urine Bilirubin Dipstick Negative (Negative); Urine Urobilinogen Normal (Normal)
[2024-04-16 06:36] LABS: Color, Urine Yellow (Yellow); Urine Clarity Clear (Clear)
[2024-04-16 06:38] LABS: Hyaline Cast 0-5 SEEN /lpf (0-5); Mucous, Urine RARE /hpf (<or=2+); Transitional Epithelial - Ur 0-5 SEEN /hpf (0-5)
[2024-04-16 06:46] VITALS: BP 134/88; PULSE 70; RESP 17; TEMP 36.7; O2SAT 98
== END 2024-04-16 07:30 | disposition home or self-care (01) ==
PROVIDERS: Emergency Provider Emergency Medicine; PCP Physician Assistant; Visit Provider Emergency Medicine
DX: K80.20 Calculus of gallbladder without cholecystitis without obstruction (principal); F17.210 Nicotine dependence, cigarettes, uncomplicated; E78.5 Hyperlipidemia, unspecified; I25.10 Atherosclerotic heart disease of native coronary artery without angina pectoris; I25.2 Old myocardial infarction; Z79.82 Long term (current) use of aspirin; Z79.899 Other long term (current) drug therapy; Z79.01 Long term (current) use of anticoagulants; Z86.73 Personal history of transient ischemic attack (TIA), and cerebral infarction without residual deficits
CPT/HCPCS: 74177; 80053; 81001; 85025; 96361; 96374; 96375; 99282; Q9967; A4216; J2405

== ENCOUNTER 2024-05-10 15:26 | Inpatient (IN) | payer OTHER, SELFPAY ==
[2024-05-10] VITALS (12 sets, daily range): BP systolic 79–147; BP diastolic 47–62; PULSE 56–78; RESP 14–20; TEMP 36.3–36.7; O2SAT 95–100; BMI 27.1
--- NOTE | 2024-05-10 15:38 | EKG12_ITS ---
Test Reason : CP Blood Pressure : / mmHG Vent. Rate : 063 BPM Atrial Rate : 063 BPM P-R Int : 188 ms QRS Dur : 122 ms QT Int : 406 ms P-R-T Axes : 035 034 094 degrees QTc Int : 415 ms Normal sinus rhythm Cannot rule out Anterior infarct , age undetermined Abnormal ECG Confirmed by MAIA ZAYAS, ADAMARIS ([id number]), editor sound SHARDA BRISCOE ([id number]) on 05/17/2024 10:31:32 A M Referred By: JALEN/JERILYN Confirmed By:LUCIANA CARVALHO MD
[2024-05-10 15:51] LABS: Absolute Lymphocyte Count 1.82 X10^3/uL (0.83-4.51); Absolute Neutrophil Count 4.8 X10^3/uL (2.0-7.7); Basophil% 1.3 % (0-1); Eosinophil# 0.31 X10^3/uL; Eosinophils% 4.1 % (0-5); Hematocrit 27.3 % (40-54); Hemoglobin 7.4 g/dL (13.0-16.5); Lymphocyte # 1.82 X10^3/ul (0.83-4.51); Lymphocyte % 23.8 % (19-41); Mean Corp Hgb Conc 27.1 g/dL (32-36); Mean Corpuscular Hgb 18.6 pg (27.0-32.0); Mean Corpuscular Volume 68.8 fL (80-94); Mean Platelet Vol. 9.8 fl (6.2-12.0); Monocyte# 0.62 X10^3/uL; Monocyte% 8.1 % (0-10); NRBC Flagged by Analyzer 0 % (0-5); Neutrophil # 4.75 X10^3/uL (2.7-7.7); Neutrophil % 62.2 % (47-70); Platelet Count 407 K/mm3 (150-450); RBC Distribution Width SD 45.9 fl (35.1-43.9); Red Blood Count 3.97 M/mm3 (4.6-6.2); White Blood Count 7.6 K/mm3 (4.4-11.0)
--- NOTE | 2024-05-10 15:55 | RAD_ITS ---
STUDY: X-RAY CHEST REASON FOR EXAM: Male, 63 years old. chest pain TECHNIQUE: Single frontal view of the chest. COMPARISON: January 03, 2024 FINDINGS: The lungs are clear and expanded. There is no demonstrated pleural abnormality. Normal size heart. Normal mediastinum and ted. Normal visualized pulmonary arteries. Normal visualized aortic arch and descending thoracic aorta. Normal visualized thoracic spine. Normal visualized ribs, clavicles, and shoulders. There is no demonstrated abnormality of the visualized soft tissue structures of the upper abdomen. RAD/Chest 1 View (Portable) IMPRESSION: Normal x-ray examination of the chest. Electronically Signed: Emmett Funez MD at 16:54 EDT ,
[2024-05-10 16:10] LABS: Anion Gap 12 (5-15); BUN 18 mg/dL (7-18); BUN/Creat Ratio 15.7 RATIO (10-20); Calcium,Total 8.6 mg/dL (8.5-10.1); Chloride 105 mmol/L (98-107); Creatinine, Serum 1.15 mg/dL (0.70-1.30); EST Glomerular Filtration Rate 68 mL/min (>60); Est Glom Filt Rate - Afr Amer 82 mL/min (>60); Glucose 134 mg/dL (74-106); Potassium 2.9 mmol/L (3.5-5.1); Sodium Level 136 mmol/L (136-145); Troponin-I HS (w/2H Reflex) 8 pg/mL (3.0-78.0)
--- NOTE | 2024-05-10 16:14 | CT_ITS ---
STUDY: CTA CHEST REASON FOR EXAM: Male, 63 years old. cp and low bp ?? dissection. RADIATION DOSAGE (If Supplied By Facility): CTDIvol = ( 17.65 ) mGy, DLP = ( 530.46 ) mGycm TECHNIQUE: The examination was performed with the intravenous administration of IV 100mL [id number]-370. Post-processing of the angiographic images was performed, with multiplanar reformation and 3D reconstruction. Individualized dose optimization techniques were used for this CT. The protocol utilizes one or more of the following dose reduction techniques: automated exposure control, adjustment of mA and/or kV according to patient size,and/or use of iterative reconstruction technique. COMPARISON: Chest x-ray today.. FINDINGS: Normal enhancement of the main pulmonary artery and right and left pulmonary arteries. Normal enhancement of the bilateral peripheral pulmonary arteries. There is no demonstrated pulmonary embolism. Normal thoracic aorta and visualized great vessels. There is no demonstrated aortic dissection. Calcific coronary artery disease. Normal mediastinum. Normal hilar regions. Normal visualized trachea and bronchi. The lungs are well expanded. Normal pulmonary parenchyma. Normal pleura. Normal chest wall structures. Normal osseous structures. Gallstones. CT/CTA Chest W/WO Contrast IMPRESSION: No acute disease. No aneurysm or dissection. Calcific coronary artery disease. Gallstones. Electronically Signed: Emmett Funez MD at 17:39 EDT ,
--- NOTE | 2024-05-10 16:17 | ED.VIS.CHEST ---
HPI History of Present Illness Chief Complaint: Chest Pain Informant: patient Onset/Context/Timing Onset: Today and Hours Activity at onset: sudden Timing: Continuous Quality: Positive for Pain Location: Substernal Current Severity: Moderate Maximum Severity: Moderate Worsened By: Nothing Relieved By: Nothing Associated Symptoms: Positive for Dyspnea and - (Near syncope); Negative for Nausea or Vomiting Narrative Narrative: 63-year-old male history of prior NH with cardiac stents I believe they were done last April and September of last year, prior stroke, anemia, NH and left bundle branch block. Patient is on Plavix. Today get out of shower had severe midsternal chest pain going to his shoulders. And had near syncopal episode. gave him 1 sublingual nitro. Also felt short of breath. Has had pain like this before but not this severe. Denies any history of thoracic aneurysm or pulmonary emboli or DVT in the past. No recent hospitalization. Prior Similar Symptoms: Yes Recent Illness/Hospitalization: No CVD Risk Factors: Positive for Hypertension PE Risk Factors: Negative for Recent Travel/Surgery, Recent Immobilization, Prior DVT or PE, Cancer or OCP + Smoking + >/=35 TAD Risk Factors: Negative for Marfan's Syndrome [facility] Medical History Symptomatic anemia Ischemic cardiomyopathy Acute constipation Atherosclerotic heart disease of [place] coronary artery without angina pectoris BPH (benign prostatic hyperplasia) Tobacco use History of substance abuse Hyperlipidemia History of stroke H/O left bundle branch block Non-ST elevation [place] (NSTEMI) CVD (cerebrovascular disease) History of alcoholism Essential hypertension Home Medications ?Medication ?Instructions ?Recorded ?Last Taken ?Type tamsulosin 0.4 mg capsule (Flomax) 0.8 mg PO QHS prostate 12/11/21 03/08/24 History finasteride 5 mg tablet 5 mg PO DAILY prostate #30 tabs 05/15/23 03/09/24 Rx nitroglycerin 0.4 mg sublingual 0.4 mg sublingual Q5M PRN CHEST 05/15/23 Unknown Rx tablet PAIN #30 tabs aspirin 81 mg tablet,delayed 81 mg PO DAILY@0800 health 05/24/23 03/09/24 Rx release maintenance #90 tabs atorvastatin 80 mg tablet 80 mg PO QHS cholesterol #90 tabs 05/24/23 03/08/24 Rx clopidogrel 75 mg tablet 75 mg PO DAILY antiplatelet #90 05/24/23 03/09/24 Rx tabs lisinopril 5 mg tablet 5 mg PO DAILY BP #90 tabs 07/10/23 03/09/24 Rx pantoprazole 40 mg tablet,delayed 40 mg PO BIDCM stomach #60 tabs 01/05/24 03/09/24 Rx release (Protonix) sennosides 8.6 mg-docusate sodium 1 tab PO DAILY #60 tabs 01/05/24 03/09/24 Rx 50 mg tablet (Stool Softener-Stimulant Laxative) acetaminophen 500 mg capsule 500 mg PO Q6H PRN pain 03/09/24 03/09/24 History gabapentin 600 mg tablet 600 mg PO TID 03/09/24 03/09/24 History metoprolol tartrate 25 mg tablet 25 mg PO BID 03/09/24 03/09/24 History omeprazole 20 mg tablet,delayed 20 mg PO DAILY PRN stomach upset 03/09/24 03/09/24 History release ondansetron 4 mg disintegrating 4 mg PO Q8H PRN PRN Nausea #20 tabs 03/09/24 Unknown Rx tablet sertraline 50 mg tablet 50 mg PO DAILY 03/09/24 03/09/24 History dicyclomine 10 mg capsule 20 mg (2 x 10 mg) PO Q6H PRN PRN 04/16/24 Unknown Rx abdominal discomfort #20 CAPSULES magnesium citrate 150 ml PO DAILY PRN constipation 04/16/24 Unknown Rx #296 mL Allergy/AdvReac Type Severity Reaction Status Date / Time No Known Allergies Allergy Verified 03/09/24 14:06 Family History Mother Diabetes Cancer Breast cancer Father Diabetes Cancer Brother Cancer Surgical History Stented coronary artery (06/16/23) History of creation of ostomy S/P percutaneous endoscopic gastrostomy (PEG) tube placement Hx of appendectomy Social History household members: significant other Smoking Status: Current every day smoker tobacco type: cigarettes alcohol intake: former details: Sober x 3 years. substance use type: former substance user Date of last use: Prior polysubstance abuse including cocaine, clean x 3 years. ROS ROS ED ROS Narrative Chest pain. Shortness of breath. Near syncope. Review of Systems ROS Unobtainable: Denies due to encephalopathy Constitutional Constitutional ED: Denies chills Eyes Eyes: Reports none; Denies blurry vision ENT ENT ED: Denies ear pain or rhinorrhea Cardiovascular Cardiovascular: Reports as per HPI and chest pain; Denies palpitations or racing heartbeat Respiratory/Chest Respiratory/Chest: Reports dyspnea; Denies cough Gastrointestinal Gastrointestinal: Denies abdominal pain, constipation, diarrhea, melena, nausea or vomiting Genitourinary Genitourinary ED: Denies dysuria or hematuria Musculoskeletal Musculoskeletal: Denies arthralgias or back pain Integumentary Denies abscess, Abrasions or rash Neurologic Neurologic: Denies headache(s), paresthesias or weakness Psychiatric Psychiatric: Denies anxiety, depression or suicidal ideation Endocrine Endocrinology: Denies cold intolerance Hematologic/Lymphatic Hematologic/Lymphatic: Denies easy bleeding, easy bruising or lymphadenopathy Allergic/Immunologic Allergic/Immunologic ED: Denies mouth swelling, tongue swelling or urticaria EXAM Physical Exam Narrative Exam Narrative: 63-year-old male currently hypotensive 755 g in the room is 93/54. He was given nitro at home. He is awake alert. at bedside. H EENT exam unremarkable. Mytrex membranes. Neck nontender. Lungs clear to auscultation bilaterally. Heart regular rate and rhythm rate about 60 no murmur. Chest wall and ribs nontender. Abdomen soft nontender. No pulsatile mass. Moving all 4 extremities. Equal symmetrical radial pulses. Equal symmetrical barrel rifler strength. Dorsi plantarflexion intact. Calves are nontender without edema. He is awake and alert. Answering questions following commands. Const Vital Signs: 05/10/24 15:27 05/10/24 15:28 05/10/24 15:38 Temperature 98.1 F Temperature Source Oral Pulse Rate 56 L 64 Respiratory Rate 17 14 Respiratory Effort Normal Non-Labored Blood Pressure 79/55 L 79/55 L Blood Pressure Mean 63 63 Pulse Ox 100 98 Oxygen Delivery Method Room Air Room Air 05/10/24 15:38 05/10/24 15:52 05/10/24 16:27 Temperature Temperature Source Pulse Rate 59 L Respiratory Rate 18 Respiratory Effort Blood Pressure 84/47 L 101/49 L Blood Pressure Mean 59 66 Pulse Ox 99 100 Oxygen Delivery Method Room Air Room Air Positive well nourished and well developed; Negative for obese, cachectic, contractures or unkempt General Appearance ED: well developed; Negative for unkempt, cachectic, contractures or pallor Nutritional Appearance: Negative for cachectic or obese HEENT Reports moist mucous membranes normocephalic and atraumatic; Negative for trauma or tenderness Eyes PERRL and EOMs intact bilaterally General Eye ED: Negative for pale conjunctiva or scleral icterus Neck no lymphadenopathy, supple and no JVD General: Negative for tenderness Chest Wall inspection of chest normal and palpation of chest normal Chest: Negative for tenderness Resp normal respiratory effort and clear to auscultation bilaterally Effort and Inspection: Negative for respiratory distress Auscultation: Negative for rales, rhonchi, wheezes or diminished lung sounds Cardio regular rate, regular rhythm, S1 normal heart sound, S2 normal heart sound and no murmurs Rate: Negative for bradycardia or tachycardic Rhythm: Negative for abnormal rhythm Peripheral Pulses: pulses 2+ throughout GI normal to inspection, nondistended, normoactive bowel sounds, soft to palpation, non-tender, non-distended and no masses Back/Spine no CVA tenderness and no thoracic nor lumbar tenderness Extremity normal to inspection General Extremety ED: Negative for edema, pulses abnormal or tenderness General Extremity: Negative for edema or pulses abnormal Neuro oriented x3 and CN's II-XII intact bilaterally Sensorium / Orientation: awake, alert, oriented to person, oriented to place and oriented to time; Negative for confused or lethargic Motor Exam: strength 5/5 throughout; Negative for general weakness or strength abnormal Psych mental status grossly normal Appearance: Negative for unkempt Attitude: No agitated Mood & Affect: Negative for depressed, anxious or tearful Skin no rashes or lesions noted and no wounds General Skin Exam: Negative for jaundice or pallor Rashes: No rashes noted Trauma: Negative for abrasion, laceration or puncture Heart Score History: Moderately Suspicious ECG: Normal Age: >/= 65 years Risk Factors: >/= 3 Risk Factors or History of CAD Troponin: </= Normal Limit Score: 5 MDM MDM MDM Narrative Medical decision making narrative: 63-year-old male known coronary disease with stents had significant midsternal chest pain today when he stepped out of the shower and then had a near syncopal episode. gave him a nitro glycerin which may or may not have been the cause of his drop in his blood pressure. He is still having midsternal chest pain. Undergo cardiac workup. Due to his hypotension he will get a liter of normal saline and a CT of his chest to rule out dissection. Repeat exam patient blood pressure is coming up. I think the transient hypotension is from the nitroglycerin. I did obtain a CTA of the chest I do not see an obvious PE or dissection were awaiting the formal radiology interpretation. Patient chest pain is concerning especially with his history. I spoke to the hospitalist he will be an observation admission in the PCU. He and his are comfortable to plan. History & Record Review Discussion w/independent historian: EMS personnel, Patient and Family Additional record(s) reviewed:: Prior inpatient record, Prior outpatient record, Prior ED visit and Prior labs Lab Data Attestation: I reviewed the patient's lab results. Lab results narrative: CBC shows a white count 7.6 H&H 7.4 and 27.3 which she does have a baseline anemia this is slightly less. Platelet count of 407. Electrolytes show potassium 2.9. Gap 12 normal BUN and creatinine. Glucose 134. Troponin 8. Labs: Laboratory Results - last 24 hr 05/10/24 15:12 WBC 7.6 RBC 3.97 L Hgb 7.4 L Hct 27.3 L MCV 68.8 L MCH 18.6 L MCHC 27.1 L RDW Std Deviation 45.9 H RDW Coeff of Renny 19.0 H Plt Count 407 MPV 9.8 Immature Gran % (Auto) 0.500 Neut % (Auto) 62.2 Lymph % (Auto) 23.8 [place] % (Auto) 8.1 Eos % (Auto) 4.1 Baso % (Auto) 1.3 H Absolute Neuts (auto) 4.8 Absolute Lymphs (auto) 1.82 Nucleated RBC % 0 Sodium 136 Potassium 2.9 L Chloride 105 Carbon Dioxide 19.0 L Anion Gap 12 BUN 18 Creatinine 1.15 Est GFR (MDRD) Af Amer 82 Est GFR (MDRD) Non-Af 68 BUN/Creatinine Ratio 15.7 Glucose 134 H Calcium 8.6 Troponin I High Sens 8 Radiography Chest X-Ray - ED: 1 View, Read by ED Physician, Normal, Heart, Lungs, Mediastinum, Bony Structures, No Acute Disease and Chronic Changes Diagnostic Testing: Clinical Impression(s) from Imaging Studies Chest X-Ray 05/10/24 15:55 IMPRESSION: Normal x-ray examination of the chest. Electronically Signed: Emmett Funez MD at 16:54 EDT Reading Location ID and State: [facility] / [place] Tel , Service support , Rhythm Strip Rhythm Strip: Sinus Rhythm Rate: 63 Ectopy: None EKG Initial EKG: Attestation: I personally reviewed and interpreted this EKG as follows: Interpretation: Sinus Rhythm, No Acute Injury Pattern and LBBB Comments: Normal sinus rhythm rate 63. Old anterior infarct. Unchanged from prior EKG from December of this year. Prior EKG tracings: available for review Prior: Unchanged Discharge Plan Triage Chief Complaint: Chest Pain ED Provider: Lito Pratt Dx/Rx/DC Orders Clinical Impression: Chest pain, Near syncope, Transient hypotension, Hx of heart artery stent, History of NH (myocardial infarction), History of stroke Prescriptions: No Action aspirin 81 mg tablet,delayed release (DR/EC) 81 mg PO DAILY@0800 Qty: 90 3RF atorvastatin 80 mg tablet 80 mg PO QHS Qty: 90 3RF clopidogrel 75 mg tablet 75 mg PO DAILY Qty: 90 3RF tamsulosin [Flomax] 0.4 mg capsule 0.8 mg PO QHS Patient Comments: Take 1 capsule by mouth daily at bedtime. lisinopril 5 mg tablet 5 mg PO DAILY Qty: 90 3RF Rx Instructions: Hold for SBP less than 130 mmHg nitroglycerin 0.4 mg Tablet, Sublingual 0.4 mg sublingual Q5M PRN (Reason: CHEST PAIN) Qty: 30 0RF finasteride 5 mg tablet 5 mg PO DAILY Qty: 30 0RF sennosides-docusate sodium [Stool Softener-Stimulant Laxat] 8.6-50 mg Tablet 1 tab PO DAILY Qty: 60 0RF pantoprazole [Protonix] 40 mg tablet,delayed release (DR/EC) 40 mg PO BIDCM Qty: 60 0RF gabapentin 600 mg tablet 600 mg PO TID sertraline 50 mg tablet 50 mg PO DAILY metoprolol tartrate 25 mg tablet 25 mg PO BID omeprazole 20 mg tablet,delayed release (DR/EC) 20 mg PO DAILY PRN (Reason: stomach upset) acetaminophen 500 mg capsule 500 mg PO Q6H PRN (Reason: pain) ondansetron 4 mg tablet,disintegrating 4 mg PO Q8H PRN PRN (Reason: Nausea) Qty: 20 0RF dicyclomine 10 mg capsule 20 mg PO Q6H PRN PRN (Reason: abdominal discomfort) Qty: 20 0RF magnesium citrate Solution 150 ml PO DAILY PRN (Reason: constipation) Qty: 296 0RF Primary Care Provider: Anuradha Davis Referrals: Anuradha Davis, PA [Primary Care Provider] - Print Language: German Disposition Disposition: Acute Care Hospital [facility]
[2024-05-10] MEDS: 0.9% Normal Saline (1000mL) 1,000 ML 999 ML IV (16:18)
--- NOTE | 2024-05-10 17:14 | PCM.HP.STD ---
HPI - General General Date of Admission: 05/10/24 Date of Service: 05/10/24 Chief Complaint: Chest pain/pressure today. HPI Narrative PADDY DAVID, is a 63 M with multiple comorbidities including stroke, hypertension, CAD status post stent was brought to ED by EMS for chest pressure, felt like tightness/stabbing, with radiation to interscapular area, 5/10 intensity lasted for about half hour. Patient said it was associated with mild short of breath, dizzy lightheaded but no nausea or vomiting. As per patient's girlfriend, she said that he was feeling dizzy and lightheaded all throughout today and requires help getting out of the shower. No acute syncope. His blood pressure was low 79/55 x 2, 84/47 but improved in ED, most recent 147/50. Twelve-lead EKG shows normal sinus rhythm, 63 bpm, QTc 415 Patient is further admitted. COUNT INCLUDES [facility] Medical History Smoker Myocardial infarct Hypertension Stroke/cerebrovascular accident Symptomatic anemia Ischemic cardiomyopathy Acute constipation Atherosclerotic heart disease of [place] coronary artery without angina pectoris BPH (benign prostatic hyperplasia) Tobacco use History of substance abuse Hyperlipidemia History of stroke H/O left bundle branch block Non-ST elevation [place] (NSTEMI) CVD (cerebrovascular disease) History of alcoholism Essential hypertension Home Medications ?Medication ?Instructions ?Recorded ?Last Taken ?Type tamsulosin 0.4 mg capsule (Flomax) 0.8 mg PO QHS prostate 12/11/21 03/08/24 History finasteride 5 mg tablet 5 mg PO DAILY prostate #30 tabs 05/15/23 03/09/24 Rx nitroglycerin 0.4 mg sublingual 0.4 mg sublingual Q5M PRN CHEST 05/15/23 Unknown Rx tablet PAIN #30 tabs aspirin 81 mg tablet,delayed 81 mg PO DAILY@0800 health 05/24/23 03/09/24 Rx release maintenance #90 tabs atorvastatin 80 mg tablet 80 mg PO QHS cholesterol #90 tabs 05/24/23 03/08/24 Rx clopidogrel 75 mg tablet 75 mg PO DAILY antiplatelet #90 05/24/23 03/09/24 Rx tabs lisinopril 5 mg tablet 5 mg PO DAILY BP #90 tabs 07/10/23 03/09/24 Rx pantoprazole 40 mg tablet,delayed 40 mg PO BIDCM stomach #60 tabs 01/05/24 03/09/24 Rx release (Protonix) acetaminophen 500 mg capsule 500 mg PO Q6H PRN pain 03/09/24 03/09/24 History gabapentin 600 mg tablet 600 mg PO TID 03/09/24 03/09/24 History metoprolol tartrate 25 mg tablet 25 mg PO BID 03/09/24 03/09/24 History omeprazole 20 mg tablet,delayed 20 mg PO DAILY PRN stomach upset 03/09/24 03/09/24 History release sertraline 50 mg tablet 50 mg PO QHS 03/09/24 03/09/24 History magnesium citrate 150 ml PO DAILY PRN constipation 04/16/24 Unknown Rx #296 mL sennosides 8.6 mg-docusate sodium 1 tab PO PRN 05/10/24 Unknown History 50 mg tablet (Stool Softener-Stimulant Laxative) Allergy/AdvReac Type Severity Reaction Status Date / Time No Known Allergies Allergy Verified 03/09/24 14:06 Family History Mother Diabetes Cancer Breast cancer Father Diabetes Cancer Brother Cancer Surgical History Stented coronary artery (06/16/23) History of creation of ostomy S/P percutaneous endoscopic gastrostomy (PEG) tube placement Hx of appendectomy Social History household members: significant other Smoking Status: Current every day smoker tobacco type: cigarettes alcohol intake: former details: Sober x 3 years. substance use type: former substance user Date of last use: Prior polysubstance abuse including cocaine, clean x 3 years. ROS ROS Narrative Constitutional: Reports fatigue and weakness. No fever. HEENT: No vertigo. Reports systems reviewed and no addt'l complaints, except as documented Respiratory/Chest: As described in HPI. No wheezing. CVS: As described in HPI Gastrointestinal:feels mild gas and discomfort. Denies coffee ground emesis, hematemesis or vomiting Genitourinary: Denies burning urination or new urinary tract symptoms Musculoskeletal: Mild weakness on the left side. Denies acute joint pain or limited range of motion. No acute injury Neurologic: Denies seizure-like symptoms. History of a stroke on the left side. skin: No ulcer. No rash Endocrinology: Reports systems reviewed and no addt'l complaints, except as documented Hematologic/Lymphatic: Reports systems reviewed and no addt'l complaints, except as documented Rest 14 ROS are negative except as mentioned in HPI Vital Signs Vital Signs Vital Signs: 05/10/24 15:27 05/10/24 15:28 05/10/24 15:38 Temperature 98.1 F Temperature Source Oral Pulse Rate 56 L 64 Respiratory Rate 17 14 Respiratory Effort Normal Non-Labored Blood Pressure 79/55 L 79/55 L Blood Pressure Mean 63 63 Pulse Ox 100 98 Oxygen Delivery Method Room Air Room Air 05/10/24 15:38 05/10/24 15:52 05/10/24 16:27 Temperature Temperature Source Pulse Rate 59 L Respiratory Rate 18 Respiratory Effort Blood Pressure 84/47 L 101/49 L Blood Pressure Mean 59 66 Pulse Ox 99 100 Oxygen Delivery Method Room Air Room Air Physical Exam Narrative General: Alert, Oriented x3, Cooperative HEENT: Atraumatic, PERRLA, EOMI, Normocephalic Oral: Oral mucosa dry. No Gingival or Mucosal Lesions/ Ulcerations Neck: Supple, No JVD, Negative Carotid Bruits Chest wall/Lungs: Air entry diminished in bilateral lung bases. No crepitation/rhonchi Cardiovascular: Regular rate, Regular Rhythm, Normal S1, Normal S2, soft systolic murmur. Abdomen: Bowel Sounds Present, Soft, Non Tender, Non-Distended : No dysuria. No renal angle tenderness. No suprapubic tenderness. Extremities: No edema, Capillary Refill Less than 3 Seconds Skin: No rash. No ulcer.. Musculoskeletal: No Tenderness to Palpation of Joints or Extremities. Muscle strength 5/5 at both knees and hip joints. Neurological: Cranial nerves II-XII grossly intact, DTR 2+/4. No acute focal neurological deficit. Psych/Mental Status: Normal Affect, Appropriate. Results Lab / Micro Data 05/10/24 15:12 05/10/24 15:12 Labs: Laboratory Results - last 24 hr 05/10/24 15:12: WBC 7.6, RBC 3.97 L, Hgb 7.4 L, Hct 27.3 L, MCV 68.8 L, MCH 18.6 L, MCHC 27.1 L, RDW Std Deviation 45.9 H, RDW Coeff of Renny 19.0 H, Plt Count 407, MPV 9.8, Immature Gran % (Auto) 0.500, Neut % (Auto) 62.2, Lymph % (Auto) 23.8, [place] % (Auto) 8.1, Eos % (Auto) 4.1, Baso % (Auto) 1.3 H, Absolute Neuts (auto) 4.8, Absolute Lymphs (auto) 1.82, Nucleated RBC % 0, Sodium 136, Potassium 2.9 L, Chloride 105, Carbon Dioxide 19.0 L, Anion Gap 12, BUN 18, Creatinine 1.15, Est GFR (MDRD) Af Amer 82, Est GFR (MDRD) Non-Af 68, BUN/Creatinine Ratio 15.7, Glucose 134 H, Calcium 8.6, Troponin I High Sens 8 Imaging Radiology Impression Chest X-Ray 05/10/24 15:55 IMPRESSION: Normal x-ray examination of the chest. Electronically Signed: Emmett Funez MD at 16:54 EDT , Assessment & Plan Assessment/Plan (1) Chest pain, atypical: (2) Hypotension: PLAN: Plan This is 63-year-old gentleman with history of CAD status post stent came with chest pain. 1. Atypical chest pain with history of CAD status post stent: Patient is being admitted in PCU. Cycle cardiac enzymes. Twelve-lead EKG did not show acute change. Repeat EKG. Treadmill nuclear stress ordered for tomorrow AM If cardiac enzymes are negative. JASON risk score is 3. Heart score is 5. On guideline directed medical therapy. Hold aspirin and Plavix due to severe anemia. Continue beta-josé luis. Hold lisinopril as patient was hypotensive in ED. High intensity atorvastatin. Chest CTA negative of PE 2. Hypokalemia: Potassium is 2.9. Serum magnesium and phosphorus ordered. IV potassium replacement ordered. No EKG changes of hypokalemia. 3. Severe anemia with hypotension in ED with history of chronic essential hypertension: BP by EMS was 75/43, 80/44. Patient resuscitated well in ED. Her most recent BP monitor BP. 147/50. H&H 7.4/27.3%. Platelet count 407,000. Monitor H&H at 9 acute less than 7, transfusing 1 units of PRBC. stool for occult blood ordered. Patient was last admitted in December 2023 for severe symptomatic anemia. IV PPI ordered. As per EMS, blood pressure was low and had given him sublingual nitro prior to that. EGD December 2023 Impression: - Normal esophagus. - Small hiatal hernia. - The examination was otherwise normal. - Two bleeding angiodysplastic lesions in the duodenum. Treated with a heater probe. - No specimens collected. 4. Dyslipidemia Fasting profile ordered tomorrow a.m.:Patient is on statin therapy, continued at home dose 5. BPH with lower urinary obstructive symptoms - Patient treated with tamsulosin and finasteride 6. Diabetes mellitus type 2: Glucose 134. Accu-Chek before meals and at bedtime with Humalog sliding scale coverage. A1c ordered for tomorrow AM 7. GERD ? On IV PPI twice daily 8. DVT prophylaxis: Pharmacological prophylaxis concurrently because of severe anemia ? Bilateral SCDs Living will/advanced directive/end of life care: Patient does have living will or advanced directive. His girlfriend is next to kin and power of checkroom attendant for health. After discussion of benefits/risks procedures involved with full code, DNR CC arrest and DNR CC, the patient opted for DNR CC arrest with no intubation Patient doesn't want artificial life support including intubation, tube feed, ventilator and/chest compression, central venous catheter, vasopressor and DC shock if needed Total time spent in [id number] encounter in discussion of advanced directive 17 minutes. Laboratory Results 05/10/24 15:12: WBC 7.6, RBC 3.97 L, Hgb 7.4 L, Hct 27.3 L, MCV 68.8 L, MCH 18.6 L, MCHC 27.1 L, RDW Std Deviation 45.9 H, RDW Coeff of Renny 19.0 H, Plt Count 407, MPV 9.8, Immature Gran % (Auto) 0.500, Neut % (Auto) 62.2, Lymph % (Auto) 23.8, [place] % (Auto) 8.1, Eos % (Auto) 4.1, Baso % (Auto) 1.3 H, Absolute Neuts (auto) 4.8, Absolute Lymphs (auto) 1.82, Nucleated RBC % 0, Sodium 136, Potassium 2.9 L, Chloride 105, Carbon Dioxide 19.0 L, Anion Gap 12, BUN 18, Creatinine 1.15, Est GFR (MDRD) Af Amer 82, Est GFR (MDRD) Non-Af 68, BUN/Creatinine Ratio 15.7, Glucose 134 H, Calcium 8.6, Troponin I High Sens 8 Clinical Impression(s) from Imaging Studies Chest X-Ray 05/10/24 15:55 IMPRESSION: Normal x-ray examination of the chest. Chest CTA 05/10/24 16:14 IMPRESSION: No acute disease. No aneurysm or dissection. Calcific coronary artery disease. Gallstones. Charges/Coding Visit Charges Inpatient E&M: 81522 Init Hosp L3 Procedures Hospitalists Procedures: 23023 Advncd Care Plan 30 Min
[2024-05-10 17:43] LABS: Reflex Troponin-HS? (from REC) Y
[2024-05-10 17:44] LABS: Magnesium 2.1 mg/dL (1.6-2.6); Phosphorus 3.3 mg/dL (2.5-4.9)
[2024-05-10] MEDS: Lactated Ringers 1,000 ML 125 ML IV (18:31)
[2024-05-10 18:44] LABS: Troponin-I HS 9 pg/mL (3.0-78.0)
--- NOTE | 2024-05-10 20:14 | EKG12_ITS ---
Test Reason : CP ADMIT Blood Pressure : / mmHG Vent. Rate : 055 BPM Atrial Rate : 055 BPM P-R Int : 184 ms QRS Dur : 118 ms QT Int : 436 ms P-R-T Axes : 009 016 091 degrees QTc Int : 417 ms Sinus bradycardia Anterior infarct , age undetermined Abnormal ECG When compared with ECG of 10-MAY-2024 15:28, MANUAL COMPARISON REQUIRED, DATA IS UNCONFIRMED Confirmed by Eliazar Arias ([id number]), slot editor SHARDA BRISCOE ([id number]) on 05/12/2024 6:20:15 AM Referred By: Confirmed By:Eliazar Arias
[2024-05-10] MEDS: Potassium Chloride 10mEq/100mL 10 MEQ/100 ML IV.SOLN. 100 MEQ IV BOLUS ×2 (20:50→23:27)
[2024-05-10] MEDS: Tamsulosin HCl 0.4 MG Capsule 0.8 MG PO (21:42)
[2024-05-10] MEDS: Sertraline 50 MG Tablet PO (21:42)
[2024-05-10] MEDS: Atorvastatin Calcium 80 MG Tablet PO (21:42)
[2024-05-10] MEDS: Pantoprazole Sodium 40 MG in 0.9% Normal Saline (100mL MB+) 100 ML 330 MG IV (21:43)
[2024-05-10] MEDS: Gabapentin 600 MG Tablet PO (21:43)
[2024-05-10] MEDS: Metoprolol Tartrate 25 MG Tablet PO (21:43)
[2024-05-10 22:22] LABS: Hematocrit 22.3 % (40-54); Hemoglobin 6.1 g/dL (13.0-16.5)
[2024-05-10 22:38] LABS: Troponin-I HS 8 pg/mL (3.0-78.0)
[2024-05-11] VITALS (16 sets, daily range): BP systolic 92–125; BP diastolic 53–73; PULSE 47–68; RESP 16–19; TEMP 35.6–36.7; O2SAT 95–99; BMI 27.4
[2024-05-11] MEDS: Potassium Chloride 10mEq/100mL 10 MEQ/100 ML IV.SOLN. 100 MEQ IV BOLUS ×2 (01:02→02:19)
--- NOTE | 2024-05-11 02:33 | PCM.HOSP.N ---
Hospitalist Note Hgb repeat 6.1, will administer 2 u PRBC with planned repeat CBC in AM. Noted pending guiac per admission physician and patient already maintained on IV PPI.
[2024-05-11 03:02] LABS: Absolute Lymphocyte Count 1.35 X10^3/uL (0.83-4.51); Absolute Neutrophil Count 4.9 X10^3/uL (2.0-7.7); Basophil# 0.05 X10^3/uL; Basophil% 0.7 % (0-1); Eosinophil# 0.36 X10^3/uL; Hematocrit 21.6 % (40-54); Lymphocyte # 1.35 X10^3/ul (0.83-4.51); Lymphocyte % 18.6 % (19-41); Mean Corp Hgb Conc 27.3 g/dL (32-36); Mean Corpuscular Hgb 18.8 pg (27.0-32.0); Mean Corpuscular Volume 68.8 fL (80-94); Mean Platelet Vol. 9.4 fl (6.2-12.0); Monocyte# 0.58 X10^3/uL; NRBC Flagged by Analyzer 0 % (0-5); Neutrophil % 67.3 % (47-70); POSITIVE COUNT YES; Platelet Count 305 K/mm3 (150-450); RBC Distribution Width CV 18.8 % (11.6-14.6); RBC Distribution Width SD 46.5 fl (35.1-43.9); Red Blood Count 3.14 M/mm3 (4.6-6.2); White Blood Count 7.3 K/mm3 (4.4-11.0)
[2024-05-11 03:07] LABS: Differential Indicated SCAN CRITERIA MET; Hemoglobin 5.9 g/dL (13.0-16.5)
[2024-05-11 03:27] LABS: Anion Gap 5 (5-15); BUN 12 mg/dL (7-18); BUN/Creat Ratio 13.5 RATIO (10-20); Calcium,Total 7.9 mg/dL (8.5-10.1); Chloride 111 mmol/L (98-107); Creatinine, Serum 0.89 mg/dL (0.70-1.30); EST Glomerular Filtration Rate 91 mL/min (>60); Est Glom Filt Rate - Afr Amer 111 mL/min (>60); Estimated Creatinine Clearance 85.44 ml/min; Glucose 83 mg/dL (74-106); Sodium Level 141 mmol/L (136-145); Thyroid Stim Hormone (TSH) 0.69 uIU/mL (0.358-3.74)
[2024-05-11 04:09] LABS: Ovalocyte RARE
[2024-05-11] MEDS: Gabapentin 600 MG Tablet PO ×3 (06:43→21:15)
[2024-05-11] MEDS: Metoprolol Tartrate 25 MG Tablet PO ×2 (09:43→21:16)
[2024-05-11] MEDS: Finasteride 5 MG Tablet PO (09:44)
[2024-05-11] MEDS: Pantoprazole Sodium 40 MG in 0.9% Normal Saline (100mL MB+) 100 ML 330 MG IV ×2 (10:51→21:16)
--- NOTE | 2024-05-11 12:15 | RAD_ITS ---
STUDY: X-RAY - ABDOMEN/PELVIS REASON FOR EXAM: Male, 63 years old. Lower abdominal pain TECHNIQUE: Single AP view of the abdomen / pelvis. COMPARISON: None. FINDINGS: Normal visualized lung bases. There is a moderate amount of colonic fecal material. The visualized liver, spleen and kidneys are grossly normal in size and morphology. Normal soft tissue structures. There are diffuse degenerative changes of the visualized lumbar spine. RAD/Abdomen Single View (Portable) IMPRESSION: Moderate amount of fecal material is seen in the colon. Electronically Signed: Navi Velazco MD at 12:48 EDT ,
[2024-05-11 12:23] LABS: Hematocrit 30.4 % (40-54); Hemoglobin 8.8 g/dL (13.0-16.5)
[2024-05-11 14:52] LABS: Pathologist Review Reviewed
[2024-05-11] MEDS: Bisacodyl 5 MG Tablet 10 MG PO (15:24)
--- NOTE | 2024-05-11 15:38 | CASEMGMT ---
MARCUS RODAS Assessment: Face to Face with pt for initial transition planning/care coordination assessment. MARCUS RODAS introduced self and role at [facility], pt voices understanding and consents to assessment. Pt is A&O x4 and answers all questions appropriately at this time. Pt lying in bed in no distress. Care providers, pharmacy, and demographics verified/updated. Admitting Dx: Chest Pain PCP: Ryan Specialists: Friend, Gastrologist; [facility] Preferred Pharmacy: [facility] Insurance: [employer] Prescription Benefit: yes LNOK: Annie - Significant Other Living Arrangements: Pt lives with SO in an apartment with 1 step to enter. Pt states I with ADLs, Annie helps him with IADLs when needed. Transportation: Pt states Annie drives him to appts and where he needs to go. DME: Shower chair, cane, walker, grab bars. HHC/SNF: States previously used SNF does not recall name of facility, previously used [facility] and [facility]. Pt states no concerns with going home at time of dc. Pt states no further concerns/needs. CM to follow. Advised pt to ask CM if any further question/concerns/needs arise, voices understanding. Pt Goal: Home with assistance from SO. Plan: Home, will follow plan of care. Camila VELAZQUEZ CM
--- NOTE | 2024-05-11 17:25 | PN.HOSP_ITS ---
Reason for Visit Reason for Visit: Diagnoses Hypotension, unspecified (05/11/24) Other chest pain (05/11/24) Subjective Subjective Patient was seen and examined today, he received packed red blood cells today, his last hemoglobin today was 8.8. Patient's cardiac enzymes remain normal, he has no complaints of any shortness of breath or chest pain. Patient is a poor informant, he cannot remember when he had his last colonoscopy-it appears he had an EGD performed here in December, 2 bleeding angiodysplastic lesions were noted in the duodenum, these were treated with a heater probe. Patient states he cannot tell his stool color because he has poor eyesight due to his stroke. Objective Data Objective Data Vital Signs: Vital Signs Temp Pulse Resp BP Pulse Ox O2 Del Method 97.4 F L 54 L 16 108/55 L 97 Room Air 05/11/24 14:24 05/11/24 14:24 05/11/24 14:24 05/11/24 14:24 05/11/24 14:24 05/11/24 14:30 Oxygen Delivery Method Room Air Weight: 86.8 kg Body Mass Index (BMI) 27.4 Intake & Output: Intake and Output for Last 24 Hours 05/09/24 05/10/24 05/11/24 23:59 23:59 23:59 Intake Total 1710 / 1830 1532 / 1532 Output Total 400 / 400 Balance 1710 / 1830 1132 / 1132 Lab / Micro Data 05/11/24 12:02 05/11/24 02:52 Labs: Laboratory Results - last 24 hr 05/10/24 15:12: Phosphorus 3.3, Magnesium 2.1 05/10/24 17:50: Troponin I High Sens 9 05/10/24 21:28: Hgb 6.1 L, Hct 22.3 L, Troponin I High Sens 8 05/11/24 02:52: WBC 7.3, RBC 3.14 L, Hgb 5.9 L*, Hct 21.6 L, MCV 68.8 L, MCH 18.8 L, MCHC 27.3 L, RDW Std Deviation 46.5 H, RDW Coeff of Renny 18.8 H, Plt Count 305, MPV 9.4, Immature Gran % (Auto) 0.400, Neut % (Auto) 67.3, Lymph % (Auto) 18.6 L, [place] % (Auto) 8.0, Eos % (Auto) 5.0, Baso % (Auto) 0.7, Absolute Neuts (auto) 4.9, Absolute Lymphs (auto) 1.35, Nucleated RBC % 0, Diff Path Review Reviewed, Ovalocytes RARE, Sodium 141, Potassium 4.0, Chloride 111 H, Carbon Dioxide 25.0, Anion Gap 5, BUN 12, Creatinine 0.89, Estim Creat Clear Calc 85.44, Est GFR (MDRD) Af Amer 111, Est GFR (MDRD) Non-Af 91, BUN/Creatinine Ratio 13.5, Glucose 83, Calcium 7.9 L, TSH 0.69, Blood Type B POSITIVE, Antibody Screen NEGATIVE, Crossmatch See Detail 05/11/24 12:02: Hgb 8.8 L, Hct 30.4 L Radiography Diagnostic Testing: Radiology Impression Chest CTA 05/10/24 16:14 IMPRESSION: No acute disease. No aneurysm or dissection. Calcific coronary artery disease. Gallstones. Electronically Signed: Emmett Funez MD at 17:39 EDT , KUB X-Ray 05/11/24 12:15 IMPRESSION: Moderate amount of fecal material is seen in the colon. Electronically Signed: Navi Velazco MD at 12:48 EDT , Rhythm Strip Rhythm Strip: Sinus Rhythm Rate: 63 Ectopy: None Physical Exam Const alert, oriented x3 and no apparent distress General Appearance: cooperative and well developed Orientation / Consciousness: awake, oriented to person, oriented to place and oriented to time HEENT normocephalic, head/scalp atraumatic and moist oral mucous membranes Eyes PERRL, EOMs intact bilaterally and conjunctivae normal Neck supple, no JVD, thyroid normal and no carotid bruits General: trachea midline Resp normal respiratory effort, no retractions, no use of accessory muscles and clear to auscultation bilaterally Auscultation: Negative for rales, rhonchi or wheezes Cardio regular rate, regular rhythm, S1 normal heart sound, S2 normal heart sound, no murmurs, no rub and no gallops GI normal to inspection, nondistended, normoactive bowel sounds, soft to palpation, non-tender and non-distended Extremity no clubbing, cyanosis or edema Skin no rashes or lesions noted General Skin Exam: no breakdown Neuro oriented x3, CN's II-XII intact bilaterally, moves all extremities, no focal motor deficits and no sensory deficits noted Sensorium / Orientation: awake and alert Speech: speech normal Psych affect normal Assessment & Plan Assessment/Plan (1) Chest pain, atypical: PLAN: Plan 1. Acute on chronic anemia-etiology unclear-requiring blood transfusion, patient will be seen by gastroenterology, most likely he will need endoscopic procedures. Patient's CBC will be repeated tonight. #2 coronary artery disease-antiplatelet meds are being held at this time #3 cerebrovascular disease-again patient's antiplatelet medications are being held at this time #4 hyperlipidemia-patient remains on Lipitor #5 chest pain-etiology unclear, patient does have a history of coronary artery disease, patient will not be able to undergo a stress test until his hemoglobin stabilizes. #6 ischemic cardiomyopathy-complicates care, management, recovery, and prognosis Total clinical time spent by myself addressing patient's medical issues, reviewing all of his data, and collaborating with patient's care team: 55 minutes Charges/Coding Visit Charges Inpatient E&M: 26002 Subs Hosp L2
--- NOTE | 2024-05-11 19:42 | EX.PCM.CON.G ---
HPI Consult Data Date of Consult: 05/11/24 HPI Narrative Reason for Consultation: Anemia HPI Narrative: PADDY DAVID, is a 63 M with multiple comorbidities including stroke, hypertension, CAD status post stent was brought to ED by EMS for chest pressure, felt like tightness/stabbing, with radiation to interscapular area, 5/10 intensity lasted for about half hour. Patient said it was associated with mild short of breath, dizzy lightheaded but no nausea or vomiting. As per patient's girlfriend, she said that he was feeling dizzy and lightheaded all throughout today and requires help getting out of the shower. No acute syncope. His blood pressure was low 79/55 x 2, 84/47 but improved in ED, most recent 147/50. Twelve-lead EKG shows normal sinus rhythm, 63 bpm, QTc 415 Patient is further admitted. I was called to see him for evaluation of worsening anemia .He is a smoker. He states he smokes as much as he can. He used to smoke several packs. He is down to half to 1 pack/day. He also complains of discoloration of his feet with burning of his feet. He is on gabapentin. Apparently has neuropathy. He denies nausea or vomiting. He denied diaphoresis. He does have dark stool. He will not endorse that it was maroon or black. He has had no vomiting. He denies blood in his urine. He denies bruising easily. He is on Plavix and aspirin according to significant other. He is not on an anticoagulant. I saw him previously back in July 2023 when he was admitted for evaluation of syncope, hypotension and dark stool most likely due to acute GI blood loss It was thought that his syncope and hypotension most likely due to acute GI blood loss/dual antiplatelet agent: Patient had drop in hemoglobin from 14.5 in May 20-8.6. It was 10.1 in June 2023. Patient was taken to endoscopy suite from ED. EGD reported oozing duodenal ulcer with visible vessel injected treated with heater probe. Erythematous mucosa in antrum biopsied. Normal esophagus.Patient hemoglobin continue to be low 7.4 therefore transfuse 1 unit of PRBC. He was supposed to follow-up with us for a colonoscopy. [facility] Medical History Smoker Myocardial infarct Hypertension Stroke/cerebrovascular accident Symptomatic anemia Ischemic cardiomyopathy Acute constipation Atherosclerotic heart disease of [place] coronary artery without angina pectoris BPH (benign prostatic hyperplasia) Tobacco use History of substance abuse Hyperlipidemia History of stroke H/O left bundle branch block Non-ST elevation [place] (NSTEMI) CVD (cerebrovascular disease) History of alcoholism Essential hypertension Home Medications ?Medication ?Instructions ?Recorded ?Last Taken ?Type tamsulosin 0.4 mg capsule (Flomax) 0.8 mg PO QHS prostate 12/11/21 03/08/24 History finasteride 5 mg tablet 5 mg PO DAILY prostate #30 tabs 05/15/23 03/09/24 Rx nitroglycerin 0.4 mg sublingual 0.4 mg sublingual Q5M PRN CHEST 05/15/23 Unknown Rx tablet PAIN #30 tabs aspirin 81 mg tablet,delayed 81 mg PO DAILY@0800 health 05/24/23 03/09/24 Rx release maintenance #90 tabs atorvastatin 80 mg tablet 80 mg PO QHS cholesterol #90 tabs 05/24/23 03/08/24 Rx clopidogrel 75 mg tablet 75 mg PO DAILY antiplatelet #90 05/24/23 03/09/24 Rx tabs lisinopril 5 mg tablet 5 mg PO DAILY BP #90 tabs 07/10/23 03/09/24 Rx pantoprazole 40 mg tablet,delayed 40 mg PO BIDCM stomach #60 tabs 01/05/24 03/09/24 Rx release (Protonix) acetaminophen 500 mg capsule 500 mg PO Q6H PRN pain 03/09/24 03/09/24 History gabapentin 600 mg tablet 600 mg PO TID 03/09/24 03/09/24 History metoprolol tartrate 25 mg tablet 25 mg PO BID 03/09/24 03/09/24 History omeprazole 20 mg tablet,delayed 20 mg PO DAILY PRN stomach upset 03/09/24 03/09/24 History release sertraline 50 mg tablet 50 mg PO QHS 03/09/24 03/09/24 History magnesium citrate 150 ml PO DAILY PRN constipation 04/16/24 Unknown Rx #296 mL sennosides 8.6 mg-docusate sodium 1 tab PO PRN 05/10/24 Unknown History 50 mg tablet (Stool Softener-Stimulant Laxative) Allergy/AdvReac Type Severity Reaction Status Date / Time No Known Allergies Allergy Verified 03/09/24 14:06 Family History Mother Diabetes Cancer Breast cancer Father Diabetes Cancer Brother Cancer Surgical History Stented coronary artery (06/16/23) History of creation of ostomy S/P percutaneous endoscopic gastrostomy (PEG) tube placement Hx of appendectomy Social History household members: significant other Smoking Status: Current every day smoker tobacco type: cigarettes alcohol intake: former details: Sober x 3 years. substance use type: former substance user Date of last use: Prior polysubstance abuse including cocaine, clean x 3 years. ROS ROS Narrative Constitutional: Reports fatigue and weakness. No fever. HEENT: No vertigo. Reports systems reviewed and no addt'l complaints, except as documented Respiratory/Chest: As described in HPI. No wheezing. CVS: As described in HPI Gastrointestinal:feels mild gas and discomfort. Denies coffee ground emesis, hematemesis or vomiting Genitourinary: Denies burning urination or new urinary tract symptoms Musculoskeletal: Mild weakness on the left side. Denies acute joint pain or limited range of motion. No acute injury Neurologic: Denies seizure-like symptoms. History of a stroke on the left side. skin: No ulcer. No rash Endocrinology: Reports systems reviewed and no addt'l complaints, except as documented Hematologic/Lymphatic: Reports systems reviewed and no addt'l complaints, except as documented Rest 14 ROS are negative except as mentioned in HPI Physical Exam Const alert, oriented x3 and no apparent distress General Appearance: cooperative and well developed Orientation / Consciousness: awake, oriented to person, oriented to place and oriented to time HEENT normocephalic, head/scalp atraumatic and moist oral mucous membranes Eyes PERRL, EOMs intact bilaterally and conjunctivae normal Neck supple, no JVD, thyroid normal and no carotid bruits General: trachea midline Resp normal respiratory effort, no retractions, no use of accessory muscles and clear to auscultation bilaterally Auscultation: Negative for rales, rhonchi or wheezes Cardio regular rate, regular rhythm, S1 normal heart sound, S2 normal heart sound, no murmurs, no rub and no gallops GI normal to inspection, nondistended, normoactive bowel sounds, soft to palpation, non-tender and non-distended Extremity no clubbing, cyanosis or edema Skin no rashes or lesions noted General Skin Exam: no breakdown Neuro oriented x3, CN's II-XII intact bilaterally, moves all extremities, no focal motor deficits and no sensory deficits noted Sensorium / Orientation: awake and alert Speech: speech normal Psych affect normal Lab / Micro Data 05/11/24 12:02 05/11/24 02:52 Labs: Laboratory Results - last 24 hr 05/10/24 21:28: Hgb 6.1 L, Hct 22.3 L, Troponin I High Sens 8 05/11/24 02:52: WBC 7.3, RBC 3.14 L, Hgb 5.9 L*, Hct 21.6 L, MCV 68.8 L, MCH 18.8 L, MCHC 27.3 L, RDW Std Deviation 46.5 H, RDW Coeff of Renny 18.8 H, Plt Count 305, MPV 9.4, Immature Gran % (Auto) 0.400, Neut % (Auto) 67.3, Lymph % (Auto) 18.6 L, [place] % (Auto) 8.0, Eos % (Auto) 5.0, Baso % (Auto) 0.7, Absolute Neuts (auto) 4.9, Absolute Lymphs (auto) 1.35, Nucleated RBC % 0, Diff Path Review Reviewed, Ovalocytes RARE, Sodium 141, Potassium 4.0, Chloride 111 H, Carbon Dioxide 25.0, Anion Gap 5, BUN 12, Creatinine 0.89, Estim Creat Clear Calc 85.44, Est GFR (MDRD) Af Amer 111, Est GFR (MDRD) Non-Af 91, BUN/Creatinine Ratio 13.5, Glucose 83, Calcium 7.9 L, TSH 0.69, Blood Type B POSITIVE, Antibody Screen NEGATIVE, Crossmatch See Detail 05/11/24 12:02: Hgb 8.8 L, Hct 30.4 L Rhythm Strip Rhythm Strip: Sinus Rhythm Rate: 63 Ectopy: None Imaging Radiology Impression KUB X-Ray 05/11/24 12:15 IMPRESSION: Moderate amount of fecal material is seen in the colon. Electronically Signed: Navi Velazco MD at 12:48 EDT , Assessment & Plan Assessment/Plan (1) Chest pain, atypical: (2) Hypotension: PLAN: Plan This is 63-year-old gentleman with history of CAD status post stent came with chest pain. Severe anemia with hypotension in ED with history of chronic essential hypertension: BP by EMS was 75/43, 80/44. Patient resuscitated well in ED. his hemoglobin dropped down to 5.9. He was transfused packed units of red blood cells and his hemoglobin is up to 8.1. We will schedule him for an upper endoscopy to evaluate his upper GI tract and if that is negative he will need a colonoscopy. He was explained alternatives, risk, benefits including outstanding bleeding, infection, sepsis, perforation, need for return to . He will have an ASA of 3. Charges/Coding Visit Charges Inpatient E&M: 79383 Init Hosp L3
[2024-05-11] MEDS: Sertraline 50 MG Tablet PO (21:15)
[2024-05-11] MEDS: Tamsulosin HCl 0.4 MG Capsule 0.8 MG PO (21:15)
[2024-05-11] MEDS: Atorvastatin Calcium 80 MG Tablet PO (21:15)
[2024-05-11 21:26] LABS: Hematocrit 29.6 % (40-54); Hemoglobin 8.7 g/dL (13.0-16.5)
[2024-05-12] VITALS (19 sets, daily range): BP systolic 112–153; BP diastolic 48–81; PULSE 45–57; RESP 13–18; TEMP 36.2–36.8; O2SAT 95–98; BMI 27.7
[2024-05-12 05:10] LABS: Absolute Lymphocyte Count 1.44 X10^3/uL (0.83-4.51); Absolute Neutrophil Count 4.1 X10^3/uL (2.0-7.7); Basophil% 1.5 % (0-1); Eosinophil# 0.54 X10^3/uL; Eosinophils% 7.9 % (0-5); Hematocrit 30.4 % (40-54); Hemoglobin 8.9 g/dL (13.0-16.5); Lymphocyte # 1.44 X10^3/ul (0.83-4.51); Mean Corp Hgb Conc 29.3 g/dL (32-36); Mean Corpuscular Hgb 21.5 pg (27.0-32.0); Mean Corpuscular Volume 73.4 fL (80-94); Mean Platelet Vol. 9.9 fl (6.2-12.0); Monocyte# 0.64 X10^3/uL; Monocyte% 9.3 % (0-10); NRBC Flagged by Analyzer 0 % (0-5); Neutrophil # 4.13 X10^3/uL (2.7-7.7); POSITIVE MORPHOLOGY YES; Platelet Count 304 K/mm3 (150-450); RBC Distribution Width SD 55.1 fl (35.1-43.9); Red Blood Count 4.14 M/mm3 (4.6-6.2); White Blood Count 6.9 K/mm3 (4.4-11.0)
[2024-05-12 05:20] LABS: International Normalized Ratio 1.1; Prothrombin Time (Protime)PT. 14.3 SECONDS (11.7-14.9)
[2024-05-12 05:21] LABS: Partial Thromboplast Time 27.5 Seconds (24.1-36.2)
[2024-05-12 05:27] LABS: AST(SGOT) 14 U/L (15-37); Alanine Aminotransfer ALT/SGPT 16 U/L (16-61); Anion Gap 4 (5-15); BUN 10 mg/dL (7-18); BUN/Creat Ratio 11.2 RATIO (10-20); Calcium,Total 8.3 mg/dL (8.5-10.1); Chloride 109 mmol/L (98-107); Creatinine, Serum 0.89 mg/dL (0.70-1.30); EST Glomerular Filtration Rate 91 mL/min (>60); Est Glom Filt Rate - Afr Amer 110 mL/min (>60); Estimated Creatinine Clearance 92.32 ml/min; Glucose 94 mg/dL (74-106); Potassium 3.8 mmol/L (3.5-5.1); Sodium Level 141 mmol/L (136-145)
--- NOTE | 2024-05-12 05:55 | EKG12_ITS ---
Test Reason : PRE OP Blood Pressure : / mmHG Vent. Rate : 049 BPM Atrial Rate : 049 BPM P-R Int : 198 ms QRS Dur : 116 ms QT Int : 436 ms P-R-T Axes : 035 004 087 degrees QTc Int : 393 ms Sinus bradycardia Anterior infarct , age undetermined Abnormal ECG When compared with ECG of 10-MAY-2024 20:16, MANUAL COMPARISON REQUIRED, DATA IS UNCONFIRMED Confirmed by MAIA ZAYAS, ADAMARIS ([id number]), newspaper photo editor SHARDA BRISCOE ([id number]) on 05/17/2024 10:57:09 A M Referred By: Confirmed By:LUCIANA CARVALHO MD
[2024-05-12 06:10] LABS: Differential Indicated SCAN CRITERIA MET
[2024-05-12 07:33] LABS: Anisocytosis 1+
[2024-05-12] MEDS: Pantoprazole Sodium 40 MG in 0.9% Normal Saline (100mL MB+) 100 ML 330 MG IV ×2 (09:31→21:25)
--- NOTE | 2024-05-12 10:37 | PRE.ANES_ITS ---
ASA Classification* ASA Classification ASA Classification: 3 and E Assessment & Plan Anesthesia* Anesthesia Assessment Anesthesia Assessment: Discussed sedation and/or anesthesia options, risks, benefits, and alternatives with patient/parents/legal guardian/POA. Questions invited. The patient/parents/legal guardian/POA seems to understand and agrees to proceed with anesthesia plan. Reviewed the physical assessment, medical history, allergy history and patient home medications list prior to surgery/procedure/anesthetic and documented any changes. Performed airway and anesthesia risk assessments. Anesthesia Type Anesthesia Type: MAC (see written pre anesthesia record for full assessment) Anesthesia Focused Assessment* Temperature: 97.6 F Pulse Rate: 51 Blood Pressure: 140/76 Respiratory Rate: 18 Pulse Ox: 97 Airway Assessment Mouth opens: >3 cm Mallampati Score: II Focused Labs Anesthesia Preop lab: CBC WBC 6.9 K/mm3 (4.4-11.0) 05/12/24 04:20 RBC 4.14 M/mm3 (4.6-6.2) L 05/12/24 04:20 Hgb 8.9 g/dL (13.0-16.5) L 05/12/24 04:20 Hct 30.4 % (40-54) L 05/12/24 04:20 Plt Count 304 K/mm3 (150-450) 05/12/24 04:20 CHEMISTRY Potassium 3.8 mmol/L (3.5-5.1) 05/12/24 04:20 Sodium 141 mmol/L (136-145) 05/12/24 04:20 Magnesium 2.1 mg/dL (1.6-2.6) 05/10/24 15:12 Phosphorus 3.3 mg/dL (2.5-4.9) 05/10/24 15:12 BUN 10 mg/dL (7-18) 05/12/24 04:20 Creatinine 0.89 mg/dL (0.70-1.30) 05/12/24 04:20 Glucose 94 mg/dL (74-106) 05/12/24 04:20 POC Glucose 134 mg/dL (74-106) H 05/14/23 12:58 TSH 0.69 uIU/mL (0.358-3.74) 05/11/24 02:52 COAG PT 14.3 SECONDS (11.7-14.9) 05/12/24 04:20 Pre-Assessment Diagnosis/Proposed Procedure Planned Operative Procedure(s): egd Anesthesia History Anesthesia History - chemist water purification: Anesthesia History - chemist water purification Hx Hospitalization Any Problems With Anesthesia No 05/12/24 09:35 Cholinesterase deficiency No 05/12/24 09:35 You/Your Family Experience No 05/12/24 09:35 fever (hyperthermia) with Relationship Recent Exposure to Contagious No 05/12/24 09:35 Disease Does patient have nerve No 05/12/24 09:35 stimulator Patient instructed to have device shut off --Does patient have Pacemaker No 05/12/24 09:35 or ICD? When Was Last Pacemaker Check QUESTION #4 FULL TEXT: You/Your Family Experience fever (hyperthermia) with Anesthesia Last Oral Intake Last Oral intake: Last Oral Intake NPO since 00:00 05/12/24 09:35 Meds taken in AM with sips of water? Meds patient instructed to take am of surgery PONV PONV - chemist water purification: PONV - chemist water purification Female HX of Motion Sickness HX of N/V After Surgery Non-Smoker Duration of Surgery greater than 60 minutes Number of Risk Factors PONV Score Height & Weight Height & Weight: Anesthesia: Height & Weight Height 5 ft 10 in 05/10/24 18:06 Weight: 86 kg 05/12/24 09:35 Body Mass Index (BMI) 27.7 05/12/24 04:12 Respiratory Assessment Respiratory Assessment - chemist water purification: Respiratory Tract Infection Hx - chemist water purification Hx Respiratory Tract Infection No 05/12/24 09:35 STOP Sleep Apnea STOP Sleep Apnea - chemist water purification: STOP Sleep Apnea - chemist water purification Hx Hypertension Yes 05/11/24 11:00 Hx Sleep Apnea No 05/10/24 18:09 CPAP BIPAP Do you snore loudly (louder Yes 05/10/24 18:09 than talking or can be heard Do you often feel tired/ Yes 05/10/24 18:09 fatigued/ sleepy during daytime? Has anyone observed you stop No 05/10/24 18:09 breathing during sleep? STOP Results Positive 05/10/24 18:09 QUESTION #5 FULL TEXT : Do you snore loudly (louder than talking or can be heard through closed doors)? Tobacco Use History Tobacco Use History - chemist water purification: Tobacco Use History - chemist water purification Tobacco Use Cigarettes 12/11/21 07:56 Smoking Status Current every day smoker 05/11/24 05:16 Hx Tobacco Use Yes 05/10/24 18:09 Years Smoking Packs Smoked per Day Smoking Cessation Date was within the last 15 years Hx Smoking Cessation Date Hx Smoking Cessation No 05/10/24 18:09 Counseling Hematologic Medial History Hematologic Hx - chemist water purification: Hematologic Medical Hx - injection molder Hx of Blood Transfusion Yes 05/10/24 18:09 Hx of Transfusion in last 3 No 05/10/24 18:09 Months Date of Last Transfusion (if within last 3 months) Ever experience any problems No 05/10/24 18:09 with transfusion(s)? Specify any problems Hx of Preganancy in last 3 N/A 05/10/24 18:09 Months Nurse Filling Out Transfusion FSTEINER 05/10/24 18:09 & Questions: Date: 05/10/24 05/10/24 18:09 Time: 18:10 05/10/24 18:09 Patient unable to answer at this time (ie. confused, unrespo /Reproduction History /Reproductive History - chemist water purification: /Reproductive Hx- chemist water purification Hx Now No 05/12/24 09:35 Gestational Age (in weeks): EDC: Hx Hx Para Hx Section SAB No 05/12/24 09:35 Active Medications Active Medications: Current Medications Generic Name Dose Route Start Last Admin Trade Name Freq PRN Reason Stop Dose Admin Acetaminophen 650 mg 05/10/24 18:07 Acetaminophen 325 Mg Tablet PO Q6H PRN PRN Pain 1-10 Or Fever>100.7 Acetaminophen 500 mg 05/10/24 18:59 Acetaminophen 500 Mg Tablet PO Q6H PRN PAIN 1-10 Atorvastatin Calcium 80 mg 05/10/24 22:00 05/11/24 21:15 Atorvastatin Calcium 80 Mg Tablet PO 80 mg QHS HARPREET Administration Finasteride 5 mg 05/11/24 10:00 05/11/24 09:44 Finasteride 5 Mg Tablet PO 5 mg DAILY HARPREET Administration Gabapentin 600 mg 05/10/24 22:00 05/12/24 05:49 Gabapentin 600 Mg Tablet PO Not Given TID HARPREET Glycerin/Hypromellose/Polyethylene 1 drp 05/11/24 14:38 Glycerin/Hypromellose/[id number] 15 Ml Bottle EACH EYE Q1H PRN DRY EYES Sodium Chloride 250 mls @ 15 mls/hr 05/10/24 18:08 IV .[id number] PRN Additional IVPB Infusion Sodium Chloride 250 mls @ 15 mls/hr 05/10/24 18:08 IV .[id number] PRN Saline Flush Pantoprazole Sodium 40 mg/ 110 mls @ 330 mls/hr 05/10/24 22:00 05/12/24 10:07 Sodium Chloride IV Infused Q12 HARPREET Infusion Metoprolol Tartrate 25 mg 05/10/24 22:00 05/11/24 21:16 Metoprolol Tartrate 25 Mg Tablet PO 25 mg BID HARPREET Administration Protocol Prochlorperazine Edisylate 5 mg 05/10/24 18:07 Prochlorperazine 10 Mg/2 Ml Vial IV Q4H PRN PRN Breakthrough Nausea/Vomiting Senna/Docusate Sodium 2 tablet 05/10/24 18:07 Senna/Docusate Sodium 1 Tablet PO BID PRN PRN Constipation Sertraline HCl 50 mg 05/10/24 22:00 05/11/24 21:15 Sertraline 50 Mg Tablet PO 50 mg QHS HARPREET Administration Sodium Chloride 10 - 40 ml 05/10/24 18:08 0.9% Saline Lock 10 Ml Syringe IV UD PRN SALINE FLUSH Tamsulosin HCl 0.8 mg 05/10/24 22:00 05/11/24 21:15 Tamsulosin Hcl 0.4 Mg Capsule PO 0.8 mg QHS HARPREET Administration PFSH Medical History Smoker Myocardial infarct Hypertension Stroke/cerebrovascular accident Symptomatic anemia Ischemic cardiomyopathy Acute constipation Atherosclerotic heart disease of [place] coronary artery without angina pectoris BPH (benign prostatic hyperplasia) Tobacco use History of substance abuse Hyperlipidemia History of stroke H/O left bundle branch block Non-ST elevation [place] (NSTEMI) CVD (cerebrovascular disease) History of alcoholism Essential hypertension Home Medications ?Medication ?Instructions ?Recorded ?Last Taken ?Type tamsulosin 0.4 mg capsule (Flomax) 0.8 mg PO QHS prostate 12/11/21 03/08/24 History finasteride 5 mg tablet 5 mg PO DAILY prostate #30 tabs 05/15/23 03/09/24 Rx nitroglycerin 0.4 mg sublingual 0.4 mg sublingual Q5M PRN CHEST 05/15/23 Unknown Rx tablet PAIN #30 tabs aspirin 81 mg tablet,delayed 81 mg PO DAILY@0800 health 05/24/23 03/09/24 Rx release maintenance #90 tabs atorvastatin 80 mg tablet 80 mg PO QHS cholesterol #90 tabs 05/24/23 03/08/24 Rx clopidogrel 75 mg tablet 75 mg PO DAILY antiplatelet #90 05/24/23 03/09/24 Rx tabs lisinopril 5 mg tablet 5 mg PO DAILY BP #90 tabs 07/10/23 03/09/24 Rx pantoprazole 40 mg tablet,delayed 40 mg PO BIDCM stomach #60 tabs 01/05/24 03/09/24 Rx release (Protonix) acetaminophen 500 mg capsule 500 mg PO Q6H PRN pain 03/09/24 03/09/24 History gabapentin 600 mg tablet 600 mg PO TID 03/09/24 03/09/24 History metoprolol tartrate 25 mg tablet 25 mg PO BID 03/09/24 03/09/24 History omeprazole 20 mg tablet,delayed 20 mg PO DAILY PRN stomach upset 03/09/24 03/09/24 History release sertraline 50 mg tablet 50 mg PO QHS 03/09/24 03/09/24 History magnesium citrate 150 ml PO DAILY PRN constipation 04/16/24 Unknown Rx #296 mL sennosides 8.6 mg-docusate sodium 1 tab PO PRN 05/10/24 Unknown History 50 mg tablet (Stool Softener-Stimulant Laxative) Allergy/AdvReac Type Severity Reaction Status Date / Time No Known Allergies Allergy Verified 03/09/24 14:06 Family History Mother Diabetes Cancer Breast cancer Father Diabetes Cancer Brother Cancer Surgical History Stented coronary artery (06/16/23) History of creation of ostomy S/P percutaneous endoscopic gastrostomy (PEG) tube placement Hx of appendectomy Social History household members: significant other Smoking Status: Current every day smoker tobacco type: cigarettes alcohol intake: former details: Sober x 3 years. substance use type: former substance user Date of last use: Prior polysubstance abuse including cocaine, clean x 3 years. Review of Systems (Anesthesia) ROS Narrative System reviewed and no additional complaints, except as documented.
--- NOTE | 2024-05-12 11:30 | EGD_PTH ---
PATIENT: PADDY DAVID LOC: [facility] U#:[id number] AGE/SX: 63/M ROOM: [facility] RE05/11/[address]: Dr. Palmer Uriarte DO : 1960 BED: 1 DIS: 05/13/2024 SPEC #: [id number] RECD: 05/12/24 18:20 STATUS: ALVERTO REGreer #: [id number] CAROLYN: 05/12/24 11:[address]: Isaiah Guerrero DEPT: SURGICAL PATHOLOGY RECD BY: Errol Ruvalcaba ENTERED: 05/15/24 08:41 SP TYPE: EGD BIOPSY LEÓN DR: DO Dr. Elia Reich MD M Gregory Barton, [place] Tissues: Duodenum, NOS Procedures: Surgery Specimen Level IV HEADER OPERATION: EGD with biopsy PRE-OP DIAGNOSIS: Anemia TISSUE SUBMITTED: Duodenal biopsy MICROSCOPIC DIAGNOSIS Duodenal biopsy: Fragments of duodenal mucosa, no pathologic diagnosis. / 05/16/2024 MICROSCOPIC DESCRIPTION Slides are reviewed. GROSS DESCRIPTION Received in fixative is one container labeled with the patient's name and designated Duodenal biopsy. The specimen consists of multiple irregular fragments of light [place] soft tissue that in aggregate measure 1.0 x 0.3 x 0.1 cm. The specimen is totally submitted in one cassette. / 05/15/2024 TC:4 CPT:30128
--- NOTE | 2024-05-12 13:15 | PCM.POST.ANE ---
Anesthesia: Postop Eval I Current Vital Signs Temperature: 97.2 F Pulse Rate: 57 Blood Pressure: 131/59 Respiratory Rate: 13 Pulse Ox: 97 Oxygen Delivery Method: Room Air Assessment Airway patent: Yes Spontaneous unlabored respirations: Yes Mental status: Awake and Calm nausea: No Vomiting: No Anesthesia Complication: No Fluid Hydration Crystalloid volume administer (ml): 400 Total IV fluid infused: 400 Progress Note Anesthesia document: Postop Eval 1 completed: Yes
--- NOTE | 2024-05-12 13:35 | OP.EGD_ITS ---
Patient Name: Eliazar Dick Procedure Date: 05/12/2024 12:48 PM Date of : 1960 Age: 63 Procedure: Upper GI endoscopy Indications: Iron deficiency anemia Providers: Isaiah Guerrero DO Medicines: Monitored Anesthesia Care Patient Profile: This is a 63 year old male. Refer to note in patient chart for documentation of history and physical. Patient has symptoms of acute dyspepsia. Complications: No immediate complications. Procedure: Pre-Anesthesia Assessment: - Prior to the procedure, a History and Physical was performed, and patient medications and allergies were reviewed. The risks and benefits of the procedure and the sedation options and risks were discussed with the patient. All questions were answered and informed consent was obtained. Patient identification and proposed procedure were verified by the physician in the pre-procedure area. Mental Status Examination: alert and oriented. Airway Examination: normal oropharyngeal airway and neck mobility. Respiratory Examination: clear to auscultation. CV Examination: normal. Prophylactic Antibiotics: The patient does not require prophylactic antibiotics. Prior Anticoagulants: The patient has taken no anticoagulant or antiplatelet agents. After reviewing the risks and benefits, the patient was deemed in satisfactory condition to undergo the procedure. The anesthesia plan was to use monitored anesthesia care (MAC). Immediately prior to administration of medications, the patient was re-assessed for adequacy to receive sedatives. The heart rate, respiratory rate, oxygen saturations, blood pressure, adequacy of pulmonary ventilation, and response to care were monitored throughout the procedure. The physical status of the patient was re-assessed after the procedure. After obtaining informed consent, the endoscope was passed under direct vision. Throughout the procedure, the patient's blood pressure, pulse, and oxygen saturations were monitored continuously. The gastroscope was introduced through the mouth, and advanced to the second part of duodenum. The upper GI endoscopy was accomplished without difficulty. The patient tolerated the procedure well. Scope In: 1:06:12 PM Scope Out: 1:10:57 PM Total Procedure Duration Time 0 hours 4 minutes 45 seconds Findings: The examined esophagus was normal. The entire examined stomach was normal. Patchy mild inflammation characterized by congestion (edema) was found in the first portion of the duodenum. Biopsies were taken with a cold forceps for histology. Verification of patient identification for the specimen was done. Estimated blood loss was minimal. Impression: - Normal esophagus. - Normal stomach. - Chronic duodenitis. Biopsied. Recommendation: - Return patient to [facility] for ongoing care. - Resume regular diet. - Continue present medications. - Await pathology results. - Colonoscopy Procedure Code(s): --- Professional --- 18840, Esophagogastroduodenoscopy, flexible, transoral; with biopsy, single or multiple CPT copyright 2021 [employer]. All rights reserved. The codes documented in this report are preliminary and upon livestock exhibitor review may be revised to meet current compliance requirements. Isaiah Guerrero DO 05/12/2024 1:35:29 PM This report has been signed electronically. Number of Addenda: 0 Note Initiated On: 05/12/2024 12:48 PM
--- NOTE | 2024-05-12 13:36 | OP.CCLET_ITS ---
05/12/2024 Anuradha Davis Re : Upper GI endoscopy procedure for Eliazar Dick Dear Ryan This procedure was performed on Sunday, May 12, 2024. My impressions and recommendations are as follows: Impressions : - Normal esophagus. - Normal stomach. - Chronic duodenitis. Biopsied. Recommendations : - Return patient to [facility] for ongoing care. - Resume regular diet. - Continue present medications. - Await pathology results. - Colonoscopy My findings are described in the full procedure note, which is enclosed. If I can be of further assistance, please feel free to contact me at . Sincerely, Isaiah Guerrero, 05/12/2024 1:35:29 PM This report has been signed electronically.
[2024-05-12] MEDS: Gabapentin 600 MG Tablet PO ×2 (13:58→21:20)
[2024-05-12] MEDS: Metoprolol Tartrate 25 MG Tablet PO ×2 (13:58→21:20)
[2024-05-12] MEDS: Finasteride 5 MG Tablet PO (13:58)
--- NOTE | 2024-05-12 14:44 | PCM.POSTANE2 ---
Anesthesia Postop Eval I Sum Postop Eval Completion status Anesthesia document: Postop Eval 1 completed: Yes Anesthesia Postop Eval I Summary Anesthesia Postop Eval I Summary: Anesthesia Postop Eval I: Assessment Summary Airway patent Yes 05/12/24 13:18 Spontaneous unlabored Yes 05/12/24 13:18 respirations Mental status Awake,Calm 05/12/24 13:18 nausea No 05/12/24 13:18 Vomiting No 05/12/24 13:18 Anesthesia Postop Eval I: Fluid Summary Crystalloid volume administer 400 05/12/24 13:18 (ml) Colloids volume administered ( ml) Blood Product volume administered (ml) Total IV fluid infused 400 05/12/24 13:18 Anesthesia Postop Eval I: Summary Notes Anesthesia Complication No 05/12/24 13:18 Anesthesia Complication Comment: Post-operative progress note Anesthesia: Postop Eval II Evaluation Mental status: Awake and Calm Pain Level: 0 nausea: No Vomiting: No Complications Anesthesia Complication: No
--- NOTE | 2024-05-12 16:37 | PN.HOSP_ITS ---
Reason for Visit Reason for Visit: Diagnoses Hypotension, unspecified (05/11/24) Other chest pain (05/11/24) Subjective Subjective Patient was seen and examined today, his hemoglobin appears to be stable at this time but is not above 9. Patient is EGD today showed a normal esophagus stomach and evidence of chronic duodenitis. No active bleeding was seen. I have decided to transfuse the patient 1 unit of packed red blood cells and order a nuclear stress test for him tomorrow to rule out reversible ischemia. Objective Data Objective Data Vital Signs: Vital Signs Temp Pulse Resp BP Pulse Ox O2 Del Method 98.1 F 47 L 18 141/69 H 98 Room Air 05/12/24 15:05 05/12/24 15:05 05/12/24 15:05 05/12/24 15:05 05/12/24 15:05 05/12/24 15:05 Oxygen Delivery Method Room Air Weight: 86 kg Body Mass Index (BMI) 27.7 Intake & Output: Intake and Output for Last 24 Hours 05/10/24 05/11/24 05/12/24 23:59 23:59 23:59 Intake Total 1710 / 1830 1642 / 1842 310 / 310 Output Total 400 / 400 200 / 200 Balance 1710 / 1830 1242 / 1442 110 / 110 Lab / Micro Data 05/12/24 04:20 05/12/24 04:20 Labs: Laboratory Results - last 24 hr 05/11/24 02:52: Crossmatch See Detail 05/11/24 21:12: Hgb 8.7 L, Hct 29.6 L 05/12/24 04:20: WBC 6.9, RBC 4.14 L, Hgb 8.9 L, Hct 30.4 L, MCV 73.4 L D, MCH 21.5 L, MCHC 29.3 L D, RDW Std Deviation 55.1 H, RDW Coeff of Renny 21.0 H, Plt Count 304, MPV 9.9, Immature Gran % (Auto) 0.300, Neut % (Auto) 60.0, Lymph % (Auto) 21.0, Logan % (Auto) 9.3, Eos % (Auto) 7.9 H, Baso % (Auto) 1.5 H, Absolute Neuts (auto) 4.1, Absolute Lymphs (auto) 1.44, Nucleated RBC % 0, Anisocytosis 1+, PT 14.3, INR 1.1, APTT 27.5, Sodium 141, Potassium 3.8, C hloride 109 H, Carbon Dioxide 28.0, Anion Gap 4 L, BUN 10, Creatinine 0.89, Estim Creat Clear Calc 92.32, Est GFR (MDRD) Af Amer 110, Est GFR (MDRD) Non-Af 91, BUN/Creatinine Ratio 11.2, Glucose 94, Calcium 8.3 L, AST 14 L, ALT 16 Micro: Microbiology 05/11/24 19:15 Stool Stool Occult Blood (CARIDAD) - Final Occult Blood Positive Rhythm Strip Rhythm Strip: Sinus Rhythm Rate: 63 Ectopy: None Physical Exam Narrative Physical Exam Const alert, oriented x3 and no apparent distress General Appearance: cooperative and well developed Orientation / Consciousness: awake, oriented to person, oriented to place and oriented to time HEENT normocephalic, head/scalp atraumatic and moist oral mucous membranes Eyes PERRL, EOMs intact bilaterally and conjunctivae normal Neck supple, no JVD, thyroid normal and no carotid bruits General: trachea midline Resp normal respiratory effort, no retractions, no use of accessory muscles and clear to auscultation bilaterally Auscultation: Negative for rales, rhonchi or wheezes Cardio regular rate, regular rhythm, S1 normal heart sound, S2 normal heart sound, no murmurs, no rub and no gallops GI normal to inspection, nondistended, normoactive bowel sounds, soft to palpation, non-tender and non-distended Extremity no clubbing, cyanosis or edema Skin no rashes or lesions noted General Skin Exam: no breakdown Neuro oriented x3, CN's II-XII intact bilaterally, moves all extremities, no focal motor deficits and no sensory deficits noted Sensorium / Orientation: awake and alert Speech: speech normal Assessment & Plan Assessment/Plan (1) Chest pain, atypical: PLAN: Plan 1. Acute on chronic anemia-etiology unclear-requiring blood transfusion, etiology appears to be duodenitis, patient will remain on a PPI #2 coronary artery disease-antiplatelet meds are being held at this time due to GI bleeding #3 cerebrovascular disease-again patient's antiplatelet medications are being held at this time #4 hyperlipidemia-patient remains on Lipitor #5 chest pain-etiology unclear, patient does have a history of coronary artery disease, patient will undergo transfusion of 1 unit of packed cells today, he will undergo a resting pharmacological nuclear stress test tomorrow #6 ischemic cardiomyopathy-complicates care, management, recovery, and prognosis Total clinical time spent by myself addressing patient's medical issues, reviewing all of his data, and collaborating with patient's care team: 35 minutes Charges/Coding Visit Charges Inpatient E&M: 21879 Subs Hosp L2
[2024-05-12] MEDS: Atorvastatin Calcium 80 MG Tablet PO (21:20)
[2024-05-12] MEDS: Sertraline 50 MG Tablet PO (21:20)
[2024-05-12] MEDS: Tamsulosin HCl 0.4 MG Capsule 0.8 MG PO (21:20)
[2024-05-13 03:20] VITALS: BP 109/57; PULSE 54; RESP 18; TEMP 36.7; O2SAT 97
--- NOTE | 2024-05-13 05:00 | EKG12_ITS ---
Test Reason : STRESS TEST Blood Pressure : / mmHG Vent. Rate : 047 BPM Atrial Rate : 047 BPM P-R Int : 190 ms QRS Dur : 112 ms QT Int : 462 ms P-R-T Axes : 027 019 065 degrees QTc Int : 408 ms Sinus bradycardia Anterior infarct , age undetermined Abnormal ECG When compared with ECG of 12-MAY-2024 05:17, MANUAL COMPARISON REQUIRED, DATA IS UNCONFIRMED Confirmed by MAIA ZAYAS, ADAMARIS ([id number]), editorial director KENNETH CONTRERAS ([id number]) on 05/17/2024 10:05:00 AM Referred By: Confirmed By:LUCIANA CARAVLHO MD
[2024-05-13 06:19] LABS: Absolute Lymphocyte Count 1.15 X10^3/uL (0.83-4.51); Absolute Neutrophil Count 4.4 X10^3/uL (2.0-7.7); Basophil% 1.5 % (0-1); Eosinophil# 0.53 X10^3/uL; Eosinophils% 7.7 % (0-5); Hematocrit 34.8 % (40-54); Hemoglobin 10.2 g/dL (13.0-16.5); Lymphocyte # 1.15 X10^3/ul (0.83-4.51); Lymphocyte % 16.7 % (19-41); Mean Corp Hgb Conc 29.3 g/dL (32-36); Mean Corpuscular Hgb 22.1 pg (27.0-32.0); Mean Corpuscular Volume 75.5 fL (80-94); Mean Platelet Vol. 9.5 fl (6.2-12.0); Monocyte# 0.66 X10^3/uL; Monocyte% 9.6 % (0-10); NRBC Flagged by Analyzer 0 % (0-5); Neutrophil # 4.43 X10^3/uL (2.7-7.7); Neutrophil % 64.2 % (47-70); POSITIVE MORPHOLOGY YES; Platelet Count 280 K/mm3 (150-450); RBC Distribution Width CV 21.7 % (11.6-14.6); RBC Distribution Width SD 57.8 fl (35.1-43.9); Red Blood Count 4.61 M/mm3 (4.6-6.2); White Blood Count 6.9 K/mm3 (4.4-11.0)
[2024-05-13 06:23] VITALS: BP 125/63; PULSE 48; RESP 18; TEMP 36.8; O2SAT 97
[2024-05-13 06:29] LABS: Differential Indicated SCAN CRITERIA MET
[2024-05-13 07:03] LABS: ALB/GLOB Ratio 0.9 RATIO (0.9-2.4); AST(SGOT) 16 U/L (15-37); Alanine Aminotransfer ALT/SGPT 19 U/L (16-61); Albumin, Serum 3.1 g/dL (3.2-5.0); Alkaline Phosphatase 72 U/L (45-117); Anion Gap 3 (5-15); BUN 10 mg/dL (7-18); BUN/Creat Ratio 10.3 RATIO (10-20); Calcium,Total 8.3 mg/dL (8.5-10.1); Chloride 106 mmol/L (98-107); Creatinine, Serum 0.97 mg/dL (0.70-1.30); EST Glomerular Filtration Rate 83 mL/min (>60); Est Glom Filt Rate - Afr Amer 100 mL/min (>60); Estimated Creatinine Clearance 78.39 ml/min; Globulin 3.4 g/dL (2.2-4.2); Glucose 96 mg/dL (74-106); Potassium 3.8 mmol/L (3.5-5.1); Protein, Total 6.5 g/dL (6.4-8.2); Sodium Level 138 mmol/L (136-145)
[2024-05-13 09:56] VITALS: BP 140/71; PULSE 51; RESP 16; TEMP 36.6; O2SAT 96
[2024-05-13] MEDS: Finasteride 5 MG Tablet PO (10:05)
[2024-05-13] MEDS: Acetaminophen 325 MG Tablet 650 MG PO (10:05)
[2024-05-13] MEDS: Pantoprazole Sodium 40 MG in 0.9% Normal Saline (100mL MB+) 100 ML 330 MG IV (10:10)
[2024-05-13 11:25] VITALS: BMI 27.1
--- NOTE | 2024-05-13 13:17 | STRESSREP_ITS ---
Stress Test Report Date: 05/13/2024 Procedure: Pharmacologic stress nuclear imaging study Indications: Chest pain Consent: Per the patient Procedure: The patient underwent pharmacologic (Regadenoson) evaluation with a peak heart rate of 70 beats per minute (45% predicted maximal heart rate) and a peak blood pressure of 128/78 mmHg. The baseline ECG demonstrated normal sinus rhythm. EKG during lexiscan infusion revealed no significant ischemic changes. EKG post infusion revealed no significant ischemic changes [There were no cardiac dysrhythmias pretest, during pharmacologic infusion, or recovery]. [There was no complaint of chest discomfort during pharmacologic infusion or recovery]. The examination was discontinued secondary to completion of protocol. Impression: 1. Lexiscan stress test test is negative for Lexiscan infusion induced EKG changes of ischemia. 2. Lexiscan stress test test is negative for Lexiscan infusion induced chest pain. 3. Results of the nuclear portion of the test is as below Myocardial perfusion imaging study: Technique: The patient was injected with 12 millicuries of technetium 99m Cardiolite and subsequently rest SPECT Cardiolite nuclear imaging was obtained in the horizontal long, vertical long, and short axis views. The patient underwent pharmacologic [Regadenoson 0.4mg] evaluation. Please see above for details. The patient was injected with 35.6 millicuries of technetium 99m Cardiolite and subsequently stress SPECT Cardiolite nuclear imaging was obtained in the horizontal long, vertical long, and short axis views. A gated Cardiolite study at peak stress was obtained. Interpretation: Rest and stress SPECT Cardiolite nuclear imaging status post realignment, normalization, and attenuation correction demonstrate mild fixed defect in the apex. No significant reversibility suggestive of significant ischemia. Gated images reveal mild apical hypokinesis. The reported LVEF is 58%. No evidence of significant ischemia. Possible prior apical myocardial infarction Impression: 1. There is no evidence of significant ischemia. 2. Estimated ejection fraction is 58%. This note was generated with [employer] software. It may contain incorrect words, spelling, and punctuation that were not noted in checking the note before signing.
[2024-05-13 14:28] VITALS: O2SAT 96
--- NOTE | 2024-05-13 14:33 | PCM.DC ---
Discharge Instructions Diet Discharge Diet: No restrictions Activity Discharge Activity: Return to Normal Activity Weight Bearing Status: Full weight bearing Follow Up Care Test Results: Test results from this visit will be discussed in further detail at your follow-up appointment, if applicable. Discharge Plan Admission Admit Date/Time: 05/11/24 14:49 Primary Reason for Your Visit: chest pain, anemia Attending Provider: Palmer Uriarte Primary Care Provider: Anuradha Davis Consulting Providers: Elia Adam Discharge Orders/Prescriptions Prescriptions: New omeprazole 40 mg capsule,delayed release(DR/EC) 40 mg PO DAILY Qty: 30 1RF Continued aspirin 81 mg tablet,delayed release (DR/EC) 81 mg PO DAILY@0800 Qty: 90 3RF atorvastatin 80 mg tablet 80 mg PO QHS Qty: 90 3RF clopidogrel 75 mg tablet 75 mg PO DAILY Qty: 90 3RF tamsulosin [Flomax] 0.4 mg capsule 0.8 mg PO QHS Patient Comments: Take 1 capsule by mouth daily at bedtime. lisinopril 5 mg tablet 5 mg PO DAILY Qty: 90 3RF Rx Instructions: Hold for SBP less than 130 mmHg nitroglycerin 0.4 mg Tablet, Sublingual 0.4 mg sublingual Q5M PRN (Reason: CHEST PAIN) Qty: 30 0RF finasteride 5 mg tablet 5 mg PO DAILY Qty: 30 0RF gabapentin 600 mg tablet 600 mg PO TID sertraline 50 mg tablet 50 mg PO QHS metoprolol tartrate 25 mg tablet 25 mg PO BID acetaminophen 500 mg capsule 500 mg PO Q6H PRN (Reason: pain) magnesium citrate Solution 150 ml PO DAILY PRN (Reason: constipation) Qty: 296 0RF sennosides-docusate sodium [Stool Softener-Stimulant Laxat] 8.6-50 mg Tablet 1 tab PO PRN Discontinued pantoprazole [Protonix] 40 mg tablet,delayed release (DR/EC) 40 mg PO BIDCM Qty: 60 0RF omeprazole 20 mg tablet,delayed release (DR/EC) 20 mg PO DAILY PRN (Reason: stomach upset) Referrals / Follow Up: Stacy Grider MD [Med Staff - Active Staff] - See Referral Note (Next week, get another CBC performed to recheck your hemoglobin) Davis,M Nacho PA, PA [Primary Care Provider] - Disposition Disposition (needs filled in before D/C Order can be placed): Home, Self Care
--- NOTE | 2024-05-13 14:38 | PCM.DC.SUM ---
Providers Date of Admission: 05/11/24 Date of Discharge: 05/13/24 Primary Care Physician: SHAYE Urbano Consultations 05/11/24 12:06 Consult: Gastroenterology Routine Consulting Provider: Emy Gastroenter[facility] Reason for Consult: anemia EMERGENT Consult: No MD Notified: Yes Date Notified: 05/11/24 Time Notified: 13:17 Method of Notification: Text Reason For Visit: CHEST PAIN Diagnosis Discharge Diagnosis (1) Chest pain, atypical: Status: Acute Code(s): R07.89 - Other chest pain Plan 1. Acute on chronic anemia--requiring blood transfusion, etiology appears to be duodenitis, patient will remain on a PPI #2 coronary artery disease-antiplatelet meds are being held at this time due to GI bleeding #3 cerebrovascular disease-again patient's antiplatelet medications are being held at this time #4 hyperlipidemia-patient remains on Lipitor #5 chest pain-etiology unclear, patient does have a history of coronary artery disease, patient will undergo transfusion of 1 unit of packed cells today, he will undergo a resting pharmacological nuclear stress test tomorrow #6 ischemic cardiomyopathy-complicates care, management, recovery, and prognosis #7 chronic duodenitis #8 hypokalemia Total clinical time spent by myself addressing patient's medical issues, reviewing all of his data, and collaborating with patient's care team: 35 minutes Medications at Discharge Home Medications tamsulosin 0.4 mg capsule (Flomax) 0.8 mg PO QHS prostate 12/11/21 finasteride 5 mg tablet 5 mg PO DAILY prostate #30 tabs 05/15/23 nitroglycerin 0.4 mg sublingual tablet 0.4 mg sublingual Q5M PRN CHEST PAIN #30 tabs 05/15/23 aspirin 81 mg tablet,delayed release 81 mg PO DAILY@0800 health maintenance #90 tabs 05/24/23 atorvastatin 80 mg tablet 80 mg PO QHS cholesterol #90 tabs 05/24/23 clopidogrel 75 mg tablet 75 mg PO DAILY antiplatelet #90 tabs 05/24/23 lisinopril 5 mg tablet 5 mg PO DAILY BP #90 tabs 07/10/23 acetaminophen 500 mg capsule 500 mg PO Q6H PRN pain 03/09/24 gabapentin 600 mg tablet 600 mg PO TID nerve pain 03/09/24 metoprolol tartrate 25 mg tablet 25 mg PO BID blood pressure 03/09/24 sertraline 50 mg tablet 50 mg PO QHS mental health 03/09/24 magnesium citrate 150 ml PO DAILY PRN constipation #296 mL 04/16/24 sennosides 8.6 mg-docusate sodium 50 mg tablet (Stool Softener-Stimulant Laxative) 1 tab PO PRN laxative 05/10/24 omeprazole 40 mg capsule,delayed release 40 mg PO DAILY #30 caps 05/13/24 Hospital Course Operations None Procedures Blood transfusion, EGD and Stress test Summary of Care Provided Minutes Spent on Discharge: 31 Hospital Course: This 63-year-old white male was seen in the emergency room at [facility] with complaints of chest pain. Patient stated he was getting out of the shower and he had severe midsternal chest pain going into his shoulders, he also had a near syncopal episode. Patient also complained of shortness of breath. CBC performed in the emergency room showed normal white blood cell count, hemoglobin was low at 7.4, chemistry profile was remarkable for potassium of 2.9, patient's troponin was normal. Chest x-ray was normal. EKG showed no evidence of injury pattern. Patient was admitted to PCU, cardiac enzymes were obtained and remained normal. Repeat hemoglobin was noted to be low at 6.1, patient was transfused packed red blood cells, he was seen in consultation by gastroenterology who performed EGD which showed chronic duodenitis. Patient was given potassium replacement. Patient underwent a pharmacological nuclear stress test which was negative for reversible ischemia. On 05/13/2024, patient was seen and examined: On examination he appeared in good health and spirits. Vital signs as documented. Skin warm and dry and without overt rashes. Neck without JVD, neck was supple, trachea midline, thyroid was normal. Lungs clear bilaterally, normal air movement was noted. Heart exam notable for regular rhythm, normal sounds and absence of murmurs, rubs or gallops. Abdomen unremarkable and without evidence of organomegaly, masses, or abdominal aortic enlargement. Bowel sounds are present, abdomen is not distended. Extremities nonedematous, no cyanosis was noted, no clubbing was noted. Neuro: Cranial nerves II through XII are grossly intact, no focal motor deficits were noted, sensation to light touch and pinprick intact, motor exam 5/5 throughout. Psych: Patient is alert and oriented x3, he does not appear anxious or depressed, he does not appear agitated. Patient was felt stable for discharge home on 05/13/2024, he was set up for physical therapy as an outpatient by case management due to deficits from a previous stroke. Weight / BMI Weight Weight: 86 kg Body Mass Index (BMI) 27.1 ABG / Lab / Microbiology Data 05/13/24 06:06 05/13/24 06:06 Laboratory: Laboratory Results - last 24 hr 05/11/24 02:52: Crossmatch See Detail 05/13/24 06:06: WBC 6.9, RBC 4.61, Hgb 10.2 L, Hct 34.8 L, MCV 75.5 L, MCH 22.1 L, MCHC 29.3 L, RDW Std Deviation 57.8 H, RDW Coeff of Renny 21.7 H, Plt Count 280, MPV 9.5, Immature Gran % (Auto) 0.300, Neut % (Auto) 64.2, Lymph % (Auto) 16.7 L, Cotton % (Auto) 9.6, Eos % (Auto) 7.7 H, Baso % (Auto) 1.5 H, Absolute Neuts (auto) 4.4, Absolute Lymphs (auto) 1.15, Nucleated RBC % 0, Sodium 138, Potassium 3.8, Chloride 106, Carbon Dioxide 29.0, Anion Gap 3 L, BUN 10, Creatinine 0.97, Estim Creat Clear Calc 78.39, Est GFR (MDRD) Af Amer 100, Est GFR (MDRD) Non-Af 83, BUN/Creatinine Ratio 10.3, Glucose 96, Calcium 8.3 L, Total Bilirubin 0.60, AST 16, ALT 19, Alkaline Phosphatase 72, Total Protein 6.5, Albumin 3.1 L, Globulin 3.4, Albumin/Globulin Ratio 0.9 Microbiology: Microbiology 05/11/24 19:15 Stool Stool Occult Blood (CARIDAD) - Final Occult Blood Positive D/C Instructions Discharge Diet: No restrictions Weight Bearing Status: Full weight bearing Meaningful Use Info Meaningful Use Meaningful Use Diagnoses (Choose all that apply): None applicable Ischemic Stroke Statin Dosing Therapy Reference: STATIN DOSE THERAPY REFERENCE: * Patients > 75 years receive moderate or high dose statin therapy. * Patients 75 years or YOUNGER should receive HIGH intensity statin dose unless contraindicated. You will be required to document reason for non-treatment if statin daily dose does not meet guidelines. HIGH DOSE STATIN THERAPY DAILY Atorvastatin > than or = to 40 mg Rosuvastatin > than or = to 20 mg Amlodipine + Atorvastatin > than or = to 2.5/40 mg Ezetimibe + Simvastatin 10/80 mg Simvastatin 80mg Discharge Plan Admission Admit Date/Time: 05/11/24 14:49 Primary Reason for Your Visit: chest pain, anemia Attending Provider: Palmer Uriarte Primary Care Provider: Anuradha Davis Consulting Providers: Elia Adam Instructions Additional Instructions / Restrictions: Reduce your metoprolol 25 mg to one half of a tab twice a day Discharge Orders/Prescriptions Prescriptions: New omeprazole 40 mg capsule,delayed release(DR/EC) 40 mg PO DAILY Qty: 30 1RF Continued aspirin 81 mg tablet,delayed release (DR/EC) 81 mg PO DAILY@0800 Qty: 90 3RF atorvastatin 80 mg tablet 80 mg PO QHS Qty: 90 3RF clopidogrel 75 mg tablet 75 mg PO DAILY Qty: 90 3RF tamsulosin [Flomax] 0.4 mg capsule 0.8 mg PO QHS Patient Comments: Take 1 capsule by mouth daily at bedtime. lisinopril 5 mg tablet 5 mg PO DAILY Qty: 90 3RF Rx Instructions: Hold for SBP less than 130 mmHg nitroglycerin 0.4 mg Tablet, Sublingual 0.4 mg sublingual Q5M PRN (Reason: CHEST PAIN) Qty: 30 0RF finasteride 5 mg tablet 5 mg PO DAILY Qty: 30 0RF gabapentin 600 mg tablet 600 mg PO TID sertraline 50 mg tablet 50 mg PO QHS metoprolol tartrate 25 mg tablet 25 mg PO BID acetaminophen 500 mg capsule 500 mg PO Q6H PRN (Reason: pain) magnesium citrate Solution 150 ml PO DAILY PRN (Reason: constipation) Qty: 296 0RF sennosides-docusate sodium [Stool Softener-Stimulant Laxat] 8.6-50 mg Tablet 1 tab PO PRN Discontinued pantoprazole [Protonix] 40 mg tablet,delayed release (DR/EC) 40 mg PO BIDCM Qty: 60 0RF omeprazole 20 mg tablet,delayed release (DR/EC) 20 mg PO DAILY PRN (Reason: stomach upset) Referrals / Follow Up: Stacy Grider MD [Med Staff - Active Staff] - See Referral Note (Next week, get another CBC performed to recheck your hemoglobin) Anuradha Davis, PA [Primary Care Provider] - Disposition Disposition (needs filled in before D/C Order can be placed): Home, Self Care Charges/Coding Visit Charges Inpatient E&M: 57339 Disch Hosp >30min
[2024-05-13 15:13] VITALS: BP 126/59; PULSE 58; RESP 16; TEMP 36.7; O2SAT 95
[2024-05-13] MEDS: Gabapentin 600 MG Tablet PO (15:19)
--- NOTE | 2024-05-13 15:52 | CASEMGMT ---
MARCUS RODAS NOTE: Therapy evals reviewed and additional therapy recommended. MARCUS RODAS to room. Introduced self and role. Pt/sig other interested in OP therapy. Script received from Dr Mancilla and given to sig other. Made aware they can take to location of choice. She states pt has been to [facility] in the past and he will most likely go there. She states he will handle scheduling the appts. She voiced interest in [facility] information. Provided at this time along w/contact #. She voices appreciation. Zunilda KUMAR RN CM
== END 2024-05-13 16:04 | disposition home or self-care (01) | DRG 812 ==
LOC: ED 17:21 → PCU 17:26
PROVIDERS: Family Medicine; Internal Medicine Gastroenterology; Admitting Provider Internal Medicine; Emergency Provider Emergency Medicine; PCP Physician Assistant; Visit Provider Internal Medicine
PROC: 0DJ08ZZ Inspection of Upper Intestinal Tract, Via Natural or Artificial Opening Endoscopic (ICD-10-PCS; CPT 43235; principal; 2024-05-12 11:25)
DX: D50.9 Iron deficiency anemia, unspecified (principal); N13.8 Other obstructive and reflux uropathy; E11.40 Type 2 diabetes mellitus with diabetic neuropathy, unspecified; I95.2 Hypotension due to drugs; I10 Essential (primary) hypertension; E78.5 Hyperlipidemia, unspecified; E87.6 Hypokalemia; K29.80 Duodenitis without bleeding; K44.9 Diaphragmatic hernia without obstruction or gangrene; I25.5 Ischemic cardiomyopathy; I25.10 Atherosclerotic heart disease of native coronary artery without angina pectoris; I25.2 Old myocardial infarction; F17.210 Nicotine dependence, cigarettes, uncomplicated; K21.9 Gastro-esophageal reflux disease without esophagitis; T46.3X5A Adverse effect of coronary vasodilators, initial encounter; N40.1 Benign prostatic hyperplasia with lower urinary tract symptoms; R07.89 Other chest pain; R55 Syncope and collapse; Z66 Do not resuscitate; Z79.82 Long term (current) use of aspirin; Z79.02 Long term (current) use of antithrombotics/antiplatelets; Z79.899 Other long term (current) drug therapy; Z86.73 Personal history of transient ischemic attack (TIA), and cerebral infarction without residual deficits; Z95.5 Presence of coronary angioplasty implant and graft
CPT/HCPCS: 36415; 71045; 71275; 74018; 78452; 80048; 80053; 82274; 83735; 84100; 84443; 84450; 84460; 84484; 85014; 85018; 85025; 85610; 85730; 86850; 86900; 86901; 86920; 88305; 93005; 93017; 94668; 97162; 97165; 99284; A9500; J7030; J7040; J7120; P9016; Q9967; A4216; J2405; J2785